=== PATIENT | female | born 1935 | race Caucasian/White ===

== ENCOUNTER → 2025-01-31 | Outpatient (REF) | payer SELFPAY ==
[2025-01-31 09:44] LABS: Hematocrit 36.8 % (37-47); Hemoglobin 12.3 g/dL (12.0-15.0); Mean Corp Hgb Conc 33.4 g/dL (32-36); Mean Corpuscular Volume 94.8 fL (81-99); Mean Platelet Vol. 10.6 fl (6.2-12.0); Platelet Count 170 K/mm3 (150-450); RBC Distribution Width CV 13.0 % (11.6-14.6); RBC Distribution Width SD 45.0 fl (35.1-43.9); Red Blood Count 3.88 M/mm3 (4.2-5.4); White Blood Count 3.4 K/mm3 (4.4-11.0)
[2025-01-31 10:18] LABS: AST(SGOT) 30 U/L (<=31); Alanine Aminotransfer ALT/SGPT 18 U/L (<=34); Albumin, Serum 4.1 g/dL (3.4-4.8); Alkaline Phosphatase 68 U/L (35-104); Anion Gap 11 (5-15); BUN 19 mg/dL (4-19); BUN/Creat Ratio 21.6 RATIO (10-20); Calcium,Total 9.1 mg/dL (7.6-11.0); Carbon Dioxide 22.5 mmol/L (21.0-32.0); Chloride 104 mmol/L (98-108); Globulin 1.9 g/dL (2.2-4.2); Glucose 120 mg/dL (70-99); Potassium 4.0 mmol/L (3.3-5.1)
== END ==
LOC: OLS.ACH2 05:00
PROVIDERS: Visit Provider Internal Medicine
DX: I10 Essential (primary) hypertension (principal)
CPT/HCPCS: 36415; 80053; 85027

== ENCOUNTER → 2025-04-25 05:00 | Outpatient (REF) | payer MEDICARE, SELFPAY ==
--- OUTSIDE RECORDS SUMMARY | 2025-04-25 04:32 | XMS RPT_ITS | CCD ---
Author Organization [facility] Care Team Providers Care Patient Assistant Name Role Phone Loki Ornelas Primary Care Provider [phone] Martín Urena DO F Primary Care Provider Kleber Demarco DO Unavailable Martín Urena DO F Primary Care Provider Kleber Demarco DO E Unavailable [phone] LOKI ORNELAS Primary Care Unavailable MANUEL BAKER, HARMAN Attending Unavailable MANUEL BAKER, HARMAN Attending Unavailable LOKI ORNELAS Primary Care Unavailable Martín Urena DO Primary Care Provider Kleber Demarco DO E Unavailable Loki Ornelas DO Primary Care Provider MARTÍN URENA Attending Unavailable CATHYA, MARTÍN Primary Care Unavailable CATHYA, MARTÍN Primary Care Unavailable KLEBER DEMARCO Attending Unavailable MARTÍN URENA Primary Care Unavailable MARTÍN URENA Attending Unavailable MARTÍN URENA Referring Unavailable SAADLLA, MARTÍN Primary Care Unavailable CATHYAMARTÍN Attending Unavailable CATHYA MARTÍN Primary Care Unavailable CATHYA, MARTÍN Primary Care Unavailable Latrell Raphael Attending Unavailable Medications Current Medications Medication Drug Class(es) Dates Sig (Normalized) Sig (Original) aspirin 81 mg delayed release oral tablet (20 sources) Platelet Aggregation Inhibitor, Nonsteroidal Anti-inflammatory Drug take 1 tablet by mouth once daily aspirin EC 81 MG EC tablet Take 81 mg by mouth daily. Active brimonidine tartrate 2 mg/ml / timolol 5 mg/ml ophthalmic solution (20 sources) alpha-Adrenergic Agonist, beta-Adrenergic Brielle Start: 04-23-2022 take 1 drop(s) into the eye(s) every twelve hours Combigan 0.2-0.5 % ophthalmic solution Administer 1 drop into the left eye in the morning and 1 drop in the evening. 04/23/2022 Active Start: 04-23-2022 Combigan 0.2-0 .5 % ophthalmic solution Start: 02-12-2019 COMBIGAN 0.2-0 .5 % ophthalmic solution dorzolamide 20 mg/ml / timolol 5 mg/ml ophthalmic solution (10 sources) Carbonic Anhydrase Inhibitor, beta-Adrenergic Brielle Start: 08-23-2024 dorzolamide-timolol (Cosopt) 2-0.5 % ophthalmic solution 08/23/2024 Active labetalol hydrochloride 100 mg oral tablet (20 sources) beta-Adrenergic Brielle Start: 02-07-2022 End: 12-16-2024 labetalol (Normodyne) 100 MG tablet TAKE 1 TABLET TWICE DAILY 180 tablet 3 12/16/2024 Active Start: 08-09-2021 take 1 tablet by darrel th twice daily labetalol (NORMODYNE) 100 MG tablet Take 1 tablet by mouth 2 times daily 60 tablet 3 08/09/2021 Active latanoprost 0.05 mg/ml ophthalmic solution (20 sources) Prostaglandin Analog Start: 05-07-2022 take 1 drop(s) into the eye(s) once daily latanoprost (Xalatan) 0.005 % ophthalmic solution Administer 1 drop into the left eye Nightly. 05/07/2022 Active Start: 05-07-2022 latanoprost (X alatan) 0.005 % ophthalmic solution Start: 01-04-2019 latanoprost (X ALATAN) 0.005 % ophthalmic solution latanoprostene bunod 0.24 mg/ml ophthalmic solution (20 sources) Latanoprostene B unod (Vyzulta) 0.024 % solution Administer 0.024 % into affected eye(s) 1 (one) time each day. Active losartan potassium 25 mg oral tablet (20 sources) Angiotensin 2 Receptor Brielle Start: 05-10-2024 End: 02-28-2025 losartan (Cozaar) 25 MG tablet Indications: Primary hypertension TAKE 1 TABLET TWICE DAILY (DOSE CHANGE) 180 tablet 1 02/28/2025 Active Start: 05-06-2024 losartan (Coza ar) 25 MG tablet Indications: Primary hypertension Change to one BID 180 tablet 1 05/06/2024 Active Start: 01-08-2024 End: 07-06-2024 take 1 tablet by mouth once daily in the evening losartan (Cozaar) 25 MG tablet Indications: Primary hypertension Take 1 tablet (25 mg) by mouth every evening. 90 tablet 1 01/08/2024 05/06/2024 Discontinued (Dose adjustment) Start: 12-08-2023 End: 07-06-2024 take 1 tablet by mouth once daily losartan (Cozaar) 50 MG tablet Indications: Primary hypertension Take 1 tablet (50 mg) by mouth daily. 90 tablet 1 01/08/2024 05/06/2024 Discontinued (Dose adjustment) melatonin 10 mg extended release oral tablet (20 sources) take 10 mg by mouth once daily MELATONIN PO Take 10 mg by mouth daily. Active MELATONIN PO Reese e by mouth. 0 Active Multiple Vitamin (Multi-Vitamin Daily) tablet (20 sources) take 1 tablet by darrel th once daily Multiple Vitamin (Multi-Vitamin Daily) tablet Take 1 tablet by mouth daily. Active take 1 tablet by mouth once jaquelin y Multiple Vitamin (Multi-Vitamin Daily) tablet Take 1 tablet by mouth daily. 0 Active Multiple Vitamin (MULTI-VITAMIN DAILY) TABS (3 sources) take 1 tablet by mouth once daily Multiple Vitamin (MULTI-VITAMIN DAILY) TABS Take 1 tablet by mouth daily 0 Active netarsudil 0.2 mg/ml ophthalmic solution (20 sources) Rho Kinase Inhibitor Start: 024 Rhopressa 0.02 % solution 09/12/2023 Active ofloxacin 3 mg/ml ophthalmic solution (1 source) Quinolone Antimicrobial Start: 022 ofloxacin (OCUFLOX) 0.3 % solution Instill 1 drop into right eye six times a day Start after surgery, bring unopened bottle with you to surgery. 0 08/06/2021 Active prednisoLONE acetate 10 mg/ml ophthalmic suspension (1 source) Corticosteroid Start: 022 prednisoLONE acetate (PRED FORTE) 1 % ophthalmic suspension Instill 1 drop into right eye six times a day Start after surgery, bring unopened bottle with you to surgery. 0 08/06/2021 Active Completed/Discontinued Medications Medication Drug Class(es) Dates Sig (Normalized) Sig (Original) acetaminophen 325 mg oral tablet (8 sources) Start: 11-21-2022 End: 11-21-2022 acetaminophen (Tylenol) tablet 650 mg Start: 11-13-2022 End: 11-13-2022 acetaminophen (Tylenol) tabl et 650 mg Start: 11-06-2022 End: 11-06-2022 acetaminophen (Tylenol) tabl et 650 mg Start: 08-15-2022 End: 08-15-2022 acetaminophen (Tylenol) tabl et 1,000 mg calcium chloride 0.0014 meq/ml / potassium chloride 0.004 meq/ml / sodium chloride 0.103 meq/ml / sodium lactate 0.028 meq/ml injectable solution (5 sources) Start: 08-15-2022 End: 08-15-2022 lactated ringers infusion 1 ml dexamethasone phosphate 4 mg/ml injection (1 source) Corticosteroid Start: 08-15-2022 End: 08-15-2022 dexAMETHasone (Decadron) injection dexmedetomidine 0.1 mg/ml injectable solution (1 source) Central alpha-2 Adrenergic Agonist Start: 08-15-2022 End: 08-15-2022 dexmedeTOMIDine (Precedex) concentrated solution 1 ml diphenhydrAMINE hydrochloride 50 mg/ml cartridge (2 sources) Histamine-1 Receptor Antagonist Start: 08-15-2022 End: 08-15-2022 diphenhydrAMINE (BENADryl) injection 12.5 mg diphenhydrAMINE (BENADryl) 25 mg, famotidine (Pepcid) 20 mg in sodium chloride 0.9 % 50 mL IVPB (6 sources) Start: 11-21-2022 End: 11-21-2022 diphenhydrAMINE (BENADryl) 25 mg, famotidine (Pepcid) 20 mg in sodium chloride 0.9 % 50 mL IVPB Start: 11-13-2022 End: 11-13-2022 diphenhydrAMINE (BENADryl) 2 5 mg, famotidine (Pepcid) 20 mg in sodium chloride 0.9 % 50 mL IVPB Start: 11-06-2022 End: 11-06-2022 diphenhydrAMINE (BENADryl) 2 5 mg, famotidine (Pepcid) 20 mg in sodium chloride 0.9 % 50 mL IVPB 10 ml esmolol hydrochloride 10 mg/ml injection (1 source) beta-Adrenergic Brielle Start: 08-15-2022 End: 08-15-2022 esmolol (Brevibloc) injection F18 FDG radio-isotope injection 12 millicurie (2 sources) Start: 01-02-2023 End: 01-02-2023 F18 FDG radio-isotope injection 12 millicurie 2 ml fentaNYL 0.05 mg/ml injection (4 sources) Opioid Agonist Start: 08-15-2022 End: 08-15-2022 fentaNYL (Sublimaze) injection 50 mcg Start: 08-15-2022 End: 08-15-2022 fentaNYL (Sublimaze) injecti on 25 mcg Iopamidol (1 source) Radiographic Contrast Agent Start: 03-12-2019 End: 03-12-2019 iopamidol (ISOVUE-370) 76 % injection 75 mL iopamidol (ISOVUE-370) 76 % injection 75 mL (1 source) Start: 11-14-2021 End: 11-14-2021 iopamidol (ISOVUE-370) 76 % injection 75 mL ketamine 10 mg/ml injectable solution (1 source) General Anesthetic Start: 08-15-2022 End: 08-15-2022 ketamine (Ketalar) injection labetalol (Normodyne,Trandate ) injection 5 mg (2 sources) Start: 08-15-2022 End: 08-15-2022 labetalol (Normodyne,Trandat e) injection 5 mg 10 ml lidocaine hydrochloride 20 mg/ml injection (1 source) Antiarrhythmic, Amide Local Anesthetic Start: 08-15-2022 End: 08-15-2022 lidocaine PF (Xylocaine) 2 % injection lisinopril 10 mg oral tablet (2 sources) Angiotensin Converting Enzyme Inhibitor Start: 11-26-2023 End: 05-24-2024 take 1 tablet by mouth once daily lisinopril 10 MG tablet Take 1 tablet (10 mg) by mouth daily. 30 tablet 2 11/26/2023 12/08/2023 Discontinued (Side effects) 1 ml LORazepam 2 mg/ml injection (2 sources) Benzodiazepine Start: 08-15-2022 End: 08-15-2022 LORazepam (Ativan) injection 0.5 mg ondansetron 8 mg oral tablet (8 sources) Serotonin-3 Receptor Antagonist Start: 10-22-2022 End: 11-06-2022 take 1 tablet by mouth every eight hours as needed for nausea ondansetron (Zofran) 8 MG tablet Indications: Follicular lymphoma, unspecified follicular lymphoma type, unspecified body region (HCC) Take 1 tablet (8 mg) by mouth every 8 hours as needed for nausea or vomiting for up to 15 days. 30 tablet 0 10/22/2022 11/06/2022 Start: 08-15-2022 End: 08-15-2022 ondansetron (Zofran) injecti on 4 mg Start: 08-15-2022 End: 08-15-2022 ondansetron (Zofran) injecti on oxyCODONE (2 sources) Opioid Agonist Start: 08-15-2022 End: 08-15-2022 oxyCODONE (Roxicodone) immediate release tablet 5 mg 1 ml phenylephrine hydrochloride 10 mg/ml injection (1 source) alpha-1 Adrenergic Agonist Start: 08-15-2022 End: 08-15-2022 phenylephrine (Paco-Synephrine) injection 50 ml propofol 10 mg/ml injection (1 source) General Anesthetic Start: 08-15-2022 End: 08-15-2022 propofol (Diprivan) 10 mg/mL infusion riTUXimab-pvvr (Ruxience) 600 mg in sodium chloride 0.9 % 500 mL chemo IVPB (6 sources) Start: 11-21-2022 End: 11-21-2022 riTUXimab-pvvr (Ruxience) 600 mg in sodium chloride 0.9 % 500 mL chemo IVPB Start: 11-13-2022 End: 11-13-2022 riTUXimab-pvvr (Ruxience) 60 0 mg in sodium chloride 0.9 % 500 mL chemo IVPB Start: 11-06-2022 End: 11-06-2022 riTUXimab-pvvr (Ruxience) 60 0 mg in sodium chloride 0.9 % 500 mL chemo IVPB 1000 ml sodium chloride 9 mg /ml injection (20 sources) Start: 11-21-2022 End: 11-21-2022 sodium chloride 0.9 % infusi on Start: 11-13-2022 End: 11-13-2022 sodium chloride 0.9 % infusi on Start: 11-06-2022 End: 11-06-2022 sodium chloride 0.9 % infusi on Start: 08-15-2022 End: 08-15-2022 sodium chloride 0.9% (NS) fl ush 10 mL Start: 08-15-2022 End: 08-15-2022 sodium chloride 0.9% (NS) fl ush 10 mL Start: 08-15-2022 End: 08-15-2022 sodium chloride 0.9 % bolus 500 mL Start: 08-15-2022 End: 08-15-2022 sodium chloride 0.9 % infusi on Start: 08-15-2022 End: 08-15-2022 sodium chloride 0.9% (NS) fl ush 10 mL Problems Active Problems Problem Classification Problem Date Documented Date Episodic/Chronic Essential hypertension (20 sources) Essential hypertension; Translations: [Essential (primary) hypertension] Onset: 10-03-2022 10-03-2022 Chronic Glaucoma (18 sources) Bilateral glaucoma; Translations: [Unspecified glaucoma] Onset: 03-24-2024 03-24-2024 Chronic Heart valve disorders (20 sources) Aortic valve stenosis; Translations: [Nonrheumatic aortic (valve) stenosis] Onset: 10-03-2022 10-03-2022 Chronic Lymphadenitis (2 sources) Chronic lymphadenitis; Translations: [Chronic lymphadenitis, except mesenteric] Chronic Non-Hodgkin`s lymphoma (20 sources) Follicular non-Hodgkin's lymphoma; Translations: [Follicular lymphoma, unspecified, lymph nodes of head, face, and neck] Onset: 10-03-2022 Chronic Other acquired deformities (1 source) Contracture of joint of left hand; Translations: [Contracture, left hand] 09-28-2024 Chronic Other acquired deformities (2 sources) Contracture, left hand; Translations: [Contracture, left hand] Onset: 09-28-2024 Chronic Other skin disorders (2 sources) Mass of neck; Translations: [Localized swelling, mass and lump, neck] Episodic Other skin disorders (1 source) Alopecia; Translations: [Nonscarring hair loss, unspecified] 09-24-2023 Episodic Prolapse of female genital organs (15 sources) Uterovaginal prolapse, unspecified; Translations: [Uterovaginal prolapse, unspecified] Onset: 05-12-2016 03-24-2024 Chronic Residual codes; unclassified (15 sources) Family history of cancer of colon; Translations: [Family history of malignant neoplasm of digestive organs] 03-24-2024 Episodic Spondylosis; intervertebral disc disorders; other back problems (20 sources) Disorder of lumbar disc; Translations: [Unspecified thoracic, thoracolumbar and lumbosacral intervertebral disc disorder] Onset: 03-24-2024 03-24-2024 Chronic Thyroid disorders (18 sources) Non-toxic uninodular goiter; Translations: [Nontoxic single thyroid nodule] Onset: 05-12-2016 Chronic Past or Other Problems Problem Classification Problem Date Documented Da te Episodic/Chronic Abdominal pain (1 source) Abdominal pain; Translations: [Abdominal pain, unspecified abdominal location] Episodic Conditions associated with dizziness or vertigo (3 sources) Lightheadedness; Translations: [Dizziness and giddiness] Episodic Diseases of mouth; excluding dental (1 source) Hypertrophy of parotid gland; Translations: [Hypertrophy of salivary gland] Episodic Heart valve disorders (3 sources) Heart murmur; Translations: [Cardiac murmur, unspecified] Episodic Other circulatory disease (1 source) Carotid bruit; Translations: [Bruit of right carotid artery] Episodic Other gastrointestinal disorders (1 source) Abdominal mass; Translations: [Abdominal mass, unspecified abdominal location] Episodic Other screening for suspected conditions (not mental disorders or infectious disease) (3 sources) Patient encounter status; Translations: [Encounter for screening for other suspected endocrine disorder] Onset: 09-28-2024 09-28-2024 Episodic Results Test Name Value Interpretation Reference Range Facility 36 02-28-2025 36 Recent Visits Date Type Provider Dept 09/28/24 Office Visit Martín Urena DO [facility] 03/24/24 Office Visit Martín Urena DO [facility] Showing recent visits within past 365 days and meeting all other requirements Future Appointments Date Type Provider Dept 03/31/25 Appointment Martín Urena DO [facility] Showing future appointments within next 90 days and meeting all other requirements Requested Prescriptions Pending Prescriptions Disp Refills losartan (Cozaar) 25 MG tablet [Pharmacy Med Name: LOSARTAN POTASSIUM 25 MG Oral Tablet] 180 tablet 3 Sig: TAKE 1 TABLET TWICE DAILY (DOSE CHANGE) Provider: Martín Urena DO Verified pharmacy: yes Verified day(s) supplied: yes Verified refill(s) needed (previous prescription showing no refills in chart): Yes Have you received any controlled medications from any other provider? N/A Overdue for visit: N/A If yes - patient scheduled? N/A Most recent labs completed in chart? N/A None Normal [facility] CBC-Complete Blood Cnt No Di ffon 01-31-2025 Erythrocyte distribution width (RBC) [Ratio] 13.0 % Normal 11.6-14.6 [facility] Comment on above: Order Comment: 52-1 Performed By: #### L 500.4050, L100.0500 #### [facility] [address] [place], [address] Hematocrit (Bld) [Volume fraction] 36.8 % Low 37-47 [facility] Comment on above: Order Comment: 52-1 Performed By: #### L 500.4050, L100.0500 #### [facility] [address] [place], [address] Hemoglobin (Bld) [Mass/Vol] 12.3 g/dL Normal 12.0-15.0 [facility] Comment on above: Order Comment: 52-1 Performed By: #### L 500.4050, L100.0500 #### [facility] [address] [place], [address] MCH (RBC) [Entitic mass] 31.7 pg Normal 27.0-32.0 [facility] Comment on above: Order Comment: 521-1 Performed By: #### L [id number], L100.0500 #### [facility] [address] [place], [address] MCHC (RBC) [Mass/Vol] 33.4 g/dL Normal 32-36 [facility] Comment on above: Order Comment: 521-1 Performed By: #### L 500.4050, L100.0500 #### [facility] [address] [place], [address] MCV (RBC) [Entitic vol] 94.8 fL Normal 81-99 [facility] Comment on above: Order Comment: 521-1 Performed By: #### L 500.4050, L100.0500 #### [facility] [address] [place], [address] Platelet mean volume (Bld) [Entitic vol] 10.6 fL Normal 6.2-12.0 [facility] Comment on above: Order Comment: 521-1 Performed By: #### L 500.4050, L100.0500 #### [facility] [address] [place], [address] Platelets (Bld) [#/Vol] 170 10*3/uL Normal 150-450 [facility] Comment on above: Order Comment: 521-1 Performed By: #### L 500.4050, L100.0500 #### [facility] [address] [place], [address] RBC (Bld) [#/Vol] 3.88 10*6/uL Low 4.2-5.4 [facility] Comment on above: Order Comment: 521-1 Performed By: #### L 500.4050, L100.0500 #### [facility] [address] [place], [address] RDW SD 45.0 fl High 35.1-43.9 [facility] Comment on above: Order Comment: 521-1 Performed By: #### L 500.4050, L100.0500 #### [facility] [address] [place], [address] WBC (Bld) [#/Vol] 3.4 10*3/uL Low 4.4-11.0 [facility] Comment on above: Order Comment: 521-1 Performed By: #### L 500.4050, L100.0500 #### [facility] [address] [place], [address] Comprehensive Metabolic Prof ilon 01-31-2025 Albumin [Mass/Vol] 4.1 g/dL Normal 3.4-4.8 [facility] Comment on above: Order Comment: 521-1 Performed By: #### L 500.4050, L100.0500 #### [facility] [address] [place], [address] Albumin/Globulin [Mass ratio] 2.2 {ratio} Normal 0.9-2.4 [facility] Comment on above: Order Comment: 521-1 Performed By: #### L 500.4050, L100.0500 #### [facility] [address] [place], [address] ALK PHOS 68 U/L Normal 35-104 [facility] Comment on above: Order Comment: 521-1 Performed By: #### L 500.4050, L100.0500 #### [facility] [address] [place], [address] ALT [Catalytic activity/Vol] 18 U/L Normal <=34 [facility] Comment on above: Order Comment: 521-1 Performed By: #### L 500.4050, L100.0500 #### [facility] [address] [place], [address] AST [Catalytic activity/Vol] 30 U/L Normal <=31 [facility] Comment on above: Order Comment: 521-1 Performed By: #### L 500.4050, L100.0500 #### [facility] [address] [place], [address] Bilirubin [Mass/Vol] 0.48 mg/dL Normal 0.00-1.30 [facility] Comment on above: Order Comment: 521-1 Performed By: #### L 500.4050, L100.0500 #### [facility] [address] [place], [address] BUN/CRE 21.6 RATIO High 10-20 [facility] Comment on above: Order Comment: 521-1 Performed By: #### L 500.4050, L100.0500 #### [facility] [address] [place], [address] Calcium [Mass/Vol] 9.1 mg/dL Normal 7.6-11.0 [facility] Comment on above: Order Comment: 521-1 Performed By: #### L 500.4050, L100.0500 #### [facility] [address] [place], [address] Chloride [Moles/Vol] 104 mmol/L Normal 98-108 [facility] Comment on above: Order Comment: 521-1 Performed By: #### L 500.4050, L100.0500 #### [facility] [address] [place], [address] CO2 [Moles/Vol] 22.5 mmol/L Normal 21.0-32.0 [facility] Comment on above: Order Comment: 521-1 Performed By: #### L 500.4050, L100.0500 #### [facility] [address] [place], [address] Creatinine [Mass/Vol] 0.90 mg/dL Normal 0.70-1.20 [facility] Comment on above: Order Comment: 521-1 Performed By: #### L 500.4050, L100.0500 #### [facility] [address] [place], [address] GAP 11 Normal 5-15 [facility] Comment on above: Order Comment: 521-1 Performed By: #### L 500.4050, L100.0500 #### [facility] [address] [place], [address] GFR/1.73 sq M.predicted among non-blacks MDRD (S/P/Bld) [Vol rate/Area] 61 mL/min/{1.73_m2} Normal >60 [facility] Comment on above: Order Comment: Result Comment: mL/m in/1.73m2 CKD-EPI Creatinine Equation (2020) Performed By: #### L 500.4050, L100.0500 #### [facility] [address] [place], [address] Globulin (S) [Mass/Vol] 1.9 g/dL Low 2.2-4.2 [facility] Comment on above: Order Comment: Performed By: #### L 500.4050, L100.0500 #### [facility] [address] [place], [address] Glucose [Mass/Vol] 120 mg/dL High 70-99 [facility] Comment on above: Order Comment: - Performed By: #### L 500.4050, L100.0500 #### [facility] [address] [place], [address] Potassium [Moles/Vol] 4.0 mmol/L Normal 3.3-5.1 [facility] Comment on above: Order Comment: - Performed By: #### L 500.4050, L100.0500 #### [facility] [address] [place], [address] Sodium [Moles/Vol] 137 mmol/L Normal 133-145 [facility] Comment on above: Order Comment: - Performed By: #### L 500.4050, L100.0500 #### [facility] [address] [place], [address] T PROT 6.0 g/dL Normal 5.9-8.4 [facility] Comment on above: Order Comment: 521-1 Performed By: #### L 500.4050, L100.0500 #### [facility] [address] [place], [place], [address] Urea nitrogen [Mass/Vol] 19 mg/dL Normal 4-19 [facility] Comment on above: Order Comment: 521-1 Performed By: #### L 500.4050, L100.0500 #### [facility] [address] [place], [place], [id number] 36on 01-24-2025 36 Your fax has been successfully sent to [facility] at [phone]. From: [facility] 01/24/2025 8:55:50 AM Origin Record Created by ESTELLE 01/24/2025 8:55:54 AM Conversion [[id number]] Type: application/postscript G3 to TIFF #1: Success [image/g3] (29ms) GhostScript TIFF #1: Success [image/tiff] (222ms) ([id number]:WORKSRV 2) 01/24/2025 8:56:03 AM Conversion Successfully created cover sheet. Type: application/vnd.openxm lformats-officedocumen t.wordprocessingml.doc ument G3 to TIFF #1: Success [image/g3] (10ms) GhostScript TIFF #1: Success [image/tiff] (80ms) Resubmitted: [application/postscrip t] Word Automation #1: Success [image/g3] (1752ms) ([id number]:WORKSRV 1) 01/24/2025 8:56:06 AM Transmission Record Sent to [phone] with remote ID [id number] Result: Success Page record: Elapsed time: 05:02 on channel 49 [facility] 36 refaxed [facility] 36 Name of caller: Elizabeth naranjo Contact phone number: [phone] Relationship to Patient: [facility] Provider: Romel Practice: Ro Chief Complaint/Reason for Call: Elizabethmarcella stated they did not receive the office notes. Please Advise. Best time of day caller can be reached: Any Patient advised that office/PCP has 24-48 business hours to return their call: Yes [facility] 36on 01-20-2025 36 Faxed H&P no DNR on file [facility] 36 Name of caller: Elizabeth naranjo Contact phone number: [phone] Relationship to Patient: [facility] Provider: Dr Urena Practice: [facility] Chief Complaint/Reason for Call: Pt is getting transferred to [facility] on Friday. They are asking for an H&P and any info on DNR to be faxed to them. F#[phone] Best time of day caller can be reached: AM Patient advised that office/PCP has 24-48 business hours to return their call: Yes [facility] 36on 12-29-2024 36 Spoke with pt, I let her know DR. Urena is out on medical leave at this time, she said they will go through the provider at the home/facility [facility] 36 Name of caller: Amanda Pappas Contact phone number: [phone] Relationship to Patient: patient Provider: Dr Urena Practice: [facility] Chief Complaint/Reason for Call: Patient stated that they are wanting to move to the [facility] by 02/09/2025, but they need to have a physical prior to moving there. Patient stated to please call back and let them know if they can get in to have this done. Please advise. Thank you. Best time of day caller can be reached: Any Patient advised that office/PCP has 24-48 business hours to return their call: No [facility] 36on 12-16-2024 36 Recent Visits Date Type Provider Dept 09/28/24 Office Visit Martín Urena, DO [facility] 03/24/24 Office Visit Martín Urena, DO [facility] 01/08/24 Office Visit Raymundo Manzano PA-C [facility] Showing recent visits within past 365 days and meeting all other requirements Future Appointments No visits were found meeting these conditions. Showing future appointments within next 90 days and meeting all other requirements Requested Prescriptions Pending Prescriptions Disp Refills labetalol (Normodyne) 100 MG tablet [Pharmacy Med Name: LABETALOL HYDROCHLORIDE 100 MG Oral Tablet] 180 tablet 3 Sig: TAKE 1 TABLET TWICE DAILY Provider: Martín Urena DO Verified pharmacy: yes Verified day(s) supplied: yes Verified refill(s) needed (previous prescription showing no refills in chart): Yes Have you received any controlled medications from any other provider? N/A Overdue for visit: No If yes - patient scheduled? Yes Most recent labs completed in chart? Yes Hypertension: Lab Results Component Value Date NA 139 11/21/2022 K 4.2 11/21/2022 EGFR 65 09/28/2024 BUN 21 09/28/2024 CREATININE 0.86 09/28/2024 [facility] 36on 10-11-2024 36 Message released to patient as written. Patient's further questions if applicable: Pt returned call from office. Read message as written. Pt expressed understanding and had no additional questions. Please advise Were all questions from office addressed or relayed to the patient from encounter: Yes [facility] Office Visiton 09-28-2024 Follow-up visit [id number] Shaina Pappas 1935 F Date Provider Department Center 09/28/2024 [id number] URENA [facility] Family History Adopted: Yes Problem Relation Age of Onset Pulmonary embolism Mother 30 Comments: DVT and PE No Known Problems Father Comments: unknown Colon cancer Sister Comments: age 70 No Known Problems Sister Comments: nonspecific causes No Known Problems Brother No Known Problems Brother No Known Problems Brother Comments: not close Family Status - Relation Status Age at Mother Father Sister Sister Brother Brother Brother Alive Level of Service:79049 CT OFFICE/OUTPATIENT ESTABLISHED MOD MDM 30 MIN Reason for Visit and Comments: Follow-up [659950] - Med Check Normal [facility] Progress Noteon 09-28-2024 Progress Note [facility] - [address] [facility] [address] Visit type: Established Patient Reason for Visit: Follow-up (Med Check ) Assessment / Plan: Ashley was seen today for follow-up. Diagnoses and all orders for this visit: Primary hypertension (Primary) Comments: stable, cont losartan and normodyne Orders: - CBC auto differential; Future - Comprehensive metabolic panel; Future - CBC auto differential - Comprehensive metabolic panel Follicular lymphoma, unspecified follicular lymphoma type, unspecified body region (HCC) Comments: Stable, follow-up yearly with oncology, check lab Lumbar disc disease Comments: New onset but resolved. Unsure of etiology. X-ray, observe OTC analgesics Orders: - XR lumbar spine 4-5 view; Future Thyroid disorder screening - TSH; Future - TSH Contracture of hand joint, left Comments: Mild, asymptomatic, callreferral if worsening Subjective: Patient ID: Ashley Pappas is a 89 y.o. female. HPI well-controlled hypertensive patient with history of follicular lymphoma of the posterior right side of her neck and salivary lesions has been feeling well on her meds. Blood pressure well at home. Does have a few questions she would like to ask. She has a painless change in the palm of her left hand and also had back pain on the right flank that lasted about a week a few weeks ago but was rather intense but resolved. Review of Systems no night sweats fevers or chills. No sense of adenopathy. No recent sore throat or cough. Denies chest pains dyspnea or palpitations or claudication. No abdominal pain. Eating and voiding well. No melena or blood. No constipation diarrhea. No dysuria. Right side her low back was painful for a week had resolved. No buttock or leg pain. No sciatica. No skin rash or shingles. Changes on the palmar right hand is painless. No trauma Allergies[1] Current Medications[2] Problem List[3] Social History Tobacco Use Smoking status: Never Smokeless tobacco: Never Substance Use Topics Alcohol use: No Surgical History[4] Family History[5] Objective: BP 124/68 Pulse 64 Temp 36.4 ?C (97.6 ?F) (Temporal) Ht 5' 3" (1.6 m) Wt 142 lb 12.8 oz (64.8 kg) SpO2 98% BMI 25.30 kg/m? Physical Exam The physical exam is generally normal. Patient appears well, alert and oriented x 3, pleasant, cooperative. Vitals are as noted. Neck supple, no abnormal adenopathy, thyroid lesions or masses.. No carotid bruits. Lungs are clear to auscultation. Heart is regular, with faint aortic stenotic murmur, but no gallops or ectopy. Abdomen is soft, non tender, without masses, hepatosplenomegaly, or bruits. Normal BS evident. Extremities are normal without edema. Mild painless contracture and tendon changes of the palmar left hand are evident. Full range of motion of fingers. Pulse color temperature normal/ No worrisome skin lesions. Screening neurological exam is normal without focal deficits. Fair range of motion of her spine. Pain was more on the right paraspinal muscle tissue. Nontender spinous processes. Negative straight leg raising bilaterally. Normal hip range of motion. Can walk on her heels and toes. No deficit in strength. Reflexes preserved [1] No Known Allergies [2] Current Outpatient Medications: aspirin EC 81 MG EC tablet, Take 81 mg by mouth daily., Disp: , Rfl: Combigan 0.2-0.5 % ophthalmic solution, Administer 1 drop into the left eye in the morning and 1 drop in the evening., Disp: , Rfl: dorzolamide-timolol (Cosopt) 2-0.5 % ophthalmic solution, , Disp: , Rfl: labetalol (Normodyne) 100 MG tablet, TAKE 1 TABLET TWICE DAILY, Disp: 180 tablet, Rfl: 1 latanoprost (Xalatan) 0.005 % ophthalmic solution, Administer 1 drop into the left eye Nightly., Disp: , Rfl: Latanoprostene Bunod (Vyzulta) 0.024 % solution, Administer 0.024 % into affected eye(s) 1 (one) time each day., Disp: , Rfl: losartan (Cozaar) 25 MG tablet, Change to one BID, Disp: 180 tablet, Rfl: 3 MELATONIN PO, Take 10 mg by mouth daily., Disp: , Rfl: Multiple Vitamin (Multi-Vitamin Daily) tablet, Take 1 tablet by mouth daily., Disp: , Rfl: Rhopressa 0.02 % solution, , Disp: , Rfl: [3] Patient Active Problem List Diagnosis Aortic valve stenosis Hypertension Follicular lymphoma (HCC) Family history of colon cancer Cystocele with uterine prolapse Glaucoma Lumbar disc disease Right thyroid nodule [4] Past Surgical History: Procedure Laterality Date ACHILLES TENDON SURGERY Left 1994 APPENDECTOMY 1982 BUNIONECTOMY Bilateral CARPAL TUNNEL RELEASE Bilateral 1994 decades ago CATARACT EXTRACTION Bilateral 2010 Dr. Smith trabelectmanuel also COLONOSCOPY 2011 HAND SURGERY Left 1994 metacarpal bone leak ? LUMBAR LAMINECTOMY 2003 [facility] [place] TOTAL KNEE ARTHROPLASTY Left 1994 UPPER GASTROINTESTINAL ENDOSCOPY [5] Family History Adopted: Yes Probl (more content not included)... [facility] 36 07-23-2024 36 Recent Visits Date Type Provider Dept 03/24/24 Office Visit Martín Urena DO [facility] 01/08/24 Office Visit Raymundo Manzano PA-C [facility] 12/08/23 Office Visit Raymundo Manzano PA-C [facility] 09/24/23 Office Visit Martín Urena DO [facility] Showing recent visits within past 365 days and meeting all other requirements Future Appointments Date Type Provider Dept 09/23/24 Appointment Martín Urena DO [facility] Showing future appointments within next 90 days and meeting all other requirements Requested Prescriptions Pending Prescriptions Disp Refills labetalol (Normodyne) 100 MG tablet [Pharmacy Med Name: Labetalol HCl Oral Tablet 100 MG] 180 tablet 1 Sig: TAKE 1 TABLET TWICE DAILY Provider: Martín Urena DO Verified pharmacy: yes Verified day(s) supplied: yes Verified refill(s) needed (previous prescription showing no refills in chart): Yes Have you received any controlled medications from any other provider? No Overdue for visit: No If yes - patient scheduled? Yes Most recent labs completed in chart? Yes Hypertension: Lab Results Component Value Date NA 139 11/21/2022 K 4.2 11/21/2022 EGFR 65 09/24/2023 BUN 19 09/24/2023 CREATININE 0.86 09/24/2023 [facility] Office Visiton 07-15-2024 Follow-up visit [id number] Shaina Pappas 1935 F Date Provider Department Center 07/15/2024 [id number] DEMARCO [facility] None Family History Adopted: Yes Problem Relation Age of Onset Pulmonary embolism Mother 30 Comments: DVT and PE No Known Problems Father Comments: unknown Colon cancer Sister Comments: age 70 No Known Problems Sister Comments: nonspecific causes No Known Problems Brother No Known Problems Brother No Known Problems Brother Comments: not close Family Status - Relation Status Age at Mother Father Sister Sister Brother Brother Brother Alive Level of Service:94806 CT OFFICE/OUTPATIENT ESTABLISHED LOW MDM 20 MIN Reason for Visit and Comments: Follow-up [609267] Normal [facility] Progress Noteon 07-15-2024 Progress Note Hematology/Oncology Office Visit Oncology History: 1) 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 Diagnosed via excisional right cervical lymph node biopsy on 08/15/22. - Patient presented with 2-3 years af an abnormal lymph node posterior right neck and enlargement of the right parotid gland. She denied any B symptoms. Excisional biopsy of a right posterior cervical lymph node on 08/15/22 confirmed follicular lymphoma low grade. - PET scan 10/11/22 showed bulky intensely FDG avid right parotid mass, with accumulation in the bilateral cervical chain, supraclavicular, axillary, and left internal mammary nodes, right temporal and left temporal occipital scalp, mild splenomegaly, and in the bones of the lower extremity. - systemic therapy with Rituxan weekly x 4 started 10/30/22. Cycle 4 11/21/22. - PET scan 01/02/23 showed no evidence of residual or recurrent FDG avid malignancy - observation recommended HPI: Ashley Pappas is a 88 y.o. female who comes in today for routine 6 month follow up. She has no new concerns today in regards to the lymphoma. She denies any new lymphadenopathy. She notes her eye sight has been poor and she is following with her field specialist regularly. She is accompanied by her daughter today. She denies any new cervical lymphadenopathy or fullness in the right parotid gland. No b symptoms. She denies any fevers, weight loss, change in appetite, night sweats. She continues to be very active and independent. Past Medical History: Diagnosis Date Aortic valve stenosis 10/03/2022 mod per ECHO 07/04, nml LVEF Cystocele with uterine prolapse [address]- removed 02/01 Family history of colon cancer Follicular lymphoma (HCC) 10/03/[address] Fu Hypertension 2020 Lumbar disc disease Right thyroid nodule 2017 Dr. Perry and FNA- no changes 2020 Past Surgical History: Procedure Laterality Date ACHILLES TENDON SURGERY Left 1994 APPENDECTOMY 1982 BUNIONECTOMY Bilateral CARPAL TUNNEL RELEASE Bilateral decades ago CATARACT EXTRACTION Bilateral 2010 Dr. Fu- trabelectomy also COLONOSCOPY 2011 HAND SURGERY Left metacarpal bone leak ? LUMBAR LAMINECTOMY [facility] TOTAL KNEE ARTHROPLASTY Left 1994 UPPER GASTROINTESTINAL ENDOSCOPY Patient Active Problem List Diagnosis Date Noted Family history of colon cancer Glaucoma Lumbar disc disease Aortic valve stenosis 10/03/2022 Hypertension 10/03/2022 Follicular lymphoma (HCC) 10/03/2022 Cystocele with uterine prolapse 2017 Right thyroid nodule 2017 Social History Tobacco Use Smoking status: Never Smokeless tobacco: Never Vaping Use Vaping status: Never Used Substance Use Topics Alcohol use: No Drug use: Never Family History Adopted: Yes Problem Relation Name Age of Onset Pulmonary embolism Mother 30 DVT and PE No Known Problems Father unknown Colon cancer Sister age 70 No Known Problems Sister nonspecific causes No Known Problems Brother No Known Problems Brother No Known Problems Brother not close No Known Allergies Current Outpatient Medications Medication Sig Dispense Refill aspirin EC 81 MG EC tablet Take 81 mg by mouth daily. Combigan 0.2-0.5 % ophthalmic solution Administer 1 drop into the left eye in the morning and 1 drop in the evening. labetalol (Normodyne) 100 MG tablet Take 1 tablet (100 mg) by mouth 2 times daily. 180 tablet 1 latanoprost (Xalatan) 0.005 % ophthalmic solution Administer 1 drop into the left eye Nightly. Latanoprostene Bunod (Vyzulta) 0.024 % solution Administer 0.024 % into affected eye(s) 1 (one) time each day. losartan (Cozaar) 25 MG tablet Change to one BID 180 tablet 3 MELATONIN PO Take 10 mg by mouth daily. Multiple Vitamin (Multi-Vitamin Daily) tablet Take 1 tablet by mouth daily. Rhopressa 0.02 % solution No current facility-administered medications for this visit. Review of Systems Constitutional: Negative for appetite change, chills, diaphoresis, fatigue, fever and unexpected weight change. HENT: Negative for dental problem, mouth sores, nosebleeds, sneezing, sore throat, tinnitus, trouble swallowing and voice change. Eyes: Negative for photophobia, pain and visual disturbance. Respiratory: Negative for cough, shortness of breath and wheezing. Cardiovascular: Negative for chest pain, palpitations and leg swelling. Gastrointestinal: Negative for abdominal distention, abdominal pain, blood in stool, constipation, diarrhea, nausea and vomiting. Endocrine: Negative for cold intolerance and heat intolerance. Genitourinary: Negative for difficulty urinating, frequency, hematuria and urgency. Musculoskeletal: Negative for arthralgias, back pain, gait problem and myalgias. Skin: Negative for pallor and rash. Allergic/Immunologic: Negative for immunocompromised state. Neurological: Negative for dizziness, syncope, weakness, light (more content not included)... [facility] Progress Noteon 05-06-2024 Progress Note Placed call to [facility] to discuss provider direction. Message left on voicemail to return call. A letter was mailed to last known address [facility] Progress Note Placed call to [facility] to discuss provider direction. Message left on voicemail to return call. A [employer] message was also sent [facility] Progress Note The patient, Ashley Pappas, identity was verified by name and . Supervising provider for clinic visit: Dr. Martín Urena No chief complaint on file. Reason for visit: Change in medication at last visit Ashley Pappas has validated current medications Patient states compliant with medications as written: Yes BP medication taken prior to this visit? Yes Are you having any symptoms? No Current Blood Pressure: 100/62 Current Heart Rate: 82 Did Blood Pressure need rechecked: no Second Blood Pressure Reading: Second Heart Rate: Assessment/Plan: There are no diagnoses linked to this encounter. normal Future Appointments Date Time Provider Department Center 07/15/2024 10:00 AM Kleber Demarco, DO [facility] None 09/16/2024 7:30 AM Martín Urena, DO [facility] 03/31/2025 8:00 AM Raymundo Manzano PA-C [facility] Cc'd provider blood pressure readings? Yes Normal [facility] Progress Note For her age this blo od pressure is too low. I recommend changing losartan to actually 25 mg twice a day. Recheck blood pressure with staff in about 6 weeks Normal [facility] 37on 03-24-2024 37 Personalized Preventative Plan for Ashley Pappas - 03/24/2024 Medicare offers a range of preventative health benefits. Some of the tests and screenings are paid in full while others may be subject to a deductible, co-insurance, and / or copay. Some of these benefits include a comprehensive review of your medical history including lifestyle, illnesses that may run in your family, and various assessments and screenings as appropriate. After reviewing your medical record and screening and assessments performed today, your provider may have ordered immunizations, labs, imaging, and / or referrals for you. A list of these orders (if applicable) as well as your Preventative Care list are included within your After Visit Summary for your review. Other Preventative Recommendations: A preventive eye exam by an bioinformatics support specialist is recommended every 1-2 years to screen for glaucoma, cataracts, macular degeneration, and other eye disorders. A preventive dental visit is recommended every 6 months. Try to get at least 150 minutes of exercise per week or 10,000 steps per day on a pedometer. You need 1200-1500mg of calcium and 9377-9400 international units of vitamin D per day. It is possible to meet your calcium requirement with diet alone, but a vitamin D supplement is usually necessary to meet this goal. When exposed to the sun, use a sunscreen that protects against both UVA and UVB radiation with an SPF of 30 or greater. Reapply every 2-3 hours or after sweating, drying off with a towel, or swimming. Always wear a seat belt when traveling in a car. Always wear a helmet when riding a bicycle or a motorcycle Normal [facility] Office Visiton 03-24-2024 Follow-up visit [id number] Shaina Pappas 1935 F Date Provider Department Center 03/24/2024 [id number] URENA [facility] Family History Adopted: Yes Problem Relation Age of Onset Pulmonary embolism Mother 30 Comments: DVT and PE No Known Problems Father Comments: unknown Colon cancer Sister Comments: age 70 No Known Problems Sister Comments: nonspecific causes No Known Problems Brother No Known Problems Brother No Known Problems Brother Comments: not close Family Status - Relation Status Age at Mother Father Sister Sister Brother Brother Brother Alive Level of Service:G0439 CT PPPS, SUBSEQ VISIT Reason for Visit and Comments: Medicare Annual Wellness Visit Subsequent [537] Normal [facility] Progress Noteon 03-24-2024 Progress Note [facility] - [address] [facility] [address] Dept: [phone] Dept Chief Complaint: Ashley Pappas is an 88 y.o. female here for an annual wellness visit. Assessment/Plan : Problem List Items Addressed This Visit Aortic valve stenosis Hypertension Follicular lymphoma (HCC) Glaucoma Other Visit Diagnoses Encounter for subsequent annual wellness visit (AWV) in Medicare patient - Primary I have reviewed and reconciled the medication list with the patient today. Current Outpatient Medications Medication Sig Dispense Refill aspirin EC 81 MG EC tablet Take 81 mg by mouth daily. Combigan 0.2-0.5 % ophthalmic solution Administer 1 drop into the left eye in the morning and 1 drop in the evening. labetalol (Normodyne) 100 MG tablet Take 1 tablet (100 mg) by mouth 2 times daily. 180 tablet 1 latanoprost (Xalatan) 0.005 % ophthalmic solution Administer 1 drop into the left eye Nightly. Latanoprostene Bunod (Vyzulta) 0.024 % solution Administer 0.024 % into affected eye(s) 1 (one) time each day. losartan (Cozaar) 25 MG tablet Take 1 tablet (25 mg) by mouth every evening. 90 tablet 1 losartan (Cozaar) 50 MG tablet Take 1 tablet (50 mg) by mouth daily. 90 tablet 1 MELATONIN PO Take 10 mg by mouth daily. Multiple Vitamin (Multi-Vitamin Daily) tablet Take 1 tablet by mouth daily. Rhopressa 0.02 % solution No current facility-administered medications for this visit. Also reviewed during this visit: Med Hx Surg Hx Fam Hx The following health maintenance schedule was reviewed with the patient and provided in printed form in the after visit summary: Health Maintenance Topic Date Due Lipid Panel Never done Bone Density Scan Never done DTaP/Tdap/Td Vaccines (1 - Tdap) Never done Zoster Vaccines (1 of 2) Never done Medicare Advantage Annual Wellness Visit 05/12/2023 Influenza Vaccine (1) 01/11/2024 COVID-19 Vaccine (2023- season) 2024 Depression Screening 03/23/2025 RSV Immunization for Adults Completed Pneumococcal Vaccine: 65+ Years Completed RSV Immunization under 20 Months Aged Out HIB Vaccines Aged Out Hepatitis B Vaccines Aged Out IPV Vaccines Aged Out Hepatitis A Vaccines Aged Out Meningococcal Vaccine Aged Out Rotavirus Vaccines Aged Out HPV Vaccines Aged Out List of current healthcare providers: Patient Care Team: Martín Urena DO as PCP - General (Family Medicine) Kleber Demarco DO as Consulting Physician (Hematology and Oncology) Orders Placed This Encounter Procedures Flu vaccine (FLUAD), trivalent, adjuvanted, preservative-free (ages 65+) Review of Systems overall patient feeling well. No change in family history. Recent oncology follow-up for lymphoma was unremarkable. Hypertension being well treated at home. Systolic readings acceptable. No recent earache sore throat or cough. No chest pain or palpitations. No heartburn or abdominal pain. Bowels are regular. No melena or blood. Having some issues with uterine and rectal prolapse but things are going pretty well since her pessary was removed last year. Of note glaucoma has caused significant visual impairment and not driving for quite a while no sadness or depression. No recent falls or injury Physical Exam very present alert and cooperative. No carotid masses or adenopathy. Normal eardrums and oropharynx. No change in faint carotid bruit. No change of thyroid lesion. Heart is regular with a grade 3/6 systolic ejection murmur at the right second intercostal space. No ectopy. Lungs are clear. Abdomen without pain hepatosplenomegaly masses or bruits. No ascites. Femoral pulses good. Extremities have no appreciable edema. Fair hip and knee range of motion. Objective : BP (!) 146/84 Pulse 68 Temp 36.7 ?C (98 ?F) (Temporal) Ht 5' 3" (1.6 m) Wt 141 lb (64 kg) SpO2 97% BMI 24.98 kg/m? No results found. Subjective : Health Risk Assessment: General: General In general, how would you say your health is?: (Patient-Rptd) (P) Good In the past 7 days, have you experienced any of the following: New or Increased Pain, New or Increased Fatigue, Loneliness, Social Isolation, Stress or Anger?: (Patient-Rptd) (P) No Do you get the social and emotional suppport you need?: (Patient-Rptd) (P) Yes Health Habits/Nutrition: Health Habits / Nutrition On average, how many days per week do you engage in moderate to strenous exercise (like a brisk walk)?: (Patient-Rptd) (P) 6 days On average, how man minutes do you engage in exercise at this level?: (Patient-Rptd) (P) 30 min Have you lost any weight without trying in the past 3 months? : (Patient-Rptd) (P) No Have you seen the dentist within the past year?: (Patient-Rptd) (P) Yes Hearing/ Vision: Hearing / Vision Do you or your family notice any trouble with your hearing that hasn't been manag (more content not included)... Normal [facility] Progress Noteon 03-08-2024 Progress Note Blood pressure stabl e, no med changes [facility] Progress Note The patient, Ashley Pappas, identity was verified by name and . Supervising provider for clinic visit: Raymundo Manzano PA-C Chief Complaint Patient presents with Blood Pressure Check Reason for visit: Change in medication at last visit Ashley Agarwalkathy has validated current medications Patient states compliant with medications as written: Yes BP medication taken prior to this visit? Yes Are you having any symptoms? No Current Blood Pressure: 153/68 Current Heart Rate: 63 Did Blood Pressure need rechecked: yes Second Blood Pressure Readin/73 Second Heart Rate: 65 Assessment/Plan: Ashley was seen today for blood pressure check. Diagnoses and all orders for this visit: Primary hypertension elevated Future Appointments Date Time Provider Department Center 03/24/2024 8:30 AM Martín Urena, DO [facility] 07/15/2024 10:00 AM Kleber Demarco DO [facility] ONC None Cc'd provider blood pressure readings? Yes Normal [facility] Progress Note Talked to patient an d relayed message and she verbalized understanding. Normal [facility] Physician Progress No lisa 01-21-2023 [facility] Physician Progress Note ASHLEY PAPPAS :1935 Registration Date:01/21/2023 Assessment/Plan This Visit Diagnosis 1. Pessary maintenance - Ring Z46.89 The pessary was removed. 2. Pelvic prolapse N81.9 Medication Reconciliation What How Much When Instructions Unchanged aspirin (Aspir-Low 81 mg oral delayed release tablet) 1 Tabs Oral DAILY Unchanged brimonidine-timolol ophthalmic (Combigan 0.2%-0.5% ophthalmic solution) Unchanged labetalol = Trandate, Normodyne (labetalol 100 mg oral tablet) 60 EA, TAKE 1 TABLET BY MOUTH TWICE DAILY morning and bedtime Unchanged latanoprost ophthalmic (latanoprost 0.005% ophthalmic solution) Unchanged melatonin (Melatonin 10 mg oral capsule) Oral AT BEDTIME Unchanged multivitamin 1 Tabs Oral DAILY Unchanged Non-Formulary Med (eye drops) Chief Complaint Here for pessary maintence - Hyst pts the next day after we say her in july, then she was Dx with Systemic lymphoma in August, she is in remission pt states her pessary is a lot lower than it usually is History of Present Illness 07/25/22. Just treated for lymphoma, doing well now. Feels like the pessary is falling out. She is using a number 4 pessary with support. We discussed leaving it out this time and seeing if she does okay without it. We also discussed trying a number 3 ring with support if she desires. Physical Exam Vitals & Measurements BP: 148/68 HT: 160 cm WT: 65.6 kg BMI: 25.63 Depression Screening Scores Initial Depression Screen Score: 0 (09/12/23 09:11:00) Fall Risk Assessment Is the patient ambulatory (mobile): Yes (01/21/23 09:11:00) Have you had a fall within the past: No (01/21/23 09:11:00) Have you had 2 or more falls in the past: No (01/21/23 09:11:00) The vital signs were reviewed and show a normal. General appearance: well developed and well nourished Lungs: Normal respiratory effort Extremities: no edema Psychiatric: Mood: normal WEB PAGE DEVELOPER: External genitalia: normal, no lesions Urethra: normal meatus Vagina: atrophic changes Cervix: no lesions, no cervical motion tenderness, normal appearance Uterus: normal mobility, non-tender, normal size, shape and consistency Adnexa: normal Cul de sac: normal Perineum: no hemorrhoids, masses or warts noted WEB PAGE DEVELOPER Additional Details-Patient Stated Menstrual History Menstrual StatusHysterectomy WEB PAGE DEVELOPER Screening Date of Last Pap SmearHyst Contraception Contraception MethodSterilization for contraception OB History History (4,0,0,4) # 1 Baby 1 Outcome Date: 1957 Outcome or Result: Vaginal Gest Age: Fullterm Outcome: Live Sex: Female # 2 Baby 1 Outcome Date: 1959 Outcome or Result: Vaginal Gest Age: Fullterm Outcome: Live Sex: Female # 3 Baby 1 Outcome Date: 1960 Outcome or Result: Vaginal Gest Age: Fullterm Outcome: Live Sex: Male # 4 Baby 1 Outcome Date: 1963 Outcome or Result: Vaginal Gest Age: Fullterm Outcome: Live Sex: Male Problem List/Past Medical History Ongoing BMI 24.0-24.9, adult Glaucoma unspecified - Unilateral HTN (hypertension) Lymphoma in remission Osteopenia Pelvic prolapse Pessary maintenance - Ring Thyroid nodule 2.2cm Historical Procedure/Surgical History No qualifying data available. Medications aspirin(Aspir-Low 81 mg oral delayed release tablet), 81 mg= 1 tabs, ORAL, DAILY brimonidine-timolol ophthalmic(Combigan 0.2%-0.5% ophthalmic solution) labetalol = Trandate, Normodyne(labetalol 100 mg oral tablet) latanoprost ophthalmic(latanoprost 0.005% ophthalmic solution) melatonin(Melatonin 10 mg oral capsule), ORAL, QHS multivitamin, 1 tabs, ORAL, DAILY Non-Formulary Med(eye drops) Allergies No Known Allergies Social History Alcohol - Denies Alcohol Use Sexual Other sexual concerns:PM Substance Abuse - Denies Substance Abuse Tobacco Use:Never (less than 100 in lifetime) Smokeless tobacco use:Never Family History Patient was adopted High blood pressure....: Mother. Stroke: Mother. Health Status Family Member(s) Normal [facility] Ambulatory Clinical Summaryo n 01-21-2023 Ambulatory Clinical Summary ASHLEY PAPPAS :1935 Registration Date:01/21/2023 Ambulatory Visit Instructions Your Diagnosis Pessary maintenance - Ring Pelvic prolapse Your Care Team Attending Physician - HARMAN JACKSON MD, FACOG Primary Care Physician - LOKI ORNELAS Procedures Performed trabeculectomy Rt eye (09/2021) dexa scan - osteopenia (2014) Last Pap - Normal (2005) Left Knee Replacement Cataract Surgery Laminectomy Discharge Vitals Blood Pressure 148/68 Height 62.99 in (160 cm) Weight 144.65 lb (65.6 kg) BMI 25.63 Systolic Blood Pressure: 148 mmHg High (01/21/23 09:11:00) Diastolic Blood Pressure: 68 mmHg (01/21/23 09:11:00) Mean Arterial Pressure: 95 mmHg (01/21/23 09:11:00) Height/Length Measured: 160 cm (01/21/23 09:11:00) Weight Measured: 65.6 kg (01/21/23 09:11:00) Body Mass Index Measured: 25.63 kg/m2 (01/21/23 09:11:00) Ht/Wt Measurement Refused by Patient?2: No (01/21/23 09:11:00) What to do next Scheduled Follow-Up Appointments No results Medications What How Much When Instructions Unchanged aspirin (Aspir-Low 81 mg oral delayed release tablet) 1 Tabs Oral DAILY Unchanged brimonidine-timolol ophthalmic (Combigan 0.2%-0.5% ophthalmic solution) Unchanged labetalol = Trandate, Normodyne (labetalol 100 mg oral tablet) 60 EA, TAKE 1 TABLET BY MOUTH TWICE DAILY morning and bedtime Unchanged latanoprost ophthalmic (latanoprost 0.005% ophthalmic solution) Unchanged melatonin (Melatonin 10 mg oral capsule) Oral AT BEDTIME Unchanged multivitamin 1 Tabs Oral DAILY Unchanged Non-Formulary Med (eye drops) Allergies No Known Allergies Problems Ongoing - Any problem that you are currently receiving treatment for. BMI 24.0-24.9, adult Glaucoma unspecified - Unilateral HTN (hypertension) Lymphoma in remission Osteopenia Pelvic prolapse Pessary maintenance - Ring Thyroid nodule 2.2cm Common Emergency Awareness Tips IS IT A STROKE? Act FAST and Check for these signs: FACE Does the face look uneven? ARM Does one arm drift down? SPEECH Does their speech sound strange? TIME Call at any sign of stroke Heart Attack Signs Chest discomfort: Most heart attacks involve discomfort in the center of the chest and lasts more than a few minutes, or goes away and comes back. It can feel like uncomfortable pressure, squeezing, fullness or pain. Discomfort in upper body: Symptoms can include pain or discomfort in one or both arms, back, neck, jaw or stomach. Shortness of breath: With or without discomfort. Other signs: Breaking out in a cold sweat, nausea, or lightheaded. Remember, MINUTES DO MATTER. If you experience any of these heart attack warning signs, call to get immediate medical attention! Normal [facility] Comprehensive Intake - Texto n 01-21-2023 Comprehensive Intake - Text Comprehensive Intake Entered On: 01/21/2023 9:20 EDT Performed On: 01/21/2023 9:11 EDT by Gaye Reyes Summary Chief Complaint : Here for pessary maintence - Hyst pts the next day after we say her in july, then she was Dx with Systemic lymphoma in August, she is in remission pt states her pessary is a lot lower than it usually is Menstrual Status : Hysterectomy Bladder Control Issues? : No Urine Leakage? : No Presence or absence of urinary incontinence assessed : Yes CPT-II Medication list doc'd in medical record : Yes Influenza immunization administered or previously received : No Pneumococcal vaccine administered or previously received : No Gaye Reyes 01/21/2023 9:11 EDT Measurements Ht/Wt Measurement Refused by Patient? : No Weight Measured : 65.6 kg(Converted to: 144 lb 10 oz, 144.623 lb) Height/Length Measured : 160 cm(Converted to: 5 ft 3 in, 62.99 in) Body Mass Index Measured : 25.63 kg/m2 Body Mass Index documented : Yes Gaye Reyes 01/21/2023 9:11 EDT Vitals Require BP : Yes Systolic Blood Pressure : 148 mmHg (HI) Diastolic Blood Pressure : 68 mmHg Mean Arterial Pressure : 95 mmHg Last Systolic BP : greater than or equal to 140 mmHg Last Diastolic BP : less than 80 mmHg Pain Present : No actual or suspected pain Pain : 0 Pain severity quantified : No pain present Gaye Reyes 01/21/2023 9:11 EDT Infection Screening - Ambulatory Exposure AND/OR close contact with a person under investigation or laboratory-confirmed COVID-19 individual within 14 days of symptom onset AND/OR any of the following: : No Do you live/work in a high risk situation (congregated living, hemodialysis, infusion clinic, fpc, assisted living, group home, homeless assisted, etc.)? : No Gaye Reyes 01/21/2023 9:11 EDT Depression Screening Is patient currently : None of the Below Feeling Down, Depressed, Hopeless : Not at all Little Interest - Pleasure in Activities : Not at all Initial Depression Screen Score : 0 Depression Screening Score 0 : No Gaye Reyes 01/21/2023 9:11 EDT Falls Risk Assessment Is the patient ambulatory (mobile) : Yes Have you had 2 or more falls in the past year : No Have you had a fall within the past year that has caused an injury : No Patient screen for fall risk : no falls in last year OR 1 fall with no injury in last year Gaye Reyes 01/21/2023 9:11 EDT Normal [facility] 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 - [employer]on 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 - Text 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 Entered On : 01/21/2023 9:20 EDT Performed On: 01/21/2023 9:20 EDT by Gaye Reyes WEB PAGE DEVELOPER Menstrual History Menstrual Status : Hysterectomy Gaye Reyes 01/21/2023 9:20 EDT WEB PAGE DEVELOPER Screenings Date of Last Pap Smear : Hyst Gaye Reyes - 01/21/2023 9:20 EDT Contraception Contraception Method : Sterilization for contraception Sterilization Type : Hysterectomy Gaye Reyes - 01/21/2023 9:20 EDT Normal [facility] CBC W Auto Differential pane l (Bld)Ordered By: Concha Sanabria on 11-21-2022 Basophils (Bld) [#/Vol] 0.0 10*3/uL 0.0 - 0.2 10*3/uL [facility] Basophils/100 WBC (Bld) 0.4 % 0.0 - 2.0 % [facility] Eosinophils (Bld) [#/Vol] 1.2 10*3/uL High 0.0 - 0.5 10*3/uL [facility] Eosinophils/100 WBC (Bld) 17.7 % High 1.0 - 6.0 % [facility] Erythrocyte distribution width (RBC) [Ratio] 13.5 % 11.5 - 14.5 % [facility] Hematocrit (Bld) [Volume fraction] 39.6 % 35.0 - 47.0 % [facility] Hemoglobin (Bld) [Mass/Vol] 13.9 g/dL 11.7 - 16.0 g/dL [facility] Immature granulocytes (Bld) [#/Vol] 0.0 10*3/uL NINF - 0.0 10*3/uL [facility] Immature granulocytes/100 WBC (Bld) 0.4 % High NINF - 0.0 % [facility] Interpretation and review of laboratory results Abnormal [facility] Lymphocytes (Bld) [#/Vol] 0.7 10*3/uL Low 1.0 - 4.3 10*3/uL [facility] Lymphocytes/100 WBC (Bld) 10.5 % Low 20.0 - 40.0 % [facility] MCH (RBC) [Entitic mass] 32.0 pg 26. 0 - 34.0 pg [facility] MCHC (RBC) [Mass/Vol] 35.1 % 32.0 - 36.0 % [facility] MCV (RBC) [Entitic vol] 91.0 fL 80.0 - 98.0 fL [facility] Monocytes (Bld) [#/Vol] 0.7 10*3/uL 0.0 - 0.8 10*3/uL [facility] Monocytes/100 WBC (Bld) 10.0 % 2.0 - 10.0 % [facility] Neutrophils (Bld) [#/Vol] 4.1 10*3/uL 1.8 - 7.0 10*3/uL [facility] Neutrophils/100 WBC (Bld) 61.0 % 40.0 - 80.0 % [facility] Platelet mean volume (Bld) [Entitic vol] 10.0 fL 7.4 - 12.4 fL [facility] Comment on above: MPV is a calculated measurement using platelet volume ratio Platelets (Bld) [#/Vol] 193 10*3/uL 140 - 440 10*3/uL [facility] RBC (Bld) [#/Vol] 4.35 10*6/uL 3.8 - 5.20 10*6/uL [facility] WBC (Bld) [#/Vol] 6.7 10*3/uL 3.6 - 10.7 10*3/uL [facility] Comprehensive metabolic 1998 panelon 11-21-2022 Albumin [Mass/Vol] 4.2 g/dL 3.5 - 5.0 g/dL [facility] ALP [Catalytic activity/Vol] 104 U/L 38 - 126 U/L [facility] ALT [Catalytic activity/Vol] 20 U/L 0 - 34 U/L [facility] Anion gap [Moles/Vol] 4 mmol/L 3 - 13 mmol/L [facility] AST [Catalytic activity/Vol] 39 U/L 15 - 46 U/L [facility] Bilirubin [Mass/Vol] 0.6 mg/dL 0.2 - 1 .3 mg/dL [facility] Calcium [Mass/Vol] 9.4 mg/dL 8.4 - 10. 4 mg/dL [facility] Chloride [Moles/Vol] 107 mmol/L 98 - 10 7 mmol/L [facility] CO2 [Moles/Vol] 28 mmol/L 22 - 30 mmol/L [facility] Creatinine [Mass/Vol] 0.71 mg/dL 0.52 - 1.04 mg/dL [facility] GFR/1.73 sq M.predicted MDRD (S/P/Bld) [Vol rate/Area] 82.4 mL/min/{1.73_m2} - PINF [facility] Comment on above: Calculation based on the Chronic Kidney Disease Epidemiology Collaboration (CKD-EPI) equation refit without adjustment for race Glucose [Mass/Vol] 91 mg/dL 70 - 100 mg/dL [facility] Interpretation and review of laboratory results Abnormal [facility] Potassium [Moles/Vol] 4.2 mmol/L 3.5 - 5.1 mmol/L [facility] Protein [Mass/Vol] 6.7 g/dL 6.3 - 8.2 g/dL [facility] Sodium [Moles/Vol] 139 mmol/L 135 - 145 mmol/L [facility] Urea nitrogen [Mass/Vol] 19 mg/dL High 7 - 17 mg/d L [facility] CBC W Auto Differential pane l (Bld)Ordered By: Concha Sanabria on 11-13-2022 Basophils (Bld) [#/Vol] 0.0 10*3/uL 0.0 - 0.2 10*3/uL [facility] Basophils/100 WBC (Bld) 0.6 % 0.0 - 2.0 % [facility] Eosinophils (Bld) [#/Vol] 1.0 10*3/uL High 0.0 - 0.5 10*3/uL [facility] Eosinophils/100 WBC (Bld) 15.0 % High 1.0 - 6.0 % [facility] Erythrocyte distribution width (RBC) [Ratio] 13.5 % 11.5 - 14.5 % [facility] Hematocrit (Bld) [Volume fraction] 41.8 % 35.0 - 47.0 % [facility] Hemoglobin (Bld) [Mass/Vol] 14.2 g/dL 11.7 - 16.0 g/dL [facility] Immature granulocytes (Bld) [#/Vol] 0.0 10*3/uL NINF - 0.0 10*3/uL [facility] Immature granulocytes/100 WBC (Bld) 0.1 % High NINF - 0.0 % [facility] Interpretation and review of laboratory results Abnormal [facility] Lymphocytes (Bld) [#/Vol] 0.6 10*3/uL Low 1.0 - 4.3 10*3/uL [facility] Lymphocytes/100 WBC (Bld) 8.5 % Low 20.0 - 40.0 % [facility] MCH (RBC) [Entitic mass] 31.5 pg 26. 0 - 34.0 pg [facility] MCHC (RBC) [Mass/Vol] 34.0 % 32.0 - 36.0 % [facility] MCV (RBC) [Entitic vol] 92.7 fL 80.0 - 98.0 fL [facility] Monocytes (Bld) [#/Vol] 0.5 10*3/uL 0.0 - 0.8 10*3/uL [facility] Monocytes/100 WBC (Bld) 7.6 % 2.0 - 10.0 % [facility] Neutrophils (Bld) [#/Vol] 4.7 10*3/uL 1.8 - 7.0 10*3/uL [facility] Neutrophils/100 WBC (Bld) 68.2 % 40.0 - 80.0 % [facility] Platelet mean volume (Bld) [Entitic vol] 9.7 fL 7.4 - 12.4 fL [facility] Comment on above: MPV is a calculated measurement using platelet volume ratio Platelets (Bld) [#/Vol] 221 10*3/uL 140 - 440 10*3/uL [facility] RBC (Bld) [#/Vol] 4.51 10*6/uL 3.8 - 5.20 10*6/uL [facility] WBC (Bld) [#/Vol] 6.9 10*3/uL 3.6 - 10.7 10*3/uL [facility] Comprehensive metabolic 1998 panelon 11-13-2022 Albumin [Mass/Vol] 4.2 g/dL 3.5 - 5.0 g/dL [facility] ALP [Catalytic activity/Vol] 105 U/L 38 - 126 U/L [facility] ALT [Catalytic activity/Vol] 17 U/L 0 - 34 U/L [facility] Anion gap [Moles/Vol] 4 mmol/L 3 - 13 mmol/L [facility] AST [Catalytic activity/Vol] 36 U/L 15 - 46 U/L [facility] Bilirubin [Mass/Vol] 0.5 mg/dL 0.2 - 1 .3 mg/dL [facility] Calcium [Mass/Vol] 9.3 mg/dL 8.4 - 10. 4 mg/dL [facility] Chloride [Moles/Vol] 107 mmol/L 98 - 10 7 mmol/L [facility] CO2 [Moles/Vol] 29 mmol/L 22 - 30 mmol/L [facility] Creatinine [Mass/Vol] 0.80 mg/dL 0.52 - 1.04 mg/dL [facility] GFR/1.73 sq M.predicted MDRD (S/P/Bld) [Vol rate/Area] 71.4 mL/min/{1.73_m2} - PINF [facility] Comment on above: Calculation based on the Chronic Kidney Disease Epidemiology Collaboration (CKD-EPI) equation refit without adjustment for race Glucose [Mass/Vol] 114 mg/dL High 70 - 100 mg/dL [facility] Interpretation and review of laboratory results Abnormal [facility] Potassium [Moles/Vol] 4.1 mmol/L 3.5 - 5.1 mmol/L [facility] Protein [Mass/Vol] 6.6 g/dL 6.3 - 8.2 g/dL [facility] Sodium [Moles/Vol] 140 mmol/L 135 - 145 mmol/L [facility] Urea nitrogen [Mass/Vol] 19 mg/dL High 7 - 17 mg/d L [facility] CBC W Auto Differential pane l (Bld)Ordered By: Concha Sanabria on 11-06-2022 Basophils (Bld) [#/Vol] 0.0 10*3/uL 0.0 - 0.2 10*3/uL [facility] Basophils/100 WBC (Bld) 0.5 % 0.0 - 2.0 % [facility] Eosinophils (Bld) [#/Vol] 0.7 10*3/uL High 0.0 - 0.5 10*3/uL [facility] Eosinophils/100 WBC (Bld) 12.5 % High 1.0 - 6.0 % [facility] Erythrocyte distribution width (RBC) [Ratio] 13.3 % 11.5 - 14.5 % [facility] Hematocrit (Bld) [Volume fraction] 39.3 % 35.0 - 47.0 % [facility] Hemoglobin (Bld) [Mass/Vol] 13.4 g/dL 11.7 - 16.0 g/dL [facility] Immature granulocytes (Bld) [#/Vol] 0.0 10*3/uL NINF - 0.0 10*3/uL [facility] Immature granulocytes/100 WBC (Bld) 0.3 % High [facility] - 0.[facility] % [facility] Interpretation and review of laboratory results Abnormal [facility] Lymphocytes (Bld) [#/Vol] 0.6 10*3/uL Low 1.0 - 4.3 10*3/uL [facility] Lymphocytes/100 WBC (Bld) 9.8 % Low 20.0 - 40.0 % [facility] MCH (RBC) [Entitic mass] 31.5 pg 26. 0 - 34.0 pg [facility] MCHC (RBC) [Mass/Vol] 34.1 % 32.0 - 36.0 % [facility] MCV (RBC) [Entitic vol] 92.5 fL 80.0 - 98.0 fL [facility] Monocytes (Bld) [#/Vol] 0.5 10*3/uL 0.0 - 0.8 10*3/uL [facility] Monocytes/100 WBC (Bld) 8.9 % 2.0 - 10.0 % [facility] Neutrophils (Bld) [#/Vol] 4.0 10*3/uL 1.8 - 7.0 10*3/uL [facility] Neutrophils/100 WBC (Bld) 68.0 % 40.0 - 80.0 % [facility] Platelet mean volume (Bld) [Entitic vol] 9.4 fL 7.4 - 12.4 fL [facility] Comment on above: MPV is a calculated measurement using platelet volume ratio Platelets (Bld) [#/Vol] 240 10*3/uL 140 - 440 10*3/uL [facility] RBC (Bld) [#/Vol] 4.25 10*6/uL 3.8 - 5.20 10*6/uL [facility] WBC (Bld) [#/Vol] 5.8 10*3/uL 3.6 - 10.7 10*3/uL [facility] Comprehensive metabolic 1998 panelon 11-06-2022 Albumin [Mass/Vol] 4.0 g/dL 3.5 - 5.0 g/dL [facility] ALP [Catalytic activity/Vol] 93 U/L 38 - 126 U/L [facility] ALT [Catalytic activity/Vol] 18 U/L 0 - 34 U/L [facility] Anion gap [Moles/Vol] 2 mmol/L Low 3 - 13 mmol/L [facility] AST [Catalytic activity/Vol] 36 U/L 15 - 46 U/L [facility] Bilirubin [Mass/Vol] 0.5 mg/dL 0.2 - 1 .3 mg/dL [facility] Calcium [Mass/Vol] 9.2 mg/dL 8.4 - 10. 4 mg/dL [facility] Chloride [Moles/Vol] 109 mmol/L High 98 - 10 7 mmol/L [facility] CO2 [Moles/Vol] 27 mmol/L 22 - 30 mmol/L [facility] Creatinine [Mass/Vol] 0.78 mg/dL 0.52 - 1.04 mg/dL [facility] GFR/1.73 sq M.predicted MDRD (S/P/Bld) [Vol rate/Area] 73.6 mL/min[facility]1.73_m2[facility] Comment on above: Calculation based on the Chronic Kidney Disease Epidemiology Collaboration (CKD-EPI) equation refit without adjustment for race Glucose [Mass/Vol] 122 mg/dL High 70 - 100 mg/dL [facility] Interpretation and review of laboratory results Abnormal [facility] Potassium [Moles/Vol] 4.0 mmol/L 3.5 - 5.1 mmol/L [facility] Protein [Mass/Vol] 6.5 g/dL 6.3 - 8.2 g/dL [facility] Sodium [Moles/Vol] 138 mmol/L 135 - 145 mmol/L [facility] Urea nitrogen [Mass/Vol] 18 mg/dL High 7 - 17 mg/d L [facility] Airwayon 08-15-2022 Anitha Boyle APRN - GRAIN CLEANER 08/15/2022 1:35 PM Airway Date/Time: 08/15/2022 1:05 PM Urgency: scheduled Airway not difficult General Information and Staff Patient location during procedure: Procedural Performed: GRAIN CLEANER Indications and Patient Condition Indications for airway management: anesthesia Sedation level: Asleep Preoxygenated: yes Patient position: sniffing Mask difficulty assessment: 1 - vent by mask Final Airway Details Final airway type: supraglottic airway Successful airway: Igel Size 3 Number of attempts at approach: 1 Number of other approaches attempted: 0 [facility] Amb Office-Progress Notes-Pr ovideron 07-24-2022 [facility] Office-Progress Notes-Provider Assessment/Plan This Visit Diagnosis Pelvic prolapse N81.9 The pessary was removed, washed and replaced. There was a small bleeding at the upper right part of the vaginal cuff Pessary maintenance - Ring Z46.89 Chief Complaint Here for Pessary maintence - PM doesnt stay up like it used to . History of Present Illness Ashley is a 86 year old here for a pessary check. The ring was removed, washed and replaced. She tolerated it well. Physical Exam Vitals & Measurements BP: 144/60 HT: 160 cm WT: 64.5 kg BMI: 25.2 Depression Screening Scores Initial Depression Screen Score: 0 (07/24/22 10:36:00) Fall Risk Assessment Is the patient ambulatory (mobile): Yes (07/24/22 10:36:00) Have you had a fall within the past: Yes (07/24/22 10:36:00) Have you had 2 or more falls in the past: No (07/24/22 10:36:00) WEB PAGE DEVELOPER: External genitalia: normal, no lesions Urethra: normal meatus Vagina: normal no lesions, no discharge, vault normal Cervix: no lesions, no cervical motion tenderness, normal appearance Uterus: normal mobility, non-tender, normal size, shape and consistency Adnexa: normal Cul de sac: normal WEB PAGE DEVELOPER Additional Details-Patient Stated Menstrual History Menstrual StatusHysterectomy WEB PAGE DEVELOPER Screening Date of Last Pap SmearHyst Contraception Contraception MethodSterilization for contraception OB History History (4,0,0,4) # 1 Baby 1 Outcome Date: 1957 Outcome or Result: Vaginal Gest Age: Fullterm Outcome: Live Sex: Female # 2 Baby 1 Outcome Date: 1959 Outcome or Result: Vaginal Gest Age: Fullterm Outcome: Live Sex: Female # 3 Baby 1 Outcome Date: 1960 Outcome or Result: Vaginal Gest Age: Fullterm Outcome: Live Sex: Male # 4 Baby 1 Outcome Date: 1963 Outcome or Result: Vaginal Gest Age: Fullterm Outcome: Live Sex: Male Problem List/Past Medical History Ongoing BMI 24.0-24.9, adult Glaucoma unspecified - Unilateral HTN (hypertension) Osteopenia Pelvic prolapse Pessary maintenance - Ring Thyroid nodule 2.2cm Historical Procedure/Surgical History trabeculectomy Rt eye (09/2021) dexa scan - osteopenia (2014) Last Pap - Normal (2005) Cataract Surgery Laminectomy Left Knee Replacement Medications Aspir-Low 81 mg oral delayed release tablet, 81 mg= 1 tabs, ORAL, DAILY Combigan 0.2%-0.5% ophthalmic solution eye drops labetalol 100 mg oral tablet latanoprost 0.005% ophthalmic solution Melatonin 10 mg oral capsule, ORAL, QHS multivitamin, 1 tabs, ORAL, DAILY Allergies No Known Allergies Social History Alcohol - Denies Alcohol Use Sexual Other sexual concerns: PM. Substance Abuse - Denies Substance Abuse Tobacco Never (less than 100 in lifetime) Tobacco Use:. Never Smokeless Tobacco Use:. Family History Patient was adopted High blood pressure....: Mother. Stroke: Mother. Normal [facility] Ambulatory Clinical Summaryo n 07-24-2022 Ambulatory Clinical Summary ASHLEY PAPPAS :1935 Visit Date:07/24/2022 Ambulatory Visit Instructions Your Diagnosis Pelvic prolapse Pessary maintenance - Ring Your Care Team Attending Physician - HARMAN JACKSON MD, FACOG Primary Care Physician - LOKI ORNELAS Procedures Performed trabeculectomy Rt eye (09/2021) dexa scan - osteopenia (2014) Last Pap - Normal (2005) Cataract Surgery Laminectomy Left Knee Replacement Discharge Vitals Blood Pressure 144/60 Height 160 cm Weight 64.5 kg BMI 25.2 Systolic Blood Pressure: 144 mmHg High (07/24/22 10:36:00) Diastolic Blood Pressure: 60 mmHg (07/24/22 10:36:00) Mean Arterial Pressure: 88 mmHg (07/24/22 10:36:00) Height/Length Measured: 160 cm (07/24/22 10:36:00) Weight Measured: 64.5 kg (07/24/22 10:36:00) Body Mass Index Measured: 25.2 kg/m2 (07/24/22 10:36:00) Ht/Wt Measurement Refused by Patient?2: No (07/24/22 10:36:00) What to do next Scheduled Follow-Up Appointments Appointment Type Reason for visit Day With Date Time Where [facility] Pessary PESSARY MAINTENANCE Friday Harman Jackson MD January 20, 2023 09:10 am EDT [facility] [address] [place] [id number] Medications What How Much When Instructions Unchanged aspirin (Aspir-Low 81 mg oral delayed release tablet) 1 Tabs Oral DAILY Unchanged brimonidine-timolol ophthalmic (Combigan 0.2%-0.5% ophthalmic solution) Unchanged labetalol = Trandate, Normodyne (labetalol 100 mg oral tablet) 60 EA, TAKE 1 TABLET BY MOUTH TWICE DAILY morning and bedtime Unchanged latanoprost ophthalmic (latanoprost 0.005% ophthalmic solution) Unchanged melatonin (Melatonin 10 mg oral capsule) Oral AT BEDTIME Unchanged multivitamin 1 Tabs Oral DAILY Unchanged Non-Formulary Med (eye drops) Allergies No Known Allergies Problems Ongoing - Any problem that you are currently receiving treatment for. BMI 24.0-24.9, adult Glaucoma unspecified - Unilateral HTN (hypertension) Osteopenia Pelvic prolapse Pessary maintenance - Ring Thyroid nodule 2.2cm Historical - Any problem that you are no longer receiving treatment for. Common Emergency Awareness Tips IS IT A STROKE? Act FAST and Check for these signs: FACE Does the face look uneven? ARM Does one arm drift down? SPEECH Does their speech sound strange? TIME Call at any sign of stroke Heart Attack Signs Chest discomfort: Most heart attacks involve discomfort in the center of the chest and lasts more than a few minutes, or goes away and comes back. It can feel like uncomfortable pressure, squeezing, fullness or pain. Discomfort in upper body: Symptoms can include pain or discomfort in one or both arms, back, neck, jaw or stomach. Shortness of breath: With or without discomfort. Other signs: Breaking out in a cold sweat, nausea, or lightheaded. Remember, MINUTES DO MATTER. If you experience any of these heart attack warning signs, call to get immediate medical attention! Normal [facility] Comprehensive Intake - Texto n 07-24-2022 Comprehensive Intake - Text Comprehensive Intake Entered On: 07/24/2022 10:40 EDT Performed On: 07/24/2022 10:36 EDT by Gaye Reyes Summary Chief Complaint : Here for Pessary maintence - PM doesnt stay up like it used to . Menstrual Status : Hysterectomy Bladder Control Issues? : No Urine Leakage? : No Presence or absence of urinary incontinence assessed : Yes CPT-II Medication list doc'd in medical record : Yes Influenza immunization administered or previously received : Yes Pneumococcal vaccine administered or previously received : Yes Gaye Reyes 07/24/2022 10:36 EDT Measurements Ht/Wt Measurement Refused by Patient? : No Weight Measured : 64.5 kg(Converted to: 142 lb 3 oz, 142.198 lb) Height/Length Measured : 160 cm(Converted to: 5 ft 3 in, 62.99 in) Body Mass Index Measured : 25.2 kg/m2 Body Mass Index documented : Yes Gaye Reyes 07/24/2022 10:36 EDT Vitals Require BP : Yes Systolic Blood Pressure : 144 mmHg (HI) Diastolic Blood Pressure : 60 mmHg Mean Arterial Pressure : 88 mmHg Last Systolic BP : greater than or equal to 140 mmHg Last Diastolic BP : less than 80 mmHg Pain Present : No actual or suspected pain Pain : 0 Pain severity quantified : No pain present Gaye Reyes 07/24/2022 10:36 EDT Infection Screening - Ambulatory Exposure AND/OR close contact with a person under investigation or laboratory-confirmed COVID-19 individual within 14 days of symptom onset AND/OR any of the following: : No Do you live/work in a high risk situation (congregated living, hemodialysis, infusion clinic, fpc, assisted living, group home, homeless assisted, etc.)? : No Gaye Reyes 07/24/2022 10:36 EDT Depression Screening Is patient currently : None of the Below Feeling Down, Depressed, Hopeless : Not at all Little Interest - Pleasure in Activities : Not at all Initial Depression Screen Score : 0 Depression Screening Score 0 : No Gaye Reyes 07/24/2022 10:36 EDT Falls Risk Assessment Is the patient ambulatory (mobile) : Yes Have you had 2 or more falls in the past year : No Have you had a fall within the past year that has caused an injury : Yes Patient screen for fall risk : no falls in last year OR 1 fall with no injury in last year Gaye Reyes 07/24/2022 10:36 EDT Normal [facility] 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 - [employer] 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 - Text 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 Entered On : 07/24/2022 10:40 EDT Performed On: 07/24/2022 10:40 EDT by Gaye Reyes WEB PAGE DEVELOPER Menstrual History Menstrual Status : Hysterectomy TatianaDwight spicera - 07/24/2022 10:40 EDT WEB PAGE DEVELOPER Screenings Date of Last Pap Smear : Hyst Gaye Reyes - 07/24/2022 10:40 EDT Contraception Contraception Method : Sterilization for contraception Sterilization Type : Hysterectomy Tatianadannielle Gaye - 07/24/2022 10:40 EDT Normal [facility] US Heart TransthoracicOrdere d By: Chirag Sanchez on 05-23-2022 Ao Root Index 1.99 cm/m2 [facility] Work Phone: [phone] Aortic Root 3.3 cm [facility] Work Phone: [phone] Ascending Aorta 3.4 cm [facility] Work Phone: [phone] Ascending Aorta Index 2.05 cm/m2 [facility] Work Phone: [phone] AV Area by Peak Velocity 1.1 cm2 [facility] Work Phone: [phone] AV Area by VTI 1.1 cm2 [facility] Work Phone: [phone] AV AT 100.86 ms [facility] Work Phone: [phone] AV Mean Gradient 14 mmHg [facility] Work Phone: [phone] AV Mean Velocity 1.8 m/s [facility] Work Phone: [phone] AV Peak Gradient 23 mmHg [facility] Work Phone: [phone] AV Peak Velocity 2.4 m/s [facility] Work Phone: [phone] AV Velocity Ratio 0.38 [facility] Work Phone: [phone] AV VTI 58.6 cm [facility] Work Phone: [phone] FIONA/BSA Peak Velocity 0.7 cm2/m2 [facility] Work Phone: [phone] FIONA/BSA VTI 0.7 cm2/m2 [facility] Work Phone: [phone] E/E' Lateral 7.56 [facility] Work Phone: E/E' Ratio (Averaged) 8.63 [facility] Work Phone: E/E' Septal 9.71 [facility] Work Phone: EF BP 80 % 55 - 100 % [facility] Work Phone: Est. RA Pressure 3 mmHg [facility] Work Phone: Fractional Shortening 2D 50 % 28 - 44 % [facility] Work Phone: [phone] Interpretation and review of laboratory results Abnormal [facility] Work Phone: IVSd 1.0 cm Abnormal 0.6 - 0.[address] [facility] Work Phone: LA Diameter 3.[address] [facility] Work Phone: [phone] LA Size Index 2.11 cm/m2 [facility] [employer] Work Phone: LA Volume 2C 50 mL 22 - [address] [facility] Work Phone: LA Volume 4C 67 mL Abnormal 22 - [address] [facility] Work Phone: [phone] LA Volume A/L 62 mL [facility] Work Phone: [phone] LA Volume BP 58 mL Abnormal 22 - [address] [facility] Work Phone: LA Volume Index 2C 30 mL/m2 16 - 34 mL/m2 [facility] Work Phone: [phone] LA Volume Index 4C 40 mL/m2 Abnormal 16 - 34 mL/m2 [facility] Work Phone: LA Volume Index A/L 37 mL/m2 16 - 34 mL/m2 [facility] Work Phone: [phone] LA Volume Index BP 35 ml/m2 Abnormal 16 - 34 ml/m2 [facility] Work Phone: LA/AO Root Ratio 1.06 [facility] Work Phone: LV E' Lateral Velocity 9 cm/s [facility] Work Phone: LV E' Septal Velocity 7 cm/s [facility] Work Phone: LV EDV A2C 64 mL [facility] Work Phone: [phone] LV EDV A4C 63 mL [facility] Work Phone: [phone] LV EDV BP 63 mL 56 - 104 mL [facility] Work Phone: [phone] LV EDV Index A2C 39 mL/m2 [facility] Work Phone: [phone] LV EDV Index A4C 38 mL/m2 [facility] Work Phone: [phone] LV EDV Index BP 38 mL/m2 [facility] Work Phone: [phone] LV Ejection Fraction A2C 82 % [facility] Work Phone: [phone] LV Ejection Fraction A4C 78 % [facility] Work Phone: [phone] LV ESV A2C 12 mL [facility] Work Phone: [phone] LV ESV A4C 14 mL [facility] Work Phone: [phone] LV ESV BP 13 mL Abnormal 19 - 49 mL [facility] Work Phone: [phone] LV ESV Index A2C 7 mL/m2 [facility] Work Phone: [phone] LV ESV Index A4C 8 mL/m2 [facility] Work Phone: [phone] LV ESV Index BP 8 mL/m2 [facility] Work Phone: [phone] LV Mass 2D 145.6 g 67 - 162 g [facility] Work Phone: LV Mass 2D Index 87.7 g/m2 43 - 95 g/m2 [facility] Work Phone: [phone] LV RWT Ratio 0.60 [facility] Work Phone: LVIDd 4.0 cm 3.9 - 5.3 cm [facility] Work Phone: LVIDd Index 2.41 cm/m2 [facility] Work Phone: LVIDs 2.0 cm [facility] Work Phone: LVIDs Index 1.20 cm/m2 [facility] Work Phone: LVOT Area 2.8 cm2 [facility] Work Phone: [phone] LVOT Cardiac Output 3.9 liter/minute [facility] Work Phone: [phone] LVOT Diameter 1.9 cm [facility] Work Phone: [phone] LVOT Mean Gradient 2 mmHg [facility] Work Phone: [phone] LVOT Peak Gradient 3 mmHg [facility] Work Phone: [phone] LVOT Peak Velocity 0.9 m/s [facility] Work Phone: [phone] LVOT Stroke Volume Index 36.4 mL/m2 [facility] Work Phone: [phone] LVOT SV 60.4 ml [facility] Work Phone: [phone] LVOT VTI 21.[address] [facility] Work Phone: [phone] LVOT:AV VTI Index 0.36 [facility] Work Phone: [phone] LVPWd 1.2 cm Abnormal 0.6 - 0.[address] [facility] Work Phone: [phone] MV A Velocity 0.76 m/s [facility] Work Phone: [phone] MV E Velocity 0.68 m/s [facility] Work Phone: [phone] MV E Wave Deceleration Time 199.[address] [facility] Work Phone: [phone] MV E/A 0.89 [facility] Work Phone: [phone] Pulmonary Artery EDP 5 mmHg [facility] Work Phone: [phone] RA Area 4C 22.9 mL [facility] Work Phone: [phone] RA Area 4C 22.4 mL [facility] Work Phone: [phone] RV Basal Dimension 3.6 cm [facility] Work Phone: [phone] RV Free Wall Peak S' 13 cm/s [facility] Work Phone: [phone] RV Mid Dimension 3.1 cm [facility] Work Phone: [phone] RVSP 35 mmHg [facility] Work Phone: [phone] TAPSE 2.2 cm 1.7 cm [facility] Work Phone: [phone] TR Max Velocity 2.85 m/s [facility] Work Phone: [phone] TR Peak Gradient 32 mmHg [facility] Work Phone: [phone] [facility] Work Phone: [phone] Heart Transthoracicon Left Ventricle: Left ventricle size is normal. Mildly increased wall thickness. Hyperdynamic left ventricular systolic function. EF by 2D Simpsons Biplane is 80%. Normal wall motion. Right Ventricle: Right ventricle is mildly dilated. Normal systolic function. Aortic Valve: Mild to moderate (1-2+) regurgitation. Moderate stenosis of the aortic valve. AV mean gradient is 14 mmHg. AV peak velocity is 2.4 m/s. LVOT:AV VTI Index is 0.36. AV area by continuity VTI is 1.1 cm2. Tricuspid Valve: Mild to moderate (1-2+) regurgitation. RVSP is 35 mmHg. Left Ventricle Left ventricle size is normal. Mildly increased wall thickness. Hyperdynamic left ventricular systolic function. EF by 2D Simpsons Biplane is 80%. Normal wall motion. Indeterminate diastolic function. Right Ventricle Right ventricle is mildly dilated. Normal systolic function. Left Atrium Left atrium is mildly dilated. Right Atrium Right atrium is mildly dilated. IVC/SVC IVC diameter is normal and decreases greater than 50% during inspiration; therefore the estimated right atrial pressure is normal (~3 mmHg). Mitral Valve Valve structure is normal. Trace regurgitation. No stenosis noted. Tricuspid Valve Valve structure is normal. Mild to moderate (1-2+) regurgitation. RVSP is 35 mmHg. Aortic Valve Not well visualized. Moderately thickened cusps. Moderately calcified cusps. Mild to moderate (1-2+) regurgitation. Moderate stenosis of the aortic valve. AV mean gradient is 14 mmHg. AV peak velocity is 2.4 m/s. LVOT:AV VTI Index is 0.36. AV area by continuity VTI is 1.1 cm2. Pulmonic Valve The pulmonic valve was not well visualized. Mild (1+) regurgitation. Ascending Aorta Normal sized sinuses of Valsalva and ascending aorta. Pericardium No pericardial effusion. Septum No interatrial shunt visualized on color Doppler. Study Details Image quality: adequate. Heart rate: 62 bpm. Blood pressure: 130/57 mmHg. The underlying ECG rhythm was sinus rhythm. No contrast was given. CV CPACS BUNon 11-14-2021 Urea nitrogen (BldV) [Mass/Vol] 19 mg/dL 9 - 20 mg/dL [facility] Soft Tissue Neck w/ Contr franco 11-14-2021 CT Soft Tissue Neck w/ Contrast Patient Name: ASHLEY PAPPAS Computed Tomography ACCESSION EXAM DATE/TIME PROCEDURE ORDERING PROVIDER [id number] 11/14/2021 10:[address] Soft Tissue Neck w/ ORLANDO, VICTORINA S Contrast CPT code 83606 Q9967 Reason For Exam (CT Soft Tissue Neck w/ Contrast) SAILOADENTITIS , CHRONIC PAROTID GLAND Report EXAMINATION: CT Soft Tissue Neck w/ Contrast CLINICAL HISTORY: SAILOADENTITIS , CHRONIC PAROTID GLAND COMPARISON: None TECHNIQUE: Thin axial images were obtained through the neck with intravenous contrast. 2D sagittal and coronal reconstructions were obtained from the axial data. Before infusion of intravenous contrast, radiology personnel investigated the possibility of an allergic history and of any history of reaction to iodinated contrast material. FINDINGS: Aerodigestive tract: Evaluation of the oral cavity and oropharynx is significantly limited by dental amalgam artifact. The nasal cavities, naso-oropharynx, laryngeal structures and imaged infraglottic trachea are within normal limits. Lymph nodes: The right jugular digastric lymph node is mildly enlarged measuring 1.5 cm in short axis and an adjacent mildly enlarged level 2 lymph node measuring 1.3 cm. Other prominent but technically nonenlarged right level 3 and 4 lymph nodes are also noted which are most likely reactive. There is no left cervical adenopathy. Major salivary glands: The right parotid gland is asymmetrically enlarged and increased in enhancement compared with the left. There is mild stranding in the adjacent subcutaneous fat. No intraparotid mass, adenopathy, calcification, or duct dilation is evident. There is also no evidence of parotid duct sialolithiasis or sialectasis. The left parotid gland and both submandibular glands appear normal. Thyroid gland: 2.3 cm right thyroid nodule which has been previously assessed by ultrasound and was previously biopsied. Carotid space: Calcified atherosclerotic plaque is present present in both internal carotid arteries and carotid bifurcations. The origin of the right ICA is mildly narrowed. The jugular veins are patent. Paranasal sinuses, middle ears, mastoids: Clear. Brain and orbits: Imaged portions within normal limits. Bones: Moderate to advanced multilevel cervical spondylosis is present with severe disc height loss and mild retrolisthesis at several levels resulting in Computed Tomography Report mild to moderate spinal canal stenosis most pronounced at C4-5. The C4-5 and C5-6 neural foramina are severely stenotic. Lungs: Imaged portions are clear. Other: A 1.5 x 0.7 cm right retroauricular soft tissue nodule is present in the subcutaneous tissues which is probably a reactive lymph node. IMPRESSION: Right parotiditis with asymmetric glandular enlargement, mild hyperenhancement, and mild reactive right cervical adenopathy. No parotid mass, sialectasis, or sialolithiasis. Moderate to advanced cervical spondylosis. Report Dictated on Final Dictating Physician: MD CERON THOMAS Signed Date and Time: 11/16/2021 7:53 am Signed by: MD CERON THOMAS Transcribed Date and Time: 11/16/2021 7:54 Normal [facility] Creatinineon 11-14-2021 Creatinine [Mass/Vol] 0.92 mg/dL Normal 0.52-1.25 [facility] Comment on above: Performed By: #### B UN3, CRTN3 #### [facility] [address] [place] [address] GFR/1.73 sq M.predicted among blacks MDRD (S/P/Bld) [Vol rate/Area] 65.2 mL/min/{1.73_m2} Normal >60 [facility] [place] [facility] Comment on above: Performed By: #### B UN3, CRTN3 #### [facility] [address] [place] [address] GFR/1.73 sq M.predicted among non-blacks MDRD (S/P/Bld) [Vol rate/Area] 56.3 mL/min/{1.73_m2} Abnormal >60 [facility] [place] [facility] Comment on above: Result Comment: KDIG O guidelines provide the following GFR categories: Stage GFR(ml/min/1.73 m2) Terms G1 >=90 Normal or high G2 60-89 Mildly decreased* G3a 45-59 Mildly to moderately decreased G3b 30-44 Moderately to severely decreased G4 15-29 Severely decreased G5 <15 Kidney failure *Relative to young adult level. In the absence of evidence of kidney damage, neither GFR category G1 nor G2 fulfill the criteria for CKD. The CKD-EPI equation is validated in individuals 18 years of age and older. Currently the best equation for estimating glomerular filtration rate (GFR) from serum creatinine in children is the Bedside Elise equation. It is less accurate in patients with extremes of muscle mass, restriction of dietary protein, ingestion of creatine, extra-renal metabolism of creatinine, or treatment with medications that affect renal tubular creatinine secretion. Performed By: #### B UN3, CRTN3 #### [facility] [address] [place] [id number] Creatinine [Mass/Vol] 0.92 mg/dL 0.52 - 1.25 mg/dL [facility] EGFR IF NonAfrican [facility] 56.3 mL/min Abnormal >60 [facility] Comment on above: KDIGO guidelines pro vide the following GFR categories: Stage GFR(ml/min/1.73 m2) Terms G1 >=90 Normal or high G2 60-89 Mildly decreased* G3a 45-59 Mildly to moderately decreased G3b 30-44 Moderately to severely decreased G4 15-29 Severely decreased G5 <15 Kidney failure *Relative to young adult level. In the absence of evidence of kidney damage, neither GFR category G1 nor G2 fulfill the criteria for CKD. The CKD-EPI equation is validated in individuals 18 years of age and older. Currently the best equation for estimating glomerular filtration rate (GFR) from serum creatinine in children is the Bedside Elise equation. It is less accurate in patients with extremes of muscle mass, restriction of dietary protein, ingestion of creatine, extra-renal metabolism of creatinine, or treatment with medications that affect renal tubular creatinine secretion. GFR/1.73 sq M.predicted among blacks MDRD (S/P/Bld) [Vol rate/Area] 65.2 mL/min/{1.73_m2} >60 [facility] Interpretation and review of laboratory results Abnormal [facility] No Panel Informationon 11-[address] [facility], [address] , [place], [place] [id number] [place] [address] LAB [facility] Urea Nitrogenon 11-14-2021 Urea nitrogen [Mass/Vol] 19 mg/dL Normal - [facility] Comment on above: Performed By: #### B UN3, CRTN3 #### [facility] [address] [place] [address] US Thyroid/Parathyroidon US Thyroid/Parathyroid Patient Name: ASHLEY SIN Ultrasound ACCESSION EXAM DATE/TIME PROCEDURE ORDERING PROVIDER [id number] 03/15/2021 10:29 EDT US Parathyroid DO ORNELAS PAUL E. CPT code 60059 Reason For Exam (US Parathyroid) , Report ULTRASOUND THYROID: CLINICAL INDICATION: Follow-up thyroid nodule TECHNIQUE: Ultrasonographic evaluation of the thyroid including color flow imaging COMPARISON: Thyroid ultrasound 01/28/2018 FINDINGS: RIGHT LOBE: Size: Enlarged. 1.8 x 1.4 x 5.5 cm (AP x transverse x sagittal) Nodules: Detailed below Nodule Location: Mid to lower lobe Size: 1.3 x 1.6 x 2.4 cm (AP, transverse, sagittal) Composition: Solid (+2) Echogenicity: Isoechoic (+1) Margins: Smooth (0) Calcifications: None (0) TI-RADS score*: 3 - mildly suspicious Change since last exam: Unchanged from prior exam 01/28/2018. LEFT LOBE: Size: Normal size. 1.1 x 1.4 x 4.0 cm (AP x transverse x sagittal) Nodules: None ISTHMUS: Normal measuring 0.3 cm per CERVICAL LYMPH NODES: None identified. IMPRESSION: Redemonstration of a 2.4 cm nodule in the right thyroid lobe (TI-RADS 3), unchanged compared to thyroid ultrasound 01/28/2018. No new or enlarging thyroid nodules visualized. Please correlate with laboratory values. Provided below is a sample of published guidelines for follow-up or further evaluation of identified nodules using TI-RADS score system to be utilized at the clinician's discretion. *TI-RADS (2017) Reference: Lauren Stevens. ACR Thyroid Imaging, Reporting and Data System (TI-RADS): White Paper of the ACR TI-RADS Committee. [employer]. August Ultrasound Report 2017 Thyroid nodule details (add points for total score): Composition(points): 1 - mixed cystic and solid 2 - solid Echogenicity: 1 - hyperechoic or isoechoic 2 - hypoechoic 3 - very hypoechoic Shape: 3 - taller than wide Margin: 2 - lobulated or irregular 3 - extrathyroidal extension Echogenic foci: 1 - macrocalcifications 2 - rim calcification 3 - microcalcifications Risk for malignancy: TI-RADS 1: 0 points - (benign) <2% risk TI-RADS 2: 2 points - (not suspicious) <5% TI-RADS 3: 3 points - (mildly suspicious) <5% FNA when >/= 2.5cm Follow when >1.5cm at 1, 3 and 5 years TI-RADS 4: 4-6 points - (moderately suspicious) 5-20% FNA when >/= 1.5cm Follow when >1.0cm at 1, 2, 3 and 5 years TI-RADS 5: 7+ points - (highly suspicious) >20% FNA when >/= 1.0cm Follow when >0.5cm every year for up to 5 years Please note: There are other existing guidelines to classify thyroid nodules to determine need for FNA; and this decision will be deferred to the ordering physician. Note: "There are existing guidelines to classify the thyroid nodule(s) and determine need for FNA and this decision will be deferred to the ordering clinician". Report Dictated on Final Dictating Physician: MD GERALD, THEODORE JIANG Signed Date and Time: 03/16/2021 9:12 am Signed by: MD GERALD, THEODORE JIANG Transcribed Date and Time: 03/16/2021 9:13 Normal [facility] Free T4on 01-17-2021 Free T4 [Mass/Vol] 1.56 ng/dL Normal 0.78-2.19 [facility] Comment on above: Performed By: #### F T4M, TSH5 #### [facility] [address] [place] [address] #### TT3O #### [facility] [address] [place] [address] T3, Totalon 01-17-2021 T3, Total 128 ng/dL Normal 97-169 [facility] Comment on above: Performed By: #### F T4M, TSH5 #### [facility] [address] [place] [address] #### TT3O #### [facility] [address] [place] [address] Thyroid Stim. Hormoneon 09-0 Thyroid Stim. Hormone 1.603 u[IU]/mL Normal 0.465-4.68 0 [facility] Comment on above: Performed By: #### F T4M, TSH5 #### [facility] [address] [place] [address] #### TT3O #### [facility] [address] [place] [address] CT Abdomen Pelvis W Contrast on 03-12-2019 Patient Name: ASHLEY BOWSER ---CT--- Exam Date/Time 03/12/2019 09:55:[address] Abdomen/Pelvis w/ IV Contrast (IV Onl Ordering Physician DO ORNELAS PAUL E. Accession Number [id number] CPT4 Codes 00575 (CT Abdomen/Pelvis w/ IV Contrast (IV Onl), Q9967 (CT ISOVUE 370MG/ML&[id number] L&1) Reason For Exam Abdominal mass, unspecified abdominal location [R19.00 (ICD-10-CM)]; Abdominal pain, unspecified abdominal location [R10.9 (ICD-10-CM)] Report HISTORY: Possible abdominal mass After oral and intravenous contrast serial sections are performed through the abdomen and pelvis and correlated with prior examination of 2014. FINDINGS: 1. Splenomegaly has appeared since last exam 4.5 years ago 2. Severe multilevel degenerative disc disease lumbar spine with scoliosis 3. Moderate generalized calcific atherosclerosis with normal heart size 4. Diverticulosis colon with moderate stool in the colon 5. Pessary is present, anomaly with mainly left-sided IVC (infrarenal) Report Dictated on Workstation: [id number] --- Final --- Dictating Physician: MD MERCEDES WILLIAM Signed Date and Time: 03/12/2019 10:53 am Signed by: MD MERCEDES WILLIAM Transcribed Date and Time: 03/12/2019 11:45 [place], [place] [facility] Incoming Radiology Results From [facility] - 03/12/2019 11:46 AM EDT Patient Name: ASHLEY PAPPAS ---CT--- Exam Date/Time 03/12/2019 09:55:[address] Abdomen/Pelvis w/ IV Contrast (IV Onl Ordering Physician DO ORNELAS PAUL E. Accession Number [id number] CPT4 Codes 96239 (CT Abdomen/Pelvis w/ IV Contrast (IV Onl), Q9967 (CT ISOVUE 370MG/ML&[id number] L&1) Reason For Exam Abdominal mass, unspecified abdominal location [R19.00 (ICD-10-CM)]; Abdominal pain, unspecified abdominal location [R10.9 (ICD-10-CM)] Report HISTORY: Possible abdominal mass After oral and intravenous contrast serial sections are performed through the abdomen and pelvis and correlated with prior examination of 2014. FINDINGS: 1. Splenomegaly has appeared since last exam 4.5 years ago 2. Severe multilevel degenerative disc disease lumbar spine with scoliosis 3. Moderate generalized calcific atherosclerosis with normal heart size 4. Diverticulosis colon with moderate stool in the colon 5. Pessary is present, anomaly with mainly left-sided IVC (infrarenal) Report Dictated on Workstation: [id number] --- Final --- Dictating Physician: MD MERCEDES WILLIAM Signed Date and Time: 03/12/2019 10:53 am Signed by: MD MERCEDES WILLIAM Transcribed Date and Time: 03/12/2019 11:45 [place], [place] VL DUP CAROTID BILATERALon 1 05-12-2018 Patient Name: ASHLEY BOWSER ---Ultrasound--- Exam Date/Time 03/12/2019 09:15:00 EDT Exam VL Carotid Duplex Ultrasound Complete Ordering Physician DO ORNELAS PAUL E. Accession Number [id number] CPT4 Codes 32489 () Reason For Exam . Report BILATERAL CAROTID ULTRASOUND: CLINICAL INDICATION: Bruit of right carotid artery. TECHNIQUE: Two-dimensional, Color-flow and spectral Doppler sonography of the extracranial arterial circulation was performed. COMPARISON: None. FINDINGS: RIGHT: Plaque: Moderate calcific atherosclerotic disease disease in the distal right common carotid artery CCA peak systolic: 46 cm/sec CCA end diastolic: 10 cm/sec ICA peak systolic: 83 cm/sec ICA end diastolic: 27 cm/sec ICA/CCA ratio: 1.8 Estimated ICA stenosis: less than 50% ECA systolic: 57 cm/sec Vertebral: Antegrade LEFT: Plaque: Minor non-calcified and calcified plaque CCA peak systolic: 64 cm/sec CCA end diastolic: 18 cm/sec ICA peak systolic: 94 cm/sec ICA end diastolic: 29 cm/sec ICA/CCA ratio: 1.5 Estimated ICA stenosis: less than 50% ECA systolic: 68 cm/sec Vertebral: Antegrade IMPRESSION: 1. Estimated less than 50 percent stenosis in the right and left internal carotid arteries. 2. There is occasional irregularity of the cardiac rhythm during spectral Doppler waveform evaluation that could be seen in the setting of paroxysmal atrial fibrillation Reference: Measurement of carotid stenosis is a ratio based on conventional angiographic data from the NASCET trials with the smallest caliber of the internal carotid as the numerator and normal post-stenotic internal carotid caliber as denominator. Stenosis based upon Society of Radiologists in Ultrasound consensus: <50%: ICA PS <125 cm/sec, ICA ED <40 cm/sec, ICA/CCA ratio <2.0 50-69%: ICA PS 125-230 cm/sec , ICA ED 40-100 cm/sec, ICA/CCA ratio 2-4 >70%: ICA PS >230 cm/sec, ICA ED >100 cm/sec, ICA/CCA ratio >4 Report Dictated on --- Final --- Dictating Physician: MD GRAVES GEORGE RICHARD Signed Date and Time: 03/12/2019 3:32 pm Signed by: MD GRAVES GEORGE RICHARD Transcribed Date and Time: 03/12/2019 3:33 [facility] [place], [place] [facility], [facility] Incoming Cardiology Results From [facility] - 03/12/2019 3:33 PM EDT Patient Name: ASHLEY PAPPAS ---Ultrasound--- Exam Date/Time 03/12/2019 09:15:00 EDT Exam VL Carotid Duplex Ultrasound Complete Ordering Physician DO ORNELAS PAUL E. Accession Number [id number] CPT4 Codes 36881 () Reason For Exam . Report BILATERAL CAROTID ULTRASOUND: CLINICAL INDICATION: Bruit of right carotid artery. TECHNIQUE: Two-dimensional, Color-flow and spectral Doppler sonography of the extracranial arterial circulation was performed. COMPARISON: None. FINDINGS: RIGHT: Plaque: Moderate calcific atherosclerotic disease disease in the distal right common carotid artery CCA peak systolic: 46 cm/sec CCA end diastolic: 10 cm/sec ICA peak systolic: 83 cm/sec ICA end diastolic: 27 cm/sec ICA/CCA ratio: 1.8 Estimated ICA stenosis: less than 50% ECA systolic: 57 cm/sec Vertebral: Antegrade LEFT: Plaque: Minor non-calcified and calcified plaque CCA peak systolic: 64 cm/sec CCA end diastolic: 18 cm/sec ICA peak systolic: 94 cm/sec ICA end diastolic: 29 cm/sec ICA/CCA ratio: 1.5 Estimated ICA stenosis: less than 50% ECA systolic: 68 cm/sec Vertebral: Antegrade IMPRESSION: 1. Estimated less than 50 percent stenosis in the right and left internal carotid arteries. 2. There is occasional irregularity of the cardiac rhythm during spectral Doppler waveform evaluation that could be seen in the setting of paroxysmal atrial fibrillation Reference: Measurement of carotid stenosis is a ratio based on conventional angiographic data from the NASCET trials with the smallest caliber of the internal carotid as the numerator and normal post-stenotic internal carotid caliber as denominator. Stenosis based upon Society of Radiologists in Ultrasound consensus: <50%: ICA PS <125 cm/sec, ICA ED <40 cm/sec, ICA/CCA ratio <2.0 50-69%: ICA PS 125-230 cm/sec , ICA ED 40-100 cm/sec, ICA/CCA ratio 2-4 >70%: ICA PS >230 cm/sec, ICA ED >100 cm/sec, ICA/CCA ratio >4 Report Dictated on --- Final --- Dictating Physician: MD GRAVES GEORGE RICHARD Signed Date and Time: 03/12/2019 3:32 pm Signed by: MD GRAVES GEORGE RICHARD Transcribed Date and Time: 03/12/2019 3:33 [place], [place] Vital Signs Date Time Vital Sign Value Performing Clinician Faci lity 09-28-2024 08:42-0400 Diastolic blood pressure 68 mm[Hg] Martín Urena DO Work Phone: [facility] 09-28-2024 08:42-0400 Heart rate 64 /min Martín Urena DO Work Phone: [facility] 09-28-2024 08:42-0400 Systolic blood pressure 124 mm[Hg] Martín Urena DO Work Phone: [facility] 09-28-2024 08:14-0400 Body height 160 cm Martín Urena DO Work Phone: [facility] 09-28-2024 08:14-0400 Body mass index (BMI) [Ratio] 25.3 kg/m2 Martín Urena DO Work Phone: [facility] 09-28-2024 08:14-0400 Body temperature 97.59 [degF] Martín Urena DO Work Phone: [facility] 09-28-2024 08:14-0400 Body weight 64.77 kg Martín Urena DO Work Phone: [facility] 09-28-2024 08:14-0400 SaO2% (BldA) [Mass fraction] 98 % Martín Urena DO Work Phone: [facility] 07-15-2024 10:02-0500 Body height 160 cm Kleber Demarco DO Work Phone: [facility] 07-15-2024 10:02-0500 Body mass index (BMI) [Ratio] 25.01 kg/m2 Kle[facility] Dav DO [facility] 07-15-2024 10:02-0500 Body temperature 97.81 [degF] Kleber Dav DO Work Phone: [facility] 07-15-2024 10:02-0500 Body weight 64.05 kg Kleber Dav DO Work Phone: [facility] 07-15-2024 10:02-0500 Diastolic blood pressure 58 mm[Hg] Kleber Demarco DO Work Phone: [facility] 07-15-2024 10:02-0500 Heart rate 73 /min Kleber Razael DO Work Phone: [facility] 07-15-2024 10:02-0500 SaO2% (BldA) [Mass fraction] 96 % Kleber Demarco DO Work Phone: [facility] 07-15-2024 10:02-0500 Systolic blood pressure 159 mm[Hg] Kleber Razael DO Work Phone: [facility] 03-24-2024 09:07-0500 Diastolic blood pressure 84 mm[Hg] Martín Urena DO Work Phone: [facility] 03-24-2024 09:07-0500 Heart rate 68 /min Martín Urena DO Work Phone: [facility] 03-24-2024 09:07-0500 Systolic blood pressure 146 mm[Hg] Martín Urena DO Work Phone: [facility] 03-24-2024 08:26-0500 Body height 160 cm Martín Urena DO Work Phone: [facility] 03-24-2024 08:26-0500 Body mass index (BMI) [Ratio] 24.98 kg/m2 Martín Urena DO Work Phone: [facility] 03-24-2024 08:26-0500 Body temperature 98.01 [degF] Martín Urena DO Work Phone: [facility] 03-24-2024 08:26-0500 Body weight 63.96 kg Martín Urena DO Work Phone: [facility] 03-24-2024 08:26-0500 SaO2% (BldA) [Mass fraction] 97 % Martín Urena DO Work Phone: [facility] 03-08-2024 09:51-0400 Diastolic blood pressure 73 mm[Hg] [facility] 03-08-2024 09:51-0400 Heart rate 65 /min [facility] 03-08-2024 09:51-0400 Systolic blood pressure 139 mm[Hg] [facility] 02-03-2024 08:29-0400 Diastolic blood pressure 62 mm[Hg] [facility] 02-03-2024 08:29-0400 Heart rate 75 /min [facility] 02-03-2024 08:29-0400 Systolic blood pressure 124 mm[Hg] [facility] 01-15-2024 09:33-0400 Body height 160 cm Kleber Dav DO Work Phone: [facility] 01-15-2024 09:33-0400 Body mass index (BMI) [Ratio] 24.92 kg/m2 Kleber Dav DO Work Phone: [facility] 01-15-2024 09:33-0400 Body temperature 99.19 [degF] Kleber Dav DO Work Phone: [facility] 01-15-2024 09:33-0400 Body weight 63.82 kg Kleber Dav DO Work Phone: [facility] 01-15-2024 09:33-0400 Diastolic blood pressure 68 mm[Hg] Kleber Dav DO Work Phone: [facility] 01-15-2024 09:33-0400 Heart rate 70 /min Kleber Dav DO Work Phone: [facility] 01-15-2024 09:33-0400 SaO2% (BldA) [Mass fraction] 96 % Kleber Dav DO Work Phone: [facility] 01-15-2024 09:33-0400 Systolic blood pressure 156 mm[Hg] Kleber Dav DO Work Phone: [facility] 01-08-2024 15:45-0400 Diastolic blood pressure 74 mm[Hg] Raymundo Manzano PA-C Work Phone: [facility] 01-08-2024 15:45-0400 Systolic blood pressure 138 mm[Hg] Raymundo Manzano PA-C Work Phone: [facility] 01-08-2024 15:15-0400 Body height 160 cm Raymundo Manzano PA-C Work Phone: [facility] 01-08-2024 15:15-0400 Body mass index (BMI) [Ratio] 24.91 kg/m2 Raymundo Manzano PA-C Work Phone: [facility] 01-08-2024 15:15-0400 Body temperature 97.81 [degF] Raymundo Manzano PA-C Work Phone: [facility] 01-08-2024 15:15-0400 Body weight 63.78 kg Raymundo Manzano PA-C Work Phone: [facility] 01-08-2024 15:15-0400 Heart rate 71 /min Raymundo Manzano PA-C Work Phone: [facility] 01-08-2024 15:15-0400 SaO2% (BldA) [Mass fraction] 96 % Raymundo Manzano PA-C Work Phone: [facility] 12-08-2023 14:52-0400 Diastolic blood pressure 72 mm[Hg] Raymundo Manzano PA-C Work Phone: [facility] 12-08-2023 14:52-0400 Systolic blood pressure 166 mm[Hg] Raymundo Manzano PA-C Work Phone: [facility] 12-08-2023 13:38-0400 Body height 160 cm Raymundo Manzano PA-C Work Phone: [facility] 12-08-2023 13:38-0400 Body mass index (BMI) [Ratio] 25.44 kg/m2 Raymundo Manzano PA-C Work Phone: [facility] 12-08-2023 13:38-0400 Body temperature 97.7 [degF] Raymundo Manzano PA-C Work Phone: [facility] 12-08-2023 13:38-0400 Body weight 65.14 kg Raymundo DAVIS-C Work Phone: [facility] 12-08-2023 13:38-0400 Heart rate 66 /min Raymundo DAVIS-C Work Phone: [facility] 12-08-2023 13:38-0400 SaO2% (BldA) [Mass fraction] 98 % Raymundo DAVIS-C Work Phone: [facility] 09-24-2023 08:58-0400 Diastolic blood pressure 72 mm[Hg] Martín Urena DO Work Phone: [facility] 09-24-2023 08:58-0400 Heart rate 68 /min Martín Urena DO Work Phone: [facility] 09-24-2023 08:58-0400 Systolic blood pressure 136 mm[Hg] Martín Urena DO Work Phone: [facility] 09-24-2023 08:25-0400 Body height 160 cm Martín Urena DO Work Phone: [facility] 09-24-2023 08:25-0400 Body mass index (BMI) [Ratio] 24.98 kg/m2 Martín Urena DO Work Phone: [facility] 09-24-2023 08:25-0400 Body temperature 97.11 [degF] Martín Urena DO Work Phone: [facility] 09-24-2023 08:25-0400 Body weight 63.96 kg Martín Urena DO Work Phone: [facility] 09-24-2023 08:25-0400 SaO2% (BldA) [Mass fraction] 97 % Martín Brittona DO Work Phone: [facility] 07-15-2023 09:15-0500 Body height 160 cm Kleber Dav DO Work Phone: [facility] 07-15-2023 09:15-0500 Body mass index (BMI) [Ratio] 25.12 kg/m2 Kleber Dav DO Work Phone: [facility] 07-15-2023 09:15-0500 Body temperature 98.71 [degF] Kleber Dav DO Work Phone: [facility] 07-15-2023 09:15-0500 Body weight 64.32 kg Kleber Dav DO Work Phone: [facility] 07-15-2023 09:15-0500 Diastolic blood pressure 68 mm[Hg] Kleber Dav DO Work Phone: [facility] 07-15-2023 09:15-0500 Heart rate 65 /min Kleber Dav DO Work Phone: [facility] 07-15-2023 09:15-0500 SaO2% (BldA) [Mass fraction] 96 % Kleber Dav DO Work Phone: [facility] 07-15-2023 09:15-0500 Systolic blood pressure 131 mm[Hg] Kleber Dav DO Work Phone: [facility] 04-15-2023 10:07-0500 Body height 160 cm Kleber Dav DO Work Phone: [facility] 04-15-2023 10:07-0500 Body mass index (BMI) [Ratio] 25.03 kg/m2 Kleber Dav DO Work Phone: [facility] 04-15-2023 10:07-0500 Body temperature 98.6 [degF] Kleber Dav DO Work Phone: [facility] 04-15-2023 10:07-0500 Body weight 64.09 kg Kleber Dav DO Work Phone: [facility] 04-15-2023 10:07-0500 Diastolic blood pressure 65 mm[Hg] Kleber Dav DO Work Phone: [facility] 04-15-2023 10:07-0500 Heart rate 63 /min Kleber Dav DO Work Phone: [facility] 04-15-2023 10:07-0500 SaO2% (BldA) [Mass fraction] 98 % Kleber Killianebel DO Work Phone: [facility] 04-15-2023 10:07-0500 Systolic blood pressure 149 mm[Hg] Kleber Killianebel DO Work Phone: [facility] 03-26-2023 09:13-0500 Diastolic blood pressure 76 mm[Hg] Martín Urena DO Work Phone: [facility] 03-26-2023 09:13-0500 Heart rate 60 /min Martín Urena DO Work Phone: [facility] 03-26-2023 09:13-0500 Systolic blood pressure 128 mm[Hg] Martín Urena DO Work Phone: [facility] 03-26-2023 08:21-0500 Body height 160 cm Martín Urena DO Work Phone: [facility] 03-26-2023 08:21-0500 Body mass index (BMI) [Ratio] 25.51 kg/m2 Martín Urena DO Work Phone: [facility] 03-26-2023 08:21-0500 Body temperature 97.2 [degF] Martín Urena DO Work Phone: [facility] 03-26-2023 08:21-0500 Body weight 65.32 kg Martín Urena DO Work Phone: [facility] 03-26-2023 08:21-0500 SaO2% (BldA) [Mass fraction] 99 % Martín Urena DO Work Phone: [facility] 01-07-2023 11:37-0400 Body height 160 cm Kleber Killianebel DO Work Phone: [facility] 01-07-2023 11:37-0400 Body mass index (BMI) [Ratio] 25.69 kg/m2 Kleber Dav DO Work Phone: [facility] 01-07-2023 11:37-0400 Body temperature 98.91 [degF] Kleber Dav DO Work Phone: [facility] 01-07-2023 11:37-0400 Body weight 65.77 kg Kleber Dav DO Work Phone: [facility] 01-07-2023 11:37-0400 Diastolic blood pressure 61 mm[Hg] Kleber Dav DO Work Phone: [facility] 01-07-2023 11:37-0400 Heart rate 67 /min Kleber Dav DO Work Phone: [facility] 01-07-2023 11:37-0400 SaO2% (BldA) [Mass fraction] 94 % Kleber Dav DO Work Phone: [facility] 01-07-2023 11:37-0400 Systolic blood pressure 138 mm[Hg] Kleber Dav DO Work Phone: [facility] 12-05-2022 08:42-0400 Body height 160 cm Kleber Dav DO Work Phone: [facility] 12-05-2022 08:42-0400 Body mass index (BMI) [Ratio] 25.42 kg/m2 Klebre Dav DO Work Phone: [facility] 12-05-2022 08:42-0400 Body temperature 98.91 [degF] Kleber Dav DO Work Phone: [facility] 12-05-2022 08:42-0400 Body weight 65.09 kg Kleber Dav DO Work Phone: [facility] 12-05-2022 08:42-0400 Diastolic blood pressure 62 mm[Hg] Kleber Dav DO Work Phone: [facility] 12-05-2022 08:42-0400 Heart rate 65 /min Kleber Dav DO Work Phone: [facility] 12-05-2022 08:42-0400 SaO2% (BldA) [Mass fraction] 97 % Kleber Killianebel DO Work Phone: [facility] 12-05-2022 08:42-0400 Systolic blood pressure 144 mm[Hg] Kleber Dav DO Work Phone: [facility] 11-21-2022 12:29-0400 Body temperature 98.49 [degF] Chair 4 [facility] 11-21-2022 12:29-0400 Diastolic blood pressure 63 mm[Hg] Chair 4 [facility] 11-21-2022 12:29-0400 Heart rate 68 /min Chair 4 [facility] 11-21-2022 12:29-0400 Systolic blood pressure 144 mm[Hg] Chair 4 [facility] 11-21-2022 08:09-0400 Body height 160 cm Kleber Killianebel DO Work Phone: [facility] 11-21-2022 08:09-0400 Body mass index (BMI) [Ratio] 25.44 kg/m2 Kleber Killianebel DO Work Phone: [facility] 11-21-2022 08:09-0400 Body temperature 98.71 [degF] Kleber Dav DO Work Phone: [facility] 11-21-2022 08:09-0400 Body weight 65.14 kg Kleber Killianebel DO Work Phone: [facility] 11-21-2022 08:09-0400 Diastolic blood pressure 63 mm[Hg] Kleber Dav DO Work Phone: [facility] 11-21-2022 08:09-0400 Heart rate 67 /min Kleber Dav DO Work Phone: [facility] 11-21-2022 08:09-0400 SaO2% (BldA) [Mass fraction] 96 % Kleber Dav DO Work Phone: [facility] 11-21-2022 08:09-0400 Systolic blood pressure 154 mm[Hg] Kleber Demarco DO Work Phone: [facility] 11-21-2022 08:02-0400 Body height 160 cm Chair 4 [facility] 11-21-2022 08:02-0400 Body mass index (BMI) [Ratio] 25.44 kg/m2 Chair 4 [facility] 11-21-2022 08:02-0400 Body weight 65.14 kg Chair 4 [facility] 11-21-2022 08:02-0400 Respiratory rate 14 /min Chair 4 [facility] 11-21-2022 08:02-0400 SaO2% (BldA) [Mass fraction] 96 % Chair 4 [facility] 11-13-2022 13:10-0400 Body temperature 98.91 [degF] Chair 3 [facility] 11-13-2022 13:10-0400 Diastolic blood pressure 70 mm[Hg] Chair 3 [facility] 11-13-2022 13:10-0400 Heart rate 70 /min Chair 3 [facility] 11-13-2022 13:10-0400 Respiratory rate 16 /min Chair 3 [facility] 11-13-2022 13:10-0400 Systolic blood pressure 145 mm[Hg] Chair 3 [facility] 11-13-2022 08:28-0400 Body height 160 cm Chair 3 [facility] 11-13-2022 08:28-0400 Body mass index (BMI) [Ratio] 25.23 kg/m2 Chair 3 [facility] 11-13-2022 08:28-0400 Body weight 64.59 kg Chair 3 [facility] 11-13-2022 08:28-0400 SaO2% (BldA) [Mass fraction] 97 % Chair 3 [facility] 11-06-2022 14:00-0400 Body temperature 98.91 [degF] Chair 4 [facility] 11-06-2022 14:00-0400 Diastolic blood pressure 60 mm[Hg] Chair 4 [facility] 11-06-2022 14:00-0400 Heart rate 68 /min Chair 4 [facility] 11-06-2022 14:00-0400 Respiratory rate 18 /min Chair 4 [facility] 11-06-2022 14:00-0400 Systolic blood pressure 145 mm[Hg] Chair 4 [facility] 11-06-2022 13:19-0400 SaO2% (BldA) [Mass fraction] 98 % Chair 4 [facility] 11-06-2022 08:02-0400 Body height 160 cm Kleber Dav DO Work Phone: [facility] 11-06-2022 08:02-0400 Body mass index (BMI) [Ratio] 25.08 kg/m2 Kleber Dav DO Work Phone: [facility] 11-06-2022 08:02-0400 Body temperature 98.8 [degF] Kleber Dav DO Work Phone: [facility] 11-06-2022 08:02-0400 Body weight 64.23 kg Kleber Dav DO Work Phone: [facility] 11-06-2022 08:02-0400 Diastolic blood pressure 58 mm[Hg] Kleber Dav DO Work Phone: [facility] 11-06-2022 08:02-0400 Heart rate 66 /min Kleber Dav DO Work Phone: [facility] 11-06-2022 08:02-0400 SaO2% (BldA) [Mass fraction] 97 % Kleber Dav DO Work Phone: [facility] 11-06-2022 08:02-0400 Systolic blood pressure 166 mm[Hg] Kleber Dav DO Work Phone: [facility] 11-06-2022 07:58-0400 Body mass index (BMI) [Ratio] 25.08 kg/m2 Chair 4 [facility] 11-06-2022 07:58-0400 Body weight 64.[address] [facility] 08-15-2022 15:00-0400 Body temperature 97.5 [degF] Victorina Perry [employer] Work Phone: [facility] 08-15-2022 15:00-0400 Diastolic blood pressure 66 mm[Hg] Victorina [facility] [employer] Work Phone: [facility] 08-15-2022 15:00-0400 Heart rate 66 /min Victorina De Guzmanigham [employer] Work Phone: [facility] 08-15-2022 15:00-0400 Respiratory rate 18 /min Victorina De Guzmanigham [employer] Work Phone: [facility] 08-15-2022 15:00-0400 Systolic blood pressure 156 mm[Hg] Victorina De Guzmanigham [employer] Work Phone: [facility] 08-15-2022 14:40-0400 SaO2% (BldA) [Mass fraction] 98 % Victorina De Gumzanigham [employer] Work Phone: [facility] 06-06-2022 13:20-0500 Diastolic blood pressure 60 mm[Hg] Loki Ornelas DO Work Phone: [facility] 06-06-2022 13:20-0500 Systolic blood pressure 140 mm[Hg] Loki Burgoso DO Work Phone: [facility] 06-06-2022 12:50-0500 Body height 160 cm Loki Burgoso DO Work Phone: [facility] 06-06-2022 12:50-0500 Body mass index (BMI) [Ratio] 24.98 kg/m2 Loki Burgoso DO Work Phone: [facility] 06-06-2022 12:50-0500 Body temperature 97.11 [degF] Loki Burgoso DO Work Phone: [facility] 06-06-2022 12:50-0500 Body weight 63.96 kg Loki Burgoso DO Work Phone: [facility] 06-06-2022 12:50-0500 Heart rate 83 /min Loki Burgoso DO Work Phone: [facility] 06-06-2022 12:50-0500 SaO2% (BldA) [Mass fraction] 95 % Loki Burgoso DO Work Phone: [employer] [facility] 05-23-2022 11:19-0500 Body height 160 cm Loki Ornelas DO Work Phone: [facility] 05-23-2022 11:19-0500 Body mass index (BMI) [Ratio] 24.8 kg/m2 Loki Ornelas DO Work Phone: [facility] 05-23-2022 11:190500 Body weight 63.5 kg Loki Ornelas DO Work Phone: [facility] Encounters Encounter Date Encounter Type Care Provider Facility Start: 02-27-2025 End: 02-28-2025 Refill Martín Urena DO Work Phone: [facility] [place] Comment on above: Primary hypertension Start: 01-31-2025 End: 01-31-2025 ambulatory Latrell GOMEZ Facility:[facility] Start: 01-20-2025 End: 01-20-2025 Telephone encounter Martín Urena DO Work Phone: [facility] [place] Comment on above: Other (Records neede d) Start: 12-16-2024 End: 12-16-2024 Refill Martín Urena Work Phone: [facility] [place] Start: 10-06-2024 End: 10-06-2024 Subsequent hospital visit by physician Martín Lauren Romel ROCK Work Phone: [facility] Radiology Comment on above: Lumbar disc disease Start: 10-06-2024 End: 10-06-2024 [facility] Start: 10-05-2024 End: 10-11-2024 Follow-up encounter Martín Nashpaulayvonne ROCK Work Phone: [facility] [place] Comment on above: CBC auto differentia l, Comprehensive metabolic panel, TSH, XR lumbar spine 4-5 view Start: 09-28-2024 End: 09-28-2024 Office outpatient visit 25 minutes Martín Lauren Nashpaulayvonne [facility] Comment on above: Primary hypertension (Primary Dx); Follicular lymphoma, unspecified follicular lymphoma type, unspecified body region (HCC); Lumbar disc disease; Thyroid disorder screening; Contracture of hand joint, left Start: 09-28-2024 End: 09-28-2024 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 Start: 03-24-2024 End: 03-24-2024 Patient encounter procedure Martín Urnea DO Work Phone: [facility] [place] Comment on above: Encounter for subseq uent annual wellness visit (AWV) in Medicare patient (Primary Dx); Glaucoma of both eyes, unspecified glaucoma type; Primary hypertension; Nonrheumatic aortic valve stenosis; Follicular lymphoma, unspecified follicular lymphoma type, unspecified body region (HCC); Routine general medical examination at health care facility Start: 03-24-2024 End: 03-24-2024 ambulatory [facility] Start: 03-24-2024 End: 03-24-2024 Encounter for general adult medical examination without abnormal findings [facility] Start: 03-08-2024 End: 03-08-2024 Clinical Support [facility] Schedule [facility] Comment on above: Primary hypertension Start: 03-01-2024 End: 03-01-2024 Refill Martín Aguilar Romel DO [facility] Start: 02-03-2024 End: 02-03-2024 Clinical Support [facility] Comment on above: Primary hypertension Start: 01-15-2024 End: 01-15-2024 Office outpatient visit 15 minutes Kleber E Dav DO Work Phone: [facility] Comment on above: Follicular lymphoma of lymph nodes of neck, unspecified follicular lymphoma type (HCC) (Primary Dx) Start: 01-08-2024 End: 01-08-2024 Office outpatient visit 25 minutes Raymundo Manzano PA-C Work Phone: [facility] Comment on above: Primary hypertension (Primary Dx) Start: 12-08-2023 End: 12-08-2023 Office outpatient visit 25 minutes Raymundo Manzano PA-C Work Phone: [facility] Comment on above: Primary hypertension (Primary Dx) Start: 11-26-2023 End: 11-26-2023 Orders Only Martín Aguilar Romel DO Work Phone: [facility] Medicine Start: 09-24-2023 End: 09-24-2023 Office outpatient visit 15 minutes Martín Urena DO Work Phone: [facility] Comment on above: Primary hypertension (Primary Dx); Follicular lymphoma, unspecified follicular lymphoma type, unspecified body region (HCC); Alopecia Start: 07-15-2023 End: 07-15-2023 Office outpatient visit 15 minutes Kleber E Dav DO Work Phone: [facility] Comment on above: 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 Start: 03-26-2023 End: 03-26-2023 Patient encounter procedure Martín Urena DO Work Phone: [facility] Comment on above: Encounter for subseq uent annual wellness visit (AWV) in Medicare patient (Primary Dx); Follicular lymphoma, unspecified follicular lymphoma type, unspecified body region (HCC); Primary hypertension; Aortic stenosis, mild; Routine general medical examination at [facility] Start: 01-21-2023 End: 01-22-2023 ambulatory HARMAN JACKSON MD [place] [place] Start: 01-07-2023 End: 01-07-2023 Office outpatient visit 25 minutes Kleber E Dav DO Work Phone: [facility] Comment on above: Follicular lymphoma of lymph nodes of neck, unspecified follicular lymphoma type (HCC) (Primary Dx) Start: 01-02-2023 End: 01-02-2023 Subsequent hospital visit by physician Kleber Dai Dav DO Work Phone: [facility] Comment on above: Follicular lymphoma, unspecified follicular lymphoma type, unspecified body region (HCC); Follicular lymphoma of lymph nodes of neck, unspecified grade (HCC) Start: 12-05-2022 End: 12-05-2022 Office outpatient visit 25 minutes Kleber E Dav DO Work Phone: [facility] Comment on above: Follicular lymphoma, unspecified follicular lymphoma type, unspecified body region (HCC) (Primary Dx); Follicular lymphoma of lymph nodes of neck, unspecified grade (HCC) Start: 11-21-2022 End: 11-21-2022 Office outpatient visit 25 minutes Kleber E Dav DO Work Phone: [facility] Comment on above: Follicular lymphoma, unspecified follicular lymphoma type, unspecified body region (HCC) (Primary Dx) Start: 11-21-2022 End: 11-21-2022 ambulatory Martín Urena DO Work Phone: [facility] Comment on above: Follicular lymphoma, unspecified follicular lymphoma type, unspecified body region (HCC) Start: 11-13-2022 End: 11-13-2022 ambulatory Martín Urena DO Work Phone: [facility] Comment on above: Follicular lymphoma, unspecified follicular lymphoma type, unspecified body region (HCC) Start: 11-06-2022 End: 11-06-2022 Office outpatient visit 25 minutes Kleber Demarco DO Work Phone: [facility] Comment on above: Follicular lymphoma of lymph nodes of neck, unspecified follicular lymphoma type (HCC) (Primary Dx) Start: 11-06-2022 End: 11-06-2022 ambulatory Martín Urena DO Work Phone: [facility] Comment on above: Follicular lymphoma, unspecified follicular lymphoma type, unspecified body region (HCC) Start: 11-05-2022 [facility] Start: 10-11-2022 End: 10-11-2022 Subsequent hospital visit by physician Kleber Demarco DO Work Phone: [facility] PET Comment on above: Follicular lymphoma of lymph nodes of neck, unspecified follicular lymphoma type (HCC) Start: 09-02-2022 Telephone encounter Darling Richards [facility] Start: 08-15-2022 End: 08-15-2022 Anesthesia consultation Tiago Perez MD Work Phone: [facility] MA[facility] OR Start: 08-15-2022 End: 08-15-2022 Subsequent hospital visit by physician Victorina Perry DO Work Phone: [facility] Comment on above: Neck mass; Chronic lymphadenitis, except mesenteric Start: 07-31-2022 Refill Loki jaramillo DO Work Phone: [facility] Start: 07-24-2022 End: 07-25-2022 ambulatory LOKI ORNELAS Facility:[facility] Start: 06-06-2022 End: 06-06-2022 Office outpatient visit 15 minutes Loki Ornelas DO Work Phone: [facility] Comment on above: Primary hypertension (Primary Dx); Aortic valve stenosis, etiology of cardiac valve disease unspecified; Lightheadedness; Thyroid nodule; Enlarged parotid gland Start: 06-03-2022 End: 06-03-2022 Subsequent hospital visit by physician Zoe Hayes NP Work Phone: [facility] Non-Invasive Cardiology Comment on above: Lightheadedness Start: 05-23-2022 End: 05-23-2022 Subsequent hospital visit by physician Loki Ornelas DO Work Phone: [facility] Non-Invasive Cardiology Comment on above: Heart murmur Start: 02-23-2022 Transcribe Orders Loki conrad DO Work Phone: [facility] Start: 02-20-2022 Transcribe Orders Loki conrad DO Work Phone: [facility] Comment on above: Cardiac murmur, unsp ecified (Primary Dx) Start: 11-14-2021 End: 11-14-2021 Subsequent hospital visit by physician Victorina Perry DO Work Phone: [facility] Start: 03-15-2021 End: 03-15-2021 Subsequent hospital visit by physician Loki Ornelas DO Work Phone: [facility] Comment on above: Nontoxic single thyr oid nodule; Thyroid nodule Start: 03-12-2019 End: 03-12-2019 Subsequent hospital visit by physician Loki Ornelas Work Phone: [facility] Comment on above: Bruit of right carot id artery; Abdominal mass, unspecified abdominal location; Abdominal pain, unspecified abdominal location Procedures Date Procedure Procedure Detail Performing Clinician Start: 09-27-2024 Adult depression scr eening assessment Martín Urena DO Work Phone: Start: 03-23-2024 Adult depression scr eening assessment Martín Urena DO Work Phone: Start: 07-12-2023 Adult depression scr eening assessment Kleber Killianebel DO Work Phone: Start: 04-14-2023 Adult depression scr eening assessment Darling Blackwood Start: 12-04-2022 Adult depression scr eening assessment Kleber Dav DO Work Phone: Start: 11-21-2022 Comprehensive metabo lic panel Kleber E Dav DO Work Phone: Start: 11-13-2022 Comprehensive metabo lic panel Kleber E Dav DO Work Phone: Start: 11-06-2022 Comprehensive metabo lic panel Kleber E Dav DO Work Phone: Start: 10-14-2022 Adult depression scr eening assessment Jevon Win [facility] ED Start: 08-15-2022 CT AN ELECTIVE SUPRA GLOTTIC AIRWAY Anitha Boyle APRN - GRAIN CLEANER Work Phone: Start: 05-23-2022 Echo tthrc r-t 2d w/wom-mode compl spec&colr d Loki Ornelas DO Work Phone: Start: 11-14-2021 [facility]inine [facility] Work Phone: Start: 03-12-2019 CT ABDOMEN PELVIS W CONTRAST Loki Ornelas Work Phone: Start: 03-12-2019 Duplex scan extracra nial art compl bi study Loki Ornelas Work Phone: Plan of Treatment Date Care Activity Detail Author Start: 09-27-2025 Depression Screening Depression Screening [facility] Start: 07-14-2025 End: 07-14-2025 Patient encounter procedure 07/14/2025 8:30 AM EST Office Visit [facility] [place] [address] [place] [phone] Kleber Demarco DO [address] [place] [address] [facility] [place] Start: 03-31-2025 End: 03-31-2025 Patient encounter procedure [facility] [place] Start: 03-23-2025 Depression Screening Depression Screening [facility] Start: 01-10-2025 COVID-19 Vaccine ( season) COVID-19 Vaccine () [facility] Start: 01-10-2025 Influenza vaccination Influenza Vaccine (#1) [facility] Start: 09-28-2024 End: 09-28-2025 CBC W Auto Differential panel - Blood CBC auto differential Lab Routine Primary hypertension Expected: 09/28/2024 (Approximate), Expires: 09/28/2025 [facility] Work Phone: Comment on above: Expected: 09/28/2024 (Approximate), Expi res: 09/28/2025 Start: 09-28-2024 End: 09-28-2025 Comprehensive metabolic 1998 panel - Serum or Plasma Comprehensive metabolic panel Lab Routine Primary hypertension Expected: 09/28/2024 (Approximate), Expires: 09/28/2025 [facility] Comment on above: Expected: 09/28/2024 (Approximate), Expi res: 09/28/2025 Start: 09-28-2024 End: 09-28-2025 Thyrotropin [Units/volume] in Serum or Plasma TSH Lab Routine Thyroid disorder screening Expected: 09/28/2024 (Approximate), Expires: 09/28/2025 [facility] Comment on above: Expected: 09/28/2024 (Approximate), Expi res: 09/28/2025 Start: 09-28-2024 End: 09-28-2025 XR Lumbar spine Views W flexion and W extension XR lumbar spine 4-5 view Imaging Routine Lumbar disc disease Expected: 09/28/2024, Expires: 09/28/2025 [facility] Comment on above: Expected: 09/28/2024, Expires: Start: 09-23-2024 End: 09-23-2024 Patient encounter procedure 09/23/2024 1:00 PM EDT Office Visit [facility] [address] [place] [address] Martín Urena DO [address] [place] [address] [facility] [place] Start: 09-16-2024 End: 09-16-2024 Patient encounter procedure 09/16/2024 7:30 AM EDT Office Visit [facility] [address] [place] [address] Martín Urena DO [address] [place] [address] [facility] Start: 07-15-2024 End: 07-15-2024 Patient encounter procedure [facility] Start: 07-11-2024 Depression Screening Depression Screening [facility] Start: 05-12-2024 Medicare Advantage Annual Wellness Visit Medicare Advantage Annual Wellness Visit [facility] Start: 05-06-2024 End: 05-06-2024 Clinical Support 05/06/2024 9:00 AM EST Clinical Support [facility] [address] [place] [address] [facility] Start: 04-25-2024 Medicare Advantage Annual Wellness Visit (AWV) Medicare Advantage Annual Wellness Visit (AWV) [facility] Start: 04-14-2024 Depression Screening Depression Screening [facility] Start: 03-24-2024 End: 03-24-2024 Patient encounter procedure [facility] Start: 03-08-2024 End: 03-08-2024 Clinical Support 03/08/2024 9:40 AM EDT Clinical Support [facility] [address] [place] [address] [facility] Start: 01-29-2024 End: 01-29-2024 Clinical Support 01/29/2024 10:00 AM EDT Clinical Support [facility] [address] [place] [address] [facility] Start: 01-15-2024 End: 01-15-2024 Patient encounter procedure [facility] Start: 01-11-2024 COVID-19 Vaccine () COVID-19 Vaccine () [facility] Start: 01-11-2024 COVID-19 Vaccine () COVID-19 Vaccine () [facility] Start: 01-11-2024 COVID-19 Vaccine () COVID-19 Vaccine () [facility] Start: 01-11-2024 Influenza vaccination Influenza Vaccine (#1) [facility] Start: 01-08-2024 End: 01-08-2024 Patient encounter procedure 01/08/2024 3:20 PM EDT Office Visit [facility] [address] [place] [address] Raymundo Manzano PA-C [address] [place] [address] [facility] Start: 12-08-2023 End: 12-08-2023 Patient encounter procedure 12/08/2023 1:40 PM EDT Office Visit [facility] [address] [place] [address] Raymundo Manzano PA-C [address] [place] [address] [place] [address] [facility] Start: 12-05-2023 Depression Screening Depression Screening [facility] Start: 10-15-2023 Depression Screening Depression Screening [facility] Start: 09-24-2023 End: 09-23-2024 CBC W Auto Differential panel - Blood CBC auto differential Lab Routine Primary hypertension Expected: 09/24/2023 (Approximate), Expires: 09/23/2024 [facility] Work Phone: Comment on above: Expected: 09/24/2023 (Approximate), Expi res: 09/23/2024 Start: 09-24-2023 End: 09-23-2024 Comprehensive metabolic 1998 panel - Serum or Plasma Comprehensive metabolic panel Lab Routine Primary hypertension Expected: 09/24/2023 (Approximate), Expires: 09/23/2024 [facility] Comment on above: Expected: 09/24/2023 (Approximate), Expi res: 09/23/2024 Start: 09-24-2023 End: 09-23-2024 Thyrotropin [Units/volume] in Serum or Plasma TSH Lab Routine Alopecia Expected: 09/24/2023 (Approximate), Expires: 09/23/2024 [facility] Comment on above: Expected: 09/24/2023 (Approximate), Expi res: 09/23/2024 Start: 09-24-2023 End: 09-23-2024 Thyroxine (T4) free [Mass/volume] in Serum or Plasma T4, free Lab Routine Alopecia Expected: 09/24/2023 (Approximate), Expires: 09/23/2024 [facility] Comment on above: Expected: 09/24/2023 (Approximate), Expi res: 09/23/2024 Start: 09-24-2023 End: 09-23-2024 Triiodothyronine (T3) Free [Mass/volume] in Serum or Plasma T3, free Lab Routine Alopecia Expected: 09/24/2023 (Approximate), Expires: 09/23/2024 [facility] Comment on above: Expected: 09/24/2023 (Approximate), Expi res: 09/23/2024 Start: 09-24-2023 End: 09-24-2023 Patient encounter procedure 09/24/2023 8:30 AM EDT Office Visit [facility] [address] [place] [address] Martín Urena, DO [address] [place] [address] [place] [address] [facility] Start: 07-15-2023 End: 07-15-2023 Patient encounter procedure 07/15/2023 9:15 AM EST Office Visit [facility] [address] [place] [phone] Kleber Demarco DO [address] [place], [place] [id number] [facility] Start: 05-12-2023 Medicare Advantage Annual Wellness Visit Medicare Advantage Annual Wellness Visit [facility] Start: 04-15-2023 End: 04-15-2023 Patient encounter procedure 04/15/2023 10:00 AM EST Office Visit [facility] [address] [place] [phone] Kleber Demarco DO [address] [place] [address] [facility] Start: 03-26-2023 End: 03-26-2023 Patient encounter procedure [facility] Start: 01-10-2023 COVID-19 Vaccine ( season) COVID-19 Vaccine ( season) [facility] Start: 01-10-2023 COVID-19 Vaccine ( season) COVID-19 Vaccine ( season) [facility] Start: 01-10-2023 Influenza vaccination Influenza Vaccine (#1) [facility] Start: 01-07-2023 End: 01-07-2023 Patient encounter procedure 01/07/2023 11:45 AM EDT Office Visit [facility] [address] [place] [phone] Kleber Demarco DO [address] [place], [place] [id number] [facility] Start: 01-02-2023 End: 01-02-2023 Patient encounter procedure 01/02/2023 10:00 AM EDT Appointment [facility] [address] [place] [phone] Kleber Demarco DO [address] [place] [address] [facility] Start: 12-30-2022 End: 12-06-2023 PET+CT Bone from skull base to mid-thigh W [id number] IV PET/CT skull base to mid thigh Imaging Routine Follicular lymphoma, unspecified follicular lymphoma type, unspecified body region (HCC) Follicular lymphoma of lymph nodes of neck, unspecified grade (HCC) Expected: 12/30/2022 (Approximate), Expires: 12/06/2023 [facility] Work Phone: Comment on above: Expected: 12/30/2022 (Approximate), Expi res: 12/06/2023 Start: 12-05-2022 End: 12-05-2022 Patient encounter procedure 12/05/2022 8:45 AM EDT Office Visit [facility] [address] [place] [phone] Kleber Demarco DO [address] [place] [address] [facility] Start: 11-21-2022 End: 11-21-2022 Patient encounter procedure 11/21/2022 9:30 AM EDT Office Visit [facility] [address] [place] [phone] Kleber Demarco DO [address] [place] [address] [facility] Start: 11-21-2022 End: 11-21-2022 ambulatory 11/21/2022 8:00 AM EDT Infusion [facility] [address] [place] [phone] Martín Urena, DO [address] [place] [address] [facility] Start: 11-13-2022 End: 11-13-2022 Patient encounter procedure 11/13/2022 10:00 AM EDT Office Visit [facility] [address] [place] [phone] Kleber Demarco DO [address] [place] [address] [facility] Start: 11-13-2022 End: 11-13-2022 ambulatory 11/13/2022 8:30 AM EDT Infusion [facility] [address] [place] [phone] Martín Urena, DO [address] [place] [address] [facility] Start: 11-06-2022 End: 11-06-2022 Patient encounter procedure 11/06/2022 9:15 AM EDT Office Visit [facility] [address] [place] [address] Kleber Demarco DO [address] [place] [address] [facility] Start: 11-06-2022 End: 11-06-2022 ambulatory 11/06/2022 8:00 AM EDT Infusion [facility] [address] [place] [phone] Martín Urena Lauren, DO [address] [place] [address] [facility] Start: 10-17-2022 End: 10-17-2022 Patient encounter procedure 10/17/2022 Office Visit Hematology and Oncology Kleber Demarco, DO [address] [place] [address] [facility] Start: 10-03-2022 End: 10-03-2022 Patient encounter procedure 10/03/2022 Office Visit Family Medicine Martín Urena DO [address] [facility] [place] [address] [facility] Start: 10-01-2022 End: 10-01-2022 Patient encounter procedure 10/01/2022 Office Visit Hematology and Oncology Kleber Demarco DO [address] [place] [address] [facility] Start: 08-15-2022 End: 08-15-2022 Admission to same day surgery center 08/15/2022 Surgery Procedural Victorina Perry, DO [address] [place] [address] right excisional biopsy of deep cervical lymph node [44583 (CPT )] [facility] MAIN OR Comment on above: right excisional biopsy of deep cervical lymph node [00835 (CPT )] Start: 08-15-2022 End: 08-15-2022 Bx/exc lymph node open deep cervical node [facility] Operating Room Start: 08-15-2022 Subsequent hospital visit by physician 08/15/2022 Hospital Encounter Procedural Victroina Perry, DO [address] [place] [address] [facility] MAIN OR Start: 08-08-2022 End: 08-08-2022 Admission to establishment 08/08/2022 Pre-Admission Testing Pre-Admission Testing Victroina Perry, DO [address] [place] [address] [facility] Pre-Admit Testing Start: 06-06-2022 End: 06-06-2022 Patient encounter procedure 06/06/2022 Office Visit Family Medicine Loki Ornelas DO [address] [place] [address] [facility] Start: 05-23-2022 End: 05-23-2022 Patient encounter procedure 05/23/2022 Appointment Cardiology Loki Ornelas DO [address] [place], [place] [id number] [facility] Non-Invasive Cardiology Start: 05-07-2022 COVID-19 Vaccine (4 - Booster for Pfizer series) COVID-19 Vaccine (4 - Booster for Pfizer series) [facility] Start: 02-23-2022 End: 02-24-2024 Pediatric echocardiogram (TTE) complete Pediatric echocardiogram (TTE) complete CV Echocardiography Routine Cardiac murmur, unspecified Expected: 02/23/2022 (Approximate), Expires: 02/24/2024 [facility] Work Phone: Comment on above: Expected: 02/23/2022 (Approximate), Expi res: 02/24/2024 Start: 01-25-2022 Depression Screen Depression Screen [facility] Start: 01-10-2022 Influenza vaccination Flu vaccine (#1) [facility] Start: 12-26-2021 Pneumococcal 65+ years Vaccine (1 - PCV) Pneumococcal 65+ years Vaccine (1 - PCV) [facility] Comment on above: Postponed from 07/31/2000 (Patient Refus ed) Start: 01-10-2021 COVID-19 Vaccine (3 - Pfizer booster) COVID-19 Vaccine (3 - Pfizer booster) [facility] Work Phone: Start: 07-31-2010 RSV Immunization aged 60 or older (1 - 1-dose 75+ series) RSV Immunization aged 60 or older (1 - 1-dose 75+ series) [facility] Start: 07-31-2010 RSV Immunization for Adults (1 - 1-dose 75+ series) RSV Immunization for Adults (1 - 1-dose 75+ series) [facility] Start: 07-31-2000 DEXA (modify frequency per FRAX score) DEXA (modify frequency per FRAX score) [place] Start: 07-31-2000 Pneumococcal 65+ years Vaccine (1 of 1 - PPSV23) Pneumococcal 65+ years Vaccine (1 of 1 - PPSV23) [place] Start: 07-31-2000 Pneumococcal Vaccine: 65+ Years (1 - PCV) Pneumococcal Vaccine: 65+ Years (1 - PCV) [facility] Start: 1995 RSV Immunization aged 60 or older (1 - 1-dose 60+ series) RSV Immunization aged 60 or older (1 - 1-dose 60+ series) [facility] Start: 07-31-1990 Screening for osteoporosis DEXA (modify frequency per FRAX score) [facility] Work Phone: Start: 07-31-1985 Shingles Vaccine (1 of 2) Shingles Vaccine (1 of 2) [facility] Start: 07-31-1985 Zoster Vaccines (1 of 2) Zoster Vaccines (1 of 2) [facility] Start: 07-31-1954 DTaP/Tdap/Td vaccine (1 - Tdap) DTaP/Tdap/Td vaccine (1 - Tdap) [facility] Start: 07-31-1954 DTaP/Tdap/Td Vaccines (1 - Tdap) DTaP/Tdap/Td Vaccines (1 - Tdap) [facility] Start: 07-31-1954 Zoster Vaccines (1 of 2) Zoster Vaccines (1 of 2) [facility] [place] Start: 1947 Depression Screening Depression Screening [facility] Start: 07-31-1941 Pneumococcal Vaccine: 65+ Years (1 - PCV) Pneumococcal Vaccine: 65+ Years (1 - PCV) [facility] Start: 07-31-1941 Pneumococcal Vaccine: 65+ Years (1 of 2 - PCV) Pneumococcal Vaccine: 65+ Years (1 of 2 - PCV) [facility] Start: 1935 Annual Wellness Visit (AWV) Annual Wellness Visit (AWV) [facility] Start: 1935 Hepatitis B Vaccines (1 of 3 - 3-dose series) Hepatitis B Vaccines (1 of 3 - 3-dose series) [facility] Start: 1935 Lipid panel Lipid Panel [facility] Start: 1935 Medicare Advantage Annual Wellness Visit (AWV) Medicare Advantage Annual Wellness Visit (AWV) [facility] Start: 1935 Screening for osteoporosis Bone Density Scan [facility] Start: 1935 Thyroid Nodule Ultrasound Thyroid Nodule Ultrasound [facility] End: 06-03-2022 Cardiac holter monitor (24 hours) [employer] Work Phone: Comment on above: Once for 1 Occurrences starting 06/03/19 until 06/03/2022 End: 03-12-2019 CT ABDOMEN PELVIS W IV CONTRAST Additional Contrast? Radiologist Recommendation CT ABDOMEN PELVIS W IV CONTRAST Additional Contrast? Radiologist Recommendation Imaging Routine Abdominal Mass, Unspecified Abdominal Location Abdominal pain, unspecified abdominal location 1 Occurrences starting 03/12/2019 until 03/12/2019 [facility], [place] Comment on above: 1 Occurrences starting 03/12/2019 until 03/12/2019 End: 11-14-2021 CT SOFT TISSUE NECK W CONTRAST [employer] Work Phone: Comment on above: Once for 1 Occurrences starting 11/15/19 until 11/14/2021 End: 01-02-2023 PET+CT Bone from skull base to mid-thigh W [id number] IV [employer] Work Phone: Comment on above: Once for 1 Occurrences starting 01/03/20 until 01/02/2023 End: 10-11-2022 PT Whole body PET/CT head to toe Imaging Routine Follicular lymphoma of lymph nodes of neck, unspecified follicular lymphoma type (HCC) Once for 1 Occurrences starting 10/11/2022 until 10/11/2022 [employer] Work Phone: Comment on above: Once for 1 Occurrences starting 10/12/19 until 10/11/2022 Tissue exam [employer] Work Phone: Comment on above: Release Upon Ordering for 1 Occurrences starting 08/15/2022 End: 03-15-2021 US THYROID US THYROID Imaging Routine Thyroid nodule 1 Occurrences starting 03/15/2021 until 03/15/2021 [employer] Work Phone: Comment on above: 1 Occurrences starting 03/15/2021 until 03/15/2021 US THYROID US THYROID Imagi ng Routine Thyroid nodule 03/15/2021 9:55 AM EDT [employer] Work Phone: End: 10-06-2024 XR Lumbar spine Views W flexion and [facility] Work Phone: Comment on above: Once for 1 Occurrences starting 10/07/19 until 10/06/2024 Immunizations Immunization Date Immunization Notes Care Provider Ana M gerardo 03-24-2024 Seasonal trivalent influenza vaccine, adjuvanted, preservative free Martín rUena DO Work Phone: [facility] 03-24-2024 influenza virus vaccine, unspecified formulation Martín Urena DO Work Phone: [facility] 09-24-2023 Pneumococcal Conjuga te PCV20, Pf (Prevnar 20) Martín CallidusCloudE Ink DO Work Phone: [facility] 03-31-2023 RSV, recombinant, protein subunit RSVpreF, adjuvant reconstituted, 0.5 mL, PF 911 View Work Phone: [facility] 03-26-2023 Influenza, Seasonal, Quadrivalent, Adjuvanted Martín Urena DO Work Phone: [facility] 03-26-2023 influenza virus vaccine, unspecified formulation Martín Urena DO Work Phone: [facility] 03-12-2022 Covid-19, Pfizer Bivalent Booster, (Age 12y+), Im, 30 Mcg/0e Kleber Dav DO Work Phone: [facility] 02-07-2022 Influenza, Seasonal, Quadrivalent, Adjuvanted Susana Draper PA Work Phone: [facility] Work Phone: 02-07-2022 unknown vaccine or immune globulin Kleber Dav DO Work Phone: [facility] 02-07-2022 influenza virus vaccine, unspecified formulation Chair 3 [facility] 06-19-2021 Covid-19, Pfizer Gra y Top, Do Not Dilute, (Age 12 Y+), Im, L Susana Draper PA Work Phone: [facility] 03-14-2021 Influenza, High-dose , Quadv, 65 yrs +, IM (Fluzone) Loki Burgoso DO Work Phone: [facility] 07-10-2020 COVID-19, Pfizer, PF , 30mcg/0.3mL Loki Burgoso DO Work Phone: [facility] Work Phone: 06-19-2020 COVID-19, Pfizer, PF , 30mcg/0.3mL Loki Burgoso DO Work Phone: [facility] 02-24-2019 influenza, high dose seasonal, preservative-free Loki Ornelas [facility] 03-04-2012 Influenza Vaccine, unspecified formulation Loki Mackcasso DO Work Phone: [facility] Work Phone: 03-04-2012 influenza virus vaccine, unspecified formulation Kleber Dav DO Work Phone: [facility] 03-04-2012 influenza, seasonal, injectable, preservative free Kleber Dav DO Work Phone: [facility] 02-19-2011 Influenza Vaccine, unspecified formulation Loki Mackcasso DO Work Phone: [facility] Work Phone: 02-19-2011 influenza virus vaccine, unspecified formulation Kleber Dav DO Work Phone: [facility] 02-19-2011 influenza, seasonal, injectable, preservative free Kleber Dav DO Work Phone: [facility] Payers Date Payer Category Payer Self-pay 2019 Private Health Insurance HUMANA HUMANA (PPO) xxxxxxxxx 2019-Present [address] [place] [phone] xxxxxxxxx [id number] 2017 Medicare HUMANA MEDICARE ADVANTAGE HUMANA MEDICARE [id number] 2017-Present [address] [place] [id number] Medicare HMO [id number] 2017 Medicare HMO HUMANA MEDICARE [id number] 2017 Private Health Insurance [id number] 2008 Private Health Insurance 1935 Unknown [id number] 1935 Unknown [id number] Unknown [id number] Social History Date Type Detail Facility Start: 03-03-2016 End: 02-24-2019 Tobacco smoking status [facility] Never smoker [place], [place] Start: 02-24-2019 End: 03-23-2024 [facility] Start: 02-24-2019 End: 08-09-2021 History SDOH Alcohol Frequency 1 [place] Start: 02-24-2019 History SDOH Social Connections Phone 4 [place] Start: 02-24-2019 End: 08-08-2022 History SDOH Social Connections Get Together 2 [place] Start: 02-24-2019 History SDOH Social Connections [employer] [address] [place] Start: 02-24-2019 History SDOH Social Connections Living 3 [place] Start: 02-24-2019 End: 08-09-2021 History SDOH Financial 5 [place] Start: 1935 Sex Assigned At Not on file M [place] Start: 03-03-2016 End: 04-28-2019 Tobacco use and exposure Never used [employer] Work Phone: Start: 04-28-2019 End: 09-28-2024 Alcohol intake Current non-drinker of alcohol (finding) [employer] Work Phone: Start: 05-10-2022 End: 01-07-2023 Exposure to SARS-CoV-2 (event) Not sure [facility] Start: 10-17-2022 End: 03-23-2024 History of Social function [facility] In the past 12 month s, has lack of transportation kept you from medical appointments or from getting medications? No [facility] In the past 12 month s, was there a time when you were not able to pay the mortgage or rent on time? No [facility] Start: 12-10-2021 Sex Female (finding) [facility] Are you now , , , , never or living with a partner? [facility] How often to you hav e a drink containing alcohol? Never [facility] Do you feel stress - tense, restless, nervous, or anxious, or unable to sleep at night because your mind is troubled all the time - these days [OSQ] Not at all [facility] (I/We) worried wheth er (my/our) food would run out before (I/we) got money to buy more. Never true [facility] How often do you nee d to have someone help you when you read instructions, pamphlets, or other written material from your doctor or pharmacy [SILS] Sometimes [facility] Clinical Notes 06-06-2022 to 02-28-2025 Telephone Encounter - Kassandra Alvarez MA - 02/28/2025 4:10 PM EDTTelephone Encounter - Kassandra Alvarez MA - 02/28/2025 4:10 PM EDTTelephone Encounter - Susana Hahn MA - 01/24/2025 9:08 AM EDT Note Date & Type Note Facility 02-28-2025 Telephone encount er Note Recent Visits Date Type Provider Dept 09/28/24 Office Visit Martín Urena DO [facility] 03/24/24 Office Visit Martín Urena DO [facility] Showing recent visits within past 365 days and meeting all other requirements Future Appointments Date Type Provider Dept 03/31/25 Appointment Martín Urena DO [facility] Showing future appointments within next 90 days and meeting all other requirements Requested Prescriptions Pending Prescriptions Disp Refills losartan (Cozaar) 25 MG tablet [Pharmacy Med Name: LOSARTAN POTASSIUM 25 MG Oral Tablet] 180 tablet 3 Sig: TAKE 1 TABLET TWICE DAILY (DOSE CHANGE) Provider: Martín Urena DO Verified pharmacy: yes Verified day(s) supplied: yes Verified refill(s) needed (previous prescription showing no refills in chart): Yes Have you received any controlled medications from any other provider? N/A Overdue for visit: N/A If yes - patient scheduled? N/A Most recent labs completed in chart? N/A None [facility] 02-28-2025 Miscellaneous Notes Formattin g of this note is different from the original. Recent Visits Date Type Provider Dept 09/28/24 Office Visit Martín Urena DO [facility] 03/24/24 Office Visit Martín Urena DO [facility] Showing recent visits within past 365 days and meeting all other requirements Future Appointments Date Type Provider Dept 03/31/25 Appointment Martín Urena DO [facility] Showing future appointments within next 90 days and meeting all other requirements Requested Prescriptions Pending Prescriptions Disp Refills losartan (Cozaar) 25 MG tablet [Pharmacy Med Name: LOSARTAN POTASSIUM 25 MG Oral Tablet] 180 tablet 3 Sig: TAKE 1 TABLET TWICE DAILY (DOSE CHANGE) Provider: Martín Urena DO Verified pharmacy: yes Verified day(s) supplied: yes Verified refill(s) needed (previous prescription showing no refills in chart): Yes Have you received any controlled medications from any other provider? N/A Overdue for visit: N/A If yes - patient scheduled? N/A Most recent labs completed in chart? N/A None documented in this encounter [facility] 01-24-2025 Telephone encount er Note Your fax has been successfully sent to [facility] at [phone]. From: [facility] 01/24/2025 8:55:50 AM Origin Record Created by ESTELLE 01/24/2025 8:55:54 AM Conversion [[id number].PRT] Type: application/postscript G3 to TIFF #1: Success [image/g3] (29ms) GhostScript TIFF #1: Success [image/tiff] (222ms) ([id number]) 01/24/2025 8:56:03 AM Conversion Successfully created cover sheet. Type: application/vnd.openxmlformats-officed ocument.wordprocessingml.document G3 to TIFF #1: Success [image/g3] (10ms) [employer] TIFF #1: Success [image/tiff] (80ms) Resubmitted: [application/postscript] Word Automation #1: Success [image/g3] (1752ms) ([id number]) 01/24/2025 8:56:06 AM Transmission Record Sent to [phone] with remote ID [phone] Result: Success Page record: 1 7 Elapsed time: 05:02 on channel 49 [facility] 01-24-2025 Miscellaneous Notes Formattin g of this note might be different from the original. Your fax has been successfully sent to [facility] at [phone]. From: [facility] 01/24/2025 8:55:50 AM Origin Record Created by ESTELLE 01/24/2025 8:55:54 AM Conversion [[id number].PRT] Type: application/postscript G3 to TIFF #1: Success [image/g3] (29ms) GhostScript TIFF #1: Success [image/tiff] (222ms) ([id number]) 01/24/2025 8:56:03 AM Conversion Successfully created cover sheet. Type: application/vnd.openxmlformats-officed ocument.wordprocessingml.document G3 to TIFF #1: Success [image/g3] (10ms) [employer] TIFF #1: Success [image/tiff] (80ms) Resubmitted: [application/postscript] Word Automation #1: Success [image/g3] (1752ms) ([id number]) 01/24/2025 8:56:06 AM Transmission Record Sent to [phone] with remote ID [id number] Result: Success Page record: 1 - 7 Elapsed time: 05:02 on channel 49 refaxed Name of caller: Jennifer Contact phone number: [phone] Relationship to Patient: [facility] Provider: Romel Practice: Ro Chief Complaint/Reason for Call: Jennifer stated they did not receive the office notes. Please Advise. Best time of day caller can be reached: Any Patient advised that office/PCP has 24-48 business hours to return their call: Yes Faxed H&P no DNR on file Name of caller: Jennifer Contact phone number: [phone] Relationship to Patient: [facility] Provider: Dr Urena Practice: [facility] Chief Complaint/Reason for Call: Pt is getting transferred to [facility] on Friday. They are asking for an H&P and any info on DNR to be faxed to them. F#[phone] Best time of day caller can be reached: AM Patient advised that office/PCP has 24-48 business hours to return their call: Yes documented in this encounter [facility] 01-24-2025 Telephone encount er Note refaxed [facility] 01-24-2025 Telephone encount er Note Name of caller: Jennifer Contact phone number: [phone] Relationship to Patient: [facility] Provider: Romel Practice: Ro Chief Complaint/Reason for Call: Jennifer stated they did not receive the office notes. Please Advise. Best time of day caller can be reached: Any Patient advised that office/PCP has 24-48 business hours to return their call: Yes [facility] 01-20-2025 Telephone encount er Note Faxed H&P no DNR on file [facility] 01-20-2025 Telephone encount er Note Name of caller: Jennifer Contact phone number: [phone] Relationship to Patient: [facility] Provider: Dr Urena Practice: [facility] Chief Complaint/Reason for Call: Pt is getting transferred to [facility] on Friday. They are asking for an H&P and any info on DNR to be faxed to them. F#[phone] Best time of day caller can be reached: AM Patient advised that office/PCP has 24-48 business hours to return their call: Yes [facility] 12-16-2024 Telephone encount er Note Recent Visits Date Type Provider Dept 09/28/24 Office Visit Martín Urena, DO [facility] 03/24/24 Office Visit Martín Urena, DO [facility] 01/08/24 Office Visit Raymundo Manzano PA-C [facility] Showing recent visits within past 365 days and meeting all other requirements Future Appointments No visits were found meeting these conditions. Showing future appointments within next 90 days and meeting all other requirements Requested Prescriptions Pending Prescriptions Disp Refills labetalol (Normodyne) 100 MG tablet [Pharmacy Med Name: LABETALOL HYDROCHLORIDE 100 MG Oral Tablet] 180 tablet 3 Sig: TAKE 1 TABLET TWICE DAILY Provider: Martín Urena DO Verified pharmacy: yes Verified day(s) supplied: yes Verified refill(s) needed (previous prescription showing no refills in chart): Yes Have you received any controlled medications from any other provider? N/A Overdue for visit: No If yes - patient scheduled? Yes Most recent labs completed in chart? Yes Hypertension: Lab Results Component Value Date NA 139 11/21/2022 K 4.2 11/21/2022 EGFR 65 09/28/2024 BUN 21 09/28/2024 CREATININE 0.86 09/28/2024 [facility] 12-16-2024 Miscellaneous Notes Formattin g of this note is different from the original. Recent Visits Date Type Provider Dept 09/28/24 Office Visit Martín Urena, DO [facility] 03/24/24 Office Visit Martín [facility]rena DO [facility] 01/08/24 Office Visit Raymundo Manzano PA-C [facility] Showing recent visits within past 365 days and meeting all other requirements Future Appointments No visits were found meeting these conditions. Showing future appointments within next 90 days and meeting all other requirements Requested Prescriptions Pending Prescriptions Disp Refills labetalol (Normodyne) 100 MG tablet [Pharmacy Med Name: LABETALOL HYDROCHLORIDE 100 MG Oral Tablet] 180 tablet 3 Sig: TAKE 1 TABLET TWICE DAILY Provider: Martín Urena DO Verified pharmacy: yes Verified day(s) supplied: yes Verified refill(s) needed (previous prescription showing no refills in chart): Yes Have you received any controlled medications from any other provider? N/A Overdue for visit: No If yes - patient scheduled? Yes Most recent labs completed in chart? Yes Hypertension: Lab Results Component Value Date NA 139 11/21/2022 K 4.2 11/21/2022 EGFR 65 09/28/2024 BUN 21 09/28/2024 CREATININE 0.86 09/28/2024 documented in this encounter [facility] 10-11-2024 Telephone encount er Note Message released to patient as written. Patient's further questions if applicable: Pt returned call from office. Read message as written. Pt expressed understanding and had no additional questions. Please advise Were all questions from office addressed or relayed to the patient from encounter: Yes [facility] 10-11-2024 Miscellaneous Notes Formattin g of this note might be different from the original. Message released to patient as written. Patient's further questions if applicable: Pt returned call from office. Read message as written. Pt expressed understanding and had no additional questions. Please advise Were all questions from office addressed or relayed to the patient from encounter: Yes documented in this encounter [facility] 09-28-2024 History of Presen t illness Narrative Images from the original note were not included. [facility] - [address] [facility] [id number] Visit type: Established Patient Reason for Visit: Follow-up (Med Check ) Assessment / Plan: Ashley was seen today for follow-up. Diagnoses and all orders for this visit: Primary hypertension (Primary) Comments: stable, cont losartan and normodyne Orders: - CBC auto differential; Future - Comprehensive metabolic panel; Future - CBC auto differential - Comprehensive metabolic panel Follicular lymphoma, unspecified follicular lymphoma type, unspecified body region (HCC) Comments: Stable, follow-up yearly with oncology, check lab Lumbar disc disease Comments: New onset but resolved. Unsure of etiology. X-ray, observe OTC analgesics Orders: - XR lumbar spine 4-5 view; Future Thyroid disorder screening - TSH; Future - TSH Contracture of hand joint, left Comments: Mild, asymptomatic, callreferral if worsening Subjective: Patient ID: Ashley Pappas is a 89 y.o. female. HPI well-controlled hypertensive patient with history of follicular lymphoma of the posterior right side of her neck and salivary lesions has been feeling well on her meds. Blood pressure well at home. Does have a few questions she would like to ask. She has a painless change in the palm of her left hand and also had back pain on the right flank that lasted about a week a few weeks ago but was rather intense but resolved. Review of Systems no night sweats fevers or chills. No sense of adenopathy. No recent sore throat or cough. Denies chest pains dyspnea or palpitations or claudication. No abdominal pain. Eating and voiding well. No melena or blood. No constipation diarrhea. No dysuria. Right side her low back was painful for a week had resolved. No buttock or leg pain. No sciatica. No skin rash or shingles. Changes on the palmar right hand is painless. No trauma Allergies[1] Current Medications[2] Problem List[3] Social History Tobacco Use Smoking status: Never Smokeless tobacco: Never Substance Use Topics Alcohol use: No Surgical History[4] Family History[5] Objective: BP 124/68 Pulse 64 Temp 36.4 C (97.6 F) (Temporal) Ht 5' 3" (1.6 m) Wt 142 lb 12.8 oz (64.8 kg) SpO2 98% BMI 25.30 kg/m Physical Exam The physical exam is generally normal. Patient appears well, alert and oriented x 3, pleasant, cooperative. Vitals are as noted. Neck supple, no abnormal adenopathy, thyroid lesions or masses.. No carotid bruits. Lungs are clear to auscultation. Heart is regular, with faint aortic stenotic murmur, but no gallops or ectopy. Abdomen is soft, non tender, without masses, hepatosplenomegaly, or bruits. Normal BS evident. Extremities are normal without edema. Mild painless contracture and tendon changes of the palmar left hand are evident. Full range of motion of fingers. Pulse color temperature normal/ No worrisome skin lesions. Screening neurological exam is normal without focal deficits. Fair range of motion of her spine. Pain was more on the right paraspinal muscle tissue. Nontender spinous processes. Negative straight leg raising bilaterally. Normal hip range of motion. Can walk on her heels and toes. No deficit in strength. Reflexes preserved [1] No Known Allergies [2] Current Outpatient Medications: aspirin EC 81 MG EC tablet, Take 81 mg by mouth daily., Disp: , Rfl: Combigan 0.2-0.5 % ophthalmic solution, Administer 1 drop into the left eye in the morning and 1 drop in the evening., Disp: , Rfl: dorzolamide-timolol (Cosopt) 2-0.5 % ophthalmic solution, , Disp: , Rfl: labetalol (Normodyne) 100 MG tablet, TAKE 1 TABLET TWICE DAILY, Disp: 180 tablet, Rfl: 1 latanoprost (Xalatan) 0.005 % ophthalmic solution, Administer 1 drop into the left eye Nightly., Disp: , Rfl: Latanoprostene Bunod (Vyzulta) 0.024 % solution, Administer 0.024 % into affected eye(s) 1 (one) time each day., Disp: , Rfl: losartan (Cozaar) 25 MG tablet, Change to one BID, Disp: 180 tablet, Rfl: 3 MELATONIN PO, Take 10 mg by mouth daily., Disp: , Rfl: Multiple Vitamin (Multi-Vitamin Daily) tablet, Take 1 tablet by mouth daily., Disp: , Rfl: Rhopressa 0.02 % solution, , Disp: , Rfl: [3] Patient Active Problem List Diagnosis Aortic valve stenosis Hypertension Follicular lymphoma (HCC) Family history of colon cancer Cystocele with uterine prolapse Glaucoma Lumbar disc disease Right thyroid nodule [4] Past Surgical History: Procedure Laterality Date ACHILLES TENDON SURGERY Left 1994 APPENDECTOMY 1982 BUNIONECTOMY Bilateral CARPAL TUNNEL RELEASE Bilateral 1994 decades ago CATARACT EXTRACTION Bilateral 2010 Dr. Luis han also COLONOSCOPY 2011 HAND SURGERY Left 1994 metacarpal bone leak ? LUMBAR LAMINECTOMY 2003 [facility] TOTAL KNEE ARTHROPLASTY Left 1994 UPPER GASTROINTESTINAL ENDOSCOPY [5] Family History Adopted: Yes Problem Relation Name Age of Onset Pulmonary embolism Mother 30 DVT and PE No Known Problems Father unknown Colon cancer Sister age 70 No Known Problems Sister nonspecific causes No Known Problems Brother No Known Problems Brother No Known Problems Brother not close documented in this encounter [facility] 07-23-2024 Telephone encount er Note Recent Visits Date Type Provider Dept 03/24/24 Office Visit Martín Urena DO [facility] 01/08/24 Office Visit Raymundo Manzano PA-C [facility] 12/08/23 Office Visit Raymundo Manzano PA-C [facility] 09/24/23 Office Visit Martín Urena DO [facility] Showing recent visits within past 365 days and meeting all other requirements Future Appointments Date Type Provider Dept 09/23/24 Appointment Martín Urena DO [facility] Showing future appointments within next 90 days and meeting all other requirements Requested Prescriptions Pending Prescriptions Disp Refills labetalol (Normodyne) 100 MG tablet [Pharmacy Med Name: Labetalol HCl Oral Tablet 100 MG] 180 tablet 1 Sig: TAKE 1 TABLET TWICE DAILY Provider: Martín Urena DO Verified pharmacy: yes Verified day(s) supplied: yes Verified refill(s) needed (previous prescription showing no refills in chart): Yes Have you received any controlled medications from any other provider? No Overdue for visit: No If yes - patient scheduled? Yes Most recent labs completed in chart? Yes Hypertension: Lab Results Component Value Date NA 139 11/21/2022 K 4.2 11/21/2022 EGFR 65 09/24/2023 BUN 19 09/24/2023 CREATININE 0.86 09/24/2023 [facility] 07-23-2024 Miscellaneous Notes Formattin g of this note is different from the original. Recent Visits Date Type Provider Dept 03/24/24 Office Visit Martín Urena DO [facility] 01/08/24 Office Visit Raymundo Manzano PA-C [facility] 12/08/23 Office Visit Raymundo Manzano PA-C [facility] 05/15/24 Office Visit Martín Urena DO [facility] Showing recent visits within past 365 days and meeting all other requirements Future Appointments Date Type Provider Dept 09/23/24 Appointment Martín Lauren DO [facility] Showing future appointments within next 90 days and meeting all other requirements Requested Prescriptions Pending Prescriptions Disp Refills labetalol (Normodyne) 100 MG tablet [Pharmacy Med Name: Labetalol HCl Oral Tablet 100 MG] 180 tablet 1 Sig: TAKE 1 TABLET TWICE DAILY Provider: Martín Urena DO Verified pharmacy: yes Verified day(s) supplied: yes Verified refill(s) needed (previous prescription showing no refills in chart): Yes Have you received any controlled medications from any other provider? No Overdue for visit: No If yes - patient scheduled? Yes Most recent labs completed in chart? 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 Diagnosed via excisional right cervical lymph node biopsy on 08/15/22. - Patient presented with 2-3 years af an abnormal lymph node posterior right neck and enlargement of the right parotid gland. She denied any B symptoms. Excisional biopsy of a right posterior cervical lymph node on 08/15/22 confirmed follicular lymphoma low grade. - PET scan 10/11/22 showed bulky intensely FDG avid right parotid mass, with accumulation in the bilateral cervical chain, supraclavicular, axillary, and left internal mammary nodes, right temporal and left temporal occipital scalp, mild splenomegaly, and in the bones of the lower extremity. - systemic therapy with Rituxan weekly x 4 started 10/30/22. Cycle 4 11/21/22. - PET scan 01/02/23 showed no evidence of residual or recurrent FDG avid malignancy - observation recommended HPI: Ashley Pappas is a 88 y.o. female who comes in today for routine 6 month follow up. She has no new concerns today in regards to the lymphoma. She denies any new lymphadenopathy. She notes her eye sight has been poor and she is following with her field specialist regularly. She is accompanied by her daughter today. She denies any new cervical lymphadenopathy or fullness in the right parotid gland. No b symptoms. She denies any fevers, weight loss, change in appetite, night sweats. She continues to be very active and independent. Past Medical History: Diagnosis Date Aortic valve stenosis 10/03/2022 mod per ECHO 07/04, nml LVEF Cystocele with uterine prolapse [address]- removed 02/01 Family history of colon cancer Follicular lymphoma (HCC) 10/03/[address] Fu Hypertension 2020 Lumbar disc disease Right thyroid nodule 2016 Dr. Perry and FNA- no changes 2020 Past Surgical History: Procedure Laterality Date ACHILLES TENDON SURGERY Left 1994 APPENDECTOMY 1982 BUNIONECTOMY Bilateral CARPAL TUNNEL RELEASE Bilateral decades ago CATARACT EXTRACTION Bilateral 2010 Dr. Fu- trabelectomy also COLONOSCOPY 2010 HAND SURGERY Left metacarpal bone leak ? LUMBAR LAMINECTOMY 2003 [facility] TOTAL KNEE ARTHROPLASTY Left 1994 UPPER GASTROINTESTINAL ENDOSCOPY Patient Active Problem List Diagnosis Date Noted Family history of colon cancer Glaucoma Lumbar disc disease Aortic valve stenosis 10/03/2022 Hypertension 10/03/2022 Follicular lymphoma (HCC) 10/03/2022 Cystocele with uterine prolapse 2017 Right thyroid nodule 2017 Social History Tobacco Use Smoking status: Never Smokeless tobacco: Never Vaping Use Vaping status: Never Used Substance Use Topics Alcohol use: No Drug use: Never Family History Adopted: Yes Problem Relation Name Age of Onset Pulmonary embolism Mother 30 DVT and PE No Known Problems Father unknown Colon cancer Sister age 70 No Known Problems Sister nonspecific causes No Known Problems Brother No Known Problems Brother No Known Problems Brother not close No Known Allergies Current Outpatient Medications Medication Sig Dispense Refill aspirin EC 81 MG EC tablet Take 81 mg by mouth daily. Combigan 0.2-0.5 % ophthalmic solution Administer 1 drop into the left eye in the morning and 1 drop in the evening. labetalol (Normodyne) 100 MG tablet Take 1 tablet (100 mg) by mouth 2 times daily. 180 tablet 1 latanoprost (Xalatan) 0.005 % ophthalmic solution Administer 1 drop into the left eye Nightly. Latanoprostene Bunod (Vyzulta) 0.024 % solution Administer 0.024 % into affected eye(s) 1 (one) time each day. losartan (Cozaar) 25 MG tablet Change to one BID 180 tablet 3 MELATONIN PO Take 10 mg by mouth daily. Multiple Vitamin (Multi-Vitamin Daily) tablet Take 1 tablet by mouth daily. Rhopressa 0.02 % solution No current facility-administered medications for this visit. Review of Systems Constitutional: Negative for appetite change, chills, diaphoresis, fatigue, fever and unexpected weight change. HENT: Negative for dental problem, mouth sores, nosebleeds, sneezing, sore throat, tinnitus, trouble swallowing and voice change. Eyes: Negative for photophobia, pain and visual disturbance. Respiratory: Negative for cough, shortness of breath and wheezing. Cardiovascular: Negative for chest pain, palpitations and leg swelling. Gastrointestinal: Negative for abdominal distention, abdominal pain, blood in stool, constipation, diarrhea, nausea and vomiting. Endocrine: Negative for cold intolerance and heat intolerance. Genitourinary: Negative for difficulty urinating, frequency, hematuria and urgency. Musculoskeletal: Negative for arthralgias, back pain, gait problem and myalgias. Skin: Negative for pallor and rash. Allergic/Immunologic: Negative for immunocompromised state. Neurological: Negative for dizziness, syncope, weakness, light-headedness, numbness and headaches. Hematological: Negative for adenopathy. Does not bruise/bleed easily. Psychiatric/Behavioral: Negative for confusion and sleep disturbance. The patient is not nervous/anxious. All other systems reviewed and are negative. Vitals: 07/15/24 1002 BP: (!) 159/58 BP Location: Right arm Patient Position: Sitting Pulse: 73 Temp: 36.6 C (97.8 F) TempSrc: Temporal SpO2: 96% Weight: 64 kg (141 lb 3.2 oz) Height: 1.6 m (5' 3") ECOG PS = 1-2 Physical Exam Vitals and nursing note reviewed. Constitutional: General: She is not in acute distress. Appearance: Normal appearance. She is not ill-appearing. HENT: Head: Normocephalic and atraumatic. Salivary Glands: Right salivary gland is not diffusely enlarged. Left salivary gland is not diffusely enlarged. Nose: Nose normal. Mouth/Throat: Pharynx: Oropharynx is clear. No oropharyngeal exudate or posterior oropharyngeal erythema. Eyes: General: No scleral icterus. Extraocular Movements: Extraocular movements intact. Conjunctiva/sclera: Conjunctivae normal. Pupils: Pupils are equal, round, and reactive to light. Cardiovascular: Rate and Rhythm: Normal rate and regular rhythm. Heart sounds: Normal heart sounds. No murmur heard. Pulmonary: Effort: Pulmonary effort is normal. No respiratory distress. Breath sounds: Normal breath sounds. No wheezing. Abdominal: General: Abdomen is flat. Bowel sounds are normal. There is no distension. Palpations: Abdomen is soft. There is no mass. Tenderness: There is no abdominal tenderness. There is no guarding. Musculoskeletal: General: No swelling or tenderness. Normal range of motion. Cervical back: Normal range of motion and neck supple. Right lower leg: No edema. Left lower leg: No edema. Lymphadenopathy: Cervical: No cervical adenopathy. Right cervical: No superficial or deep cervical adenopathy. Left cervical: No superficial, deep or posterior cervical adenopathy. Upper Body: Right upper body: No supraclavicular, axillary or pectoral adenopathy. Left upper body: No supraclavicular, axillary or pectoral adenopathy. Lower Body: No right inguinal adenopathy. No left inguinal adenopathy. Skin: General: Skin is warm and dry. Findings: No bruising or rash. Neurological: General: No focal deficit present. Mental Status: She is alert and oriented to person, place, and time. Mental status is at baseline. Psychiatric: Mood and Affect: Mood normal. Thought Content: Thought content normal. Imaging/Labs: No visits with results within 1 Month(s) from this visit. Latest known visit with results is: Office Visit on 09/24/2023 Component Date Value Ref Range Status White Blood Cell Count 09/24/2023 5.7 3.8 - 10.8 Thousand/uL Final RBC 09/24/2023 4.45 3.80 - 5.10 Million/uL Final HEMOGLOBIN 09/24/2023 14.5 11.7 - 15.5 g/dL Final HEMATOCRIT 09/24/2023 43.7 35.0 - 45.0 % Final MCV 09/24/2023 98.2 80.0 - 100.0 fL Final MCH 09/24/2023 32.6 27.0 - 33.0 pg Final MCHC 09/24/2023 33.2 32.0 - 36.0 g/dL Final RDW 09/24/2023 13.0 11.0 - 15.0 % Final Platelet Count 09/24/2023 226 140 - 400 Thousand/uL Final Mean Platelet Volume (MPV) 09/24/2023 10.5 7.5 - 12.5 fL Final Absolute Neutrophils 09/24/2023 4,013 1,500 - 7,800 cells/uL Final ABSOLUTE LYMPHOCYTES - [facility] 09/24/2023 844 (L) 850 - 3,900 cells/uL Final Monocytes Absolute 09/24/2023 519 200 - 950 cells/uL Final ABSOLUTE EOSINOPHILS - [facility] 09/24/2023 268 15 - 500 cells/uL Final ABSOLUTE BASOPHILS - [facility] 09/24/2023 57 0 - 200 cells/uL Final Neutrophils Relative 09/24/2023 70.4 % Final Lymphocytes Absolute 09/24/2023 14.8 % Final MONOCYTES - [facility] 09/24/2023 9.1 % Final EOSINOPHILS - [facility] 09/24/2023 4.7 % Final BASOPHILS - [facility] 09/24/2023 1.0 % Final GLUCOSE 09/24/2023 102 65 - 139 mg/dL Final Comment: Non-fasting reference interval For someone without known diabetes, a glucose value between 100 and 125 mg/dL is consistent with prediabetes and should be confirmed with a follow-up test. Urea Nitrogen (BUN) 09/24/2023 19 7 - 25 mg/dL Final Creatinine 09/24/2023 0.86 0.60 - 0.95 mg/dL Final EGFR 09/24/2023 65 > OR = 60 mL/min/1.73m2 Final BUN/CREATININE RATIO 09/24/2023 SEE NOTE: 6 - 22 (calc) Final Comment: Not Reported: BUN and Creatinine are within reference range. SODIUM 09/24/2023 139 135 - 146 mmol/L Final POTASSIUM 09/24/2023 4.3 3.5 - 5.3 mmol/L Final CHLORIDE 09/24/2023 104 98 - 110 mmol/L Final Carbon Dioxide (CO2) 09/24/2023 27 20 - 32 mmol/L Final CALCIUM 09/24/2023 10.5 (H) 8.6 - 10.4 mg/dL Final PROTEIN, TOTAL - [facility] 09/24/2023 6.5 6.1 - 8.1 g/dL Final ALBUMIN - [facility] 09/24/2023 4.6 3.6 - 5.1 g/dL Final GLOBULIN - [facility] 09/24/2023 1.9 1.9 - 3.7 g/dL (calc) Final ALBUMIN/GLOBULIN RATIO - [facility] 09/24/2023 2.4 1.0 - 2.5 (calc) Final BILIRUBIN, TOTAL - [facility] 09/24/2023 0.7 0.2 - 1.2 mg/dL Final ALKALINE PHOSPHATASE 09/24/2023 78 37 - 153 U/L Final AST - [facility] 09/24/2023 26 10 - 35 U/L Final ALT - [facility] 09/24/2023 15 6 - 29 U/L Final TSH 09/24/2023 1.88 0.40 - 4.50 mIU/L Final T3, FREE 09/24/2023 3.1 2.3 - 4.2 pg/mL Final T4, FREE 09/24/2023 1.3 0.8 - 1.8 ng/dL Final Tissue exam: [id number] Order: [id number] Collected 08/15/2022 13:32 Status: Edited Result - FINAL Visible to patient: Yes (not seen) Dx: Neck mass; Chronic lymphadenitis, exc... 0 Result Notes Component Addendum Please see [employer] Accession/Case No: [id number] for Low Grade/Small B Cell Lymphoma FISH results ordered by Dr. Wagner Perry. The results have been scanned. Addendum electronically signed by Jessica Marshall MD on 09/10/2022 at [id number] Final Diagnosis A. LYMPH NODE, RIGHT CERVICAL, BIOPSY: - LOW GRADE B-CELL LYMPHOMA (CD5-, CD 10-) INVOLVING SKIN AND SOFT TISSUE. B. LYMPH NODE, RIGHT CERVICAL, RPMI SPECIMEN: - LOW GRADE B-CELL LYMPHOMA (CD5-, CD 10-) WITH KAPPA LIGHT CHAIN RESTRICTION. at 0985 Comment Low grade B-cell lymphoma FISH studies are pending for further evaluation of the lymphoid population.Systemic work-up is also recommended for further evaluation to determine if the process is localized or demonstrates involvement by lymph nodes or bone marrow in other locations. If a localized process, differential diagnostic considerations include primary follicular center cell lymphoma of the skin and primary cutaneous marginal zone lymphoma. 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 Please correlate with the pending FISH testing and additional clinical work-up. Microscopic Description Microscopic sections demonstrate a diffuse, expanded population of lymphocytes involving skin and soft tissue in a dense, nodular pattern. Definitive lymph node architecture is not histologically identifiable. Special Stains Immunohistochemical staining was performed with adequate controls in order to further evaluate the lymphoid population. The stains demonstrate a B-cell predominant population which expresses CD20, CD79a, partial Bcl-2, weak BCL6 in proliferation centers. Ki-67 is variable areas of high proliferation (50-80%) and proliferation centers and lower proliferation in other areas. CD3 and CD5 demonstrate rare interstitial T cells. Cyclin D1, CD34, ALK1, CD30, and EBV ZEE are negative. CD138 and mum 1 do not demonstrate a significant plasma cell population. [place] and lambda ZEE demonstrate a kappa predominant staining in a blush like pattern. Imaging Reviewed: PET/CT skull base to mid thigh Narrative: Patient Name: ASHLEY PAPPAS : 1935 Exam Date/Time: 01/02/2023 11:35 Procedure: PET/CT SKULL BASE TO MID THIGH Ordering Provider: DEMARCO TERESA Reason For Exam: Hematologic malignancy, assess treatment response PET/CT CLINICAL INDICATION: Follicular lymphoma restaging. Following the intravenous administration of 14.4 mCi of fluorine-18 fluorodeoxyglucose (FDG) a PET scan of the torso was acquired after an approximately one hour delay. Blood glucose level at the time of injection was 100 mg/dl. Contemporaneously, noncontrast axial CT images were obtained using low dose technique. The images were reconstructed in three orthogonal planes and digitally coregistered. The CT data was used for attenuation correction as well. Dose reduction was employed with automated exposure control. COMPARISON: PET/CT dated 10/11/2022 NECK AND CHEST: The previously noted bulky mass centered within the right parotid gland on the study from 10/11/2022 has essentially resolved. No FDG avid lymphadenopathy is identified within the neck or chest. No FDG avid pulmonary nodules are identified. ABDOMEN AND PELVIS: No abnormal FDG accumulation is seen within the abdomen or pelvis. Previously noted mild splenomegaly and moderate diffuse FDG accumulation within the spleen on the study from 10/11/2022 has resolved. MUSCULOSKELETAL: No evidence of osseous metastatic disease is identified. Please note that the lower extremities from the distal thigh through the feet are not included in the [id number] on the current examination (10/11/2022 examination was performed as a whole-body PET/CT, the current examination was ordered as skull base to mid thigh). Impression: No evidence of residual or recurrent FDG avid malignancy is identified. Previously noted multifocal areas of intense FDG accumulation on the study from 10/11/2022 have essentially resolved, with the caveat that the entirety of the lower extremities are not included in the [id number] on the current examination. There are no new areas of abnormal tracer uptake to suggest progression of disease. Deauville score N/A. Report Dictated on Electronically Signed By: Tonio Lopes MD Electronically Signed Date/Time: 01/03/2023 12:49 PM EDT - I have reviewed all available pertinent laboratory, imaging and pathology results with the patient and/or family members today. Assessment/Plan: Diagnosis Plan 1. 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 NCCN guidelines were reviewed. See details of presentation as outlined above. - There is no evidence of recurrence on exam today. - continued observation recommended. - signs and symptoms of disease recurrence were reviewed with the patient and she was instructed to call with any concerns All questions were answered to the satisfaction of the patient and/or family. Return to office in 12 months or sooner if worrisome signs/symptoms arise. Kleber Demarco DO Hematology/Medical Oncology documented in this encounter [facility] 03-24-2024 History of Presen t illness Narrative Images from the original note were not included. [facility] [address] [facility] [address] Dept: [phone] Dept Chief Complaint: Ashley Pappas is an 88 y.o. female here for an annual wellness visit. Assessment/Plan : Problem List Items Addressed This Visit Aortic valve stenosis Hypertension Follicular lymphoma (HCC) Glaucoma Other Visit Diagnoses Encounter for subsequent annual wellness visit (AWV) in Medicare patient - Primary I have reviewed and reconciled the medication list with the patient today. Current Outpatient Medications Medication Sig Dispense Refill aspirin EC 81 MG EC tablet Take 81 mg by mouth daily. Combigan 0.2-0.5 % ophthalmic solution Administer 1 drop into the left eye in the morning and 1 drop in the evening. labetalol (Normodyne) 100 MG tablet Take 1 tablet (100 mg) by mouth 2 times daily. 180 tablet 1 latanoprost (Xalatan) 0.005 % ophthalmic solution Administer 1 drop into the left eye Nightly. Latanoprostene Bunod (Vyzulta) 0.024 % solution Administer 0.024 % into affected eye(s) 1 (one) time each day. losartan (Cozaar) 25 MG tablet Take 1 tablet (25 mg) by mouth every evening. 90 tablet 1 losartan (Cozaar) 50 MG tablet Take 1 tablet (50 mg) by mouth daily. 90 tablet 1 MELATONIN PO Take 10 mg by mouth daily. Multiple Vitamin (Multi-Vitamin Daily) tablet Take 1 tablet by mouth daily. Rhopressa 0.02 % solution No current facility-administered medications for this visit. Also reviewed during this visit: Med Hx Surg Hx Fam Hx The following health maintenance schedule was reviewed with the patient and provided in printed form in the after visit summary: Health Maintenance Topic Date Due Lipid Panel Never done Bone Density Scan Never done DTaP/Tdap/Td Vaccines (1 - Tdap) Never done Zoster Vaccines (1 of 2) Never done Medicare Advantage Annual Wellness Visit 05/12/2023 Influenza Vaccine (1) 01/11/2024 COVID-19 Vaccine ( season) 2024 Depression Screening 03/23/2025 RSV Immunization for Adults Completed Pneumococcal Vaccine: 65+ Years Completed RSV Immunization under 20 Months Aged Out HIB Vaccines Aged Out Hepatitis B Vaccines Aged Out IPV Vaccines Aged Out Hepatitis A Vaccines Aged Out Meningococcal Vaccine Aged Out Rotavirus Vaccines Aged Out HPV Vaccines Aged Out List of current healthcare providers: Patient Care Team: Martín Urena DO as PCP - General (Family Medicine) Kleber Demarco DO as Consulting Physician (Hematology and Oncology) Orders Placed This Encounter Procedures Flu vaccine (FLUAD), trivalent, adjuvanted, preservative-free (ages 65+) Review of Systems overall patient feeling well. No change in family history. Recent oncology follow-up for lymphoma was unremarkable. Hypertension being well treated at home. Systolic readings acceptable. No recent earache sore throat or cough. No chest pain or palpitations. No heartburn or abdominal pain. Bowels are regular. No melena or blood. Having some issues with uterine and rectal prolapse but things are going pretty well since her pessary was removed last year. Of note glaucoma has caused significant visual impairment and not driving for quite a while no sadness or depression. No recent falls or injury Physical Exam very present alert and cooperative. No carotid masses or adenopathy. Normal eardrums and oropharynx. No change in faint carotid bruit. No change of thyroid lesion. Heart is regular with a grade 3/6 systolic ejection murmur at the right second intercostal space. No ectopy. Lungs are clear. Abdomen without pain hepatosplenomegaly masses or bruits. No ascites. Femoral pulses good. Extremities have no appreciable edema. Fair hip and knee range of motion. Objective : BP (!) 146/84 Pulse 68 Temp 36.7 C (98 F) (Temporal) Ht 5' 3" (1.6 m) Wt 141 lb (64 kg) SpO2 97% BMI 24.98 kg/m No results found. Subjective : Health Risk Assessment: General: General In general, how would you say your health is?: (Patient-Rptd) (P) Good In the past 7 days, have you experienced any of the following: New or Increased Pain, New or Increased Fatigue, Loneliness, Social Isolation, Stress or Anger?: (Patient-Rptd) (P) No Do you get the social and emotional suppport you need?: (Patient-Rptd) (P) Yes Health Habits/Nutrition: Health Habits / Nutrition On average, how many days per week do you engage in moderate to strenous exercise (like a brisk walk)?: (Patient-Rptd) (P) 6 days On average, how man minutes do you engage in exercise at this level?: (Patient-Rptd) (P) 30 min Have you lost any weight without trying in the past 3 months? : (Patient-Rptd) (P) No Have you seen the dentist within the past year?: (Patient-Rptd) (P) Yes Hearing/ Vision: Hearing / Vision Do you or your family notice any trouble with your hearing that hasn't been managed with hearing aids?: (Patient-Rptd) (P) No Do you have difficulty driving, watching TV, or doing any of your daily activities because of your eyesight?: (!) (Patient-Rptd) (P) Yes Have you had an eye exam within the past year?: (Patient-Rptd) (P) Yes No results found. Interventions: Vision concerns: Patient declines any further evaluation / treatment for this issue Safety: Safety Do you have a working smoke detector?: (Patient-Rptd) (P) Yes Do you have any tripping hazards - loose or unsecured carpets or rugs?: (Patient-Rptd) (P) No Do you have any tripping hazards - clutter in doorways, halls, or stairs?: (Patient-Rptd) (P) No Do you have either shower bars, grab bars, non-slip mats or non-slip surfaces in your shower or bathtub? : (Patient-Rptd) (P) Yes Do all your stairways have a railing or banister? : (Patient-Rptd) (P) Yes Do you fasten your seatbelt when you are in a car?: (Patient-Rptd) (P) Yes ADL: ADL In the past 7 days, did you need help from others to perform any of the following everyday activities: Eating, dressing, grooming,bathing, toileting, or walking / balance? : (Patient-Rptd) (P) No In the past 7 days, did you need help from others to take care of any of the following: laundry, housekeeping, banking / finances,shopping, telephone use, food preparation, transportation, or taking medications? : (Patient-Rptd) (P) No Living Will: Living Will Do you have a living will?: (Patient-Rptd) (P) Yes Cognitive: Cognitive Screening: Mini-Cog Clock Drawing Test (CDT): 2 Words Recalled: 2 Total Score: 4 Total Score Interpretation: Normal Mini-Cog Fall Risk: Fall Risk One or more falls in the last year:: (Patient-Rptd) (P) No Advised to use a cane or walker to get around safely:: (Patient-Rptd) (P) No Feels unsteady when walking:: (Patient-Rptd) (P) No Steadies self on furniture while walking at home:: (Patient-Rptd) (P) No Worried about falling:: (Patient-Rptd) (P) No Depression Screening: Over the past 2 weeks, how often have you been bothered by any of the following problems? Little interest or pleasure in doing things: (Patient-Rptd) Not at all Feeling down, depressed, or hopeless: (Patient-Rptd) Not at all Patient Health Questionnaire-2 Score: (Patient-Rptd) 0 Interventions: Patient declines any further evaluation / treatment for this issue Tobacco Use: Social History Tobacco Use Smoking Status Never Smokeless Tobacco Never Alcohol Use: Audit Alcohol Screening Q1: How often do you have a drink containing alcohol?: (Patient-Rptd) (P) Never Q2: How many drinks containing alcohol do you have on a typical day when you are drinking?: (Patient-Rptd) (P) Patient does not drink Q3: How often do you have six or more drinks on one occasion?: (Patient-Rptd) (P) Never Audit-C Score: (Patient-Rptd) (P) 0 Skip to questions 9-10?: (Patient-Rptd) (P) 1 Social Drivers of Health: SDOH risk assessment performed and documented today by members of the health care team. A total time of 0-5 minutes was spent obtaining information from the patient and discussing options to address the patient's social risk factors and unmet needs. Social Drivers of Health with Concerns Concerns Present Social Connections: Moderately Isolated (03/23/2024) Health Literacy: Inadequate Health Literacy (03/23/2024) Unknown Concern Housing Stability: Unknown (03/23/2024) 1. Encounter for subsequent annual wellness visit (AWV) in Medicare patient (Primary) Stable, continue walking healthy low-fat meals 2. Glaucoma of both eyes, unspecified glaucoma type Stable on drops follow-up with ophthalmology 3. Primary hypertension Stable, continue losartan and labetalol 4. Nonrheumatic aortic valve stenosis Stable, observe 5. Follicular lymphoma, unspecified follicular lymphoma type, unspecified body region (HCC) Stable follow-up with oncology documented in this encounter [facility] 03-24-2024 Instructions Martín Urena DO - 03/24/2024 8:30 AM EST Personalized Preventative Plan for Ashley Pappas - 03/24/2024 Medicare offers a range of preventative health benefits. Some of the tests and screenings are paid in full while others may be subject to a deductible, co-insurance, and / or copay. Some of these benefits include a comprehensive review of your medical history including lifestyle, illnesses that may run in your family, and various assessments and screenings as appropriate. After reviewing your medical record and screening and assessments performed today, your provider may have ordered immunizations, labs, imaging, and / or referrals for you. A list of these orders (if applicable) as well as your Preventative Care list are included within your After Visit Summary for your review. Other Preventative Recommendations: A preventive eye exam by an bioinformatics support specialist is recommended every 1-2 years to screen for glaucoma, cataracts, macular degeneration, and other eye disorders. A preventive dental visit is recommended every 6 months. Try to get at least 150 minutes of exercise per week or 10,000 steps per day on a pedometer. You need 1200-1500mg of calcium and [id number] international units of vitamin D per day. It is possible to meet your calcium requirement with diet alone, but a vitamin D supplement is usually necessary to meet this goal. When exposed to the sun, use a sunscreen that protects against both UVA and UVB radiation with an SPF of 30 or greater. Reapply every 2-3 hours or after sweating, drying off with a towel, or swimming. Always wear a seat belt when traveling in a car. Always wear a helmet when riding a bicycle or a motorcycle documented in this encounter [facility] 03-08-2024 History of Presen t illness Narrative The patient, Ashley Pappas, identity was verified by name and . Supervising provider for clinic visit: Raymundo Manzano PA-C Chief Complaint Patient presents with Blood Pressure Check Reason for visit: Change in medication at last visit Ashley Coradojose de jesuskathy has validated current medications Patient states compliant with medications as written: Yes BP medication taken prior to this visit? Yes Are you having any symptoms? No Current Blood Pressure: 153/68 Current Heart Rate: 63 Did Blood Pressure need rechecked: yes Second Blood Pressure Readin/73 Second Heart Rate: 65 Assessment/Plan: Ashley was seen today for blood pressure check. Diagnoses and all orders for this visit: Primary hypertension elevated Future Appointments Date Time Provider Department Center 03/24/2024 8:30 AM Martín Urena DO [facility] 07/15/2024 10:00 AM Kleber Demarco DO [facility] None Cc'd provider blood pressure readings? Yes Blood pressure stable, no med changes documented in this encounter [facility] 03-08-2024 History of Presen t illness Narrative The patient, Ashley Pappas, identity was verified by name and . Supervising provider for clinic visit: Raymundo Manzano PA-C Chief Complaint Patient presents with Blood Pressure Check Reason for visit: Change in medication at last visit Ashley Dai Anykathy has validated current medications Patient states compliant with medications as written: Yes BP medication taken prior to this visit? Yes Are you having any symptoms? No Current Blood Pressure: 153/68 Current Heart Rate: 63 Did Blood Pressure need rechecked: yes Second Blood Pressure Readin/73 Second Heart Rate: 65 Assessment/Plan: Ashley was seen today for blood pressure check. Diagnoses and all orders for this visit: Primary hypertension elevated Future Appointments Date Time Provider Department Center 03/24/2024 8:30 AM [facility] 10:00 AM Kleber Demarco DO [facility] None Cc'd provider blood pressure readings? Yes Blood pressure stable, no med changes Talked to patient and relayed message and she verbalized understanding. documented in this encounter [facility] 03-01-2024 Telephone encount er Note Recent Visits Date Type Provider Dept 01/08/24 Office Visit Raymundo Manzano PA-C [facility] 12/08/23 Office Visit Raymundo Manzano PA-C [facility] 09/24/23 Office Visit Martín Urena DO [facility] 03/26/23 Office Visit Martín Urena DO [facility] Showing recent visits within past 365 days and meeting all other requirements Future Appointments Date Type Provider Dept 03/24/24 Appointment Martín Urena DO [facility] Showing future appointments within next 90 days and meeting all other requirements Requested Prescriptions Pending Prescriptions Disp Refills labetalol (Normodyne) 100 MG tablet [Pharmacy Med Name: Labetalol HCl Oral Tablet 100 MG] 180 tablet 1 Sig: Take 1 tablet (100 mg) by mouth 2 times daily. Provider: Martín Urena DO Verified pharmacy: yes Verified day(s) supplied: yes Verified refill(s) needed (previous prescription showing no refills in chart): Yes Have you received any controlled medications from any other provider? N/A Overdue for visit: No If yes - patient scheduled? Yes Most recent labs completed in chart? Yes None [facility] 10-21-2024 Miscellaneous Notes Formattin g of this note is different from the original. Recent Visits Date Type Provider Dept 01/08/24 Office Visit KALLIE Segura [facility] 12/08/23 Office Visit KALLIE Segura 09/24/23 Office Visit DO Yuli Dyer [facility] 03/[facility] Showing recent visits within past 365 days and meeting all other requirements Future Appointments Date Type Provider Dept 03/24/24 Appointment DO Yuli Dyer [facility] Showing future appointments within next 90 days and meeting all other requirements Requested Prescriptions Pending Prescriptions Disp Refills labetalol (Normodyne) 100 MG tablet [Pharmacy Med Name: Labetalol HCl Oral Tablet 100 MG] 180 tablet 1 Sig: Take 1 tablet (100 mg) by mouth 2 times daily. Provider: Martín Urnea DO Verified pharmacy: yes Verified day(s) supplied: yes Verified refill(s) needed (previous prescription showing no refills in chart): Yes Have you received any controlled medications from any other provider? N/A Overdue for visit: No If yes - patient scheduled? Yes Most recent labs completed in chart? Yes None documented in this encounter [facility] 02-03-2024 History of Presen t illness Narrative The patient, Ashley Pappas, identity was verified by name and . Supervising provider for clinic visit: Dr. Shah Chief Complaint Patient presents with Blood Pressure Check Reason for visit: Elevated Blood pressure reading at last visit Ashley Pappas is taking medications reviewed with patient for HTN Patient states compliant with medications as written: Yes BP medication taken prior to this visit? Yes - takes medication 8 am and 8 pm Are you having any symptoms? No Current Blood Pressure: 124/62 Current Heart Rate:75 Did Blood Pressure need rechecked: no Second Blood Pressure Reading: Second Heart Rate: Assessment/Plan: There are no diagnoses linked to this encounter. normal Future Appointments Date Time Provider Department Center 03/24/2024 8:30 AM Martín Urena DO [facility] 07/15/2024 10:00 AM Kleber Demarco, DO [facility] None Cc'd provider blood pressure readings? Yes Blood pressure stable, but observe for hypotensive symptoms of lightheadedness and dizziness.. Should recheck blood pressure and pulse in another 3 to 4 weeks documented in this encounter [facility] 02-03-2024 History of Presen t illness Narrative The patient, Ashley Pappas, identity was verified by name and . Supervising provider for clinic visit: Dr. Shah Chief Complaint Patient presents with Blood Pressure Check Reason for visit: Elevated Blood pressure reading at last visit Ashley Pappas is taking medications reviewed with patient for HTN Patient states compliant with medications as written: Yes BP medication taken prior to this visit? Yes - takes medication 8 am and 8 pm Are you having any symptoms? No Current Blood Pressure: 124/62 Current Heart Rate:75 Did Blood Pressure need rechecked: no Second Blood Pressure Reading: Second Heart Rate: Assessment/Plan: There are no diagnoses linked to this encounter. normal Future Appointments Date Time Provider Department Center 03/24/2024 8:30 AM Martín Urena DO [facility] 07/15/2024 10:00 AM Kleber Demarco, DO [facility] None Cc'd provider blood pressure readings? Yes Blood pressure stable, but observe for hypotensive symptoms of lightheadedness and dizziness.. Should recheck blood pressure and pulse in another 3 to 4 weeks Placed call to patient. Unable to reach them by phone to discuss lab results. Left detailed message to return call to discuss results. [facility] History of Presen t illness Narrative The patient, Ashley Pappas, identity was verified by name and . Supervising provider for clinic visit: Dr. Shah Chief Complaint Patient presents with Blood Pressure Check Reason for visit: Elevated Blood pressure reading at last visit Ashley Pappas is taking medications reviewed with patient for HTN Patient states compliant with medications as written: Yes BP medication taken prior to this visit? Yes - takes medication 8 am and 8 pm Are you having any symptoms? No Current Blood Pressure: 124/62 Current Heart Rate:75 Did Blood Pressure need rechecked: no Second Blood Pressure Reading: Second Heart Rate: Assessment/Plan: There are no diagnoses linked to this encounter. normal Future Appointments Date Time Provider Department Center 03/24/2024 8:30 AM Martín Urena DO [facility] 07/15/2024 10:00 AM Kleber Demarco DO [facility] None Cc'd provider blood pressure readings? Yes Blood pressure stable, but observe for hypotensive symptoms of lightheadedness and dizziness.. Should recheck blood pressure and pulse in another 3 to 4 weeks Placed call to patient. Unable to reach them by phone to discuss lab results. Left detailed message to return call to discuss results. Placed call to patient. Two patient identifers confirmed. Was able to speak to patient. All concerns in message have been addressed. Patient is scheduled for BP recheck on 03/01/24 [facility] History of Presen t illness Narrative Hematology/Oncology Office Visit Oncology History: 1) 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 Diagnosed via excisional right cervical lymph node biopsy on 08/15/22. - Patient presented with 2-3 years af an abnormal lymph node posterior right neck and enlargement of the right parotid gland. She denied any B symptoms. Excisional biopsy of a right posterior cervical lymph node on 08/15/22 confirmed follicular lymphoma low grade. - PET scan 10/11/22 showed bulky intensely FDG avid right parotid mass, with accumulation in the bilateral cervical chain, supraclavicular, axillary, and left internal mammary nodes, right temporal and left temporal occipital scalp, mild splenomegaly, and in the bones of the lower extremity. - systemic therapy with Rituxan weekly x 4 started 10/30/22. Cycle 4 11/21/22. - PET scan 01/02/23 showed no evidence of residual or recurrent FDG avid malignancy - observation recommended HPI: Ashley Pappas is a 88 y.o. female who comes in today for routine 6 month follow up. Since her last visit with me in July, she denies any new lymphadenopathy. She was evaluated in the ER in November for hypertension, BP was over 200. Her medications have been adjusted and her BP is under better control, but she continues to follow closely with her PCP. She is accompanied by her daughter today. She denies any new cervical lymphadenopathy or fullness in the right parotid gland. No b symptoms. She denies any fevers, weight loss, change in appetite, night sweats. She continues to be very active and independent. Past Medical History: Diagnosis Date Aortic valve stenosis 10/03/2022 mod per ECHO 07/04, nml LVEF Cystocele with uterine prolapse [address] Family history of colon cancer Follicular lymphoma (HCC) 10/03/[address] Dr[address] Dem[address] Fu Hypertension 2020 Lumbar disc disease Right thyroid nodule 2017 Dr. Perry and FNA- no changes 2020 Past Surgical History: Procedure Laterality Date ACHILLES TENDON SURGERY Left APPENDECTOMY BUNIONECTOMY CARPAL TUNNEL RELEASE Bilateral CATARACT EXTRACTION Bilateral 2010 Dr. Fu- trabelectomy also COLONOSCOPY COLONOSCOPY 2010 LUMBAR LAMINECTOMY 2001 TOTAL KNEE ARTHROPLASTY Left 1994 UPPER GASTROINTESTINAL ENDOSCOPY Patient Active Problem List Diagnosis Date Noted Aortic valve stenosis 10/03/2022 Primary hypertension 10/03/2022 Follicular lymphoma (HCC) 10/03/2022 Social History Tobacco Use Smoking status: Never Smokeless tobacco: Never Vaping Use Vaping status: Never Used Substance Use Topics Alcohol use: No Drug use: Never Family History Problem Relation Name Age of Onset Other ([address]) Mother 30 DVT and PE No Known Problems Father unknown Colon cancer Sister age 70 No Known Problems Sister nonspecific causes No Known Problems Brother No Known Problems Brother No Known Problems Brother not close No Known Allergies Current Outpatient Medications Medication Sig Dispense Refill aspirin EC 81 MG EC tablet Take 81 mg by mouth daily. Combigan 0.2-0.5 % ophthalmic solution Administer 1 drop into the left eye in the morning and 1 drop in the evening. labetalol (Normodyne) 100 MG tablet Take 1 tablet (100 mg) by mouth 2 times daily. 180 tablet 1 latanoprost (Xalatan) 0.005 % ophthalmic solution Administer 1 drop into the left eye Nightly. Latanoprostene Bunod (Vyzulta) 0.024 % solution Administer 0.024 % into affected eye(s) 1 (one) time each day. losartan (Cozaar) 25 MG tablet Take 1 tablet (25 mg) by mouth every evening. 90 tablet 1 losartan (Cozaar) 25 MG tablet Take 1 tablet (25 mg) by mouth daily for 14 days. 14 tablet 0 losartan (Cozaar) 50 MG tablet Take 1 tablet (50 mg) by mouth daily. 90 tablet 1 MELATONIN PO Take 10 mg by mouth daily. Multiple Vitamin (Multi-Vitamin Daily) tablet Take 1 tablet by mouth daily. Rhopressa 0.02 % solution No current facility-administered medications for this visit. Review of Systems Constitutional: Negative for appetite change, chills, diaphoresis, fatigue, fever and unexpected weight change. HENT: Negative for dental problem, mouth sores, nosebleeds, sneezing, sore throat, tinnitus, trouble swallowing and voice change. Eyes: Negative for photophobia, pain and visual disturbance. Respiratory: Negative for cough, shortness of breath and wheezing. Cardiovascular: Negative for chest pain, palpitations and leg swelling. Gastrointestinal: Negative for abdominal distention, abdominal pain, blood in stool, constipation, diarrhea, nausea and vomiting. Endocrine: Negative for cold intolerance and heat intolerance. Genitourinary: Negative for difficulty urinating, frequency, hematuria and urgency. Musculoskeletal: Negative for arthralgias, back pain, gait problem and myalgias. Skin: Negative for pallor and rash. Allergic/Immunologic: Negative for immunocompromised state. Neurological: Negative for dizziness, syncope, weakness, light-headedness, numbness and headaches. Hematological: Negative for adenopathy. Does not bruise/bleed easily. Psychiatric/Behavioral: Negative for confusion and sleep disturbance. The patient is not nervous/anxious. All other systems reviewed and are negative. Vitals: 01/15/24 0933 BP: (!) 156/68 BP Location: Right arm Patient Position: Sitting Pulse: 70 Temp: 37.3 C (99.2 F) TempSrc: Temporal SpO2: 96% Weight: 63.8 kg (140 lb 11.2 oz) Height: 1.6 m (5' 3") ECOG PS = 1-2 Physical Exam Vitals and nursing note reviewed. Constitutional: General: She is not in acute distress. Appearance: Normal appearance. She is not ill-appearing. HENT: Head: Normocephalic and atraumatic. Salivary Glands: Right salivary gland is not diffusely enlarged. Left salivary gland is not diffusely enlarged. Nose: Nose normal. Mouth/Throat: Pharynx: Oropharynx is clear. No oropharyngeal exudate or posterior oropharyngeal erythema. Eyes: General: No scleral icterus. Extraocular Movements: Extraocular movements intact. Conjunctiva/sclera: Conjunctivae normal. Pupils: Pupils are equal, round, and reactive to light. Cardiovascular: Rate and Rhythm: Normal rate and regular rhythm. Heart sounds: Normal heart sounds. No murmur heard. Pulmonary: Effort: Pulmonary effort is normal. No respiratory distress. Breath sounds: Normal breath sounds. No wheezing. Abdominal: General: Abdomen is flat. Bowel sounds are normal. There is no distension. Palpations: Abdomen is soft. There is no mass. Tenderness: There is no abdominal tenderness. There is no guarding. Musculoskeletal: General: No swelling or tenderness. Normal range of motion. Cervical back: Normal range of motion and neck supple. Right lower leg: No edema. Left lower leg: No edema. Lymphadenopathy: Cervical: No cervical adenopathy. Right cervical: No superficial or deep cervical adenopathy. Left cervical: No superficial, deep or posterior cervical adenopathy. Upper Body: Right upper body: No supraclavicular, axillary or pectoral adenopathy. Left upper body: No supraclavicular, axillary or pectoral adenopathy. Lower Body: No right inguinal adenopathy. No left inguinal adenopathy. Skin: General: Skin is warm and dry. Findings: No bruising or rash. Neurological: General: No focal deficit present. Mental Status: She is alert and oriented to person, place, and time. Mental status is at baseline. Psychiatric: Mood and Affect: Mood normal. Thought Content: Thought content normal. Imaging/Labs: No visits with results within 1 Month(s) from this visit. Latest known visit with results is: Office Visit on 09/24/2023 Component Date Value Ref Range Status White Blood Cell Count 09/24/2023 5.7 3.8 - 10.8 Thousand/uL Final RBC 09/24/2023 4.45 3.80 - 5.10 Million/uL Final HEMOGLOBIN 09/24/2023 14.5 11.7 - 15.5 g/dL Final HEMATOCRIT 09/24/2023 43.7 35.0 - 45.0 % Final MCV 09/24/2023 98.2 80.0 - 100.0 fL Final MCH 09/24/2023 32.6 27.0 - 33.0 pg Final MCHC 09/24/2023 33.2 32.0 - 36.0 g/dL Final RDW 09/24/2023 13.0 11.0 - 15.0 % Final Platelet Count 09/24/2023 226 140 - 400 Thousand/uL Final Mean Platelet Volume (MPV) 09/24/2023 10.5 7.5 - 12.5 fL Final Absolute Neutrophils 09/24/2023 4,013 1,500 - 7,800 cells/uL Final ABSOLUTE LYMPHOCYTES - [facility] 09/24/2023 844 (L) 850 - 3,900 cells/uL Final Monocytes Absolute 09/24/2023 519 200 - 950 cells/uL Final ABSOLUTE EOSINOPHILS - [facility] 09/24/2023 268 15 - 500 cells/uL Final ABSOLUTE BASOPHILS - [facility] 09/24/2023 57 0 - 200 cells/uL Final Neutrophils Relative 09/24/2023 70.4 % Final Lymphocytes Absolute 09/24/2023 14.8 % Final MONOCYTES - [facility] 09/24/2023 9.1 % Final EOSINOPHILS - [facility] 09/24/2023 4.7 % Final BASOPHILS - [facility] 09/24/2023 1.0 % Final GLUCOSE 09/24/2023 102 65 - 139 mg/dL Final Comment: Non-fasting reference interval For someone without known diabetes, a glucose value between 100 and 125 mg/dL is consistent with prediabetes and should be confirmed with a follow-up test. Urea Nitrogen (BUN) 09/24/2023 19 7 - 25 mg/dL Final Creatinine 09/24/2023 0.86 0.60 - 0.95 mg/dL Final EGFR 09/24/2023 65 > OR = 60 mL/min/1.73m2 Final BUN/CREATININE RATIO 09/24/2023 SEE NOTE: 6 - (calc) Final Comment: Not Reported: BUN and Creatinine are within reference range. SODIUM 09/24/2023 139 135 - 146 mmol/L Final POTASSIUM 09/24/2023 4.3 3.5 - 5.3 mmol/L Final CHLORIDE 09/24/2023 104 98 - 110 mmol/L Final Carbon Dioxide (CO2) 09/24/2023 27 20 - 32 mmol/L Final CALCIUM 09/24/2023 10.5 (H) 8.6 - 10.4 mg/dL Final PROTEIN, TOTAL - [facility] 09/24/2023 6.5 6.1 - 8.1 g/dL Final ALBUMIN - [facility] 09/24/2023 4.6 3.6 - 5.1 g/dL Final GLOBULIN - [facility] 09/24/2023 1.9 1.9 - 3.7 g/dL (calc) Final ALBUMIN/GLOBULIN RATIO - [facility] 09/24/2023 2.4 1.0 - 2.5 (calc) Final BILIRUBIN, TOTAL - [facility] 09/24/2023 0.7 0.2 - 1.2 mg/dL Final ALKALINE PHOSPHATASE 09/24/2023 78 37 - 153 U/L Final AST - [facility] 09/24/2023 26 10 - 35 U/L Final ALT - [facility] 09/24/2023 15 6 - 29 U/L Final TSH 09/24/2023 1.88 0.40 - 4.50 mIU/L Final T3, FREE 09/24/2023 3.1 2.3 - 4.2 pg/mL Final T4, FREE 09/24/2023 1.3 0.8 - 1.8 ng/dL Final Tissue exam: [id number] Order: [id number] Collected 08/15/2022 13:32 Status: Edited Result - FINAL Visible to patient: Yes (not seen) Dx: Neck mass; Chronic lymphadenitis, exc... 0 Result Notes Component Addendum Please see [employer] Accession/Case No: [id number] for Low Grade/Small B Cell Lymphoma FISH results ordered by Dr. Wagner Perry. The results have been scanned. Addendum electronically signed by Jessica Marshall MD on 09/10/2022 at 2311 Final Diagnosis A. LYMPH NODE, RIGHT CERVICAL, BIOPSY: - LOW GRADE B-CELL LYMPHOMA (CD5-, CD 10-) INVOLVING SKIN AND SOFT TISSUE. B. LYMPH NODE, RIGHT CERVICAL, RPMI SPECIMEN: - LOW GRADE B-CELL LYMPHOMA (CD5-, CD 10-) WITH KAPPA LIGHT CHAIN RESTRICTION. at 0939 Comment Low grade B-cell lymphoma FISH studies are pending for further evaluation of the lymphoid population.Systemic work-up is also recommended for further evaluation to determine if the process is localized or demonstrates involvement by lymph nodes or bone marrow in other locations. If a localized process, differential diagnostic considerations include primary follicular center cell lymphoma of the skin and primary cutaneous marginal zone lymphoma. 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 Please correlate with the pending FISH testing and additional clinical work-up. Microscopic Description Microscopic sections demonstrate a diffuse, expanded population of lymphocytes involving skin and soft tissue in a dense, nodular pattern. Definitive lymph node architecture is not histologically identifiable. Special Stains Immunohistochemical staining was performed with adequate controls in order to further evaluate the lymphoid population. The stains demonstrate a B-cell predominant population which expresses CD20, CD79a, partial Bcl-2, weak BCL6 in proliferation centers. Ki-67 is variable areas of high proliferation (50-80%) and proliferation centers and lower proliferation in other areas. CD3 and CD5 demonstrate rare interstitial T cells. Cyclin D1, CD34, ALK1, CD30, and EBV ZEE are negative. CD138 and mum 1 do not demonstrate a significant plasma cell population. [place] and lambda ZEE demonstrate a kappa predominant staining in a blush like pattern. Imaging Reviewed: PET/CT skull base to mid thigh Narrative: [facility] 1935 [id number] Exam Date/Time: 01/02/2023 11:35 Procedure: PET/CT SKULL BASE TO MID THIGH Ordering Provider: DEMARCO TERESA Reason For Exam: Hematologic malignancy, assess treatment response PET/CT CLINICAL INDICATION: Follicular lymphoma restaging. Following the intravenous administration of 14.4 mCi of fluorine-18 fluorodeoxyglucose (FDG) a PET scan of the torso was acquired after an approximately one hour delay. Blood glucose level at the time of injection was 100 mg/dl. Contemporaneously, noncontrast axial CT images were obtained using low dose technique. The images were reconstructed in three orthogonal planes and digitally coregistered. The CT data was used for attenuation correction as well. Dose reduction was employed with automated exposure control. COMPARISON: PET/CT dated 10/11/2022 NECK AND CHEST: The previously noted bulky mass centered within the right parotid gland on the study from 10/11/2022 has essentially resolved. No FDG avid lymphadenopathy is identified within the neck or chest. No FDG avid pulmonary nodules are identified. ABDOMEN AND PELVIS: No abnormal FDG accumulation is seen within the abdomen or pelvis. Previously noted mild splenomegaly and moderate diffuse FDG accumulation within the spleen on the study from 10/11/2022 has resolved. MUSCULOSKELETAL: No evidence of osseous metastatic disease is identified. Please note that the lower extremities from the distal thigh through the feet are not included in the [id number] on the current examination (10/11/2022 examination was performed as a whole-body PET/CT, the current examination was ordered as skull base to mid thigh). Impression: No evidence of residual or recurrent FDG avid malignancy is identified. Previously noted multifocal areas of intense FDG accumulation on the study from 10/11/2022 have essentially resolved, with the caveat that the entirety of the lower extremities are not included in the [id number] on the current examination. There are no new areas of abnormal tracer uptake to suggest progression of disease. Shoshana score N/A. Report Dictated on Electronically Signed By: Tonio Lopes MD Electronically Signed Date/Time: 01/03/2023 12:49 PM EDT - I have reviewed all available pertinent laboratory, imaging and pathology results with the patient and/or family members today. Assessment/Plan: Diagnosis Plan 1. 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 NCCN guidelines were reviewed. See details of presentation as outlined above. - There is no evidence of recurrence on exam today. - observation recommended. - signs and symptoms of disease recurrence were reviewed with the patient and she was instructed to call with any concerns All questions were answered to the satisfaction of the patient and/or family. Return to office in 6 months or sooner if worrisome signs/symptoms arise. Kleber Demarco DO Hematology/Medical Oncology documented in this encounter [facility] 01-08-2024 Evaluation + Plan note Associ ated Problem(s): Primary hypertension - Chronic and unstable, patient brought in recordings of her blood pressure over the last several weeks consistently her systolic blood pressure staying around mid 140s to 150s. -Blood work was reviewed chemistry panel has been normal her electrolytes are normal. Due to the persistent elevation of her blood pressure in the morning we will be adding a low-dose of losartan 25 mg in the evening and continue to closely monitor. - Patient was encouraged should she start developing any unusual symptoms lightheaded dizziness weakness or any other concerns contact the office immediately and discontinue the additional dose of losartan. Will need to consider possibly decreasing the dose of labetalol and increasing the dose of losartan to equal manage to adequately control her blood pressure. [facility] 01-08-2024 Miscellaneous Notes Associate d Problem(s): Primary hypertension - Chronic and unstable, patient brought in recordings of her blood pressure over the last several weeks consistently her systolic blood pressure staying around mid 140s to 150s. -Blood work was reviewed chemistry panel has been normal her electrolytes are normal. Due to the persistent elevation of her blood pressure in the morning we will be adding a low-dose of losartan 25 mg in the evening and continue to closely monitor. - Patient was encouraged should she start developing any unusual symptoms lightheaded dizziness weakness or any other concerns contact the office immediately and discontinue the additional dose of losartan. Will need to consider possibly decreasing the dose of labetalol and increasing the dose of losartan to equal manage to adequately control her blood pressure. documented in this encounter [facility] 01-08-2024 History of Presen t illness Narrative Images from the original note were not included. [facility] [address] [place] [address] [address] [facility] [address] Dept: [phone] Dept Loc: [phone] Visit type: Established Patient Reason for Visit: Follow-up (4 week follow up on BP) Assessment and Plan 1. Primary hypertension Assessment & Plan: - Chronic and unstable, patient brought in recordings of her blood pressure over the last several weeks consistently her systolic blood pressure staying around mid 140s to 150s. -Blood work was reviewed chemistry panel has been normal her electrolytes are normal. Due to the persistent elevation of her blood pressure in the morning we will be adding a low-dose of losartan 25 mg in the evening and continue to closely monitor. - Patient was encouraged should she start developing any unusual symptoms lightheaded dizziness weakness or any other concerns contact the office immediately and discontinue the additional dose of losartan. Will need to consider possibly decreasing the dose of labetalol and increasing the dose of losartan to equal manage to adequately control her blood pressure. Orders: - losartan (Cozaar) 25 MG tablet; Take 1 tablet (25 mg) by mouth every evening., Starting Fri01/08/2024, Until Fri07/06/2024, Normal - losartan (Cozaar) 50 MG tablet; Take 1 tablet (50 mg) by mouth daily., Starting Fri01/08/2024, Until Fri07/06/2024, Normal - losartan (Cozaar) 25 MG tablet; Take 1 tablet (25 mg) by mouth daily for 14 days., Starting Ramila 01/08/2024, Until Ramila 01/22/2024, Normal And the bridge of medication was sent to the patient's local pharmacy for 2 weeks to give her coverage until her medication from mail pharmacy to be delivered. Follow up in about 3 weeks (around 01/29/2024), or for blood pressure recheck with nurse visit.. Subjective HPI this a very pleasant 88-year-old female underlying history of follicular lymphoma aortic valve stenosis and hypertension. Had been on lisinopril for blood pressure which was really not controlling it well and she reported a cough associated with it so approximate 4 weeks ago she was switched over to 50 mg of losartan. She returns back to the office today to discuss response to the medication. Patient had a recent CMP obtained on 11/24 with levels completely normal. Cough has gone away with the changing of the medication changes. Patient reports that she is doing well. She does states she has some nocturia she states this cannot unusual for her until recently she is on any diuretics. She be encouraged to cut off her fluids by 8:00 tonight. She did state there were few episodes where she got up in melanite and felt lightheaded but otherwise has been doing well. She has chronic vision changes due to glaucoma and she uses eyedrops but she states otherwise she has been feeling pretty good she denies any current shortness of breath chest pain palpitations fever chills rigors or any other concerns. Review of Systems Constitutional: Negative for chills and fever. HENT: Negative for congestion and sore throat. Eyes: Positive for visual disturbance (Chronic changes of glaucoma). Respiratory: Negative for cough and shortness of breath. Cardiovascular: Negative for chest pain. Gastrointestinal: Negative for abdominal pain, diarrhea, nausea and vomiting. Genitourinary: Positive for frequency (Primarily at night). Negative for difficulty urinating, dysuria and urgency. Musculoskeletal: Negative for back pain. Neurological: Negative for dizziness and light-headedness. All other systems reviewed and are negative. No Known Allergies Outpatient Medications Prior to Visit Medication Sig Dispense Refill aspirin EC 81 MG EC tablet Take 81 mg by mouth daily. Combigan 0.2-0.5 % ophthalmic solution Administer 1 drop into the left eye in the morning and 1 drop in the evening. labetalol (Normodyne) 100 MG tablet Take 1 tablet (100 mg) by mouth 2 times daily. 180 tablet 1 latanoprost (Xalatan) 0.005 % ophthalmic solution Administer 1 drop into the left eye Nightly. Latanoprostene Bunod (Vyzulta) 0.024 % solution Administer 0.024 % into affected eye(s) 1 (one) time each day. MELATONIN PO Take 10 mg by mouth daily. Multiple Vitamin (Multi-Vitamin Daily) tablet Take 1 tablet by mouth daily. Rhopressa 0.02 % solution losartan (Cozaar) 50 MG tablet Take 1 tablet (50 mg) by mouth daily. 30 tablet 1 No facility-administered medications prior to visit. Past Medical History: Diagnosis Date Aortic valve stenosis 10/03/2022 mod per ECHO 07/04, nml LVEF Cystocele with uterine prolapse [address] Family history of colon cancer Follicular lymphoma (HCC) 10/03/[address] Fu Hypertension 2020 Lumbar disc disease Right thyroid nodule 2016 Dr. Perry and FNA- no changes 2020 Social History Tobacco Use Smoking status: Never Smokeless tobacco: Never Substance Use Topics Alcohol use: No Past Surgical History: Procedure Laterality Date ACHILLES TENDON SURGERY Left APPENDECTOMY BUNIONECTOMY CARPAL TUNNEL RELEASE Bilateral CATARACT EXTRACTION Bilateral 2010 Dr. Fu- trabelectomy also COLONOSCOPY COLONOSCOPY 2011 LUMBAR LAMINECTOMY 2002 TOTAL KNEE ARTHROPLASTY Left 1995 UPPER GASTROINTESTINAL ENDOSCOPY Family History Problem Relation Name Age of Onset Other (10817) Mother 30 DVT and PE No Known Problems Father unknown Colon cancer Sister age 70 No Known Problems Sister nonspecific causes No Known Problems Brother No Known Problems Brother No Known Problems Brother not close Objective BP 138/74 (BP Location: Left arm, Patient Position: Sitting, BP Cuff Size: Adult) Pulse 71 Temp 36.6 C (97.8 F) (Temporal) Ht 5' 3" (1.6 m) Wt 140 lb 9.6 oz (63.8 kg) SpO2 96% BMI 24.91 kg/m Physical Exam Vitals reviewed. Constitutional: General: She is not in acute distress. Appearance: Normal appearance. She is not ill-appearing or toxic-appearing. Eyes: General: No scleral icterus. Conjunctiva/sclera: Conjunctivae normal. Pupils: Pupils are equal, round, and reactive to light. Cardiovascular: Rate and Rhythm: Normal rate and regular rhythm. Heart sounds: Normal heart sounds. Pulmonary: Effort: Pulmonary effort is normal. No respiratory distress. Breath sounds: Normal breath sounds. Musculoskeletal: Cervical back: Normal range of motion and neck supple. Skin: General: Skin is warm and dry. Neurological: Mental Status: She is alert. Psychiatric: Mood and Affect: Mood normal. Data Reviewed and Summarized Labs: Imaging/Testing: Raymundo Manzano PA-C 01/08/2024 Please note that portions of this note may have been completed with voice recognition software. Documentation reviewed prior to signing but minor errors in yeast maker may have occurred. documented in this encounter [facility] 12-08-2023 Evaluation + Plan note Associ ated Problem(s): Primary hypertension - Chronic and unstable slightly elevated here I repeated blood pressure check and it was still elevated patient does have a significant oscillatory gap which I think is what is confusing her automatic machine at home. - Patient does not like being on lisinopril she states is causing her to have a cough she is reluctant to continue this so we did switch her off the lisinopril to losartan 50 mg daily [facility] 12-08-2023 Miscellaneous Notes Associate d Problem(s): Primary hypertension - Chronic and unstable slightly elevated here I repeated blood pressure check and it was still elevated patient does have a significant oscillatory gap which I think is what is confusing her automatic machine at home. - Patient does not like being on lisinopril she states is causing her to have a cough she is reluctant to continue this so we did switch her off the lisinopril to losartan 50 mg daily documented in this encounter [facility] 12-08-2023 History of Presen t illness Narrative Images from the original note were not included. [facility] [address] [address] [facility] [address] Dept: [phone] Dept Loc: [phone] Visit type: Established Patient Reason for Visit: ER Follow-up (Hypertension ) Assessment and Plan 1. Primary hypertension Assessment & Plan: - Chronic and unstable slightly elevated here I repeated blood pressure check and it was still elevated patient does have a significant oscillatory gap which I think is what is confusing her automatic machine at home. - Patient does not like being on lisinopril she states is causing her to have a cough she is reluctant to continue this so we did switch her off the lisinopril to losartan 50 mg daily Patient is concerned that she is having blood pressure drop when she exercises she does have a rather significant aortic stenosis on auscultation. My fear is that too much exercise could be hastening and worsening her blood pressures because of aortic stenosis we talked about referral to cardiology entertain this idea in the near future as needed. Encouraged plenty rest fluids take it easy we might even change the beta-brielle around and increase the ARB as needed with blood pressure control. Follow up in about 4 weeks (around 01/05/2024) for HTN f/u. Subjective HPI this is a 88-year-old relatively healthy elderly female with underlying history of hypertension, follicular lymphoma and aortic valve stenosis who presents to the office today for an ER follow-up with concerns with blood pressure issues. Blood work in the ER was largely unremarkable. She did have elevated troponin however was repeated 3 different times as she was closely monitored in the ER and it was continually the same at 17. Patient did have a CT of the brain that showed no acute findings. She reports having an off day and had some dizziness and went to the ER Called the office and had no openings so lisinopril was called in but has developed a cough and does not wish to be on the medication Per ER note dated 11/24, "Patient presents with: Hypertension: Pt reports elevated BP and feeling lightheaded. Pt states that BP was 200s/70s. No headache or weakness reported in triage. 88-year-old female presents to the ED today with daughter for elevated blood pressure, patient was at home today when she did not feel right and decided to check her blood pressure, her blood pressure was in 160 systolic, about an hour after she checked again and her blood pressure was in the 180s systolic. She had her daughter, and they checked it again and her blood pressure was 200 systolic over 70 diastolic. Patient denies any headaches or confusion blurry vision, denies any chest pain back pain abdominal pain, denies any other concerns. She does take blood pressure medication twice a day." Review of Systems Constitutional: Negative for chills and fever. Respiratory: Negative for cough and shortness of breath. Cardiovascular: Negative for chest pain. Gastrointestinal: Negative for abdominal pain, diarrhea, nausea and vomiting. Genitourinary: Negative for difficulty urinating, dysuria, frequency and urgency. Musculoskeletal: Negative for back pain. Neurological: Negative for dizziness and light-headedness. All other systems reviewed and are negative. No Known Allergies Outpatient Medications Prior to Visit Medication Sig Dispense Refill aspirin EC 81 MG EC tablet Take 81 mg by mouth daily. Combigan 0.2-0.5 % ophthalmic solution Administer 1 drop into the left eye in the morning and 1 drop in the evening. labetalol (Normodyne) 100 MG tablet Take 1 tablet (100 mg) by mouth 2 times daily. 180 tablet 1 latanoprost (Xalatan) 0.005 % ophthalmic solution Administer 1 drop into the left eye Nightly. Latanoprostene Bunod (Vyzulta) 0.024 % solution Administer 0.024 % into affected eye(s) 1 (one) time each day. MELATONIN PO Take 10 mg by mouth daily. Multiple Vitamin (Multi-Vitamin Daily) tablet Take 1 tablet by mouth daily. Rhopressa 0.02 % solution lisinopril 10 MG tablet Take 1 tablet (10 mg) by mouth daily. 30 tablet 2 No facility-administered medications prior to visit. Past Medical History: Diagnosis Date Aortic valve stenosis 10/03/2022 mod per ECHO 07/04, nml LVEF Cystocele with uterine prolapse [address] Family history of colon cancer Follicular lymphoma (HCC) 10/03/[address] Fu Hypertension 2020 Lumbar disc disease Right thyroid nodule 2016 Dr. Perry and LILIANA- no changes 2020 Social History Tobacco Use Smoking status: Never Smokeless tobacco: Never Substance Use Topics Alcohol use: No Past Surgical History: Procedure Laterality Date ACHILLES TENDON SURGERY Left APPENDECTOMY BUNIONECTOMY CARPAL TUNNEL RELEASE Bilateral CATARACT EXTRACTION Bilateral 2010 Dr. Chi- trabelectomy also COLONOSCOPY COLONOSCOPY 2011 LUMBAR LAMINECTOMY 2002 TOTAL KNEE ARTHROPLASTY Left 1995 UPPER GASTROINTESTINAL ENDOSCOPY Family History Problem Relation Name Age of Onset Other ([address]13) Mother 30 DVT and PE No Known Problems Father unknown Colon cancer Sister age 70 No Known Problems Sister nonspecific causes No Known Problems Brother No Known Problems Brother No Known Problems Brother not close Objective BP (!) 166/72 (BP Location: Left arm, Patient Position: Sitting, BP Cuff Size: Adult) Pulse 66 Temp 36.5 C (97.7 F) (Temporal) Ht 5' 3" (1.6 m) Wt 143 lb 9.6 oz (65.1 kg) SpO2 98% BMI 25.44 kg/m Physical Exam Vitals reviewed. Constitutional: General: She is not in acute distress. Appearance: Normal appearance. She is not ill-appearing or toxic-appearing. Eyes: General: No scleral icterus. Conjunctiva/sclera: Conjunctivae normal. Pupils: Pupils are equal, round, and reactive to light. Cardiovascular: Rate and Rhythm: Normal rate and regular rhythm. Heart sounds: Murmur (sig aortic stenosis) heard. Pulmonary: Effort: Pulmonary effort is normal. No respiratory distress. Breath sounds: Normal breath sounds. Musculoskeletal: Cervical back: Normal range of motion and neck supple. Skin: General: Skin is warm and dry. Neurological: Mental Status: She is alert. Psychiatric: Mood and Affect: Mood normal. Data Reviewed and Summarized Labs: Imaging/Testing: Raymundo Manzano PA-C 12/08/2023 Please note that portions of this note may have been completed with voice recognition software. Documentation reviewed prior to signing but minor errors in yeast maker may have occurred. documented in this encounter [facility] 09-24-2023 History of Presen t illness Narrative Images from the original note were not included. [facility] [address] [place] [address] [address] [facility] [address] Visit type: Established Patient Reason for Visit: Follow-up (Med check) Assessment / Plan: Ashley was seen today for follow-up. Diagnoses and all orders for this visit: Primary hypertension (Primary) Comments: Stable, continue labetalol Orders: - CBC auto differential; Future - Comprehensive metabolic panel; Future - CBC auto differential - Comprehensive metabolic panel Follicular lymphoma, unspecified follicular lymphoma type, unspecified body region (HCC) Comments: In remission. Follow-up with oncology Alopecia - TSH; Future - T3, free; Future - T4, free; Future - TSH - T3, free - T4, free Other orders - labetalol (Normodyne) 100 MG tablet; Take 1 tablet (100 mg) by mouth 2 times daily. - Pneumococcal conjugate vaccine 20-valent IM (PREVNAR 20) Subjective: Patient ID: Ashley Pappas is a 88 y.o. female. HPI hypertensive patient with history of follicular lymphoma of the right side of the neck presents for overall checkup. Of note she needs a letter sent to her assisted living facility at [place] [address] in [place] that she is competent to self administer her meds. Review of Systems no night sweats fevers or chills. Good appetite. Hard time losing weight. Concerned about some hair thinning. No chest pain or exertional dyspnea. No palpitations PND orthopnea claudication or edema. No heartburn or abdominal pain. Bowels are regular. No melena or blood. No dysuria. Rare arthralgia No Known Allergies Current Outpatient Medications on File Prior to Visit Medication Sig Dispense Refill aspirin EC 81 MG EC tablet Take 81 mg by mouth daily. Combigan 0.2-0.5 % ophthalmic solution Administer 1 drop into the left eye in the morning and 1 drop in the evening. latanoprost (Xalatan) 0.005 % ophthalmic solution Administer 1 drop into the left eye Nightly. Latanoprostene Bunod (Vyzulta) 0.024 % solution Administer 0.024 % into affected eye(s) 1 (one) time each day. MELATONIN PO Take 10 mg by mouth daily. Multiple Vitamin (Multi-Vitamin Daily) tablet Take 1 tablet by mouth daily. Rhopressa 0.02 % solution [DISCONTINUED] labetalol (Normodyne) 100 MG tablet Take 1 tablet (100 mg) by mouth 2 times daily. 180 tablet 1 No current facility-administered medications on file prior to visit. Patient Active Problem List Diagnosis Aortic valve stenosis Primary hypertension Follicular lymphoma (HCC) Social History Tobacco Use Smoking status: Never Smokeless tobacco: Never Substance Use Topics Alcohol use: No Past Surgical History: Procedure Laterality Date ACHILLES TENDON SURGERY Left APPENDECTOMY BUNIONECTOMY CARPAL TUNNEL RELEASE Bilateral CATARACT EXTRACTION Bilateral 2011 Dr. Luis han also COLONOSCOPY COLONOSCOPY 2011 LUMBAR LAMINECTOMY 2002 TOTAL KNEE ARTHROPLASTY Left 1995 UPPER GASTROINTESTINAL ENDOSCOPY Family History Problem Relation Name Age of Onset Other ([address]76) Mother 30 DVT and PE No Known Problems Father unknown Colon cancer Sister age 70 No Known Problems Sister nonspecific causes No Known Problems Brother No Known Problems Brother No Known Problems Brother not close Okay I will look into that my physician [id number] So before you make an appointment I will pick her brain Getting that MRI up-to-date patient regarding take care Objective: BP 136/72 Pulse 68 Temp 36.2 C (97.1 F) (Temporal) Ht 5' 3" (1.6 m) Wt 141 lb (64 kg) SpO2 97% BMI 24.98 kg/m Physical Exam very pleasant alert and engaging. Blood pressure recheck stable. Normal oropharynx. No neck masses adenopathy carotid bruits or thyroid lesions. Heart is regular with same aortic stenotic murmur. No ectopy or gallops. Lungs are clear. Abdomen without pain hepatosplenomegaly masses bruits or ascites. No adenopathy. 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 Diagnosed via excisional right cervical lymph node biopsy on 08/15/22. - Patient presented with 2-3 years af an abnormal lymph node posterior right neck and enlargement of the right parotid gland. She denied any B symptoms. Excisional biopsy of a right posterior cervical lymph node on 08/15/22 confirmed follicular lymphoma low grade. - PET scan 10/11/22 showed bulky intensely FDG avid right parotid mass, with accumulation in the bilateral cervical chain, supraclavicular, axillary, and left internal mammary nodes, right temporal and left temporal occipital scalp, mild splenomegaly, and in the bones of the lower extremity. - systemic therapy with Rituxan weekly x 4 started 10/30/22. Cycle 4 11/21/22. - PET scan 01/02/23 showed no evidence of residual or recurrent FDG avid malignancy - observation recommended HPI: Ashley Pappas is a 87 y.o. female who comes in today for routine 3 month follow up. Since her last visit with me, she padilla no new concerns today and feels at her baseline. She temporarily has to move out of her long-term for a few weeks for maintenance, so she is anxious about this. She is accompanied by her daughter today. She denies any new cervical lymphadenopathy or fullness in the right parotid gland. The "lumps" on her scalp that she mentioned last visit are stable and are all <1cm in size. She feels well overall. No b symptoms. She denies any fevers, weight loss, change in appetite, night sweats. She continues to be very active and independent. Past Medical History: Diagnosis Date Aortic valve stenosis 10/03/2022 mod per ECHO 07/04, nml LVEF Cystocele with uterine prolapse [address] Family history of colon cancer Follicular lymphoma (HCC) 10/03/[address] Fu Hypertension 2020 Lumbar disc disease Right thyroid nodule 2016 Dr. Perry and FNA- no changes 2020 Past Surgical History: Procedure Laterality Date ACHILLES TENDON SURGERY Left APPENDECTOMY BUNIONECTOMY CARPAL TUNNEL RELEASE Bilateral CATARACT EXTRACTION Bilateral 2010 Dr. Fu- trabelectomy also COLONOSCOPY COLONOSCOPY 2010 LUMBAR LAMINECTOMY 2001 TOTAL KNEE ARTHROPLASTY Left 1995 UPPER GASTROINTESTINAL ENDOSCOPY Patient Active Problem List Diagnosis Date Noted Aortic valve stenosis 10/03/2022 Primary hypertension 10/03/2022 Follicular lymphoma (HCC) 10/03/2022 Social History Tobacco Use Smoking status: Never Smokeless tobacco: Never Vaping Use Vaping Use: Never used Substance Use Topics Alcohol use: No Drug use: Never Family History Problem Relation Name Age of Onset Other (26130) Mother 30 DVT and PE No Known Problems Father unknown Colon cancer Sister age 70 No Known Problems Sister nonspecific causes No Known Problems Brother No Known Problems Brother No Known Problems Brother No Known Allergies Current Outpatient Medications Medication Sig Dispense Refill aspirin EC 81 MG EC tablet Take 81 mg by mouth daily. Combigan 0.2-0.5 % ophthalmic solution Administer 1 drop into the left eye in the morning and 1 drop in the evening. labetalol (Normodyne) 100 MG tablet Take 1 tablet (100 mg) by mouth 2 times daily. 180 tablet 1 latanoprost (Xalatan) 0.005 % ophthalmic solution Administer 1 drop into the left eye Nightly. Latanoprostene Bunod (Vyzulta) 0.024 % solution Administer 0.024 % into affected eye(s) 1 (one) time each day. MELATONIN PO Take by mouth. Multiple Vitamin (Multi-Vitamin Daily) tablet Take 1 tablet by mouth daily. No current facility-administered medications for this visit. Review of Systems Constitutional: Negative for appetite change, chills, diaphoresis, fatigue, fever and unexpected weight change. HENT: Negative for dental problem, mouth sores, nosebleeds, sneezing, sore throat, tinnitus, trouble swallowing and voice change. Eyes: Negative for photophobia, pain and visual disturbance. Respiratory: Negative for cough, shortness of breath and wheezing. Cardiovascular: Negative for chest pain, palpitations and leg swelling. Gastrointestinal: Negative for abdominal distention, abdominal pain, blood in stool, constipation, diarrhea, nausea and vomiting. Endocrine: Negative for cold intolerance and heat intolerance. Genitourinary: Negative for difficulty urinating, frequency, hematuria and urgency. Musculoskeletal: Negative for arthralgias, back pain, gait problem and myalgias. Skin: Negative for pallor and rash. Allergic/Immunologic: Negative for immunocompromised state. Neurological: Negative for dizziness, syncope, weakness, light-headedness, numbness and headaches. Hematological: Negative for adenopathy. Does not bruise/bleed easily. Psychiatric/Behavioral: Negative for confusion and sleep disturbance. The patient is not nervous/anxious. All other systems reviewed and are negative. Vitals: 07/15/23 0915 BP: 131/68 BP Location: Right arm Patient Position: Sitting Pulse: 65 Temp: 37.1 C (98.7 F) TempSrc: Temporal SpO2: 96% Weight: 64.3 kg (141 lb 12.8 oz) Height: 1.6 m (5' 3") ECOG PS = 1-2 Physical Exam Vitals and nursing note reviewed. Constitutional: General: She is not in acute distress. Appearance: Normal appearance. She is not ill-appearing. HENT: Head: Normocephalic and atraumatic. Salivary Glands: Right salivary gland is not diffusely enlarged. Left salivary gland is not diffusely enlarged. Nose: Nose normal. Mouth/Throat: Pharynx: Oropharynx is clear. No oropharyngeal exudate or posterior oropharyngeal erythema. Eyes: General: No scleral icterus. Extraocular Movements: Extraocular movements intact. Conjunctiva/sclera: Conjunctivae normal. Pupils: Pupils are equal, round, and reactive to light. Cardiovascular: Rate and Rhythm: Normal rate and regular rhythm. Heart sounds: Normal heart sounds. No murmur heard. Pulmonary: Effort: Pulmonary effort is normal. No respiratory distress. Breath sounds: Normal breath sounds. No wheezing. Abdominal: General: Abdomen is flat. Bowel sounds are normal. There is no distension. Palpations: Abdomen is soft. There is no mass. Tenderness: There is no abdominal tenderness. There is no guarding. Musculoskeletal: General: No swelling or tenderness. Normal range of motion. Cervical back: Normal range of motion and neck supple. Right lower leg: No edema. Left lower leg: No edema. Lymphadenopathy: Cervical: No cervical adenopathy. Right cervical: No superficial or deep cervical adenopathy. Left cervical: No superficial, deep or posterior cervical adenopathy. Upper Body: Right upper body: No supraclavicular, axillary or pectoral adenopathy. Left upper body: No supraclavicular, axillary or pectoral adenopathy. Lower Body: No right inguinal adenopathy. No left inguinal adenopathy. Skin: General: Skin is warm and dry. Findings: No bruising or rash. Neurological: General: No focal deficit present. Mental Status: She is alert and oriented to person, place, and time. Mental status is at baseline. Psychiatric: Mood and Affect: Mood normal. Thought Content: Thought content normal. Imaging/Labs: No visits with results within 1 Month(s) from this visit. Latest known visit with results is: Infusion on 11/21/2022 Component Date Value Ref Range Status SODIUM 11/21/2022 139 135 - 145 mmol/L Final POTASSIUM 11/21/2022 4.2 3.5 - 5.1 mmol/L Final CHLORIDE 11/21/2022 107 98 - 107 mmol/L Final CARBON DIOXIDE 11/21/2022 28 22 - 30 mmol/L Final ANION GAP 11/21/2022 4 3 - 13 mmol/L Final UREA NITROGEN 11/21/2022 19 (H) 7 - 17 mg/dL Final CREATININE 11/21/2022 0.71 0.52 - 1.04 mg/dL Final GLUCOSE 11/21/2022 91 70 - 100 mg/dL Final CALCIUM 11/21/2022 9.4 8.4 - 10.4 mg/dL Final AST (SGOT) 11/21/2022 39 15 - 46 U/L Final ALT 11/21/2022 20 0 - 34 U/L Final ALKALINE PHOSPHATASE 11/21/2022 104 38 - 126 U/L Final ALBUMIN 11/21/2022 4.2 3.5 - 5.0 g/dL Final BILIRUBIN, TOTAL 11/21/2022 0.6 0.2 - 1.3 mg/dL Final TOTAL PROTEIN 11/21/2022 6.7 6.3 - 8.2 g/dL Final eGFR 11/21/2022 82.4 >60.0 mL/min/1.73m*2 Final Calculation based on the Chronic Kidney Disease Epidemiology Collaboration (CKD-EPI) equation refit without adjustment for race Auto WBC 11/21/2022 6.7 3.6 - 10.7 10*3/uL Final RBC 11/21/2022 4.35 3.8 - 5.20 10*6/uL Final Hemoglobin 11/21/2022 13.9 11.7 - 16.0 g/dL Final Hematocrit 11/21/2022 39.6 35.0 - 47.0 % Final MCV 11/21/2022 91.0 80.0 - 98.0 fL Final MCH 11/21/2022 32.0 26.0 - 34.0 pg Final MCHC 11/21/2022 35.1 32.0 - 36.0 % Final RDW 11/21/2022 13.5 11.5 - 14.5 % Final Platelets 11/21/2022 193 140 - 440 10*3/uL Final MPV 11/21/2022 10.0 7.4 - 12.4 fL Final MPV is a calculated measurement using platelet volume ratio Neutrophils Relative 11/21/2022 61.0 40.0 - 80.0 % Final Lymphocytes Relative 11/21/2022 10.5 (L) 20.0 - 40.0 % Final Monocytes Relative 11/21/2022 10.0 2.0 - 10.0 % Final Eosinophils Relative 11/21/2022 17.7 (H) 1.0 - 6.0 % Final Basophils Relative 11/21/2022 0.4 0.0 - 2.0 % Final Immature Grans % 11/21/2022 0.4 (H) <=0.0 % Final Neutrophils Absolute 11/21/2022 4.1 1.8 - 7.0 10*3/uL Final Lymphocytes Absolute 11/21/2022 0.7 (L) 1.0 - 4.3 10*3/uL Final Monocytes Absolute 11/21/2022 0.7 0.0 - 0.8 10*3/uL Final Eosinophils Absolute 11/21/2022 1.2 (H) 0.0 - 0.5 10*3/uL Final Basophils Absolute 11/21/2022 0.0 0.0 - 0.2 10*3/uL Final Immature Grans Absolute 11/21/2022 0.0 <=0.0 10*3/uL Final Tissue exam: [id number] Order: [id number] Collected 08/15/2022 13:32 Status: Edited Result - FINAL Visible to patient: Yes (not seen) Dx: Neck mass; Chronic lymphadenitis, exc... 0 Result Notes Component Addendum Please see [employer] Accession/Case No: [id number] for Low Grade/Small B Cell Lymphoma FISH results ordered by Dr. Wagner Perry. The results have been scanned. Addendum electronically signed by Jessica Marshall MD on 09/10/2022 at 5620 Final Diagnosis A. LYMPH NODE, RIGHT CERVICAL, BIOPSY: - LOW GRADE B-CELL LYMPHOMA (CD5-, CD 10-) INVOLVING SKIN AND SOFT TISSUE. B. LYMPH NODE, RIGHT CERVICAL, [facility] SPECIMEN: - LOW GRADE B-CELL LYMPHOMA (CD5-, CD 10-) WITH KAPPA LIGHT CHAIN RESTRICTION. at 0936 Comment Low grade B-cell lymphoma FISH studies are pending for further evaluation of the lymphoid population.Systemic work-up is also recommended for further evaluation to determine if the process is localized or demonstrates involvement by lymph nodes or bone marrow in other locations. If a localized process, differential diagnostic considerations include primary follicular center cell lymphoma of the skin and primary cutaneous marginal zone lymphoma. 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 Please correlate with the pending FISH testing and additional clinical work-up. Microscopic Description Microscopic sections demonstrate a diffuse, expanded population of lymphocytes involving skin and soft tissue in a dense, nodular pattern. Definitive lymph node architecture is not histologically identifiable. Special Stains Immunohistochemical staining was performed with adequate controls in order to further evaluate the lymphoid population. The stains demonstrate a B-cell predominant population which expresses CD20, CD79a, partial Bcl-2, weak BCL6 in proliferation centers. Ki-67 is variable areas of high proliferation (50-80%) and proliferation centers and lower proliferation in other areas. CD3 and CD5 demonstrate rare interstitial T cells. Cyclin D1, CD34, ALK1, CD30, and EBV ZEE are negative. CD138 and mum 1 do not demonstrate a significant plasma cell population. [place] and lambda ZEE demonstrate a kappa predominant staining in a blush like pattern. Imaging Reviewed: PET/CT skull base to mid thigh Narrative: Patient Name: ASHLEY PAPPAS : 1935 Exam Date/Time: 01/02/2023 11:35 Procedure: PET/CT SKULL BASE TO MID THIGH Ordering Provider: DEMARCO TERESA Reason For Exam: Hematologic malignancy, assess treatment response PET/CT CLINICAL INDICATION: Follicular lymphoma restaging. Following the intravenous administration of 14.4 mCi of fluorine-18 fluorodeoxyglucose (FDG) a PET scan of the torso was acquired after an approximately one hour delay. Blood glucose level at the time of injection was 100 mg/dl. Contemporaneously, noncontrast axial CT images were obtained using low dose technique. The images were reconstructed in three orthogonal planes and digitally coregistered. The CT data was used for attenuation correction as well. Dose reduction was employed with automated exposure control. COMPARISON: PET/CT dated 10/11/2022 NECK AND CHEST: The previously noted bulky mass centered within the right parotid gland on the study from 10/11/2022 has essentially resolved. No FDG avid lymphadenopathy is identified within the neck or chest. No FDG avid pulmonary nodules are identified. ABDOMEN AND PELVIS: No abnormal FDG accumulation is seen within the abdomen or pelvis. Previously noted mild splenomegaly and moderate diffuse FDG accumulation within the spleen on the study from 10/11/2022 has resolved. MUSCULOSKELETAL: No evidence of osseous metastatic disease is identified. Please note that the lower extremities from the distal thigh through the feet are not included in the [id number] on the current examination (10/11/2022 examination was performed as a whole-body PET/CT, the current examination was ordered as skull base to mid thigh). Impression: No evidence of residual or recurrent FDG avid malignancy is identified. Previously noted multifocal areas of intense FDG accumulation on the study from 10/11/2022 have essentially resolved, with the caveat that the entirety of the lower extremities are not included in the [id number] on the current examination. There are no new areas of abnormal tracer uptake to suggest progression of disease. Deaserjio score N/A. Report Dictated on Electronically Signed By: Tonio Lopes MD Electronically Signed Date/Time: 01/03/2023 12:49 PM EDT - I have reviewed all available pertinent laboratory, imaging and pathology results with the patient and/or family members today. Assessment/Plan: Diagnosis Plan 1. 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 NCCN guidelines were reviewed. - she completed 4 doses of Rituxan and PET scan 01/02/23 showed a CR - no obvious evidence of recurrence on exam today and she continues to be asymptomatic. - observation recommended. - signs and symptoms of disease recurrence were reviewed with the patient and she was instructed to call with any concerns All questions were answered to the satisfaction of the patient and/or family. Return to office in 6 months or sooner if worrisome signs/symptoms arise. Kleber Demarco DO Hematology/Medical Oncology documented in this encounter [facility] 04-15-2023 History of Presen t illness Narrative Hematology/Oncology Office Visit Oncology History: 1) 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 Diagnosed via excisional right cervical lymph node biopsy on 08/15/22. - Patient presented with 2-3 years af an abnormal lymph node posterior right neck and enlargement of the right parotid gland. She denied any B symptoms. Excisional biopsy of a right posterior cervical lymph node on 08/15/22 confirmed follicular lymphoma low grade. - PET scan 10/11/22 showed bulky intensely FDG avid right parotid mass, with accumulation in the bilateral cervical chain, supraclavicular, axillary, and left internal mammary nodes, right temporal and left temporal occipital scalp, mild splenomegaly, and in the bones of the lower extremity. - systemic therapy with Rituxan weekly x 4 started 10/30/22. Cycle 4 11/21/22. - PET scan 01/02/23 showed no evidence of residual or recurrent FDG avid malignancy - observation recommended HPI: Ashley Pappas is a 87 y.o. female who comes in today for routine 3 month follow up. She is accompanied by her daughter today. She denies any new cervical lymphadenopathy or fullness in the right parotid gland, but has noticed a few new "lumps" on her scalp. These are <1cm in size. She feels well overall. No b symptoms. She denies any fevers, weight loss, change in appetite, night sweats. She continues to be very active and independent. Past Medical History: Diagnosis Date Aortic valve stenosis 10/03/2022 mod per ECHO 07/04, nml LVEF Cystocele with uterine prolapse [address] Family history of colon cancer Follicular lymphoma (HCC) 10/03/[address] Fu Hypertension 2020 Lumbar disc disease Right thyroid nodule 2016 Dr. Perry and FNA- no changes 2020 Past Surgical History: Procedure Laterality Date ACHILLES TENDON SURGERY Left APPENDECTOMY BUNIONECTOMY CARPAL TUNNEL RELEASE Bilateral CATARACT EXTRACTION Bilateral 2010 Dr. Fu- trabelectomy also COLONOSCOPY COLONOSCOPY 2011 LUMBAR LAMINECTOMY 2001 TOTAL KNEE ARTHROPLASTY Left 1994 UPPER GASTROINTESTINAL ENDOSCOPY Patient Active Problem List Diagnosis Date Noted Aortic valve stenosis 10/03/2022 Primary hypertension 10/03/2022 Follicular lymphoma (HCC) 10/03/2022 Social History Tobacco Use Smoking status: Never Smokeless tobacco: Never Vaping Use Vaping Use: Never used Substance Use Topics Alcohol use: No Drug use: Never Family History Problem Relation Name Age of Onset Other (33163) Mother 30 DVT and PE No Known Problems Father unknown Colon cancer Sister age 70 No Known Problems Sister nonspecific causes No Known Problems Brother No Known Problems Brother No Known Problems Brother No Known Allergies Current Outpatient Medications Medication Sig Dispense Refill aspirin EC 81 MG EC tablet Take 81 mg by mouth daily. Combigan 0.2-0.5 % ophthalmic solution Administer 1 drop into the left eye in the morning and 1 drop in the evening. labetalol (Normodyne) 100 MG tablet Take 1 tablet (100 mg) by mouth 2 times daily. 180 tablet 1 latanoprost (Xalatan) 0.005 % ophthalmic solution Administer 1 drop into the left eye Nightly. Latanoprostene Bunod (Vyzulta) 0.024 % solution Administer 0.024 % into affected eye(s) 1 (one) time each day. MELATONIN PO Take by mouth. Multiple Vitamin (Multi-Vitamin Daily) tablet Take 1 tablet by mouth daily. No current facility-administered medications for this visit. Review of Systems Constitutional: Negative for appetite change, chills, diaphoresis, fatigue, fever and unexpected weight change. HENT: Negative for dental problem, mouth sores, nosebleeds, sneezing, sore throat, tinnitus, trouble swallowing and voice change. Eyes: Negative for photophobia, pain and visual disturbance. Respiratory: Negative for cough, shortness of breath and wheezing. Cardiovascular: Negative for chest pain, palpitations and leg swelling. Gastrointestinal: Negative for abdominal distention, abdominal pain, blood in stool, constipation, diarrhea, nausea and vomiting. Endocrine: Negative for cold intolerance and heat intolerance. Genitourinary: Negative for difficulty urinating, frequency, hematuria and urgency. Musculoskeletal: Negative for arthralgias, back pain, gait problem and myalgias. Skin: Negative for pallor and rash. Allergic/Immunologic: Negative for immunocompromised state. Neurological: Negative for dizziness, syncope, weakness, light-headedness, numbness and headaches. Hematological: Negative for adenopathy. Does not bruise/bleed easily. Psychiatric/Behavioral: Negative for confusion and sleep disturbance. The patient is not nervous/anxious. All other systems reviewed and are negative. Vitals: 04/15/23 1007 BP: (!) 149/65 BP Location: Right arm Patient Position: Sitting Pulse: 63 Temp: 37 C (98.6 F) TempSrc: Temporal SpO2: 98% Weight: 64.1 kg (141 lb 4.8 oz) Height: 1.6 m (5' 3") ECOG PS = 1-2 Physical Exam Vitals and nursing note reviewed. Constitutional: General: She is not in acute distress. Appearance: Normal appearance. She is not ill-appearing. HENT: Head: Normocephalic and atraumatic. Salivary Glands: Right salivary gland is not diffusely enlarged. Left salivary gland is not diffusely enlarged. Nose: Nose normal. Mouth/Throat: Pharynx: Oropharynx is clear. No oropharyngeal exudate or posterior oropharyngeal erythema. Eyes: General: No scleral icterus. Extraocular Movements: Extraocular movements intact. Conjunctiva/sclera: Conjunctivae normal. Pupils: Pupils are equal, round, and reactive to light. Cardiovascular: Rate and Rhythm: Normal rate and regular rhythm. Heart sounds: Normal heart sounds. No murmur heard. Pulmonary: Effort: Pulmonary effort is normal. No respiratory distress. Breath sounds: Normal breath sounds. No wheezing. Abdominal: General: Abdomen is flat. Bowel sounds are normal. There is no distension. Palpations: Abdomen is soft. There is no mass. Tenderness: There is no abdominal tenderness. There is no guarding. Musculoskeletal: General: No swelling or tenderness. Normal range of motion. Cervical back: Normal range of motion and neck supple. Right lower leg: No edema. Left lower leg: No edema. Lymphadenopathy: Cervical: No cervical adenopathy. Right cervical: No superficial or deep cervical adenopathy. Left cervical: No superficial, deep or posterior cervical adenopathy. Upper Body: Right upper body: No supraclavicular, axillary or pectoral adenopathy. Left upper body: No supraclavicular, axillary or pectoral adenopathy. Lower Body: No right inguinal adenopathy. No left inguinal adenopathy. Skin: General: Skin is warm and dry. Findings: No bruising or rash. Neurological: General: No focal deficit present. Mental Status: She is alert and oriented to person, place, and time. Mental status is at baseline. Psychiatric: Mood and Affect: Mood normal. Thought Content: Thought content normal. Imaging/Labs: No visits with results within 1 Month(s) from this visit. Latest known visit with results is: Infusion on 11/21/2022 Component Date Value Ref Range Status SODIUM 11/21/2022 139 135 - 145 mmol/L Final POTASSIUM 11/21/2022 4.2 3.5 - 5.1 mmol/L Final CHLORIDE 11/21/2022 107 98 - 107 mmol/L Final CARBON DIOXIDE 11/21/2022 28 22 - 30 mmol/L Final ANION GAP 11/21/2022 4 3 - 13 mmol/L Final UREA NITROGEN 11/21/2022 19 (H) 7 - 17 mg/dL Final CREATININE 11/21/2022 0.71 0.52 - 1.04 mg/dL Final GLUCOSE 11/21/2022 91 70 - 100 mg/dL Final CALCIUM 11/21/2022 9.4 8.4 - 10.4 mg/dL Final AST (SGOT) 11/21/2022 39 15 - 46 U/L Final ALT 11/21/2022 20 0 - 34 U/L Final ALKALINE PHOSPHATASE 11/21/2022 104 38 - 126 U/L Final ALBUMIN 11/21/2022 4.2 3.5 - 5.0 g/dL Final BILIRUBIN, TOTAL 11/21/2022 0.6 0.2 - 1.3 mg/dL Final TOTAL PROTEIN 11/21/2022 6.7 6.3 - 8.2 g/dL Final eGFR 11/21/2022 82.4 >60.0 mL/min/1.73m*2 Final Calculation based on the Chronic Kidney Disease Epidemiology Collaboration (CKD-EPI) equation refit without adjustment for race Auto WBC 11/21/2022 6.7 3.6 - 10.7 10*3/uL Final RBC 11/21/2022 4.35 3.8 - 5.20 10*6/uL Final Hemoglobin 11/21/2022 13.9 11.7 - 16.0 g/dL Final Hematocrit 11/21/2022 39.6 35.0 - 47.0 % Final MCV 11/21/2022 91.0 80.0 - 98.0 fL Final MCH 11/21/2022 32.0 26.0 - 34.0 pg Final MCHC 11/21/2022 35.1 32.0 - 36.0 % Final RDW 11/21/2022 13.5 11.5 - 14.5 % Final Platelets 11/21/2022 193 140 - 440 10*3/uL Final MPV 11/21/2022 10.0 7.4 - 12.4 fL Final MPV is a calculated measurement using platelet volume ratio Neutrophils Relative 11/21/2022 61.0 40.0 - 80.0 % Final Lymphocytes Relative 11/21/2022 10.5 (L) 20.0 - 40.0 % Final Monocytes Relative 11/21/2022 10.0 2.0 - 10.0 % Final Eosinophils Relative 11/21/2022 17.7 (H) 1.0 - 6.0 % Final Basophils Relative 11/21/2022 0.4 0.0 - 2.0 % Final Immature Grans % 11/21/2022 0.4 (H) <=0.0 % Final Neutrophils Absolute 11/21/2022 4.1 1.8 - 7.0 10*3/uL Final Lymphocytes Absolute 11/21/2022 0.7 (L) 1.0 - 4.3 10*3/uL Final Monocytes Absolute 11/21/2022 0.7 0.0 - 0.8 10*3/uL Final Eosinophils Absolute 11/21/2022 1.2 (H) 0.0 - 0.5 10*3/uL Final Basophils Absolute 11/21/2022 0.0 0.0 - 0.2 10*3/uL Final Immature Grans Absolute 11/21/2022 0.0 <=0.0 10*3/uL Final Tissue exam: [id number] Order: [id number] Collected 08/15/2022 13:32 Status: Edited Result - FINAL Visible to patient: Yes (not seen) Dx: Neck mass; Chronic lymphadenitis, exc... 0 Result Notes Component Addendum Please see [employer] Accession/Case No: [id number] for Low Grade/Small B Cell Lymphoma FISH results ordered by Dr. Wagner Perry. The results have been scanned. Addendum electronically signed by Jessica Marshall MD on 09/10/2022 at 2311 Final Diagnosis A. LYMPH NODE, RIGHT CERVICAL, BIOPSY: - LOW GRADE B-CELL LYMPHOMA (CD5-, CD 10-) INVOLVING SKIN AND SOFT TISSUE. B. LYMPH NODE, RIGHT CERVICAL, RPMI SPECIMEN: - LOW GRADE B-CELL LYMPHOMA (CD5-, CD 10-) WITH KAPPA LIGHT CHAIN RESTRICTION. at 0939 Comment Low grade B-cell lymphoma FISH studies are pending for further evaluation of the lymphoid population.Systemic work-up is also recommended for further evaluation to determine if the process is localized or demonstrates involvement by lymph nodes or bone marrow in other locations. If a localized process, differential diagnostic considerations include primary follicular center cell lymphoma of the skin and primary cutaneous marginal zone lymphoma. 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 Please correlate with the pending FISH testing and additional clinical work-up. Microscopic Description Microscopic sections demonstrate a diffuse, expanded population of lymphocytes involving skin and soft tissue in a dense, nodular pattern. Definitive lymph node architecture is not histologically identifiable. Special Stains Immunohistochemical staining was performed with adequate controls in order to further evaluate the lymphoid population. The stains demonstrate a B-cell predominant population which expresses CD20, CD79a, partial Bcl-2, weak BCL6 in proliferation centers. Ki-67 is variable areas of high proliferation (50-80%) and proliferation centers and lower proliferation in other areas. CD3 and CD5 demonstrate rare interstitial T cells. Cyclin D1, CD34, ALK1, CD30, and EBV ZEE are negative. CD138 and mum 1 do not demonstrate a significant plasma cell population. [place] and lambda ZEE demonstrate a kappa predominant staining in a blush like pattern. Imaging Reviewed: PET/CT skull base to mid thigh Narrative: [facility] 1935 [id number] Exam Date/Time: 01/02/2023 11:35 Procedure: PET/CT SKULL BASE TO MID THIGH Ordering Provider: DEMARCO TERESA Reason For Exam: Hematologic malignancy, assess treatment response PET/CT CLINICAL INDICATION: Follicular lymphoma restaging. Following the intravenous administration of 14.4 mCi of fluorine-18 fluorodeoxyglucose (FDG) a PET scan of the torso was acquired after an approximately one hour delay. Blood glucose level at the time of injection was 100 mg/dl. Contemporaneously, noncontrast axial CT images were obtained using low dose technique. The images were reconstructed in three orthogonal planes and digitally coregistered. The CT data was used for attenuation correction as well. Dose reduction was employed with automated exposure control. COMPARISON: PET/CT dated 10/11/2022 NECK AND CHEST: The previously noted bulky mass centered within the right parotid gland on the study from 10/11/2022 has essentially resolved. No FDG avid lymphadenopathy is identified within the neck or chest. No FDG avid pulmonary nodules are identified. ABDOMEN AND PELVIS: No abnormal FDG accumulation is seen within the abdomen or pelvis. Previously noted mild splenomegaly and moderate diffuse FDG accumulation within the spleen on the study from 10/11/2022 has resolved. MUSCULOSKELETAL: No evidence of osseous metastatic disease is identified. Please note that the lower extremities from the distal thigh through the feet are not included in the [id number] on the current examination (10/11/2022 examination was performed as a whole-body PET/CT, the current examination was ordered as skull base to mid thigh). Impression: No evidence of residual or recurrent FDG avid malignancy is identified. Previously noted multifocal areas of intense FDG accumulation on the study from 10/11/2022 have essentially resolved, with the caveat that the entirety of the lower extremities are not included in the [id number] on the current examination. There are no new areas of abnormal tracer uptake to suggest progression of disease. Deauville score N/A. Report Dictated on Electronically Signed By: Tonio Lopes MD Electronically Signed Date/Time: 01/03/2023 12:49 PM EDT - I have reviewed all available pertinent laboratory, imaging and pathology results with the patient and/or family members today. Assessment/Plan: Diagnosis Plan 1. 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 NCCN guidelines were reviewed. - she completed 4 doses of Rituxan and PET scan 01/02/23 showed a CR - no obvious evidence of recurrence on exam today and she is asymptomatic. observation recommended. - signs and symptoms of disease recurrence were reviewed with the patient and she was instructed to call with any concerns All questions were answered to the satisfaction of the patient and/or family. Return to office in 3 months or sooner if worrisome signs/symptoms arise. Kleber Demarco DO Hematology/Medical Oncology documented in this encounter [facility] 04-15-2023 Telephone encount er Note At check-in patient states that insurance will remain the same for the upcoming year. 04.15.23 [facility] 04-15-2023 Miscellaneous Notes Formattin g of this note might be different from the original. At check-in patient states that insurance will remain the same for the upcoming year. Sarah. 04.15.23 documented in this encounter [facility] 03-26-2023 History of Presen t illness Narrative Images from the original note were not included. [facility] [address] [facility] [address] Dept: [phone] Dept Chief Complaint: Ashley Pappas is an 87 y.o. female here for an annual wellness visit. Assessment/Plan : Problem List Items Addressed This Visit Circulatory Aortic valve stenosis Relevant Medications labetalol (Normodyne) 100 MG tablet Primary hypertension Other Follicular lymphoma (HCC) Other Visit Diagnoses Encounter for subsequent annual wellness visit (AWV) in Medicare patient - Primary I have reviewed and reconciled the medication list with the patient today. Current Outpatient Medications Medication Sig Dispense Refill aspirin EC 81 MG EC tablet Take 81 mg by mouth daily. Combigan 0.2-0.5 % ophthalmic solution Administer 1 drop into the left eye in the morning and 1 drop in the evening. latanoprost (Xalatan) 0.005 % ophthalmic solution Administer 1 drop into the left eye Nightly. Latanoprostene Bunod (Vyzulta) 0.024 % solution Administer 0.024 % into affected eye(s) 1 (one) time each day. MELATONIN PO Take by mouth. Multiple Vitamin (Multi-Vitamin Daily) tablet Take 1 tablet by mouth daily. labetalol (Normodyne) 100 MG tablet Take 1 tablet (100 mg) by mouth 2 times daily. 180 tablet 1 No current facility-administered medications for this visit. Also reviewed during this visit: Allergies Meds Problems Med Hx Surg Hx Fam Hx The following health maintenance schedule was reviewed with the patient and provided in printed form in the after visit summary: Health Maintenance Topic Date Due Lipid Panel Never done Medicare Advantage Annual Wellness Visit (AWV) Never done Thyroid Nodule Ultrasound Never done Bone Density Scan Never done Pneumococcal Vaccine: 65+ Years (1 - PCV) Never done DTaP/Tdap/Td Vaccines (1 - Tdap) Never done Zoster Vaccines (1 of 2) Never done RSV Immunization aged 60 or older (1 - 1-dose 60+ series) Never done COVID-19 Vaccine ( - 2022- season) 2023 Depression Screening 12/05/2023 Influenza Vaccine Completed RSV Immunization under 20 Months Aged Out HIB Vaccines Aged Out Hepatitis B Vaccines Aged Out IPV Vaccines Aged Out Hepatitis A Vaccines Aged Out Meningococcal Vaccine Aged Out Rotavirus Vaccines Aged Out HPV Vaccines Aged Out List of current healthcare providers: Patient Care Team: Martín Urena DO as PCP - General (Family Medicine) Kleber Demarco DO as Consulting Physician (Hematology and Oncology) Orders Placed This Encounter Procedures Flu vaccine quadrivalent, for patients ages 65+, (Fluad) preservative free Subjective : Annual wellness visit for patient with hypertension and status post follicular lymphoma treatment. She responded very well to her chemotherapy. Recent oncology notes reviewed. No new concerns overall. Review of Systems denies recent earache sore throat or cough. No night sweats fevers or chills. Weight and appetite are stable. No hoarseness or painful swallowing. No dysphagia. Denies exertional chest pain dyspnea palpitations PND orthopnea or edema. No change in bowels. No black or blue stools. No dysuria. Rare arthralgia. She is immensely looking to the holiday weeks with her extended family. Physical Exam pleasant cooperative. No palpable adenopathy. Normal oropharynx without mass lesions. No carotid bruits thyroid lesions. No change in reflex. Heart is rate without gallops and faint aortic stenotic murmur unchanged. Lungs are clear. Abdomen soft without pain hepatosplenomegaly masses or adenopathy. No bruits. Femoral pedal pulses well. No appreciable leg edema. No obvious deficits in strength of her hips or knees. Health Risk Assessment: General: General In general, how would you say your health is?: (P) Good In the past 7 days, have you experienced any of the following: New or Increased Pain, New or Increased Fatigue, Loneliness, Social Isolation, Stress or Anger?: (P) No Do you get the social and emotional suppport you need?: (P) Yes Health Habits/Nutrition: Health Habits / Nutrition On average, how many days per week do you engage in moderate to strenous exercise (like a brisk walk)?: (P) 5 days On average, how man minutes do you engage in exercise at this level?: (P) 90 min Have you lost any weight without trying in the past 3 months? : (P) No Have you seen the dentist within the past year?: (P) Yes Hearing/ Vision: Hearing / Vision Do you or your family notice any trouble with your hearing that hasn't been managed with hearing aids?: (P) No Do you have difficulty driving, watching TV, or doing any of your daily activities because of your eyesight?: (P) No Have you had an eye exam within the past year?: (P) Yes No results found. Safety: Safety Do you have a working smoke detector?: (P) Yes Do you have any tripping hazards - loose or unsecured carpets or rugs?: (P) No Do you have any tripping hazards - clutter in doorways, halls, or stairs?: (P) No Do you have either shower bars, grab bars, non-slip mats or non-slip surfaces in your shower or bathtub? : (P) Yes Do all your stairways have a railing or banister? : (P) Yes Do you fasten your seatbelt when you are in a car?: (P) Yes ADL: ADL In the past 7 days, did you need help from others to perform any of the following everyday activities: Eating, dressing, grooming,bathing, toileting, or walking / balance? : (P) No In the past 7 days, did you need help from others to take care of any of the following: laundry, housekeeping, banking / finances,shopping, telephone use, food preparation, transportation, or taking medications? : (P) No Living Will: Living Will Do you have a living will?: (P) Yes Cognitive: Cognitive Screening: Mini-Cog Clock Drawing Test (CDT): 2 Words Recalled: 3 (used words apple table king) Total Score: 5 Total Score Interpretation: Normal Mini-Cog Fall Risk: Fall Risk One or more falls in the last year:: (P) Yes Advised to use a cane or walker to get around safely:: (P) Yes Feels unsteady when walking:: (P) No Steadies self on furniture while walking at home:: (P) No Worried about falling:: (P) No Interventions: Patient declines any further evaluation / treatment for this issue Depression Screening: Interventions: Patient declines any further evaluation / treatment for this issue Tobacco Use: Social History Tobacco Use Smoking Status Never Smokeless Tobacco Never Alcohol Use: Audit Alcohol Screening Q1: How often do you have a drink containing alcohol?: (P) Never Q2: How many drinks containing alcohol do you have on a typical day when you are drinking?: (P) Patient does not drink Q3: How often do you have six or more drinks on one occasion?: (P) Never Audit-C Score: (P) 0 Skip to questions 9-10?: (P) 1 Objective : BP 128/76 Pulse 60 Temp 36.2 C (97.2 F) (Temporal) Ht 5' 3" (1.6 m) Wt 144 lb (65.3 kg) SpO2 99% BMI 25.51 kg/m No results found. 1. Follicular lymphoma, unspecified follicular lymphoma type, unspecified body region (HCC) Stable and improved, follow-up with oncology 2. Primary hypertension Stable, continue labetalol 3. Aortic stenosis, mild Mild, no treatment 4. Encounter for subsequent annual wellness visit (AWV) in Medicare patient Stable continue women's multivitamin, vitamin D 1000 units with calcium 800 milligrams daily. Exercise 150 minutes/week documented in this encounter [facility] 03-26-2023 Instructions Martín Urena DO - 03/26/2023 8:30 AM EST Personalized Preventative Plan for Ashley Pappas - 03/26/2023 Medicare offers a range of preventative health benefits. Some of the tests and screenings are paid in full while others may be subject to a deductible, co-insurance, and / or copay. Some of these benefits include a comprehensive review of your medical history including lifestyle, illnesses that may run in your family, and various assessments and screenings as appropriate. After reviewing your medical record and screening and assessments performed today, your provider may have ordered immunizations, labs, imaging, and / or referrals for you. A list of these orders (if applicable) as well as your Preventative Care list are included within your After Visit Summary for your review. Other Preventative Recommendations: A preventive eye exam by an bioinformatics support specialist is recommended every 1-2 years to screen for glaucoma, cataracts, macular degeneration, and other eye disorders. A preventive dental visit is recommended every 6 months. Try to get at least 150 minutes of exercise per week or 10,000 steps per day on a pedometer. You need 1200-1500mg of calcium and 7921-4860 international units of vitamin D per day. It is possible to meet your calcium requirement with diet alone, but a vitamin D supplement is usually necessary to meet this goal. When exposed to the sun, use a sunscreen that protects against both UVA and UVB radiation with an SPF of 30 or greater. Reapply every 2-3 hours or after sweating, drying off with a towel, or swimming. Always wear a seat belt when traveling in a car. 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 Diagnosed via excisional right cervical lymph node biopsy on 08/15/22. - Patient presented with 2-3 years af an abnormal lymph node posterior right neck and enlargement of the right parotid gland. She denied any B symptoms. Excisional biopsy of a right posterior cervical lymph node on 08/15/22 confirmed follicular lymphoma low grade. - PET scan 10/11/22 showed bulky intensely FDG avid right parotid mass, with accumulation in the bilateral cervical chain, supraclavicular, axillary, and left internal mammary nodes, right temporal and left temporal occipital scalp, mild splenomegaly, and in the bones of the lower extremity. - systemic therapy with Rituxan weekly x 4 started 10/30/22. Cycle 4 11/21/22. - PET scan 01/02/23 showed no evidence of residual or recurrent FDG avid malignancy - observation recommended HPI: Ashley Pappas is a 87 y.o. female who comes in today to review the PET Scan results from last week. She feels well. She has no concerns today. The right parotid mass and fullness have resolved. She denies any fevers, weight loss, change in appetite, night sweats. She continues to be very active and independent. She is accompanied by her daughter today. Past Medical History: Diagnosis Date Aortic valve stenosis 10/03/2022 Cystocele with uterine prolapse [address] Family history of colon cancer Follicular lymphoma (HCC) 10/03/[address] Fu Hypertension Lumbar disc disease Primary hypertension 10/03/20[address] Right thyroid nodule [address]. Perry and FNA- no changes 2020 Past Surgical History: Procedure Laterality Date ACHILLES TENDON SURGERY APPENDECTOMY BUNIONECTOMY CARPAL TUNNEL RELEASE CATARACT EXTRACTION Bilateral 2010 Dr. Fu- trabelectomy also COLONOSCOPY COLONOSCOPY 2011 LUMBAR LAMINECTOMY 2001 STRESS TEST, LEXISCAN (HISTORICAL) TOTAL KNEE ARTHROPLASTY Left 1994 UPPER GASTROINTESTINAL ENDOSCOPY Patient Active Problem List Diagnosis Date Noted Aortic valve stenosis 10/03/2022 Primary hypertension 10/03/2022 Follicular lymphoma (HCC) 10/03/2022 Social History Tobacco Use Smoking status: Never Smokeless tobacco: Never Vaping Use Vaping Use: Never used Substance Use Topics Alcohol use: No Drug use: Never Family History Problem Relation Name Age of Onset No Known Problems Brother Other ([id number]) Mother 30.00 DVT and PE Colon cancer Sister 70 No Known Problems Sister nonspecific causes No Known Problems Brother No Known Problems Father unknown No Known Problems Brother No Known Allergies Current Outpatient Medications Medication Sig Dispense Refill aspirin EC 81 MG EC tablet Take 81 mg by mouth daily. Combigan 0.2-0.5 % ophthalmic solution Administer 1 drop into the left eye in the morning and 1 drop in the evening. labetalol (Normodyne) 100 MG tablet Take 1 tablet (100 mg) by mouth 2 times daily. 180 tablet 1 latanoprost (Xalatan) 0.005 % ophthalmic solution Administer 1 drop into the left eye Nightly. Latanoprostene Bunod (Vyzulta) 0.024 % solution Administer 0.024 % into affected eye(s) 1 (one) time each day. MELATONIN PO Take by mouth. Multiple Vitamin (Multi-Vitamin Daily) tablet Take 1 tablet by mouth daily. No current facility-administered medications for this visit. Review of Systems Constitutional: Negative for appetite change, chills, diaphoresis, fatigue, fever and unexpected weight change. HENT: Negative for dental problem, mouth sores, nosebleeds, sneezing, sore throat, tinnitus, trouble swallowing and voice change. Eyes: Negative for photophobia, pain and visual disturbance. Respiratory: Negative for cough, shortness of breath and wheezing. Cardiovascular: Negative for chest pain, palpitations and leg swelling. Gastrointestinal: Negative for abdominal distention, abdominal pain, blood in stool, constipation, diarrhea, nausea and vomiting. Endocrine: Negative for cold intolerance and heat intolerance. Genitourinary: Negative for difficulty urinating, frequency, hematuria and urgency. Musculoskeletal: Negative for arthralgias, back pain, gait problem and myalgias. Skin: Negative for pallor and rash. Allergic/Immunologic: Negative for immunocompromised state. Neurological: Negative for dizziness, syncope, weakness, light-headedness, numbness and headaches. Hematological: Negative for adenopathy. Does not bruise/bleed easily. Psychiatric/Behavioral: Negative for confusion and sleep disturbance. The patient is not nervous/anxious. All other systems reviewed and are negative. Vitals: 01/07/23 1137 BP: 138/61 BP Location: Right arm Patient Position: Sitting Pulse: 67 Temp: 98.9 F (37.2 C) TempSrc: Temporal SpO2: 94% Weight: 145 lb (65.8 kg) Height: 5' 3" (1.6 m) ECOG PS = 1-2 Physical Exam Vitals and nursing note reviewed. Constitutional: General: She is not in acute distress. Appearance: Normal appearance. She is not ill-appearing. HENT: Head: Normocephalic and atraumatic. Salivary Glands: Right salivary gland is not diffusely enlarged. Left salivary gland is not diffusely enlarged. Nose: Nose normal. Mouth/Throat: Pharynx: Oropharynx is clear. No oropharyngeal exudate or posterior oropharyngeal erythema. Eyes: General: No scleral icterus. Extraocular Movements: Extraocular movements intact. Conjunctiva/sclera: Conjunctivae normal. Pupils: Pupils are equal, round, and reactive to light. Cardiovascular: Rate and Rhythm: Normal rate and regular rhythm. Heart sounds: Normal heart sounds. No murmur heard. Pulmonary: Effort: Pulmonary effort is normal. No respiratory distress. Breath sounds: Normal breath sounds. No wheezing. Abdominal: General: Abdomen is flat. Bowel sounds are normal. There is no distension. Palpations: Abdomen is soft. There is no mass. Tenderness: There is no abdominal tenderness. There is no guarding. Musculoskeletal: General: No swelling or tenderness. Normal range of motion. Cervical back: Normal range of motion and neck supple. Right lower leg: No edema. Left lower leg: No edema. Lymphadenopathy: Cervical: No cervical adenopathy. Right cervical: No superficial or deep cervical adenopathy. Left cervical: No superficial, deep or posterior cervical adenopathy. Upper Body: Right upper body: No supraclavicular, axillary or pectoral adenopathy. Left upper body: No supraclavicular, axillary or pectoral adenopathy. Lower Body: No right inguinal adenopathy. No left inguinal adenopathy. Skin: General: Skin is warm and dry. Findings: No bruising or rash. Neurological: General: No focal deficit present. Mental Status: She is alert and oriented to person, place, and time. Mental status is at baseline. Psychiatric: Mood and Affect: Mood normal. Thought Content: Thought content normal. Imaging/Labs: No visits with results within 1 Month(s) from this visit. Latest known visit with results is: Infusion on 11/21/2022 Component Date Value Ref Range Status SODIUM 11/21/2022 139 135 - 145 mmol/L Final POTASSIUM 11/21/2022 4.2 3.5 - 5.1 mmol/L Final CHLORIDE 11/21/2022 107 98 - 107 mmol/L Final CARBON DIOXIDE 11/21/2022 28 22 - 30 mmol/L Final ANION GAP 11/21/2022 4 3 - 13 mmol/L Final UREA NITROGEN 11/21/2022 19 (H) 7 - 17 mg/dL Final CREATININE 11/21/2022 0.71 0.52 - 1.04 mg/dL Final GLUCOSE 11/21/2022 91 70 - 100 mg/dL Final CALCIUM 11/21/2022 9.4 8.4 - 10.4 mg/dL Final AST (SGOT) 11/21/2022 39 15 - 46 U/L Final ALT 11/21/2022 20 0 - 34 U/L Final ALKALINE PHOSPHATASE 11/21/2022 104 38 - 126 U/L Final ALBUMIN 11/21/2022 4.2 3.5 - 5.0 g/dL Final BILIRUBIN, TOTAL 11/21/2022 0.6 0.2 - 1.3 mg/dL Final TOTAL PROTEIN 11/21/2022 6.7 6.3 - 8.2 g/dL Final eGFR 11/21/2022 82.4 >60.0 mL/min/1.73m*2 Final Calculation based on the Chronic Kidney Disease Epidemiology Collaboration (CKD-EPI) equation refit without adjustment for race Auto WBC 11/21/2022 6.7 3.6 - 10.7 10*3/uL Final RBC 11/21/2022 4.35 3.8 - 5.20 10*6/uL Final Hemoglobin 11/21/2022 13.9 11.7 - 16.0 g/dL Final Hematocrit 11/21/2022 39.6 35.0 - 47.0 % Final MCV 11/21/2022 91.0 80.0 - 98.0 fL Final MCH 11/21/2022 32.0 26.0 - 34.0 pg Final MCHC 11/21/2022 35.1 32.0 - 36.0 % Final RDW 11/21/2022 13.5 11.5 - 14.5 % Final Platelets 11/21/2022 193 140 - 440 10*3/uL Final MPV 11/21/2022 10.0 7.4 - 12.4 fL Final MPV is a calculated measurement using platelet volume ratio Neutrophils Relative 11/21/2022 61.0 40.0 - 80.0 % Final Lymphocytes Relative 11/21/2022 10.5 (L) 20.0 - 40.0 % Final Monocytes Relative 11/21/2022 10.0 2.0 - 10.0 % Final Eosinophils Relative 11/21/2022 17.7 (H) 1.0 - 6.0 % Final Basophils Relative 11/21/2022 0.4 0.0 - 2.0 % Final Immature Grans % 11/21/2022 0.4 (H) <=0.0 % Final Neutrophils Absolute 11/21/2022 4.1 1.8 - 7.0 10*3/uL Final Lymphocytes Absolute 11/21/2022 0.7 (L) 1.0 - 4.3 10*3/uL Final Monocytes Absolute 11/21/2022 0.7 0.0 - 0.8 10*3/uL Final Eosinophils Absolute 11/21/2022 1.2 (H) 0.0 - 0.5 10*3/uL Final Basophils Absolute 11/21/2022 0.0 0.0 - 0.2 10*3/uL Final Immature Grans Absolute 11/21/2022 0.0 <=0.0 10*3/uL Final Tissue exam: [id number] Order: [id number] Collected 08/15/2022 13:32 Status: Edited Result - FINAL Visible to patient: Yes (not seen) Dx: Neck mass; Chronic lymphadenitis, exc... 0 Result Notes Component Addendum Please see [employer] Accession/Case No: [id number] for Low Grade/Small B Cell Lymphoma FISH results ordered by Dr. Wagner Perry. The results have been scanned. Addendum electronically signed by Jessica Marshall MD on 09/10/2022 at [id number] Final Diagnosis A. LYMPH NODE, RIGHT CERVICAL, BIOPSY: - LOW GRADE B-CELL LYMPHOMA (CD5-, CD 10-) INVOLVING SKIN AND SOFT TISSUE. B. LYMPH NODE, RIGHT CERVICAL, RPMI SPECIMEN: - LOW GRADE B-CELL LYMPHOMA (CD5-, CD 10-) WITH KAPPA LIGHT CHAIN RESTRICTION. at 0927 Comment Low grade B-cell lymphoma FISH studies are pending for further evaluation of the lymphoid population.Systemic work-up is also recommended for further evaluation to determine if the process is localized or demonstrates involvement by lymph nodes or bone marrow in other locations. If a localized process, differential diagnostic considerations include primary follicular center cell lymphoma of the skin and primary cutaneous marginal zone lymphoma. 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 Please correlate with the pending FISH testing and additional clinical work-up. Microscopic Description Microscopic sections demonstrate a diffuse, expanded population of lymphocytes involving skin and soft tissue in a dense, nodular pattern. Definitive lymph node architecture is not histologically identifiable. Special Stains Immunohistochemical staining was performed with adequate controls in order to further evaluate the lymphoid population. The stains demonstrate a B-cell predominant population which expresses CD20, CD79a, partial Bcl-2, weak BCL6 in proliferation centers. Ki-67 is variable areas of high proliferation (50-80%) and proliferation centers and lower proliferation in other areas. CD3 and CD5 demonstrate rare interstitial T cells. Cyclin D1, CD34, ALK1, CD30, and EBV ZEE are negative. CD138 and mum 1 do not demonstrate a significant plasma cell population. [place] and lambda ZEE demonstrate a kappa predominant staining in a blush like pattern. Imaging Reviewed: PET/CT skull base to mid thigh Narrative: [facility] 1935 [id number] Exam Date/Time: 01/02/2023 11:35 Procedure: PET/CT SKULL BASE TO MID THIGH Ordering Provider: DEMARCO TERESA Reason For Exam: Hematologic malignancy, assess treatment response PET/CT CLINICAL INDICATION: Follicular lymphoma restaging. Following the intravenous administration of 14.4 mCi of fluorine-18 fluorodeoxyglucose (FDG) a PET scan of the torso was acquired after an approximately one hour delay. Blood glucose level at the time of injection was 100 mg/dl. Contemporaneously, noncontrast axial CT images were obtained using low dose technique. The images were reconstructed in three orthogonal planes and digitally coregistered. The CT data was used for attenuation correction as well. Dose reduction was employed with automated exposure control. COMPARISON: PET/CT dated 10/11/2022 NECK AND CHEST: The previously noted bulky mass centered within the right parotid gland on the study from 10/11/2022 has essentially resolved. No FDG avid lymphadenopathy is identified within the neck or chest. No FDG avid pulmonary nodules are identified. ABDOMEN AND PELVIS: No abnormal FDG accumulation is seen within the abdomen or pelvis. Previously noted mild splenomegaly and moderate diffuse FDG accumulation within the spleen on the study from 10/11/2022 has resolved. MUSCULOSKELETAL: No evidence of osseous metastatic disease is identified. Please note that the lower extremities from the distal thigh through the feet are not included in the nlics-fj-[id number] on the current examination (10/11/2022 examination was performed as a whole-body PET/CT, the current examination was ordered as skull base to mid thigh). Impression: No evidence of residual or recurrent FDG avid malignancy is identified. Previously noted multifocal areas of intense FDG accumulation on the study from 10/11/2022 have essentially resolved, with the caveat that the entirety of the lower extremities are not included in the hnsyc-[id number] on the current examination. There are no new areas of abnormal tracer uptake to suggest progression of disease. Deauville score N/A. Report Dictated on Electronically Signed By: Tonio Lopes MD Electronically Signed Date/Time: 01/03/2023 12:49 PM EDT - I have reviewed all available pertinent laboratory, imaging and pathology results with the patient and/or family members today. Assessment/Plan: Diagnosis Plan 1. 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 NCCN guidelines were reviewed. - she completed 4 doses of Rituxan and PET scan 01/02/23 showed a CR - observation recommended. - signs and symptoms of disease recurrence were reviewed with the patient and she was instructed to call with any concerns All questions were answered to the satisfaction of the patient and/or family. Return to office in 3 months or sooner if worrisome signs/symptoms arise. 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 Diagnosed via excisional right cervical lymph node biopsy on 08/15/22. - Patient presented with 2-3 years af an abnormal lymph node posterior right neck and enlargement of the right parotid gland. She denies any B symptoms. Excisional biopsy of a right posterior cervical lymph node on 08/15/22 confirmed follicular lymphoma low grade. - PET scan 10/11/22 showed bulky intensely FDG avid right parotid mass, with accumulation in the bilateral cervical chain, supraclavicular, axillary, and left internal mammary nodes, right temporal and left temporal occipital scalp, mild splenomegaly, and in the bones of the lower extremity. - systemic therapy with Rituxan weekly x 4 started 10/30/22. Cycle 4 11/21/22. HPI: Ashley Pappas is a 87 y.o. female who comes in today for routine follow up after cycle 4 of rituxan on 11/21/22. She tolerated treatment well. The right parotid mass and fullness have resolved. She has some slightly itching, but no rash. She denies any fevers, weight loss, change in appetite, night sweats. She continues to be very active and independent. She is accompanied by her daughter today. Past Medical History: Diagnosis Date Aortic valve stenosis 10/03/2022 Cystocele with uterine prolapse [address] Family history of colon cancer Follicular lymphoma (HCC) 10/03/[address] Fu Hypertension Lumbar disc disease Primary hypertension 10/03/2022 Right thyroid nodule [address]. Perry and FNA- no changes 2020 Past Surgical History: Procedure Laterality Date ACHILLES TENDON SURGERY APPENDECTOMY BUNIONECTOMY CARPAL TUNNEL RELEASE CATARACT EXTRACTION Bilateral 2010 Dr. Fu- trabelectomy also COLONOSCOPY COLONOSCOPY 2011 LUMBAR LAMINECTOMY 2001 STRESS TEST, LEXISCAN (HISTORICAL) TOTAL KNEE ARTHROPLASTY Left 1994 UPPER GASTROINTESTINAL ENDOSCOPY Patient Active Problem List Diagnosis Date Noted Aortic valve stenosis 10/03/2022 Primary hypertension 10/03/2022 Follicular lymphoma (HCC) 10/03/2022 Social History Tobacco Use Smoking status: Never Smokeless tobacco: Never Vaping Use Vaping Use: Never used Substance Use Topics Alcohol use: No Drug use: Never Family History Problem Relation Name Age of Onset No Known Problems Brother Other ([id number]) Mother 30.00 DVT and PE Colon cancer Sister 70 No Known Problems Sister nonspecific causes No Known Problems Brother No Known Problems Father unknown No Known Problems Brother No Known Allergies Current Outpatient Medications Medication Sig Dispense Refill aspirin EC 81 MG EC tablet Take 81 mg by mouth daily. Combigan 0.2-0.5 % ophthalmic solution Administer 1 drop into the left eye in the morning and 1 drop in the evening. labetalol (Normodyne) 100 MG tablet Take 1 tablet (100 mg) by mouth 2 times daily. 180 tablet 1 latanoprost (Xalatan) 0.005 % ophthalmic solution Administer 1 drop into the left eye Nightly. Latanoprostene Bunod (Vyzulta) 0.024 % solution Administer 0.024 % into affected eye(s) 1 (one) time each day. MELATONIN PO Take by mouth. Multiple Vitamin (Multi-Vitamin Daily) tablet Take 1 tablet by mouth daily. No current facility-administered medications for this visit. Review of Systems Constitutional: Negative for appetite change, chills, diaphoresis, fatigue, fever and unexpected weight change. HENT: Negative for dental problem, mouth sores, nosebleeds, sneezing, sore throat, tinnitus, trouble swallowing and voice change. Eyes: Negative for photophobia, pain and visual disturbance. Respiratory: Negative for cough, shortness of breath and wheezing. Cardiovascular: Negative for chest pain, palpitations and leg swelling. Gastrointestinal: Negative for abdominal distention, abdominal pain, blood in stool, constipation, diarrhea, nausea and vomiting. Endocrine: Negative for cold intolerance and heat intolerance. Genitourinary: Negative for difficulty urinating, frequency, hematuria and urgency. Musculoskeletal: Negative for arthralgias, back pain, gait problem and myalgias. Skin: Negative for pallor and rash. Allergic/Immunologic: Negative for immunocompromised state. Neurological: Negative for dizziness, syncope, weakness, light-headedness, numbness and headaches. Hematological: Negative for adenopathy. Does not bruise/bleed easily. Psychiatric/Behavioral: Negative for confusion and sleep disturbance. The patient is not nervous/anxious. All other systems reviewed and are negative. Vitals: 12/05/22 0842 BP: (!) 144/62 BP Location: Right arm Patient Position: Sitting Pulse: 65 Temp: 98.9 F (37.2 C) TempSrc: Temporal SpO2: 97% Weight: 143 lb 8 oz (65.1 kg) Height: 5' 3" (1.6 m) ECOG PS = 1-2 Physical Exam Vitals and nursing note reviewed. Constitutional: General: She is not in acute distress. Appearance: Normal appearance. She is not ill-appearing. HENT: Head: Normocephalic and atraumatic. Salivary Glands: Right salivary gland is not diffusely enlarged. Left salivary gland is not diffusely enlarged. Nose: Nose normal. Mouth/Throat: Pharynx: Oropharynx is clear. No oropharyngeal exudate or posterior oropharyngeal erythema. Eyes: General: No scleral icterus. Extraocular Movements: Extraocular movements intact. Conjunctiva/sclera: Conjunctivae normal. Pupils: Pupils are equal, round, and reactive to light. Cardiovascular: Rate and Rhythm: Normal rate and regular rhythm. Heart sounds: Normal heart sounds. No murmur heard. Pulmonary: Effort: Pulmonary effort is normal. No respiratory distress. Breath sounds: Normal breath sounds. No wheezing. Abdominal: General: Abdomen is flat. Bowel sounds are normal. There is no distension. Palpations: Abdomen is soft. There is no mass. Tenderness: There is no abdominal tenderness. There is no guarding. Musculoskeletal: General: No swelling or tenderness. Normal range of motion. Cervical back: Normal range of motion and neck supple. Right lower leg: No edema. Left lower leg: No edema. Lymphadenopathy: Cervical: No cervical adenopathy. Right cervical: No superficial or deep cervical adenopathy. Left cervical: No superficial, deep or posterior cervical adenopathy. Upper Body: Right upper body: No supraclavicular, axillary or pectoral adenopathy. Left upper body: No supraclavicular, axillary or pectoral adenopathy. Lower Body: No right inguinal adenopathy. No left inguinal adenopathy. Skin: General: Skin is warm and dry. Findings: No bruising or rash. Neurological: General: No focal deficit present. Mental Status: She is alert and oriented to person, place, and time. Mental status is at baseline. Psychiatric: Mood and Affect: Mood normal. Thought Content: Thought content normal. Imaging/Labs: Infusion on 11/21/2022 Component Date Value Ref Range Status SODIUM 11/21/2022 139 135 - 145 mmol/L Final POTASSIUM 11/21/2022 4.2 3.5 - 5.1 mmol/L Final CHLORIDE 11/21/2022 107 98 - 107 mmol/L Final CARBON DIOXIDE 11/21/2022 28 22 - 30 mmol/L Final ANION GAP 11/21/2022 4 3 - 13 mmol/L Final UREA NITROGEN 11/21/2022 19 (H) 7 - 17 mg/dL Final CREATININE 11/21/2022 0.71 0.52 - 1.04 mg/dL Final GLUCOSE 11/21/2022 91 70 - 100 mg/dL Final CALCIUM 11/21/2022 9.4 8.4 - 10.4 mg/dL Final AST (SGOT) 11/21/2022 39 15 - 46 U/L Final ALT 11/21/2022 20 0 - 34 U/L Final ALKALINE PHOSPHATASE 11/21/2022 104 38 - 126 U/L Final ALBUMIN 11/21/2022 4.2 3.5 - 5.0 g/dL Final BILIRUBIN, TOTAL 11/21/2022 0.6 0.2 - 1.3 mg/dL Final TOTAL PROTEIN 11/21/2022 6.7 6.3 - 8.2 g/dL Final eGFR 11/21/2022 82.4 >60.0 mL/min/1.73m*2 Final Calculation based on the Chronic Kidney Disease Epidemiology Collaboration (CKD-EPI) equation refit without adjustment for race Auto WBC 11/21/2022 6.7 3.6 - 10.7 10*3/uL Final RBC 11/21/2022 4.35 3.8 - 5.20 10*6/uL Final Hemoglobin 11/21/2022 13.9 11.7 - 16.0 g/dL Final Hematocrit 11/21/2022 39.6 35.0 - 47.0 % Final MCV 11/21/2022 91.0 80.0 - 98.0 fL Final MCH 11/21/2022 32.0 26.0 - 34.0 pg Final MCHC 11/21/2022 35.1 32.0 - 36.0 % Final RDW 11/21/2022 13.5 11.5 - 14.5 % Final Platelets 11/21/2022 193 140 - 440 10*3/uL Final MPV 11/21/2022 10.0 7.4 - 12.4 fL Final MPV is a calculated measurement using platelet volume ratio Neutrophils Relative 11/21/2022 61.0 40.0 - 80.0 % Final Lymphocytes Relative 11/21/2022 10.5 (L) 20.0 - 40.0 % Final Monocytes Relative 11/21/2022 10.0 2.0 - 10.0 % Final Eosinophils Relative 11/21/2022 17.7 (H) 1.0 - 6.0 % Final Basophils Relative 11/21/2022 0.4 0.0 - 2.0 % Final Immature Grans % 11/21/2022 0.4 (H) <=0.0 % Final Neutrophils Absolute 11/21/2022 4.1 1.8 - 7.0 10*3/uL Final Lymphocytes Absolute 11/21/2022 0.7 (L) 1.0 - 4.3 10*3/uL Final Monocytes Absolute 11/21/2022 0.7 0.0 - 0.8 10*3/uL Final Eosinophils Absolute 11/21/2022 1.2 (H) 0.0 - 0.5 10*3/uL Final Basophils Absolute 11/21/2022 0.0 0.0 - 0.2 10*3/uL Final Immature Grans Absolute 11/21/2022 0.0 <=0.0 10*3/uL Final Infusion on 11/13/2022 Component Date Value Ref Range Status Auto WBC 11/13/2022 6.9 3.6 - 10.7 10*3/uL Final RBC 11/13/2022 4.51 3.8 - 5.20 10*6/uL Final Hemoglobin 11/13/2022 14.2 11.7 - 16.0 g/dL Final Hematocrit 11/13/2022 41.8 35.0 - 47.0 % Final MCV 11/13/2022 92.7 80.0 - 98.0 fL Final MCH 11/13/2022 31.5 26.0 - 34.0 pg Final MCHC 11/13/2022 34.0 32.0 - 36.0 % Final RDW 11/13/2022 13.5 11.5 - 14.5 % Final Platelets 11/13/2022 221 140 - 440 10*3/uL Final MPV 11/13/2022 9.7 7.4 - 12.4 fL Final MPV is a calculated measurement using platelet volume ratio Neutrophils Relative 11/13/2022 68.2 40.0 - 80.0 % Final Lymphocytes Relative 11/13/2022 8.5 (L) 20.0 - 40.0 % Final Monocytes Relative 11/13/2022 7.6 2.0 - 10.0 % Final Eosinophils Relative 11/13/2022 15.0 (H) 1.0 - 6.0 % Final Basophils Relative 11/13/2022 0.6 0.0 - 2.0 % Final Immature Grans % 11/13/2022 0.1 (H) <=0.0 % Final Neutrophils Absolute 11/13/2022 4.7 1.8 - 7.0 10*3/uL Final Lymphocytes Absolute 11/13/2022 0.6 (L) 1.0 - 4.3 10*3/uL Final Monocytes Absolute 11/13/2022 0.5 0.0 - 0.8 10*3/uL Final Eosinophils Absolute 11/13/2022 1.0 (H) 0.0 - 0.5 10*3/uL Final Basophils Absolute 11/13/2022 0.0 0.0 - 0.2 10*3/uL Final Immature Grans Absolute 11/13/2022 0.0 <=0.0 10*3/uL Final SODIUM 11/13/2022 140 135 - 145 mmol/L Final POTASSIUM 11/13/2022 4.1 3.5 - 5.1 mmol/L Final CHLORIDE 11/13/2022 107 98 - 107 mmol/L Final CARBON DIOXIDE 11/13/2022 29 22 - 30 mmol/L Final ANION GAP 11/13/2022 4 3 - 13 mmol/L Final UREA NITROGEN 11/13/2022 19 (H) 7 - 17 mg/dL Final CREATININE 11/13/2022 0.80 0.52 - 1.04 mg/dL Final GLUCOSE 11/13/2022 114 (H) 70 - 100 mg/dL Final CALCIUM 11/13/2022 9.3 8.4 - 10.4 mg/dL Final AST (SGOT) 11/13/2022 36 15 - 46 U/L Final ALT 11/13/2022 17 0 - 34 U/L Final ALKALINE PHOSPHATASE 11/13/2022 105 38 - 126 U/L Final ALBUMIN 11/13/2022 4.2 3.5 - 5.0 g/dL Final BILIRUBIN, TOTAL 11/13/2022 0.5 0.2 - 1.3 mg/dL Final TOTAL PROTEIN 11/13/2022 6.6 6.3 - 8.2 g/dL Final eGFR 11/13/2022 71.4 >60.0 mL/min/1.73m*2 Final Calculation based on the Chronic Kidney Disease Epidemiology Collaboration (CKD-EPI) equation refit without adjustment for race Infusion on 11/06/2022 Component Date Value Ref Range Status Auto WBC 11/06/2022 5.8 3.6 - 10.7 10*3/uL Final RBC 11/06/2022 4.25 3.8 - 5.20 10*6/uL Final Hemoglobin 11/06/2022 13.4 11.7 - 16.0 g/dL Final Hematocrit 11/06/2022 39.3 35.0 - 47.0 % Final MCV 11/06/2022 92.5 80.0 - 98.0 fL Final MCH 11/06/2022 31.5 26.0 - 34.0 pg Final MCHC 11/06/2022 34.1 32.0 - 36.0 % Final RDW 11/06/2022 13.3 11.5 - 14.5 % Final Platelets 11/06/2022 240 140 - 440 10*3/uL Final MPV 11/06/2022 9.4 7.4 - 12.4 fL Final MPV is a calculated measurement using platelet volume ratio Neutrophils Relative 11/06/2022 68.0 40.0 - 80.0 % Final Lymphocytes Relative 11/06/2022 9.8 (L) 20.0 - 40.0 % Final Monocytes Relative 11/06/2022 8.9 2.0 - 10.0 % Final Eosinophils Relative 11/06/2022 12.5 (H) 1.0 - 6.0 % Final Basophils Relative 11/06/2022 0.5 0.0 - 2.0 % Final Immature Grans % 11/06/2022 0.3 (H) <=0.0 % Final Neutrophils Absolute 11/06/2022 4.0 1.8 - 7.0 10*3/uL Final Lymphocytes Absolute 11/06/2022 0.6 (L) 1.0 - 4.3 10*3/uL Final Monocytes Absolute 11/06/2022 0.5 0.0 - 0.8 10*3/uL Final Eosinophils Absolute 11/06/2022 0.7 (H) 0.0 - 0.5 10*3/uL Final Basophils Absolute 11/06/2022 0.0 0.0 - 0.2 10*3/uL Final Immature Grans Absolute 11/06/2022 0.0 <=0.0 10*3/uL Final SODIUM 11/06/2022 138 135 - 145 mmol/L Final POTASSIUM 11/06/2022 4.0 3.5 - 5.1 mmol/L Final CHLORIDE 11/06/2022 109 (H) 98 - 107 mmol/L Final CARBON DIOXIDE 11/06/2022 27 22 - 30 mmol/L Final ANION GAP 11/06/2022 2 (L) 3 - 13 mmol/L Final UREA NITROGEN 11/06/2022 18 (H) 7 - 17 mg/dL Final CREATININE 11/06/2022 0.78 0.52 - 1.04 mg/dL Final GLUCOSE 11/06/2022 122 (H) 70 - 100 mg/dL Final CALCIUM 11/06/2022 9.2 8.4 - 10.4 mg/dL Final AST (SGOT) 11/06/2022 36 15 - 46 U/L Final ALT 11/06/2022 18 0 - 34 U/L Final ALKALINE PHOSPHATASE 11/06/2022 93 38 - 126 U/L Final ALBUMIN 11/06/2022 4.0 3.5 - 5.0 g/dL Final BILIRUBIN, TOTAL 11/06/2022 0.5 0.2 - 1.3 mg/dL Final TOTAL PROTEIN 11/06/2022 6.5 6.3 - 8.2 g/dL Final eGFR 11/06/2022 73.6 >60.0 mL/min/1.73m*2 Final Calculation based on the Chronic Kidney Disease Epidemiology Collaboration (CKD-EPI) equation refit without adjustment for race Tissue exam: [id number] Order: [id number] Collected 08/15/2022 13:32 Status: Edited Result - FINAL Visible to patient: Yes (not seen) Dx: Neck mass; Chronic lymphadenitis, exc... 0 Result Notes Component Addendum Please see [employer] Accession/Case No: [id number] for Low Grade/Small B Cell Lymphoma FISH results ordered by Dr. Wagner Perry. The results have been scanned. Addendum electronically signed by Jessica Marshall MD on 09/10/2022 at 2311 Final Diagnosis A. LYMPH NODE, RIGHT CERVICAL, BIOPSY: - LOW GRADE B-CELL LYMPHOMA (CD5-, CD 10-) INVOLVING SKIN AND SOFT TISSUE. B. LYMPH NODE, RIGHT CERVICAL, RPMI SPECIMEN: - LOW GRADE B-CELL LYMPHOMA (CD5-, CD 10-) WITH KAPPA LIGHT CHAIN RESTRICTION. at 0939 Comment Low grade B-cell lymphoma FISH studies are pending for further evaluation of the lymphoid population.Systemic work-up is also recommended for further evaluation to determine if the process is localized or demonstrates involvement by lymph nodes or bone marrow in other locations. If a localized process, differential diagnostic considerations include primary follicular center cell lymphoma of the skin and primary cutaneous marginal zone lymphoma. 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 Please correlate with the pending FISH testing and additional clinical work-up. Microscopic Description Microscopic sections demonstrate a diffuse, expanded population of lymphocytes involving skin and soft tissue in a dense, nodular pattern. Definitive lymph node architecture is not histologically identifiable. Special Stains Immunohistochemical staining was performed with adequate controls in order to further evaluate the lymphoid population. The stains demonstrate a B-cell predominant population which expresses CD20, CD79a, partial Bcl-2, weak BCL6 in proliferation centers. Ki-67 is variable areas of high proliferation (50-80%) and proliferation centers and lower proliferation in other areas. CD3 and CD5 demonstrate rare interstitial T cells. Cyclin D1, CD34, ALK1, CD30, and EBV ZEE are negative. CD138 and mum 1 do not demonstrate a significant plasma cell population. [place] and lambda ZEE demonstrate a kappa predominant staining in a blush like pattern. Imaging Reviewed: PET/CT head to toe Narrative: Patient Name: ASHLEY PAPPAS : 1935 Exam Date/Time: 10/14/2022 08:50 Procedure: PET/CT HEAD TO TOE Ordering Provider: DEMARCO TERESA Reason For Exam: Hematologic malignancy, staging PET/CT CLINICAL INDICATION: Follicular lymphoma, initial staging Following the intravenous administration of 11.8 mCi of fluorine-18 fluorodeoxyglucose (FDG) a PET scan of the whole body was acquired after an approximately one hour delay. Blood glucose level at the time of injection was 100 mg/dl. Contemporaneously, noncontrast axial CT images were obtained using low dose technique. The images were reconstructed in three orthogonal planes and digitally coregistered. The CT data was used for attenuation correction as well. Dose reduction was employed with automated exposure control. COMPARISON: CT neck dated 11/14/2021 HEAD, NECK AND CHEST: There is a bulky right parotid mass which demonstrates intense FDG uptake (maximal SUV 13), consistent with the patient's known malignancy (Deauville score 5/5). Multifocal areas of intense FDG accumulation are also noted within numerous bilateral cervical chain lymph nodes extending into the left and right supraclavicular fossa, consistent with malignancy. Diffuse intense FDG uptake (maximal SUV 8) is noted within the right temporal and left parieto-occipital scalp, corresponding to skin thickening on the low-dose CT images, consistent with malignancy. FDG PET images of the brain are grossly unremarkable. Within the chest, there is abnormal FDG accumulation (maximal SUV 6) within borderline enlarged left and right axillary chain lymph nodes, consistent with malignancy. There is also abnormal FDG accumulation within a borderline enlarged left internal mammary chain lymph node. No FDG avid pulmonary nodules are identified. ABDOMEN AND PELVIS: The spleen is mildly enlarged on the low-dose CT images and demonstrates moderate, diffuse FDG uptake (maximal SUV 4). No focal intensely FDG avid splenic lesions are seen. No FDG avid lymphadenopathy is seen within the abdomen or pelvis. MUSCULOSKELETAL: There are several foci of moderately intense FDG accumulation within the bony structures of the lower extremities, largest of which is located within the right mid tibial diaphysis (maximal to be 8.9). Additional smaller areas of more moderate uptake are noted within the left and right femurs, inferior aspect of the left tibia, and superior margin of the right talus. Impression: Bulky, intensely FDG avid right parotid mass, consistent with the patient's known malignancy (Deauville score 5/5). There is also abnormal FDG accumulation within bilateral cervical chain, supraclavicular, axillary, and left internal mammary lymph nodes consistent with lymphoma. Intense FDG accumulation within the right temporal and left temporal occipital scalp is consistent with malignancy. Mild splenomegaly is noted on the low-dose CT images. There is moderate, diffuse increased FDG accumulation within the spleen (Deauville score 4/5). The intensity of uptake is suspicious for lymphomatous involvement. Moderately intense FDG accumulation within the bones of the lower extremities as described above. Largest area of abnormal FDG accumulation is noted within the right tibial diaphysis. The intensity of uptake is suspicious for osseous metastatic disease. Contrast-enhanced MRI may be helpful for confirmation. Report Dictated on Electronically Signed By: Tonio Lopes Electronically Signed Date/Time: 10/15/2022 9:35 AM EDT - I have reviewed all available pertinent laboratory, imaging and pathology results with the patient and/or family members today. Assessment/Plan: Diagnosis Plan 1. 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 NCCN guidelines were reviewed. - she completed 4 doses of Rituxan - check PET to assess treatment response - consolidative radiation can also be considered All questions were answered to the satisfaction of the patient and/or family. Return to office in 4-6 weeks to review PET, or sooner if worrisome signs/symptoms arise. Kleber Demarco DO Hematology/Medical Oncology documented in this encounter [facility] 11-21-2022 History of Presen t illness Narrative Hematology/Oncology Office Visit Oncology History: 1) 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 Diagnosed via excisional right cervical lymph node biopsy on 08/15/22. - Patient presented with 2-3 years af an abnormal lymph node posterior right neck and enlargement of the right parotid gland. She denies any B symptoms. Excisional biopsy of a right posterior cervical lymph node on 08/15/22 confirmed follicular lymphoma low grade. - PET scan 10/11/22 showed bulky intensely FDG avid right parotid mass, with accumulation in the bilateral cervical chain, supraclavicular, axillary, and left internal mammary nodes, right temporal and left temporal occipital scalp, mild splenomegaly, and in the bones of the lower extremity. - systemic therapy with Rituxan weekly x 4 started 10/30/22. Cycle 4 11/21/22. HPI: Ashley Pappas is a 87 y.o. female who comes in today for cycle 4 of 4 of weekly Rituxan. She is tolerating rituxan as expected and has noticed that the right parotid mass has resolved. She still feels some fullness in the right ear, but it has much improved. She denies any fevers, weight loss, change in appetite, night sweats. She continues to be very active and independent. She is accompanied by her daughter today. Past Medical History: Diagnosis Date Aortic valve stenosis 10/03/2022 Cystocele with uterine prolapse [address] Family history of colon cancer Follicular lymphoma (HCC) 10/03/[address] Fu Hypertension Lumbar disc disease Primary hypertension 10/03/2022 Right thyroid nodule [address] Dr. Perry and FNA- no changes 2020 Past Surgical History: Procedure Laterality Date ACHILLES TENDON SURGERY APPENDECTOMY BUNIONECTOMY CARPAL TUNNEL RELEASE CATARACT EXTRACTION Bilateral 2010 Dr. Fu- trabelectomy also COLONOSCOPY COLONOSCOPY 2010 LUMBAR LAMINECTOMY 2001 STRESS TEST, LEXISCAN (HISTORICAL) TOTAL KNEE ARTHROPLASTY Left 1994 UPPER GASTROINTESTINAL ENDOSCOPY Patient Active Problem List Diagnosis Date Noted Aortic valve stenosis 10/03/2022 Primary hypertension 10/03/2022 Follicular lymphoma (HCC) 10/03/2022 Social History Tobacco Use Smoking status: Never Smokeless tobacco: Never Vaping Use Vaping Use: Never used Substance Use Topics Alcohol use: No Drug use: Never Family History Problem Relation Name Age of Onset No Known Problems Brother Other ([id number]) Mother 30.00 DVT and PE Colon cancer Sister 70 No Known Problems Sister nonspecific causes No Known Problems Brother No Known Problems Father unknown No Known Problems Brother No Known Allergies Current Outpatient Medications Medication Sig Dispense Refill aspirin EC 81 MG EC tablet Take 81 mg by mouth daily. Combigan 0.2-0.5 % ophthalmic solution Administer 1 drop into the left eye in the morning and 1 drop in the evening. labetalol (Normodyne) 100 MG tablet Take 1 tablet (100 mg) by mouth 2 times daily. 180 tablet 1 latanoprost (Xalatan) 0.005 % ophthalmic solution Administer 1 drop into the left eye Nightly. MELATONIN PO Take by mouth. Multiple Vitamin (Multi-Vitamin Daily) tablet Take 1 tablet by mouth daily. No current facility-administered medications for this visit. Facility-Administered Medications Ordered in Other Visits Medication Dose Route Frequency Provider Last Rate Last Admin diphenhydrAMINE (BENADryl) 25 mg, famotidine (Pepcid) 20 mg in sodium chloride 0.9 % 50 mL IVPB IntraVENous Once Kleber E Dav, DO 150 mL/hr at 11/21/22 0915 New Bag at 11/21/22914 [id number] (Ruxience) 600 mg in sodium chloride 0.9 % 500 mL chemo IVPB 600 mg IntraVENous Once Kleber E Dav, DO sodium chloride 0.9 % infusion 5-250 mL/hr IntraVENous Once PRN Kleber E Dav, DO 20 mL/hr at 11/21/22 09 20 mL/hr at 11/21/22912 Review of Systems Constitutional: Negative for appetite change, chills, diaphoresis, fatigue, fever and unexpected weight change. HENT: Negative for dental problem, mouth sores, nosebleeds, sneezing, sore throat, tinnitus, trouble swallowing and voice change. Eyes: Negative for photophobia, pain and visual disturbance. Respiratory: Negative for cough, shortness of breath and wheezing. Cardiovascular: Negative for chest pain, palpitations and leg swelling. Gastrointestinal: Negative for abdominal distention, abdominal pain, blood in stool, constipation, diarrhea, nausea and vomiting. Endocrine: Negative for cold intolerance and heat intolerance. Genitourinary: Negative for difficulty urinating, frequency, hematuria and urgency. Musculoskeletal: Negative for arthralgias, back pain, gait problem and myalgias. Skin: Negative for pallor and rash. Allergic/Immunologic: Negative for immunocompromised state. Neurological: Negative for dizziness, syncope, weakness, light-headedness, numbness and headaches. Hematological: Negative for adenopathy. Does not bruise/bleed easily. Psychiatric/Behavioral: Negative for confusion and sleep disturbance. The patient is not nervous/anxious. All other systems reviewed and are negative. Vitals: 11/21/22 0809 BP: (!) 154/63 BP Location: Right arm Patient Position: Sitting Pulse: 67 Temp: 98.7 F (37.1 C) TempSrc: Temporal SpO2: 96% Weight: 143 lb 9.6 oz (65.1 kg) Height: 5' 3" (1.6 m) ECOG PS = 1-2 Physical Exam Vitals and nursing note reviewed. Constitutional: General: She is not in acute distress. Appearance: Normal appearance. She is not ill-appearing. HENT: Head: Normocephalic and atraumatic. Salivary Glands: Right salivary gland is diffusely enlarged. Left salivary gland is not diffusely enlarged. Nose: Nose normal. Mouth/Throat: Pharynx: Oropharynx is clear. No oropharyngeal exudate or posterior oropharyngeal erythema. Eyes: General: No scleral icterus. Extraocular Movements: Extraocular movements intact. Conjunctiva/sclera: Conjunctivae normal. Pupils: Pupils are equal, round, and reactive to light. Cardiovascular: Rate and Rhythm: Normal rate and regular rhythm. Heart sounds: Normal heart sounds. No murmur heard. Pulmonary: Effort: Pulmonary effort is normal. No respiratory distress. Breath sounds: Normal breath sounds. No wheezing. Abdominal: General: Abdomen is flat. Bowel sounds are normal. There is no distension. Palpations: Abdomen is soft. There is no mass. Tenderness: There is no abdominal tenderness. There is no guarding. Musculoskeletal: General: No swelling or tenderness. Normal range of motion. Cervical back: Normal range of motion and neck supple. Right lower leg: No edema. Left lower leg: No edema. Lymphadenopathy: Cervical: Cervical adenopathy present. Right cervical: Posterior cervical adenopathy present. No superficial or deep cervical adenopathy. Left cervical: No superficial, deep or posterior cervical adenopathy. Upper Body: Right upper body: No supraclavicular, axillary or pectoral adenopathy. Left upper body: No supraclavicular, axillary or pectoral adenopathy. Lower Body: No right inguinal adenopathy. No left inguinal adenopathy. Skin: General: Skin is warm and dry. Findings: No bruising or rash. Neurological: General: No focal deficit present. Mental Status: She is alert and oriented to person, place, and time. Mental status is at baseline. Psychiatric: Mood and Affect: Mood normal. Thought Content: Thought content normal. Imaging/Labs: Infusion on 11/21/2022 Component Date Value Ref Range Status SODIUM 11/21/2022 139 135 - 145 mmol/L Final POTASSIUM 11/21/2022 4.2 3.5 - 5.1 mmol/L Final CHLORIDE 11/21/2022 107 98 - 107 mmol/L Final CARBON DIOXIDE 11/21/2022 28 22 - 30 mmol/L Final ANION GAP 11/21/2022 4 3 - 13 mmol/L Final UREA NITROGEN 11/21/2022 19 (H) 7 - 17 mg/dL Final CREATININE 11/21/2022 0.71 0.52 - 1.04 mg/dL Final GLUCOSE 11/21/2022 91 70 - 100 mg/dL Final CALCIUM 11/21/2022 9.4 8.4 - 10.4 mg/dL Final AST (SGOT) 11/21/2022 39 15 - 46 U/L Final ALT 11/21/2022 20 0 - 34 U/L Final ALKALINE PHOSPHATASE 11/21/2022 104 38 - 126 U/L Final ALBUMIN 11/21/2022 4.2 3.5 - 5.0 g/dL Final BILIRUBIN, TOTAL 11/21/2022 0.6 0.2 - 1.3 mg/dL Final TOTAL PROTEIN 11/21/2022 6.7 6.3 - 8.2 g/dL Final eGFR 11/21/2022 82.4 >60.0 mL/min/1.73m*2 Final Calculation based on the Chronic Kidney Disease Epidemiology Collaboration (CKD-EPI) equation refit without adjustment for race Auto WBC 11/21/2022 6.7 3.6 - 10.7 10*3/uL Final RBC 11/21/2022 4.35 3.8 - 5.20 10*6/uL Final Hemoglobin 11/21/2022 13.9 11.7 - 16.0 g/dL Final Hematocrit 11/21/2022 39.6 35.0 - 47.0 % Final MCV 11/21/2022 91.0 80.0 - 98.0 fL Final MCH 11/21/2022 32.0 26.0 - 34.0 pg Final MCHC 11/21/2022 35.1 32.0 - 36.0 % Final RDW 11/21/2022 13.5 11.5 - 14.5 % Final Platelets 11/21/2022 193 140 - 440 10*3/uL Final MPV 11/21/2022 10.0 7.4 - 12.4 fL Final MPV is a calculated measurement using platelet volume ratio Neutrophils Relative 11/21/2022 61.0 40.0 - 80.0 % Final Lymphocytes Relative 11/21/2022 10.5 (L) 20.0 - 40.0 % Final Monocytes Relative 11/21/2022 10.0 2.0 - 10.0 % Final Eosinophils Relative 11/21/2022 17.7 (H) 1.0 - 6.0 % Final Basophils Relative 11/21/2022 0.4 0.0 - 2.0 % Final Immature Grans % 11/21/2022 0.4 (H) <=0.0 % Final Neutrophils Absolute 11/21/2022 4.1 1.8 - 7.0 10*3/uL Final Lymphocytes Absolute 11/21/2022 0.7 (L) 1.0 - 4.3 10*3/uL Final Monocytes Absolute 11/21/2022 0.7 0.0 - 0.8 10*3/uL Final Eosinophils Absolute 11/21/2022 1.2 (H) 0.0 - 0.5 10*3/uL Final Basophils Absolute 11/21/2022 0.0 0.0 - 0.2 10*3/uL Final Immature Grans Absolute 11/21/2022 0.0 <=0.0 10*3/uL Final Infusion on 11/13/2022 Component Date Value Ref Range Status Auto WBC 11/13/2022 6.9 3.6 - 10.7 10*3/uL Final RBC 11/13/2022 4.51 3.8 - 5.20 10*6/uL Final Hemoglobin 11/13/2022 14.2 11.7 - 16.0 g/dL Final Hematocrit 11/13/2022 41.8 35.0 - 47.0 % Final MCV 11/13/2022 92.7 80.0 - 98.0 fL Final MCH 11/13/2022 31.5 26.0 - 34.0 pg Final MCHC 11/13/2022 34.0 32.0 - 36.0 % Final RDW 11/13/2022 13.5 11.5 - 14.5 % Final Platelets 11/13/2022 221 140 - 440 10*3/uL Final MPV 11/13/2022 9.7 7.4 - 12.4 fL Final MPV is a calculated measurement using platelet volume ratio Neutrophils Relative 11/13/2022 68.2 40.0 - 80.0 % Final Lymphocytes Relative 11/13/2022 8.5 (L) 20.0 - 40.0 % Final Monocytes Relative 11/13/2022 7.6 2.0 - 10.0 % Final Eosinophils Relative 11/13/2022 15.0 (H) 1.0 - 6.0 % Final Basophils Relative 11/13/2022 0.6 0.0 - 2.0 % Final Immature Grans % 11/13/2022 0.1 (H) <=0.0 % Final Neutrophils Absolute 11/13/2022 4.7 1.8 - 7.0 10*3/uL Final Lymphocytes Absolute 11/13/2022 0.6 (L) 1.0 - 4.3 10*3/uL Final Monocytes Absolute 11/13/2022 0.5 0.0 - 0.8 10*3/uL Final Eosinophils Absolute 11/13/2022 1.0 (H) 0.0 - 0.5 10*3/uL Final Basophils Absolute 11/13/2022 0.0 0.0 - 0.2 10*3/uL Final Immature Grans Absolute 11/13/2022 0.0 <=0.0 10*3/uL Final SODIUM 11/13/2022 140 135 - 145 mmol/L Final POTASSIUM 11/13/2022 4.1 3.5 - 5.1 mmol/L Final CHLORIDE 11/13/2022 107 98 - 107 mmol/L Final CARBON DIOXIDE 11/13/2022 29 22 - 30 mmol/L Final ANION GAP 11/13/2022 4 3 - 13 mmol/L Final UREA NITROGEN 11/13/2022 19 (H) 7 - 17 mg/dL Final CREATININE 11/13/2022 0.80 0.52 - 1.04 mg/dL Final GLUCOSE 11/13/2022 114 (H) 70 - 100 mg/dL Final CALCIUM 11/13/2022 9.3 8.4 - 10.4 mg/dL Final AST (SGOT) 11/13/2022 36 15 - 46 U/L Final ALT 11/13/2022 17 0 - 34 U/L Final ALKALINE PHOSPHATASE 11/13/2022 105 38 - 126 U/L Final ALBUMIN 11/13/2022 4.2 3.5 - 5.0 g/dL Final BILIRUBIN, TOTAL 11/13/2022 0.5 0.2 - 1.3 mg/dL Final TOTAL PROTEIN 11/13/2022 6.6 6.3 - 8.2 g/dL Final eGFR 11/13/2022 71.4 >60.0 mL/min/1.73m*2 Final Calculation based on the Chronic Kidney Disease Epidemiology Collaboration (CKD-EPI) equation refit without adjustment for race Infusion on 11/06/2022 Component Date Value Ref Range Status Auto WBC 11/06/2022 5.8 3.6 - 10.7 10*3/uL Final RBC 11/06/2022 4.25 3.8 - 5.20 10*6/uL Final Hemoglobin 11/06/2022 13.4 11.7 - 16.0 g/dL Final Hematocrit 11/06/2022 39.3 35.0 - 47.0 % Final MCV 11/06/2022 92.5 80.0 - 98.0 fL Final MCH 11/06/2022 31.5 26.0 - 34.0 pg Final MCHC 11/06/2022 34.1 32.0 - 36.0 % Final RDW 11/06/2022 13.3 11.5 - 14.5 % Final Platelets 11/06/2022 240 140 - 440 10*3/uL Final MPV 11/06/2022 9.4 7.4 - 12.4 fL Final MPV is a calculated measurement using platelet volume ratio Neutrophils Relative 11/06/2022 68.0 40.0 - 80.0 % Final Lymphocytes Relative 11/06/2022 9.8 (L) 20.0 - 40.0 % Final Monocytes Relative 11/06/2022 8.9 2.0 - 10.0 % Final Eosinophils Relative 11/06/2022 12.5 (H) 1.0 - 6.0 % Final Basophils Relative 11/06/2022 0.5 0.0 - 2.0 % Final Immature Grans % 11/06/2022 0.3 (H) <=0.0 % Final Neutrophils Absolute 11/06/2022 4.0 1.8 - 7.0 10*3/uL Final Lymphocytes Absolute 11/06/2022 0.6 (L) 1.0 - 4.3 10*3/uL Final Monocytes Absolute 11/06/2022 0.5 0.0 - 0.8 10*3/uL Final Eosinophils Absolute 11/06/2022 0.7 (H) 0.0 - 0.5 10*3/uL Final Basophils Absolute 11/06/2022 0.0 0.0 - 0.2 10*3/uL Final Immature Grans Absolute 11/06/2022 0.0 <=0.0 10*3/uL Final SODIUM 11/06/2022 138 135 - 145 mmol/L Final POTASSIUM 11/06/2022 4.0 3.5 - 5.1 mmol/L Final CHLORIDE 11/06/2022 109 (H) 98 - 107 mmol/L Final CARBON DIOXIDE 11/06/2022 27 22 - 30 mmol/L Final ANION GAP 11/06/2022 2 (L) 3 - 13 mmol/L Final UREA NITROGEN 11/06/2022 18 (H) 7 - 17 mg/dL Final CREATININE 11/06/2022 0.78 0.52 - 1.04 mg/dL Final GLUCOSE 11/06/2022 122 (H) 70 - 100 mg/dL Final CALCIUM 11/06/2022 9.2 8.4 - 10.4 mg/dL Final AST (SGOT) 11/06/2022 36 15 - 46 U/L Final ALT 11/06/2022 18 0 - 34 U/L Final ALKALINE PHOSPHATASE 11/06/2022 93 38 - 126 U/L Final ALBUMIN 11/06/2022 4.0 3.5 - 5.0 g/dL Final BILIRUBIN, TOTAL 11/06/2022 0.5 0.2 - 1.3 mg/dL Final TOTAL PROTEIN 11/06/2022 6.5 6.3 - 8.2 g/dL Final eGFR 11/06/2022 73.6 >60.0 mL/min/1.73m*2 Final Calculation based on the Chronic Kidney Disease Epidemiology Collaboration (CKD-EPI) equation refit without adjustment for race Infusion on 10/29/2022 Component Date Value Ref Range Status Auto WBC 10/29/2022 5.8 3.6 - 10.7 10*3/uL Final RBC 10/29/2022 4.23 3.8 - 5.20 10*6/uL Final Hemoglobin 10/29/2022 13.3 11.7 - 16.0 g/dL Final Hematocrit 10/29/2022 39.0 35.0 - 47.0 % Final MCV 10/29/2022 92.2 80.0 - 98.0 fL Final MCH 10/29/2022 31.4 26.0 - 34.0 pg Final MCHC 10/29/2022 34.1 32.0 - 36.0 % Final RDW 10/29/2022 13.5 11.5 - 14.5 % Final Platelets 10/29/2022 174 140 - 440 10*3/uL Final MPV 10/29/2022 9.5 7.4 - 12.4 fL Final MPV is a calculated measurement using platelet volume ratio Neutrophils Relative 10/29/2022 75.4 40.0 - 80.0 % Final Lymphocytes Relative 10/29/2022 8.6 (L) 20.0 - 40.0 % Final Monocytes Relative 10/29/2022 8.1 2.0 - 10.0 % Final Eosinophils Relative 10/29/2022 7.0 (H) 1.0 - 6.0 % Final Basophils Relative 10/29/2022 0.7 0.0 - 2.0 % Final Immature Grans % 10/29/2022 0.2 (H) <=0.0 % Final Neutrophils Absolute 10/29/2022 4.4 1.8 - 7.0 10*3/uL Final Lymphocytes Absolute 10/29/2022 0.5 (L) 1.0 - 4.3 10*3/uL Final Monocytes Absolute 10/29/2022 0.5 0.0 - 0.8 10*3/uL Final Eosinophils Absolute 10/29/2022 0.4 0.0 - 0.5 10*3/uL Final Basophils Absolute 10/29/2022 0.0 0.0 - 0.2 10*3/uL Final Immature Grans Absolute 10/29/2022 0.0 <=0.0 10*3/uL Final SODIUM 10/29/2022 138 135 - 145 mmol/L Final POTASSIUM 10/29/2022 4.1 3.5 - 5.1 mmol/L Final CHLORIDE 10/29/2022 109 (H) 98 - 107 mmol/L Final CARBON DIOXIDE 10/29/2022 27 22 - 30 mmol/L Final ANION GAP 10/29/2022 3 3 - 13 mmol/L Final UREA NITROGEN 10/29/2022 15 7 - 17 mg/dL Final CREATININE 10/29/2022 0.73 0.52 - 1.04 mg/dL Final GLUCOSE 10/29/2022 133 (H) 70 - 100 mg/dL Final CALCIUM 10/29/2022 9.0 8.4 - 10.4 mg/dL Final AST (SGOT) 10/29/2022 32 15 - 46 U/L Final ALT 10/29/2022 16 0 - 34 U/L Final ALKALINE PHOSPHATASE 10/29/2022 94 38 - 126 U/L Final ALBUMIN 10/29/2022 3.9 3.5 - 5.0 g/dL Final BILIRUBIN, TOTAL 10/29/2022 0.7 0.2 - 1.3 mg/dL Final TOTAL PROTEIN 10/29/2022 6.2 (L) 6.3 - 8.2 g/dL Final eGFR 10/29/2022 79.7 >60.0 mL/min/1.73m*2 Final Calculation based on the Chronic Kidney Disease Epidemiology Collaboration (CKD-EPI) equation refit without adjustment for race Tissue exam: [id number] Order: [id number] Collected 08/15/2022 13:32 Status: Edited Result - FINAL Visible to patient: Yes (not seen) Dx: Neck mass; Chronic lymphadenitis, exc... 0 Result Notes Component Addendum Please see [employer] Accession/Case No: [id number] for Low Grade/Small B Cell Lymphoma FISH results ordered by Dr. Wagner Perry. The results have been scanned. Addendum electronically signed by Jessica Marshall MD on 09/10/2022 at 2311 Final Diagnosis A. LYMPH NODE, RIGHT CERVICAL, BIOPSY: - LOW GRADE B-CELL LYMPHOMA (CD5-, CD 10-) INVOLVING SKIN AND SOFT TISSUE. B. LYMPH NODE, RIGHT CERVICAL, RPMI SPECIMEN: - LOW GRADE B-CELL LYMPHOMA (CD5-, CD 10-) WITH KAPPA LIGHT CHAIN RESTRICTION. at 0939 Comment Low grade B-cell lymphoma FISH studies are pending for further evaluation of the lymphoid population.Systemic work-up is also recommended for further evaluation to determine if the process is localized or demonstrates involvement by lymph nodes or bone marrow in other locations. If a localized process, differential diagnostic considerations include primary follicular center cell lymphoma of the skin and primary cutaneous marginal zone lymphoma. 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 Please correlate with the pending FISH testing and additional clinical work-up. Microscopic Description Microscopic sections demonstrate a diffuse, expanded population of lymphocytes involving skin and soft tissue in a dense, nodular pattern. Definitive lymph node architecture is not histologically identifiable. Special Stains Immunohistochemical staining was performed with adequate controls in order to further evaluate the lymphoid population. The stains demonstrate a B-cell predominant population which expresses CD20, CD79a, partial Bcl-2, weak BCL6 in proliferation centers. Ki-67 is variable areas of high proliferation (50-80%) and proliferation centers and lower proliferation in other areas. CD3 and CD5 demonstrate rare interstitial T cells. Cyclin D1, CD34, ALK1, CD30, and EBV ZEE are negative. CD138 and mum 1 do not demonstrate a significant plasma cell population. [place] and lambda ZEE demonstrate a kappa predominant staining in a blush like pattern. Imaging Reviewed: PET/CT head to toe Narrative: Patient Name: ASHLEY PAPPAS : 1935 [facility]#: [id number] Exam Date/Time: 10/14/2022 08:50 Procedure: PET/CT HEAD TO TOE Ordering Provider: DEMARCO TERESA Reason For Exam: Hematologic malignancy, staging PET/CT CLINICAL INDICATION: Follicular lymphoma, initial staging Following the intravenous administration of 11.8 mCi of fluorine-18 fluorodeoxyglucose (FDG) a PET scan of the whole body was acquired after an approximately one hour delay. Blood glucose level at the time of injection was 100 mg/dl. Contemporaneously, noncontrast axial CT images were obtained using low dose technique. The images were reconstructed in three orthogonal planes and digitally coregistered. The CT data was used for attenuation correction as well. Dose reduction was employed with automated exposure control. COMPARISON: CT neck dated 11/14/2021 HEAD, NECK AND CHEST: There is a bulky right parotid mass which demonstrates intense FDG uptake (maximal SUV 13), consistent with the patient's known malignancy (Deauville score 5/5). Multifocal areas of intense FDG accumulation are also noted within numerous bilateral cervical chain lymph nodes extending into the left and right supraclavicular fossa, consistent with malignancy. Diffuse intense FDG uptake (maximal SUV 8) is noted within the right temporal and left parieto-occipital scalp, corresponding to skin thickening on the low-dose CT images, consistent with malignancy. FDG PET images of the brain are grossly unremarkable. Within the chest, there is abnormal FDG accumulation (maximal SUV 6) within borderline enlarged left and right axillary chain lymph nodes, consistent with malignancy. There is also abnormal FDG accumulation within a borderline enlarged left internal mammary chain lymph node. No FDG avid pulmonary nodules are identified. ABDOMEN AND PELVIS: The spleen is mildly enlarged on the low-dose CT images and demonstrates moderate, diffuse FDG uptake (maximal SUV 4). No focal intensely FDG avid splenic lesions are seen. No FDG avid lymphadenopathy is seen within the abdomen or pelvis. MUSCULOSKELETAL: There are several foci of moderately intense FDG accumulation within the bony structures of the lower extremities, largest of which is located within the right mid tibial diaphysis (maximal to be 8.9). Additional smaller areas of more moderate uptake are noted within the left and right femurs, inferior aspect of the left tibia, and superior margin of the right talus. Impression: Bulky, intensely FDG avid right parotid mass, consistent with the patient's known malignancy (Deauville score 5/5). There is also abnormal FDG accumulation within bilateral cervical chain, supraclavicular, axillary, and left internal mammary lymph nodes consistent with lymphoma. Intense FDG accumulation within the right temporal and left temporal occipital scalp is consistent with malignancy. Mild splenomegaly is noted on the low-dose CT images. There is moderate, diffuse increased FDG accumulation within the spleen (Deauville score 4/5). The intensity of uptake is suspicious for lymphomatous involvement. Moderately intense FDG accumulation within the bones of the lower extremities as described above. Largest area of abnormal FDG accumulation is noted within the right tibial diaphysis. The intensity of uptake is suspicious for osseous metastatic disease. Contrast-enhanced MRI may be helpful for confirmation. Report Dictated on Electronically Signed By: Tonio Lopes Electronically Signed Date/Time: 10/15/2022 9:35 AM EDT - I have reviewed all available pertinent laboratory, imaging and pathology results with the patient and/or family members today. Assessment/Plan: Diagnosis Plan 1. 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 NCCN guidelines were reviewed. - systemic therapy with rituxan weekly x 4 cycles is recommended. Today is cycle 4 of 4. Potential side effects and anticipated benefits of Rituxan were reviewed with the patient and they agreed to proceed with treatment. See chemo orders for dosing. She is having an excellent response to treatment thus far. Continue to monitor. Supportive care. - consolidative radiation can also be considered - consider CT scan to assess response to treatment All questions were answered to the satisfaction of the patient and/or family. Return to office in 2 weeks, or sooner if worrisome signs/symptoms arise. Kleber Demarco DO Hematology/Medical Oncology documented in this encounter [facility] 11-21-2022 History of Presen t illness Narrative ARRIVAL NOTE INFUSION Patient is here for chemotherapy and lab draw Labs were drawn via peripheral IV 1235 Patient tolerated Rituximab infusion well. No IV related complications. Reviewed home going instructions. Patient understands s/sx adverse reaction or complication to report to MD office. Patient denies questions or concerns. She has a follow up appt with Dr. Demarco in 2 weeks. documented in this encounter [facility] 11-13-2022 History of Presen t illness Narrative Arrival Note Infusion Patient is here for chemotherapy and lab draw Labs were drawn via peripheral IV. CBC and CMP drawn off of right forearm PIV. 1315 Ordered treatment completed. Patient discharged without any issues. Patient has a copy of next infusion appointment and verbalizes understanding. All questions answered. documented in this encounter [facility] 11-06-2022 History of Presen t illness Narrative Hematology/Oncology Office Visit Oncology History: 1) 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 Diagnosed via excisional right cervical lymph node biopsy on 08/15/22. - Patient presented with 2-3 years af an abnormal lymph node posterior right neck and enlargement of the right parotid gland. She denies any B symptoms. Excisional biopsy of a right posterior cervical lymph node on 08/15/22 confirmed follicular lymphoma low grade. - PET scan 10/11/22 showed bulky intensely FDG avid right parotid mass, with accumulation in the bilateral cervical chain, supraclavicular, axillary, and left internal mammary nodes, right temporal and left temporal occipital scalp, mild splenomegaly, and in the bones of the lower extremity. - systemic therapy with Rituxan weekly x 4 started 10/30/22 HPI: Ashley Pappas is a 87 y.o. female who comes in today for cycle 2 of 4 of weekly Rituxan. She tolerated the first cycle as expected. The right parotid mass feels about the same, but she has noticed that her right ear feels 'less full' and she feels her sinuses have opened up. There is less ear pain as well. She denies any fevers, weight loss, change in appetite, night sweats. She continues to be very active and independent. She is accompanied by her daughter today. Past Medical History: Diagnosis Date Aortic valve stenosis 10/03/2022 Cystocele with uterine prolapse [address] Family history of colon cancer Follicular lymphoma (HCC) 10/03/[address] Fu Hypertension Lumbar disc disease Primary hypertension 10/03/2022 Right thyroid nodule [address] Dr. Perry and FNA- no changes 2020 Past Surgical History: Procedure Laterality Date ACHILLES TENDON SURGERY APPENDECTOMY BUNIONECTOMY CARPAL TUNNEL RELEASE CATARACT EXTRACTION Bilateral 2010 Dr. Fu- trabelectomy also COLONOSCOPY COLONOSCOPY 2010 LUMBAR LAMINECTOMY 2002 STRESS TEST, LEXISCAN (HISTORICAL) TOTAL KNEE ARTHROPLASTY Left 1994 UPPER GASTROINTESTINAL ENDOSCOPY Patient Active Problem List Diagnosis Date Noted Aortic valve stenosis 10/03/2022 Primary hypertension 10/03/2022 Follicular lymphoma (HCC) 10/03/2022 Social History Tobacco Use Smoking status: Never Smokeless tobacco: Never Vaping Use Vaping Use: Never used Substance Use Topics Alcohol use: No Drug use: Never Family History Problem Relation Name Age of Onset No Known Problems Brother Other ([id number]) Mother 30.00 DVT and PE Colon cancer Sister 70 No Known Problems Sister nonspecific causes No Known Problems Brother No Known Problems Father unknown No Known Problems Brother No Known Allergies Current Outpatient Medications Medication Sig Dispense Refill aspirin EC 81 MG EC tablet Take 81 mg by mouth daily. Combigan 0.2-0.5 % ophthalmic solution Administer 1 drop into the left eye in the morning and 1 drop in the evening. labetalol (Normodyne) 100 MG tablet Take 1 tablet (100 mg) by mouth 2 times daily. 180 tablet 1 latanoprost (Xalatan) 0.005 % ophthalmic solution Administer 1 drop into the left eye Nightly. MELATONIN PO Take by mouth. Multiple Vitamin (Multi-Vitamin Daily) tablet Take 1 tablet by mouth daily. ondansetron (Zofran) 8 MG tablet Take 1 tablet (8 mg) by mouth every 8 hours as needed for nausea or vomiting for up to 15 days. 30 tablet 0 No current facility-administered medications for this visit. Facility-Administered Medications Ordered in Other Visits Medication Dose Route Frequency Provider Last Rate Last Admin acetaminophen (Tylenol) tablet 650 mg 650 mg Oral Once Kleber E Dav, DO diphenhydrAMINE (BENADryl) 25 mg, famotidine (Pepcid) 20 mg in sodium chloride 0.9 % 50 mL IVPB IntraVENous Once Kleber E Dav, DO riTUXimab-pvvr (Ruxience) 600 mg in sodium chloride 0.9 % 500 mL chemo IVPB 600 mg IntraVENous Once Kleber E Dav, DO sodium chloride 0.9 % infusion 5-250 mL/hr IntraVENous Once PRN Kleber E Dav, DO Review of Systems Constitutional: Negative for appetite change, chills, diaphoresis, fatigue, fever and unexpected weight change. HENT: Negative for dental problem, mouth sores, nosebleeds, sneezing, sore throat, tinnitus, trouble swallowing and voice change. Eyes: Negative for photophobia, pain and visual disturbance. Respiratory: Negative for cough, shortness of breath and wheezing. Cardiovascular: Negative for chest pain, palpitations and leg swelling. Gastrointestinal: Negative for abdominal distention, abdominal pain, blood in stool, constipation, diarrhea, nausea and vomiting. Endocrine: Negative for cold intolerance and heat intolerance. Genitourinary: Negative for difficulty urinating, frequency, hematuria and urgency. Musculoskeletal: Negative for arthralgias, back pain, gait problem and myalgias. Skin: Negative for pallor and rash. Allergic/Immunologic: Negative for immunocompromised state. Neurological: Negative for dizziness, syncope, weakness, light-headedness, numbness and headaches. Hematological: Negative for adenopathy. Does not bruise/bleed easily. Psychiatric/Behavioral: Negative for confusion and sleep disturbance. The patient is not nervous/anxious. All other systems reviewed and are negative. Vitals: 11/06/22 0802 BP: (!) 166/58 BP Location: Right arm Patient Position: Sitting Pulse: 66 Temp: 98.8 F (37.1 C) TempSrc: Temporal SpO2: 97% Weight: 141 lb 9.6 oz (64.2 kg) Height: 5' 3" (1.6 m) ECOG PS = 1-2 Physical Exam Vitals and nursing note reviewed. Constitutional: General: She is not in acute distress. Appearance: Normal appearance. She is not ill-appearing. HENT: Head: Normocephalic and atraumatic. Salivary Glands: Right salivary gland is diffusely enlarged. Left salivary gland is not diffusely enlarged. Nose: Nose normal. Mouth/Throat: Pharynx: Oropharynx is clear. No oropharyngeal exudate or posterior oropharyngeal erythema. Eyes: General: No scleral icterus. Extraocular Movements: Extraocular movements intact. Conjunctiva/sclera: Conjunctivae normal. Pupils: Pupils are equal, round, and reactive to light. Cardiovascular: Rate and Rhythm: Normal rate and regular rhythm. Heart sounds: Normal heart sounds. No murmur heard. Pulmonary: Effort: Pulmonary effort is normal. No respiratory distress. Breath sounds: Normal breath sounds. No wheezing. Abdominal: General: Abdomen is flat. Bowel sounds are normal. There is no distension. Palpations: Abdomen is soft. There is no mass. Tenderness: There is no abdominal tenderness. There is no guarding. Musculoskeletal: General: No swelling or tenderness. Normal range of motion. Cervical back: Normal range of motion and neck supple. Right lower leg: No edema. Left lower leg: No edema. Lymphadenopathy: Cervical: Cervical adenopathy present. Right cervical: Posterior cervical adenopathy present. No superficial or deep cervical adenopathy. Left cervical: No superficial, deep or posterior cervical adenopathy. Upper Body: Right upper body: No supraclavicular, axillary or pectoral adenopathy. Left upper body: No supraclavicular, axillary or pectoral adenopathy. Lower Body: No right inguinal adenopathy. No left inguinal adenopathy. Skin: General: Skin is warm and dry. Findings: No bruising or rash. Neurological: General: No focal deficit present. Mental Status: She is alert and oriented to person, place, and time. Mental status is at baseline. Psychiatric: Mood and Affect: Mood normal. Thought Content: Thought content normal. Imaging/Labs: Infusion on 11/06/2022 Component Date Value Ref Range Status Auto WBC 11/06/2022 5.8 3.6 - 10.7 10*3/uL Final RBC 11/06/2022 4.25 3.8 - 5.20 10*6/uL Final Hemoglobin 11/06/2022 13.4 11.7 - 16.0 g/dL Final Hematocrit 11/06/2022 39.3 35.0 - 47.0 % Final MCV 11/06/2022 92.5 80.0 - 98.0 fL Final MCH 11/06/2022 31.5 26.0 - 34.0 pg Final MCHC 11/06/2022 34.1 32.0 - 36.0 % Final RDW 11/06/2022 13.3 11.5 - 14.5 % Final Platelets 11/06/2022 240 140 - 440 10*3/uL Final MPV 11/06/2022 9.4 7.4 - 12.4 fL Final MPV is a calculated measurement using platelet volume ratio Neutrophils Relative 11/06/2022 68.0 40.0 - 80.0 % Final Lymphocytes Relative 11/06/2022 9.8 (L) 20.0 - 40.0 % Final Monocytes Relative 11/06/2022 8.9 2.0 - 10.0 % Final Eosinophils Relative 11/06/2022 12.5 (H) 1.0 - 6.0 % Final Basophils Relative 11/06/2022 0.5 0.0 - 2.0 % Final Immature Grans % 11/06/2022 0.3 (H) <=0.0 % Final Neutrophils Absolute 11/06/2022 4.0 1.8 - 7.0 10*3/uL Final Lymphocytes Absolute 11/06/2022 0.6 (L) 1.0 - 4.3 10*3/uL Final Monocytes Absolute 11/06/2022 0.5 0.0 - 0.8 10*3/uL Final Eosinophils Absolute 11/06/2022 0.7 (H) 0.0 - 0.5 10*3/uL Final Basophils Absolute 11/06/2022 0.0 0.0 - 0.2 10*3/uL Final Immature Grans Absolute 11/06/2022 0.0 <=0.0 10*3/uL Final SODIUM 11/06/2022 138 135 - 145 mmol/L Final POTASSIUM 11/06/2022 4.0 3.5 - 5.1 mmol/L Final CHLORIDE 11/06/2022 109 (H) 98 - 107 mmol/L Final CARBON DIOXIDE 11/06/2022 27 22 - 30 mmol/L Final ANION GAP 11/06/2022 2 (L) 3 - 13 mmol/L Final UREA NITROGEN 11/06/2022 18 (H) 7 - 17 mg/dL Final CREATININE 11/06/2022 0.78 0.52 - 1.04 mg/dL Final GLUCOSE 11/06/2022 122 (H) 70 - 100 mg/dL Final CALCIUM 11/06/2022 9.2 8.4 - 10.4 mg/dL Final AST (SGOT) 11/06/2022 36 15 - 46 U/L Final ALT 11/06/2022 18 0 - 34 U/L Final ALKALINE PHOSPHATASE 11/06/2022 93 38 - 126 U/L Final ALBUMIN 11/06/2022 4.0 3.5 - 5.0 g/dL Final BILIRUBIN, TOTAL 11/06/2022 0.5 0.2 - 1.3 mg/dL Final TOTAL PROTEIN 11/06/2022 6.5 6.3 - 8.2 g/dL Final eGFR 11/06/2022 73.6 >60.0 mL/min/1.73m*2 Final Calculation based on the Chronic Kidney Disease Epidemiology Collaboration (CKD-EPI) equation refit without adjustment for race Infusion on 10/29/2022 Component Date Value Ref Range Status Auto WBC 10/29/2022 5.8 3.6 - 10.7 10*3/uL Final RBC 10/29/2022 4.23 3.8 - 5.20 10*6/uL Final Hemoglobin 10/29/2022 13.3 11.7 - 16.0 g/dL Final Hematocrit 10/29/2022 39.0 35.0 - 47.0 % Final MCV 10/29/2022 92.2 80.0 - 98.0 fL Final MCH 10/29/2022 31.4 26.0 - 34.0 pg Final MCHC 10/29/2022 34.1 32.0 - 36.0 % Final RDW 10/29/2022 13.5 11.5 - 14.5 % Final Platelets 10/29/2022 174 140 - 440 10*3/uL Final MPV 10/29/2022 9.5 7.4 - 12.4 fL Final MPV is a calculated measurement using platelet volume ratio Neutrophils Relative 10/29/2022 75.4 40.0 - 80.0 % Final Lymphocytes Relative 10/29/2022 8.6 (L) 20.0 - 40.0 % Final Monocytes Relative 10/29/2022 8.1 2.0 - 10.0 % Final Eosinophils Relative 10/29/2022 7.0 (H) 1.0 - 6.0 % Final Basophils Relative 10/29/2022 0.7 0.0 - 2.0 % Final Immature Grans % 10/29/2022 0.2 (H) <=0.0 % Final Neutrophils Absolute 10/29/2022 4.4 1.8 - 7.0 10*3/uL Final Lymphocytes Absolute 10/29/2022 0.5 (L) 1.0 - 4.3 10*3/uL Final Monocytes Absolute 10/29/2022 0.5 0.0 - 0.8 10*3/uL Final Eosinophils Absolute 10/29/2022 0.4 0.0 - 0.5 10*3/uL Final Basophils Absolute 10/29/2022 0.0 0.0 - 0.2 10*3/uL Final Immature Grans Absolute 10/29/2022 0.0 <=0.0 10*3/uL Final SODIUM 10/29/2022 138 135 - 145 mmol/L Final POTASSIUM 10/29/2022 4.1 3.5 - 5.1 mmol/L Final CHLORIDE 10/29/2022 109 (H) 98 - 107 mmol/L Final CARBON DIOXIDE 10/29/2022 27 22 - 30 mmol/L Final ANION GAP 10/29/2022 3 3 - 13 mmol/L Final UREA NITROGEN 10/29/2022 15 7 - 17 mg/dL Final CREATININE 10/29/2022 0.73 0.52 - 1.04 mg/dL Final GLUCOSE 10/29/2022 133 (H) 70 - 100 mg/dL Final CALCIUM 10/29/2022 9.0 8.4 - 10.4 mg/dL Final AST (SGOT) 10/29/2022 32 15 - 46 U/L Final ALT 10/29/2022 16 0 - 34 U/L Final ALKALINE PHOSPHATASE 10/29/2022 94 38 - 126 U/L Final ALBUMIN 10/29/2022 3.9 3.5 - 5.0 g/dL Final BILIRUBIN, TOTAL 10/29/2022 0.7 0.2 - 1.3 mg/dL Final TOTAL PROTEIN 10/29/2022 6.2 (L) 6.3 - 8.2 g/dL Final eGFR 10/29/2022 79.7 >60.0 mL/min/1.73m*2 Final Calculation based on the Chronic Kidney Disease Epidemiology Collaboration (CKD-EPI) equation refit without adjustment for race Tissue exam: [id number] Order: [id number] Collected 08/15/2022 13:32 Status: Edited Result - FINAL Visible to patient: Yes (not seen) Dx: Neck mass; Chronic lymphadenitis, exc... 0 Result Notes Component Addendum Please see [employer] Accession/Case No: [id number] for Low Grade/Small B Cell Lymphoma FISH results ordered by Dr. Wagner Perry. The results have been scanned. Addendum electronically signed by Jessica Marshall MD on 09/10/2022 at 2311 Final Diagnosis A. LYMPH NODE, RIGHT CERVICAL, BIOPSY: - LOW GRADE B-CELL LYMPHOMA (CD5-, CD 10-) INVOLVING SKIN AND SOFT TISSUE. B. LYMPH NODE, RIGHT CERVICAL, RPMI SPECIMEN: - LOW GRADE B-CELL LYMPHOMA (CD5-, CD 10-) WITH KAPPA LIGHT CHAIN RESTRICTION. at 0939 Comment Low grade B-cell lymphoma FISH studies are pending for further evaluation of the lymphoid population.Systemic work-up is also recommended for further evaluation to determine if the process is localized or demonstrates involvement by lymph nodes or bone marrow in other locations. If a localized process, differential diagnostic considerations include primary follicular center cell lymphoma of the skin and primary cutaneous marginal zone lymphoma. 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 Please correlate with the pending FISH testing and additional clinical work-up. Microscopic Description Microscopic sections demonstrate a diffuse, expanded population of lymphocytes involving skin and soft tissue in a dense, nodular pattern. Definitive lymph node architecture is not histologically identifiable. Special Stains Immunohistochemical staining was performed with adequate controls in order to further evaluate the lymphoid population. The stains demonstrate a B-cell predominant population which expresses CD20, CD79a, partial Bcl-2, weak BCL6 in proliferation centers. Ki-67 is variable areas of high proliferation (50-80%) and proliferation centers and lower proliferation in other areas. CD3 and CD5 demonstrate rare interstitial T cells. Cyclin D1, CD34, ALK1, CD30, and EBV ZEE are negative. CD138 and mum 1 do not demonstrate a significant plasma cell population. [place] and lambda ZEE demonstrate a kappa predominant staining in a blush like pattern. Imaging Reviewed: PET/CT head to toe Narrative: Patient Name: ASHLEY PAPPAS : 1935 Exam Date/Time: 10/14/2022 08:50 Procedure: PET/CT HEAD TO TOE Ordering Provider: DEMARCO TERESA Reason For Exam: Hematologic malignancy, staging PET/CT CLINICAL INDICATION: Follicular lymphoma, initial staging Following the intravenous administration of 11.8 mCi of fluorine-18 fluorodeoxyglucose (FDG) a PET scan of the whole body was acquired after an approximately one hour delay. Blood glucose level at the time of injection was 100 mg/dl. Contemporaneously, noncontrast axial CT images were obtained using low dose technique. The images were reconstructed in three orthogonal planes and digitally coregistered. The CT data was used for attenuation correction as well. Dose reduction was employed with automated exposure control. COMPARISON: CT neck dated 11/14/2021 HEAD, NECK AND CHEST: There is a bulky right parotid mass which demonstrates intense FDG uptake (maximal SUV 13), consistent with the patient's known malignancy (Deauville score 5/5). Multifocal areas of intense FDG accumulation are also noted within numerous bilateral cervical chain lymph nodes extending into the left and right supraclavicular fossa, consistent with malignancy. Diffuse intense FDG uptake (maximal SUV 8) is noted within the right temporal and left parieto-occipital scalp, corresponding to skin thickening on the low-dose CT images, consistent with malignancy. FDG PET images of the brain are grossly unremarkable. Within the chest, there is abnormal FDG accumulation (maximal SUV 6) within borderline enlarged left and right axillary chain lymph nodes, consistent with malignancy. There is also abnormal FDG accumulation within a borderline enlarged left internal mammary chain lymph node. No FDG avid pulmonary nodules are identified. ABDOMEN AND PELVIS: The spleen is mildly enlarged on the low-dose CT images and demonstrates moderate, diffuse FDG uptake (maximal SUV 4). No focal intensely FDG avid splenic lesions are seen. No FDG avid lymphadenopathy is seen within the abdomen or pelvis. MUSCULOSKELETAL: There are several foci of moderately intense FDG accumulation within the bony structures of the lower extremities, largest of which is located within the right mid tibial diaphysis (maximal to be 8.9). Additional smaller areas of more moderate uptake are noted within the left and right femurs, inferior aspect of the left tibia, and superior margin of the right talus. Impression: Bulky, intensely FDG avid right parotid mass, consistent with the patient's known malignancy (Deauville score 5/5). There is also abnormal FDG accumulation within bilateral cervical chain, supraclavicular, axillary, and left internal mammary lymph nodes consistent with lymphoma. Intense FDG accumulation within the right temporal and left temporal occipital scalp is consistent with malignancy. Mild splenomegaly is noted on the low-dose CT images. There is moderate, diffuse increased FDG accumulation within the spleen (Deauville score 4/5). The intensity of uptake is suspicious for lymphomatous involvement. Moderately intense FDG accumulation within the bones of the lower extremities as described above. Largest area of abnormal FDG accumulation is noted within the right tibial diaphysis. The intensity of uptake is suspicious for osseous metastatic disease. Contrast-enhanced MRI may be helpful for confirmation. Report Dictated on Electronically Signed By: Tonio Lopes Electronically Signed Date/Time: 10/15/2022 9:35 AM EDT - I have reviewed all available pertinent laboratory, imaging and pathology results with the patient and/or family members today. Assessment/Plan: Diagnosis Plan 1. 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 NCCN guidelines were reviewed. - systemic therapy with rituxan weekly x 4 cycles is recommended. Today is cycle 2 of 4. Potential side effects and anticipated benefits of Rituxan were reviewed with the patient and they agreed to proceed with treatment. See chemo orders for dosing. She is having a partial response to treatment thus far. Continue to monitor. Supportive care. - consolidative radiation can also be considered All questions were answered to the satisfaction of the patient and/or family. Return to office for cycle 4, or sooner if worrisome signs/symptoms arise. Kleber Demarco DO Hematology/Medical Oncology documented in this encounter [facility] 11-06-2022 History of Presen t illness Narrative Arrival Note Infusion Patient is here for chemotherapy and lab draw Labs were drawn via peripheral IV. CBC and CMP drawn off of right forearm PIV 1400 Ordered treatment completed. Patient discharged without any issues. Patient has a copy of next infusion appointment and verbalizes understanding. All questions answered. documented in this encounter [facility] 09-02-2022 Telephone encount er Note no answer and no mailbox set up; tried calling daughter (Christopher) but no answer as well [facility] 09-02-2022 Miscellaneous Notes Formattin g of this note might be different from the original. no answer and no mailbox set up; tried calling daughter (Christopher) but no answer as well documented in this encounter [facility] 08-15-2022 Procedure anesthe thomas Narrative Procedure Name Responsible Anesthesiologist Anesthesia Start Time Anesthesia Stop Time right excisional biopsy of deep cervical lymph node (Right: Neck) Tiago Perez MD 08/15/22 1258 08/15/22 1404 Events Date Time Event Comment 08/15/2022 0915 AN Preop Started 1200 1258 An Start 1258 An Start Data 1258 In Room 1302 An Induction The patient was reevaluated immediately before moderate or deep sedation use and before anesthesia induction. 1304 An Intubation 1306 Anesthesia Ready 1320 Proc Start 1352 Proc Fin 1356 An Extubation - Spontaneous ventilation - Patient suctioned - Airway removed without difficulty - Spontaneous ventilation maintained 1357 an stop data 1358 Out of Room 1404 An Stop Meds Name Total lidocaine 20 mg/mL 40 mg propofol 10 mg/mL 100 mg ondansetron 2 mg/mL 4 mg phenylephrine 10 mg/mL 100 mcg dexmedetomidine 100 mcg/mL 4 mcg dexAMETHasone (Decadron) injection 4 mg/ mL 5 mg esmolol (Brevibloc) injection 20 mg ketamine 10 mg/mL 5 mg lactated Ringer's infusion 500 mL * Agents Name O2 Sevoflurane * Blood No blood administrations on file. Lines, Drains, and Airways Type Details Placement Removal Wound/Incision Incision; Neck; Anterior, Right 08/15/22 1331 by Peripheral IV Placement Date: 08/15/22; Placement Time: 104; Catheter Size: 20 G; Orientation: Distal, Posterior, Right; Location: Forearm; Site Prep: Alcohol; Local Anesth: None; Technique: Anatomical landmarks; Inserted by: DEMARCUS SOLITARIO; Insertion Attempts: 2; Patient Tolerance: Tolerated well; Removal Date: 08/15/22; Removal Time: 17508/15/22 1042 by Carolina Falcon MA 08/15/22 1751 by Automatic Discharge Provider Supraglottic Airway Placement Date: 08/15/22; Placement Time: 1305 (created via procedure documentation); Mask Ventilation: 1; Size: 3; Insertion Attempts: 1; Removal Date: 08/15/22; Removal Time: 1356 08/15/22 1305 by NELIDA Jarquin CRNA 08/15/22 1356 by NELIDA Jarquin CRNA [id number]* Addendum Note - NELIDA Jarquin CRNA - 08/15/2022 2:44 PM EDT Addendum created 08/15/22 1444 by NELIDA Jarquin CRNA Intraprocedure Meds edited, Orders acknowledged in Narrator [id number] Miscellaneous Notes* Addendum Note - NELIDA Jarquin CRNA - 08/15/2022 2:44 PM EDT Addendum created 08/15/22 1444 by NELIDA Jarquin CRNA Intraprocedure Meds edited, Orders acknowledged in Narrator * Anesthesia Discharge Note - NELIDA Jarquin CRNA - 08/15/2022 2:08 PM EDT Patient: Ashley Pappas Procedure Summary Date: 08/15/22 Room / Location: [address] Operating Room Anesthesia Start: 1258 Anesthesia Stop: 1404 Procedure: right excisional biopsy of deep cervical lymph node (Right: Neck) Diagnosis: Neck mass Chronic lymphadenitis, except mesenteric (Neck mass [R22.1]) (Chronic lymphadenitis, except mesenteric [I88.1]) Surgeons: Victorina Perry DO Responsible Provider: Tiago Perez MD Anesthesia Type: general ASA Status: 2 Anesthesia Type: general Vitals Value Taken Time BP 156/72 08/15/22 1359 Temp 36.3 C (97.3 F) 08/15/22 1359 Pulse 60 08/15/22 1359 Resp 15 08/15/22 1359 SpO2 100 % 08/15/22 1359 Anesthesia Post Evaluation Patient location during evaluation: PACU Patient participation: complete - patient participated Level of consciousness: awake and alert Pain management: satisfactory to patient Airway patency: patent Dental Injury: no Cardiovascular status: acceptable, blood pressure returned to baseline and hemodynamically stable Respiratory status: acceptable and spontaneous ventilation Hydration status: euvolemic Nausea/Vomiting: controlled No notable events documented. Patient can be discharged once all PACU criteria has been met. documented in this [facility]04-06-2023 Note* Anesthesia Discharge Note - NELIDA Jarquin CRNA - 08/15/2022 2:08 PM EDT Patient: Ashley Pappas Procedure Summary Date: 08/15/22 Room / Location: [address] Operating Room Anesthesia Start: 1258 Anesthesia Stop: 1404 Procedure: right excisional biopsy of deep cervical lymph node (Right: Neck) Diagnosis: Neck mass Chronic lymphadenitis, except mesenteric (Neck mass [R22.1]) (Chronic lymphadenitis, except mesenteric [I88.1]) Surgeons: Victorina Perry DO Responsible Provider: Tiago Perez MD Anesthesia Type: general ASA Status: 2 Anesthesia Type: general Vitals Value Taken Time BP 156/72 08/15/22 1359 Temp 36.3 C (97.3 F) 08/15/22 1359 Pulse 60 08/15/22 1359 Resp 15 08/15/22 1359 SpO2 100 % 08/15/22 1359 Anesthesia Post Evaluation Patient location during evaluation: PACU Patient participation: complete - patient participated Level of consciousness: awake and alert Pain management: satisfactory to patient Airway patency: patent Dental Injury: no Cardiovascular status: acceptable, blood pressure returned to baseline and hemodynamically stable Respiratory status: acceptable and spontaneous ventilation Hydration status: euvolemic Nausea/Vomiting: controlled No notable events documented. Patient can be discharged once all PACU criteria has been met. [id number] Anesthesiology Postoperative evaluation and management note* Anesthesia Postprocedure Evaluation - NELIDA Jarquin CRNA - 08/15/2022 2:07 PM EDT Patient: Ashley Pappas Procedure Summary Date: 08/15/22 Room / Location: [address] Operating Room Anesthesia Start: 1258 Anesthesia Stop: 1404 Procedure: right excisional biopsy of deep cervical lymph node (Right: Neck) Diagnosis: Neck mass Chronic lymphadenitis, except mesenteric (Neck mass [R22.1]) (Chronic lymphadenitis, except mesenteric [I88.1]) Surgeons: Victorina Perry DO Responsible Provider: Tiago Perez MD Anesthesia Type: general ASA Status: 2 Anesthesia Type: general Vitals Value Taken Time BP 156/72 08/15/22 1359 Temp 36.4 C (97.6 F) 08/15/22 1359 Pulse 69 08/15/22 1359 Resp 16 08/15/22 1359 SpO2 99 % 08/15/22 1359 Anesthesia Post Evaluation Patient location during evaluation: PACU Patient participation: complete - patient participated Level of consciousness: awake and alert Pain score: 0 Pain management: satisfactory to patient Multimodal analgesia pain management approach Airway patency: patent Two or more strategies used to mitigate risk of obstructive sleep apnea Cardiovascular status: acceptable and hemodynamically stable Respiratory status: acceptable Hydration status: acceptable No notable events documented. MIPS #430 PONV Patient received an inhalational anesthetic (4554F) Patient exhibits three or more risk factors for PONV (4556F) Patient received at leaset 2 prophylactic Rx PONV anti-emtic agents of different classes preop and/or intraop (G9775) MIPS # 424 Perioperative Temperature Management Anesthesia time was 60 minutes or longer (4255F) Anesthesai administered was General (inhalational or TIVA) or Neuraxial block (X0424) At least one body temperature greater than 95.8F/35.5C achieved within the 30 mins immediately prior to or the 15 minutes immediately following anesthesia end time (G9771) MIPS #477 Multimodal Pain Management Not emergent case Patient was administered multimodal pain management (two or more drugs and/or interventions excluding systemic opioids) in the periopeartive period occurring at some time between 6 hours prior to anesthesia start time until discharged from PACU (G2149) MIPS #404 Anesthesiology Smoking Abstinence The patient is not a current smoker (e.g. cigarette, cigar, pipe, e- cigarette/vaping/marijuana) If no stop here (XX404) I completed my handoff to the receiving clinician during which we: 1. Identified the patient 2. Identified the responsible provider 3. Reviewed the pertinent medical history 4. Discussed the surgical course 5. Reviewed intra-op anesthesia management and issues during anesthesia 6. Set expectations for post-procedure period 7. Allowed opportunity for questions and acknowledgement of understanding. [employer] Phone: 1(120) 446-645204-06-2023 Surgical operation note* Anesthesia Postprocedure Evaluation - NELIDA Jarquin CRNA - 08/15/2022 2:07 PM EDT Patient: Ashley Pappas Procedure Summary Date: 08/15/22 Room / Location: [address] Operating Room Anesthesia Start: 1258 Anesthesia Stop: 1404 Procedure: right excisional biopsy of deep cervical lymph node (Right: Neck) Diagnosis: Neck mass Chronic lymphadenitis, except mesenteric (Neck mass [R22.1]) (Chronic lymphadenitis, except mesenteric [I88.1]) Surgeons: Victorina Perry DO Responsible Provider: Tiago Perez MD Anesthesia Type: general ASA Status: 2 Anesthesia Type: general Vitals Value Taken Time BP 156/72 08/15/22 1359 Temp 36.4 C (97.6 F) 08/15/22 1359 Pulse 69 08/15/22 1359 Resp 16 08/15/22 1359 SpO2 99 % 08/15/22 1359 Anesthesia Post Evaluation Patient location during evaluation: PACU Patient participation: complete - patient participated Level of consciousness: awake and alert Pain score: 0 Pain management: satisfactory to patient Multimodal analgesia pain management approach Airway patency: patent Two or more strategies used to mitigate risk of obstructive sleep apnea Cardiovascular status: acceptable and hemodynamically stable Respiratory status: acceptable Hydration status: acceptable No notable events documented. MIPS #430 PONV Patient received an inhalational anesthetic (4554F) Patient exhibits three or more risk factors for PONV (4556F) Patient received at leaset 2 prophylactic Rx PONV anti-emtic agents of different classes preop and/or intraop (G9775) MIPS # 424 Perioperative Temperature Management Anesthesia time was 60 minutes or longer (4255F) Anesthesai administered was General (inhalational or TIVA) or Neuraxial block (X0424) At least one body temperature greater than 95.8F/35.5C achieved within the 30 mins immediately prior to or the 15 minutes immediately following anesthesia end time (G9771) MIPS #477 Multimodal Pain Management Not emergent case Patient was administered multimodal pain management (two or more drugs and/or interventions excluding systemic opioids) in the periopeartive period occurring at some time between 6 hours prior to anesthesia start time until discharged from PACU (G2149) MIPS #404 Anesthesiology Smoking Abstinence The patient is not a current smoker (e.g. cigarette, cigar, pipe, e- cigarette/vaping/marijuana) If no stop here (XX404) I completed my handoff to the receiving clinician during which we: 1. Identified the patient 2. Identified the responsible provider 3. Reviewed the pertinent medical history 4. Discussed the surgical course 5. Reviewed intra-op anesthesia management and issues during anesthesia 6. Set expectations for post-procedure period 7. Allowed opportunity for questions and acknowledgement of understanding. * Anesthesia Procedure Notes - NELIDA Jarquin CRNA - 08/15/2022 1:35 PM EDTAssociated Order(s): Airway Airway Date/Time: 08/15/2022 1:05 PM Urgency: scheduled Airway not difficult General Information and Staff Patient location during procedure: Procedural Performed: GRAIN CLEANER Indications and Patient Condition Indications for airway management: anesthesia Sedation level: Asleep Preoxygenated: yes Patient position: sniffing Mask difficulty assessment: 1 - vent by mask Final Airway Details Final airway type: supraglottic airway Successful airway: Igel Size 3 Number of attempts at approach: 1 Number of other approaches attempted: 0 * Anesthesia Preprocedure Evaluation - Raymundo Berumen MD - 08/08/2022 2:33 PM EDT Patient: Ashley Pappas Procedure Information Date/Time: 08/15/22 1200 Procedure: right excisional biopsy of deep cervical lymph node (Right: Neck) - total time is 60 minutes Location: [address] Operating Room Surgeons: Victorina Perry, DO Relevant Problems Anesthesia (-) Delayed emergence from anesthesia (-) Difficult intravenous access (-) Difficult intubation (-) Family history of malignant hyperthermia (-) Motion sickness (-) DENA (obstructive sleep apnea) (-) PONV (postoperative nausea and vomiting) Pulmonary (-) DENA (obstructive sleep apnea) Past Medical History: Past Medical History: 2017: Cystocele with uterine prolapse Comment: Peseri in place No date: Family history of colon cancer No date: Glaucoma Comment: Dr. Fu No date: Hypertension No date: Lumbar disc disease 2017: Right thyroid nodule Comment: Dr. Perry and [facility]- no changes 2020 Past Surgical History: Past Surgical History: No date: ACHILLES TENDON SURGERY No date: APPENDECTOMY No date: BUNIONECTOMY No date: CARPAL TUNNEL RELEASE 2011: CATARACT EXTRACTION; Bilateral Comment: Dr. Fu- trabelectomy also No date: COLONOSCOPY 2010: COLONOSCOPY 2001: LUMBAR LAMINECTOMY No date: STRESS TEST, ABIOLA (HISTORICAL) 1994: TOTAL KNEE ARTHROPLASTY; Left No date: UPPER GASTROINTESTINAL ENDOSCOPY Social History: TOBACCO: reports that she has never smoked. She has never used smokeless tobacco. ETOH: reports no history of alcohol use. Social History Substance and Sexual Activity Drug Use Never Family History: Family History Problem Relation Name Age of Onset No Known Problems Brother Other ([address]86) Mother 30.00 DVT and PE Colon cancer Sister 70 No Known Problems Sister nonspecific causes No Known Problems Brother No Known Problems Father unknown No Known Problems Brother Screening: Postmenopausal Clinical information reviewed: Tobacco Allergies Meds Med Hx Surg Hx OB Status Fam Hx Soc Hx Physical Exam Airway Mallampati: III TM distance: >3 FB Neck ROM: full Mouth Open: normal Cardiovascular Dental (+) Missing Comments: missing teeth - top and bottom nothing loose or broken no partials or dentures + crowns Pulmonary Abdominal Anesthesia Plan ASA 2 general The patient is not a current smoker. Anesthetic plan and risks discussed with patient and legal guardian. patient is NPO DENA Screening STOP-Bang Total Score: 2 Labs: Lab Results Component Value Date WBC 5.3 08/08/2022 HGB 12.7 08/08/2022 HCT 38.0 08/08/2022 MCV 92.9 08/08/2022 PLT 199 08/08/2022 Lab Results Component Value Date NA 137 08/08/2022 K 4.7 08/08/2022 CL 106 08/08/2022 CO2 27 08/08/2022 BUN 17 08/08/2022 CREATININE 0.84 08/08/2022 GLUCOSE 98 08/08/2022 CALCIUM 9.6 08/08/2022 PROT 6.5 05/06/2022 ALKPHOS 95 05/06/2022 AST 44 05/06/2022 ALT 25 05/06/2022 EGFR 67.4 08/08/2022 No echocardiogram results found for the past 14 days 05/06/22 ECG 12-LEAD 05/06/2022 1:49 PM (Final) Impression SINUS RHYTHM ABNRM R PROG, CONSIDER ASMI OR LEAD PLACEMENT Similar to prior ECG from 04/28/2019. Electronically Signed On 05-06-2022 13:49:31 EST by Kenan Aguilar Signed by: Kenan Aguilar MD on 05/06/2022 1:49 PM documented in this [facility]04-06-2023 Miscellaneous Notes* Perioperative Nursing Note - Ingrid Whitehead RN - 08/15/2022 2:05 PM EDT Follows commands and lifts head. Oral airway removed. Denies pain, refuse po intake at this time * Perioperative Nursing Note - Ingrid Whitehead RN - 08/15/2022 1:59 PM EDT Received pt from OR to pacu phase sedated with oral airway. Belongings with pt. * Op Note - Victorina Perry DO - 08/15/2022 12:58 PM EDT OPERATIVE NOTE Patient Name: Ashley Pappas DATE OF PROCEDURE: 08/15/2022 SURGEON: Victorina Perry DO PREOPERATIVE DIAGNOSES: Pre-op Diagnosis * Neck mass [R22.1] * Chronic lymphadenitis, except mesenteric [I88.1] POSTOPERATIVE DIAGNOSES: same PROCEDURE: Procedure(s): right excisional biopsy of deep cervical lymph node ANESTHESIA: General COMPLICATIONS: NONE ESTIMATED BLOOD LOSS: 5 mL GROSS FINDINGS: Firm nodular mass effect right postauricular area measuring 2 cm. Patient also has firm mass effectinvolving right parotid gland diffusely. DESCRIPTION OF PROCEDURE: A support was placed beneath her shoulders for extension of the cervical region. The head was rotated to the side for exposure of the lateral neck region. The neck was carefully palpated. A planned incision line was demarcated over the skin surface using a marker. The longaxis of the planned incision ran within a relaxed skin tension line and directly over the center ofthe neoplasm. This area was locally infiltrated using 1% lidocaine with 1: 100,000 epinephrine. Several moments were allowed for vasoconstriction. During this time the neck was prepped with a Betadine solution and the patient draped in usual sterile fashion. A #15 scalpel blade was taken. A linear i ncision was made through the skin and into the subcutaneous tissues. The incision was then carried through the platysma muscle using electrocautery as of the deep cervical fascial planes were entered. At this point dissection was performed using both sharp and blunt dissection as well as electrocautery dissection. Dissection was carried through the deep cervical fascia until the neoplasm was encountered. Dissection was carried around the perimeter of the neoplasm. The neoplasm was completely circumscribed as it was elevated, undermined, and excised. The neoplasm was then submitted for pathology. Hemostasis was assured using bipolar cautery. The wound was thoroughly irrigated using normal saline irrigation. Final reinspection confirmed hemostasis. A topical hemostatic agent was applied within the wound. The wound was then closed in a layered fashion. The platysma muscle was reapproximated with inverted mattress sutures of 4-0 chromic as well as the subcutaneous layer. The skin edges were reapproximated with a running subcuticular suture of 5-0 Monocryl. The skin was cleansed and dried followed by application of an adhesive and Steri-Strips. The patient tolerated the excisional biopsy neoplasm well without incident. documented in this [place] [id number] Note* Perioperative Nursing Note - Ingrid Whitehead RN - 08/15/2022 2:05 PM EDT Follows commands and lifts head. Oral airway removed. Denies pain, refuse po intake at this time [place] [id number] Note* Perioperative Nursing Note - Ingrid Whitehead RN - 08/15/2022 2:05 PM EDT Follows commands and lifts head. Oral airway removed. Denies pain, refuse po intake at this time [place] [id number] Note* Perioperative Nursing Note - Ingrid Whitehead RN - 08/15/2022 1:59 PM EDT Received pt from OR to pacu phase sedated with oral airway. Belongings with pt. [place] [id number] Note* Perioperative Nursing Note - Ingrid Whitehead RN - 08/15/2022 1:59 PM EDT Received pt from OR to pacu phase sedated with oral airway. Belongings [address]. 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 Victorina Perry 1. Keep the area clean and dry. 2. Avoid any heavy lifting, straining, or exertion. This will prevent bleeding. 3. A cold compress may be applied to the area to minimize swelling and bruising. 4. Maintain the steri-strip dressing. 5. If the steri-strips fall off prematurely, then you should begin routine wound care until your first follow-up appointment: A. Clean the area twice daily using warm soap water and then gently pat dry. Do not use peroxide for cleaning. B. Liberally apply Bacitracin Ointment directly to the area to protect it from drying and crusting. C. You do not need to keep a dressing or bandage over the area unless there is potential for dirt or debris contacting it. D. You may shower or bathe directly over the area. 6. Resume all routine home medications unless instructed otherwise. If you have any further questions or concerns regarding comfort or care, please contact our office at any time. 1. If the surgical area develops any pain, redness, bleeding, or drainage 2. If you have any problems, questions, or concerns. OFFICE: [phone] IF YOU HAVE AN EMERGENCY, AND ARE UNABLE TO REACH THE DOCTOR AT THE ABOVE NUMBER, CALL OR GO TO [facility] EMERGENCY ROOM: [phone] Electronically signed by @[facility]@ on @TDNR@ at @NOWNR@ * Attachments The following attachments cannot be sent through Care Everywhere. * General Anesthesia Discharge Instructions (Japanese) documented in this [facility]04-06-2023 Note* Op Note - Victorina Perry DO - 08/15/2022 12:58 PM EDT OPERATIVE NOTE Patient Name: Ashley Pappas DATE OF PROCEDURE: 08/15/2022 SURGEON: Victorina Perry DO PREOPERATIVE DIAGNOSES: Pre-op Diagnosis * Neck mass [R22.1] * Chronic lymphadenitis, except mesenteric [I88.1] POSTOPERATIVE DIAGNOSES: same PROCEDURE: Procedure(s): right excisional biopsy of deep cervical lymph node ANESTHESIA: General COMPLICATIONS: NONE ESTIMATED BLOOD LOSS: 5 mL GROSS FINDINGS: Firm nodular mass effect right postauricular area measuring 2 cm. Patient also has firm mass effectinvolving right parotid gland diffusely. DESCRIPTION OF PROCEDURE: A support was placed beneath her shoulders for extension of the cervical region. The head was rotated to the side for exposure of the lateral neck region. The neck was carefully palpated. A planned incision line was demarcated over the skin surface using a marker. The longaxis of the planned incision ran within a relaxed skin tension line and directly over the center ofthe neoplasm. This area was locally infiltrated using 1% lidocaine with 1: 100,000 epinephrine. Several moments were allowed for vasoconstriction. During this time the neck was prepped with a Betadine solution and the patient draped in usual sterile fashion. A #15 scalpel blade was taken. A linear i ncision was made through the skin and into the subcutaneous tissues. The incision was then carried through the platysma muscle using electrocautery as of the deep cervical fascial planes were entered. At this point dissection was performed using both sharp and blunt dissection as well as electrocautery dissection. Dissection was carried through the deep cervical fascia until the neoplasm was encountered. Dissection was carried around the perimeter of the neoplasm. The neoplasm was completely circumscribed as it was elevated, undermined, and excised. The neoplasm was then submitted for pathology. Hemostasis was assured using bipolar cautery. The wound was thoroughly irrigated using normal saline irrigation. Final reinspection confirmed hemostasis. A topical hemostatic agent was applied within the wound. The wound was then closed in a layered fashion. The platysma muscle was reapproximated with inverted mattress sutures of 4-0 chromic as well as the subcutaneous layer. The skin edges were reapproximated with a running subcuticular suture of 5-0 Monocryl. The skin was cleansed and dried followed by application of an adhesive and Steri-Strips. The patient tolerated the excisional biopsy neoplasm well without incident. [facility] [id number] Note* Op Note - Victorina Perry DO - 08/15/2022 12:58 PM EDT OPERATIVE NOTE Patient Name: Ashley Pappas DATE OF PROCEDURE: 08/15/2022 SURGEON: Victorina Perry DO PREOPERATIVE DIAGNOSES: Pre-op Diagnosis * Neck mass [R22.1] * Chronic lymphadenitis, except mesenteric [I88.1] POSTOPERATIVE DIAGNOSES: same PROCEDURE: Procedure(s): right excisional biopsy of deep cervical lymph node ANESTHESIA: General COMPLICATIONS: NONE ESTIMATED BLOOD LOSS: 5 mL GROSS FINDINGS: Firm nodular mass effect right postauricular area measuring 2 cm. Patient also has firm mass effectinvolving right parotid gland diffusely. DESCRIPTION OF PROCEDURE: A support was placed beneath her shoulders for extension of the cervical region. The head was rotated to the side for exposure of the lateral neck region. The neck was carefully palpated. A planned incision line was demarcated over the skin surface using a marker. The longaxis of the planned incision ran within a relaxed skin tension line and directly over the center ofthe neoplasm. This area was locally infiltrated using 1% lidocaine with 1: 100,000 epinephrine. Several moments were allowed for vasoconstriction. During this time the neck was prepped with a Betadine solution and the patient draped in usual sterile fashion. A #15 scalpel blade was taken. A linear i ncision was made through the skin and into the subcutaneous tissues. The incision was then carried through the platysma muscle using electrocautery as of the deep cervical fascial planes were entered. At this point dissection was performed using both sharp and blunt dissection as well as electrocautery dissection. Dissection was carried through the deep cervical fascia until the neoplasm was encountered. Dissection was carried around the perimeter of the neoplasm. The neoplasm was completely circumscribed as it was elevated, undermined, and excised. The neoplasm was then submitted for pathology. Hemostasis was assured using bipolar cautery. The wound was thoroughly irrigated using normal saline irrigation. Final reinspection confirmed hemostasis. A topical hemostatic agent was applied within the wound. The wound was then closed in a layered fashion. The platysma muscle was reapproximated with inverted mattress sutures of 4-0 chromic as well as the subcutaneous layer. The skin edges were reapproximated with a running subcuticular suture of 5-0 Monocryl. The skin was cleansed and dried followed by application of an adhesive and Steri-Strips. The patient tolerated the excisional biopsy neoplasm well without incident. [id number] Attending History and physical note* Victorina Perry DO - 08/15/2022 12:00 PM EDT H&P reviewed. The patient was examined and there are no changes to the H&P. Source Note - Raymundo Berumen MD - 08/15/2022 11:58 AM EDT Updated Preprocedure Comprehensive History and Physical Name: Ashley Pappas : 1935 (Age-87 y.o.) No Known Allergies Procedure: Right excisional bx of deep cervical lymph node RIGHT There were no vitals taken for this visit. H&P was reviewed from 08/08/22, the patient was examined today by myself, and no significant change has occurred in the patient's condition since the H&P was completed. Allergies have been updated today as above documented. After review of the medical history and physical assessment, medications, allergies, patient's current medical condition, and labs, this patient is at acceptable risk for the planned procedure and anesthetic at this surgical facility. Electronically signed by: Raymundo Berumen MD Date: 08/15/2022 at 11:59 AM [employer] Phone: [phone]) 668-252104-06-2023 History and physical note* Victorina Perry DO - 08/15/2022 12:00 PM EDT H&P reviewed. The patient was examined and there are no changes to the H&P. Source Note - Raymundo Berumen MD - 08/15/2022 11:58 AM EDT Updated Preprocedure Comprehensive History and Physical Name: Ashley Pappas : 1935 (Age-87 y.o.) No Known Allergies Procedure: Right excisional bx of deep cervical lymph node RIGHT There were no vitals taken for this visit. H&P was reviewed from 08/08/22, the patient was examined today by myself, and no significant change has occurred in the patient's condition since the H&P was completed. Allergies have been updated today as above documented. After review of the medical history and physical assessment, medications, allergies, patient's current medical condition, and labs, this patient is at acceptable risk for the planned procedure and anesthetic at this surgical facility. Electronically signed by: Raymundo Berumen MD Date: 08/15/2022 at 11:59 AM * Raymundo Berumen MD - 08/15/2022 11:58 AM EDT Updated Preprocedure Comprehensive History and Physical Name: Ashley Pappas : 1935 (Age-87 y.o.) No Known Allergies Procedure: Right excisional bx of deep cervical lymph node RIGHT There were no vitals taken for this visit. H&P was reviewed from 08/08/22, the patient was examined today by myself, and no significant change has occurred in the patient's condition since the H&P was completed. Allergies have been updated today as above documented. After review of the medical history and physical assessment, medications, allergies, patient's current medical condition, and labs, this patient is at acceptable risk for the planned procedure and anesthetic at this surgical facility. Electronically signed by: Raymundo Berumen MD Date: 08/15/2022 at 11:59 AM documented in this [facility]04-06-2023 History and physical note* Raymundo Berumen MD - 08/15/2022 11:58 AM EDT Updated Preprocedure Comprehensive History and Physical Name: Ashley Pappas : 1935 (Age-87 y.o.) No Known Allergies Procedure: Right excisional bx of deep cervical lymph node RIGHT There were no vitals taken for this visit. H&P was reviewed from 08/08/22, the patient was examined today by myself, and no significant change has occurred in the patient's condition since the H&P was completed. Allergies have been updated today as above documented. After review of the medical history and physical assessment, medications, allergies, patient's current medical condition, and labs, this patient is at acceptable risk for the planned procedure and anesthetic at this surgical facility. Electronically signed by: Raymundo Berumen MD Date: 08/15/2022 at 11:59 AM [facility] Phone: [phone]) 727-647903-30-2023 Anesthesiology Preoperative evaluation and management note* Anesthesia Preprocedure Evaluation - Raymundo Berumen MD - 08/08/2022 2:33 PM EDT Patient: Ashley Pappas Procedure Information Date/Time: 08/15/22 1200 Procedure: right excisional biopsy of deep cervical lymph node (Right: Neck) - total time is 60 minutes Location: [address] Operating Room Surgeons: Victorina Perry, DO Relevant Problems Anesthesia (-) Delayed emergence from anesthesia (-) Difficult intravenous access (-) Difficult intubation (-) Family history of malignant hyperthermia (-) Motion sickness (-) DENA (obstructive sleep apnea) (-) PONV (postoperative nausea and vomiting) Pulmonary (-) DENA (obstructive sleep apnea) Past Medical History: Past Medical History: 2017: Cystocele with uterine prolapse Comment: Peseri in place No date: Family history of colon cancer No date: Glaucoma Comment: Dr. Fu No date: Hypertension No date: Lumbar disc disease 2017: Right thyroid nodule Comment: Dr. Perry and [facility]- no changes 2020 Past Surgical History: Past Surgical History: No date: ACHILLES TENDON SURGERY No date: APPENDECTOMY No date: BUNIONECTOMY No date: CARPAL TUNNEL RELEASE 2011: CATARACT EXTRACTION; Bilateral Comment: Dr. Fu- trabelectomy also No date: COLONOSCOPY 2011: COLONOSCOPY 2001: LUMBAR LAMINECTOMY No date: STRESS TEST, ABIOLA (HISTORICAL) 1994: TOTAL KNEE ARTHROPLASTY; Left No date: UPPER GASTROINTESTINAL ENDOSCOPY Social History: TOBACCO: reports that she has never smoked. She has never used smokeless tobacco. ETOH: reports no history of alcohol use. Social History Substance and Sexual Activity Drug Use Never Family History: Family History Problem Relation Name Age of Onset No Known Problems Brother Other ([id number]) Mother 30.00 DVT and PE Colon cancer Sister 70 No Known Problems Sister nonspecific causes No Known Problems Brother No Known Problems Father unknown No Known Problems Brother Screening: Postmenopausal Clinical information reviewed: Tobacco Allergies Meds Med Hx Surg Hx OB Status Fam Hx Soc Hx Physical Exam Airway Mallampati: III TM distance: >3 FB Neck ROM: full Mouth Open: normal Cardiovascular Dental (+) Missing Comments: missing teeth - top and bottom nothing loose or broken no partials or dentures + crowns Pulmonary Abdominal Anesthesia Plan ASA 2 general The patient is not a current smoker. Anesthetic plan and risks discussed with patient and legal guardian. patient is NPO DENA Screening STOP-Bang Total Score: 2 Labs: Lab Results Component Value Date WBC 5.3 08/08/2022 HGB 12.7 08/08/2022 HCT 38.0 08/08/2022 MCV 92.9 08/08/2022 PLT 199 08/08/2022 Lab Results Component Value Date NA 137 08/08/2022 K 4.7 08/08/2022 CL 106 08/08/2022 CO2 27 08/08/2022 BUN 17 08/08/2022 CREATININE 0.84 08/08/2022 GLUCOSE 98 08/08/2022 CALCIUM 9.6 08/08/2022 PROT 6.5 05/06/2022 ALKPHOS 95 05/06/2022 AST 44 05/06/2022 ALT 25 05/06/2022 EGFR 67.4 08/08/2022 No echocardiogram results found for the past 14 days 05/06/22 ECG 12-LEAD 05/06/2022 1:49 PM (Final) Impression SINUS RHYTHM ABNRM R PROG, CONSIDER ASMI OR LEAD PLACEMENT Similar to prior ECG from 04/28/2019. Electronically Signed On 05-06-2022 13:49:31 EST by Kenan Aguilar Signed by: Kenan Aguilar MD on 05/06/2022 1:49 PM [employer] Phone: [phone] Telephone encounter Note* Telephone Encounter - Vivienne Ruby LPN - 07/31/2022 9:50 AM EDT Rx loaded Last ov 05/08/22 Next ov 10/03/22 [id number] Miscellaneous Notes* Telephone Encounter - Vivienne Ruby LPN - 07/31/2022 9:50 AM EDT Rx loaded Last ov 05/08/22 Next ov 10/03/22 * Telephone Encounter - Amanda Currie - 07/31/2022 8:45 AM EDT Medication name: labetalol (Normodyne) 100 MG tablet [[id number]] Order Details Dose: 1 tablet Route: Oral Frequency: 2 times daily Dispense Quantity: 60 tablet Refills: 3 Sig: Take 1 tablet (100 mg) by mouth 2 times daily. If taking medication PRN, reason for taking medication: N/A If this is a controlled substance do you receive this or any other controlled medication from any other doctor or facility: No Ordering provider: Dr Ornelas Date of last office visit: 05/08/2022 Date of next office visit: 10/03/2022 Date of last refill: (see medication tab): 06/06/2022 Updated/Validated preferred pharmacy: Yes Patient instructed to contact the pharmacy prior to picking up the medication: No documented in this [facility]03-22-2023 Telephone encounter Note* Telephone Encounter - Amanda Currie - 07/31/2022 8:45 AM EDT Medication name: labetalol (Normodyne) 100 MG tablet [[id number]] Order Details Dose: 1 tablet Route: Oral Frequency: 2 times daily Dispense Quantity: 60 tablet Refills: 3 Sig: Take 1 tablet (100 mg) by mouth 2 times daily. If taking medication PRN, reason for taking medication: N/A If this is a controlled substance do you receive this or any other controlled medication from any other doctor or facility: No Ordering provider: Dr Ornelas Date of last office visit: 05/08/2022 Date of next office visit: 10/03/2022 Date of last refill: (see medication tab): 06/06/2022 Updated/Validated preferred pharmacy: Yes Patient instructed to contact the pharmacy prior to picking up the medication: No [id number] History of Present illness Narrative* Loki Ornelas, DO - 06/06/2022 12:50 PM EST Subjective: Patient ID: Ashley Pappas is a 86 y.o. female. 86-year-old female with history of hypertension and now aortic stenosis presents to the office for checkup. Patient had to go to the emergency room back in April. Feels she was diagnosed with orthostasis. No longer dizzy. Review of Systems No chest pain or shortness of breath. No bowel or bladder complaints. Patient has got poor vision. Has glaucoma. Vision right eye worse than the left. She does not drive anymore. Patient has been seeing ENT for a right parotid problem. Enlargement. This was biopsied December of last year. She has hada right thyroid nodule for years. This was biopsied in the past. Has been stable. Patient had a welder fitter arc removed 2 days ago. Patient feels that her systolic blood pressure runs around 140 and the diastolic in the 60s. As mentioned no longer dizzy. Denies headache. Objective: Physical Exam Constitutional: Comments: Blood pressure taken by myself 120/76 right arm. HENT: Head: Comments: Right parotid enlarged and firm. Neck: Thyroid: No thyromegaly. Vascular: Carotid bruit (Appears to be transmission from heart murmur. Bilateral bruits) present. Comments: Small nodule right Cardiovascular: Rate and Rhythm: Normal rate and regular rhythm. Heart sounds: Murmur (Aortic post) heard. Pulmonary: Breath sounds: Normal breath sounds. Abdominal: Palpations: There is no mass. Tenderness: There is no abdominal tenderness. Musculoskeletal: Right lower leg: No edema. Left lower leg: No edema. Comments: Pulses present both feet Lymphadenopathy: Cervical: No cervical adenopathy. Skin: Findings: No rash. Neurological: Mental Status: She is alert. BP (!) 163/75 Pulse 83 Temp 36.2 C (97.1 F) (Temporal) Ht 5' 3" (1.6 m) Wt 141 lb (64 kg) SpO2 95% BMI 24.98 kg/m No Known Allergies Current Outpatient Medications on File Prior to Visit Medication Sig Dispense Refill Combigan 0.2-0.5 % ophthalmic solution labetalol (Normodyne) 100 MG tablet Take 1 tablet by mouth 2 times daily. latanoprost (Xalatan) 0.005 % ophthalmic solution Multiple Vitamin (Multi-Vitamin Daily) tablet Take 1 tablet by mouth daily. No current facility-administered medications on file prior to visit. There is no problem list on file for this patient. Social History Tobacco Use Smoking status: Never Smokeless tobacco: Never Substance Use Topics Alcohol use: No Past Surgical History: Procedure Laterality Date APPENDECTOMY CATARACT EXTRACTION Bilateral 2011 Dr. Smith trabihsan also COLONOSCOPY COLONOSCOPY 2011 LUMBAR LAMINECTOMY 2002 TOTAL KNEE ARTHROPLASTY Left 1995 UPPER GASTROINTESTINAL ENDOSCOPY Family History Problem Relation Name Age of Onset No Known Problems Brother Other ([id number]) Mother 30.00 DVT and PE Colon cancer Sister 70 No Known Problems Sister nonspecific causes No Known Problems Brother No Known Problems Father unknown No Known Problems Brother Assessment / Plan: Diagnosis Plan 1. Primary hypertension Recheck blood pressure acceptable. Continue Normodyne 2. Aortic valve stenosis, etiology of cardiac valve disease unspecified Moderate. Will observe. 3. Lightheadedness Await results of the welder fitter arc 4. Thyroid nodule Stable 5. Enlarged parotid gland Patient feels this has gotten more firm. I did suggest she contact her ENT [facility] Diagnosis Nontoxic single thyroid nodule Nontoxic uninodular goiter Thyroid nodule Nontoxic uninodular goiter documented in this encounter [facility] Work Phone: Evaluation note* Diagnosis Neck mass Swelling, mass, or lump in head and neck Chronic lymphadenitis, except mesenteric documented in this encounter [facility]* Diagnosis Follicular lymphoma of lymph nodes of neck, unspecified follicular lymphoma type (HCC) documented in this encounter [facility]* Diagnosis Follicular lymphoma of lymph nodes of neck, unspecified follicular lymphoma type (HCC)- Primary [facility]* Diagnosis Follicular lymphoma, unspecified follicular lymphoma type, unspecified body region (HCC) documented in this encounter [facility]* Diagnosis Follicular lymphoma, unspecified follicular lymphoma type, unspecified body region (HCC) [facility]* Diagnosis Follicular lymphoma, unspecified follicular lymphoma type, unspecified body region (HCC) [facility]* Diagnosis Follicular lymphoma, unspecified follicular lymphoma type, unspecified body region (HCC)- Primary [facility]* Diagnosis Follicular lymphoma, unspecified follicular lymphoma type, unspecified body region (HCC)- Primary Follicular lymphoma of lymph nodes of neck, unspecified grade (HCC) [facility]* Diagnosis Follicular lymphoma, unspecified follicular lymphoma type, unspecified body region (HCC) [facility]* Diagnosis Follicular lymphoma, unspecified follicular lymphoma type, unspecified body region (HCC) Follicular lymphoma of lymph nodes of neck, unspecified grade (HCC) [facility]* Diagnosis Follicular lymphoma of lymph nodes of neck, unspecified follicular lymphoma type (HCC)- Primary [facility]* Diagnosis Encounter for subsequent annual wellness visit (AWV) in Medicare patient- Primary Follicular lymphoma, unspecified follicular lymphoma type, unspecified body region (HCC) Primary hypertension Unspecified essential hypertension Aortic stenosis, mild Routine general medical examination at health care facility Routine general medical examination at a health care facility [facility]* Diagnosis Follicular lymphoma, unspecified follicular lymphoma type, unspecified body region (HCC)- Primary [facility]* Diagnosis Primary hypertension- Primary Unspecified essential hypertension Follicular lymphoma, unspecified follicular lymphoma type, unspecified body region (HCC) Alopecia [facility]* Diagnosis Primary hypertension- Primary Unspecified essential hypertension documented [facility]* Diagnosis Primary hypertension- Primary Unspecified essential hypertension [facility]* Diagnosis Follicular lymphoma of lymph nodes of neck, unspecified follicular lymphoma type (HCC)- Primary [facility]* Diagnosis Primary hypertension Unspecified essential hypertension [facility]* Diagnosis Primary hypertension Unspecified essential hypertension [facility]* Diagnosis Primary hypertension Unspecified essential hypertension [facility]* Diagnosis Primary hypertension- Primary Unspecified essential hypertension Primary hypertension- Primary Unspecified essential hypertension Primary hypertension Unspecified essential hypertension [facility]* Diagnosis Primary hypertension- Primary Unspecified essential hypertension Primary hypertension- Primary Unspecified essential hypertension Primary hypertension Unspecified essential hypertension [facility]* Diagnosis Primary hypertension- Primary Unspecified essential hypertension Primary hypertension- Primary Unspecified essential hypertension Encounter for subsequent annual wellness visit (AWV) in Medicare patient- Primary Glaucoma of both eyes, unspecified glaucoma type Primary hypertension Unspecified essential hypertension Nonrheumatic aortic valve stenosis Follicular lymphoma, unspecified follicular lymphoma type, unspecified body region (HCC) Routine general medical examination at health care facility Routine general medical examination at a health care facility [facility]* Diagnosis Cardiac murmur, unspecified- Primary [facility]* Diagnosis Heart murmur Undiagnosed cardiac murmurs [facility]* Diagnosis Lightheadedness Dizziness and giddiness documented [facility]* Diagnosis Primary hypertension- Primary Unspecified essential hypertension Aortic valve stenosis, etiology of cardiac valve disease unspecified Lightheadedness Dizziness and giddiness Thyroid nodule Nontoxic uninodular goiter Enlarged parotid gland documented [facility]* Diagnosis Primary hypertension- Primary Unspecified essential hypertension Primary hypertension- Primary Unspecified essential hypertension Primary hypertension Unspecified essential hypertension [facility]* Diagnosis Primary hypertension- Primary Unspecified essential hypertension Primary hypertension- Primary Unspecified essential hypertension Follicular lymphoma of lymph nodes of neck, unspecified follicular lymphoma type (HCC)- Primary [facility]* Diagnosis Primary hypertension- Primary Unspecified essential hypertension Primary hypertension- Primary Unspecified essential hypertension Primary hypertension- Primary Unspecified essential hypertension Follicular lymphoma, unspecified follicular lymphoma type, unspecified body region (HCC) Lumbar disc disease Other and unspecified disc disorder of lumbar region Thyroid disorder screening Screening for thyroid disorder Contracture of hand joint, left [facility] Diagnosis Primary hypertension- Primary Unspecified essential hypertension Primary hypertension- Primary Unspecified essential hypertension Lumbar disc disease Other and unspecified disc disorder of lumbar region [facility] Diagnosis Primary hypertension- Primary Unspecified essential hypertension Primary hypertension- Primary Unspecified essential hypertension Primary hypertension Unspecified essential hypertension [facility] Reason for Referral Status Reason Specialty Diagnoses / Procedures Re ferred By Contact Referred To Contact Closed Radiology Diagnoses Abdominal mass, unspecified abdominal location Abdominal pain, unspecified abdominal location Procedures CT ABDOMEN PELVIS W IV CONTRAST Additional Contrast? Radiologist Recommendation Loki Ornelas DO [address] [place], [place] [id number] Status Reason Specialty Diagnoses / Procedures Referred By Contact Referred To Contact Closed Vascular Lab Diagnoses Bruit of right carotid artery Procedures VL DUP CAROTID BILATERAL Loki Ornelas, DO [address] [place] [address] Status Reason Specialty Diagnoses / Procedures Referre d By Contact Referred To Contact Open Radiology Diagnoses Thyroid nodule Procedures US THYROID Loki Ornelas, DO [address] [place] [address] Specialty Diagnoses / Procedures Referred By Contac t Referred To Contact Radiology Diagnoses Follicular lymphoma of lymph nodes of neck, unspecified follicular lymphoma type (HCC) Procedures PET/CT head to toe DavKleber, DO [address] [place] [address] [facility] [address] [place] [address] Referral ID Status Reason Start Date Expiration Date Visits Re quested Visits Authorized [id number] Closed 10/01/2022 03/30/2023 1 1 Specialty Diagnoses / Procedures Referred By Contac t Referred To Contact Radiology Diagnoses Follicular lymphoma, unspecified follicular lymphoma type, unspecified body region (HCC) Follicular lymphoma of lymph nodes of neck, unspecified grade (HCC) Procedures PET/CT skull base to mid thigh DavKleber, DO [address] [place] [address] Referral ID Status Reason Start Date Expiration Date V isits Requested Visits Authorized [id number] Pending Review 12/05/2022 06/03/2023 1 1 Referral ID Status Reason Start Date Expiration Date Visits Re quested Visits Authorized [id number] Closed 12/05/2022 06/03/2023 1 1 Specialty Diagnoses / Procedures Referred By Contac t Referred To Contact Cardiology Diagnoses Cardiac murmur, unspecified Procedures Pediatric echocardiogram (TTE) complete CT ECHO TTHRC R-T 2D W/WOM-MODE COMPL SPEC&COLR D CT COMPLETE TTHRC ECHO CONGENITAL CARDIAC ANOMALY CT DOPPLER ECHOCARD PULSE WAVE W/SPECTRAL DISPLAY CT DOP ECHOCARD COLOR FLOW VELOCITY MAPPING Loki Ornelas, DO [address] [place] [address] Referral ID Status Reason Start Date Expiration Date Visits Requested Visits Authorized [id number] Canceled Perform Procedure 2 08/22/2022 1 1 Specialty Diagnoses / Procedures Referred By Contac t Referred To Contact Cardiology Diagnoses Heart murmur Procedures Transthoracic echocardiogram (TTE) complete with contrast, bubble, strain, and 3D PRN CT ECHO TTHRC R-T 2D W/WOM-MODE COMPL SPEC&COLR D CT TTE W OR WO FOL WCON,DOPPLER MartinajuanLoki conrad, DO [address] [place] [address] Referral ID Status Reason Start Date Expiration Date V isits Requested Visits Authorized [id number] Closed Perform Procedure 03/25/2022 09/21/2022 1 1 Specialty Diagnoses / Procedures Referred By Contac t Referred To Contact Cardiology Diagnoses Lightheadedness Procedures Cardiac holter monitor (24 hours) Zoe Mcgraw APRN - AGRICULTURE ENGINEER [address] [place] [address] Referral ID Status Reason Start Date Expiration Date Visits Re quested Visits Authorized [id number] Closed 05/08/2022 11/04/2022 1 1 Assessments Diagnosis Bruit of right carotid artery Abdominal mass, unspecified abdominal location Abdominal pain, unspecified abdominal location Advance Directives No Advanced Directives Records FoundDocuments on File Type Date Recorded Patient Trauma Therapist Expl anation Advance Directives and Living Will Power of Hospice Volunteer Documents on File Type Date Recorded Patient Trauma Therapist Expl anation ACP-Advance Directive ACP-Power of Hospice Volunteer Documents on File Type Date Recorded Patient Trauma Therapist Expl anation ACP-Advance Directive ACP-Power of Hospice Volunteer Summary Purpose Family History No Family History Records FoundNo Family History Records FoundNo Family History Records FoundNo Family History Records Found Additional Source Comments Care Teams (unrecognized sec tion and content) Patient Assistant Relationship Specialty Start Date End Date Loki Ornelas DO [address] [place] [address] PCP - General 10/19/14 Patient Assistant Relationship Specialty Start Date End Date Martín Urena, DO [address] [place], [place] [id number] PCP - General Family Medicine 08/08/22 Patient Assistant Relationship Specialty Start Date End Date Martín Urena, DO [address] [place] [address] PCP - General Family Medicine 08/08/22 Patient Assistant Relationship Specialty Start Date End Date Martín Urena, DO [address] [place], [place] [id number] PCP - General Family Medicine 08/08/22 Patient Assistant Relationship Specialty Start Date End Date Martín Urena, DO [address] [place] [address] PCP - General Family Medicine 08/08/22 Kleber Demarco DO [address] [place] [address] Consulting Physician Hematology and Oncology 10/01/22 Patient Assistant Relationship Specialty Start Date End Date Martín Urena, DO [address] [place] [address] PCP - General Family Medicine 08/08/22 Kleber Demarco DO [address] [place] [address] Consulting Physician Hematology and Oncology 10/01/22 Patient Assistant Relationship Specialty Start Date End Date Martín Urena, DO [address] [place] [address] PCP - General Family Medicine 08/08/22 Kleber Demarco DO [address] [place] [address] Consulting Physician Hematology and Oncology 10/01/22 Patient Assistant Relationship Specialty Start Date End Date Martín Urena Lauren, DO [address] [place] [address] PCP - General Family Medicine 08/08/22 Kleber Demarco DO [address] [place] [address] Consulting Physician Hematology and Oncology 10/01/22 Patient Assistant Relationship Specialty Start Date End Date Martín Urena Lauren, DO [address] [place] [address] PCP - General Family Medicine 08/08/22 Kleber Demarco, DO [address] [place] [address] Consulting Physician Hematology and Oncology 10/01/22 Patient Assistant Relationship Specialty Start Date End Date Martín Urena Lauren, DO [address] [place] [address] PCP - General Family Medicine 08/08/22 Kleber Demarco, [address] [place] [address] Consulting Physician Hematology and Oncology 10/01/22 Patient Assistant Relationship Specialty Start Date End Date Martín Urena Lauren, DO [address] [place] [address] PCP - General Family Medicine 08/08/22 Kleber Demarco DO [address] [place] [address] Consulting Physician Hematology and Oncology 10/01/22 Patient Assistant Relationship Specialty Start Date End Date Martín Urena, DO [address] [place] [address] PCP - General Family Medicine 08/08/22 Kleber Demarco, [address] [place] [address] Consulting Physician Hematology and Oncology 10/01/22 Patient Assistant Relationship Specialty Start Date End Date Martín Urena, DO [address] [place] [address] PCP - General Family Medicine 08/08/22 Kleber Demarco, [address] [place] [address] Consulting Physician Hematology and Oncology 10/01/22 Patient Assistant Relationship Specialty Start Date End Date Martín Urena, DO [address] [place] [address] PCP - General Family Medicine 08/08/22 Kleber Demarco, [address] [place] [address] Consulting Physician Hematology and Oncology 10/01/22 Patient Assistant Relationship Specialty Start Date End Date Martín Urena, DO [address] [place] [address] PCP - General Family Medicine 08/08/22 Kleber Demarco DO [address] [place], [place] [phone] Consulting Physician Hematology and Oncology 10/01/22 Patient Assistant Relationship Specialty Start Date End Date Martín Urena DO [address] [place] [phone] PCP - General Family Medicine 08/08/22 Kleber Demarco DO [address] [place] [address] Consulting Physician Hematology and Oncology 10/01/22 Patient Assistant Relationship Specialty Start Date End Date Martín Urena DO [address] [place] [phone] PCP - General Family Medicine 08/08/22 Kleber Demarco DO [address] [place] [address] Consulting Physician Hematology and Oncology 10/01/22 Patient Assistant Relationship Specialty Start Date End Date Martín Urena, [address] [place] [phone] PCP - General Family Medicine 08/08/22 Kleber Demarco DO [address] [place] [address] Consulting Physician Hematology and Oncology 10/01/22 Patient Assistant Relationship Specialty Start Date End Date Martín Urena, DO [address] [place] [phone] PCP - General Family Medicine 08/08/22 Kleber Demarco DO [address] [place], [place] [phone] Consulting Physician Hematology and Oncology 10/01/22 Patient Assistant Relationship Specialty Start Date End Date Martín Urena, DO [address] [place] [address] PCP - General Family Medicine 08/08/22 Kleber Demarco DO [address] [address] [place] [address] Consulting Physician Hematology and Oncology 10/01/22 Patient Assistant Relationship Specialty Start Date End Date Martín Urena, DO [address] [place] [phone] PCP - General Family Medicine 08/08/22 Kleber Demarco, [address] [place] [address] [place] [address] Consulting Physician Hematology and Oncology 10/01/22 Patient Assistant Relationship Specialty Start Date End Date Martín Urena, DO [address] [place] [phone] PCP - General Family Medicine 08/08/22 Kleber Demarco, [address] [place], [place] [phone] Consulting Physician Hematology and Oncology 10/01/22 Patient Assistant Relationship Specialty Start Date End Date Martín Urena Lauren, DO [address] [place] [address] PCP - General Family Medicine 08/08/22 Kleber Demarco DO [address] [address] [place], [place] [phone] Consulting Physician Hematology and Oncology 10/01/22 Patient Assistant Relationship Specialty Start Date End Date Martín Urena, DO [address] [place] [address] PCP - General Family Medicine 08/08/22 Kleber Demarco DO [address] [place] [address] [place] [address] Consulting Physician Hematology and Oncology 10/01/22 Patient Assistant Relationship Specialty Start Date End Date Martín Urena, DO [address] [place] [phone] PCP - General Family Medicine 08/08/22 Kleber Demarco DO [address] [place] [address] [place] [address] Consulting Physician Hematology and Oncology 10/01/22 Patient Assistant Relationship Specialty Start Date End Date Martín Urena, DO [address] [place] [phone] PCP - General Family Medicine 08/08/22 Kleber Demarco DO [address] [place] [address] [place] [address] Consulting Physician Hematology and Oncology 10/01/22 Patient Assistant Relationship Specialty Start Date End Date Romel Martín Aguilar, DO [address] [place] [phone] PCP - General Family Medicine 08/08/22 Kleber Demarco, [address] [address] [place] [address] Consulting Physician Hematology and Oncology 10/01/22 Patient Assistant Relationship Specialty Start Date End Date Romel Martín Aguilar, DO [address] [place] [phone] PCP - General Family Medicine 08/08/22 Kleber Demarco, [address] [place] [address] [place] [address] Consulting Physician Hematology and Oncology 10/01/22 Patient Assistant Relationship Specialty Start Date End Date Romel Martín Aguilar, DO [address] [place] [address] PCP - General Family Medicine 08/08/22 Kleber Demarco, [address] [address] [place] [address] Consulting Physician Hematology and Oncology 10/01/22 Patient Assistant Relationship Specialty Start Date End Date Loki Ornelas, [address] [place] [address] PCP - General 10/19/14 Patient Assistant Relationship Specialty Start Date End Date Loki Ornelas DO [address] [place] [address] PCP - General 10/19/14 Patient Assistant Relationship Specialty Start Date End Date ProsperLoki conrad, DO [address] [place] [address] PCP - General 10/19/14 Patient Assistant Relationship Specialty Start Date End Date Loki Ornelas DO [address] [place] [address] PCP - General 10/19/14 Patient Assistant Relationship Specialty Start Date End Date MartinajuanLoki conrad [address] [place] [address] PCP - General 10/19/14 Patient Assistant Relationship Specialty Start Date End Date Loki Ornelas DO [address] [place] [address] PCP - General 10/19/14 Patient Assistant Relationship Specialty Start Date End Date Martín Urena DO [address] [place] [phone] PCP - General Family Medicine 08/08/22 Kleber Demarco DO [address] [place] [address] Consulting Physician Hematology and Oncology 10/01/22 Patient Assistant Relationship Specialty Start Date End Date Martín Urena DO [address] [place] [phone] PCP - General Family Medicine 08/08/22 Kleber Demarco DO [address] [place] [address] [place] [address] Consulting Physician Hematology and Oncology 10/01/22 Patient Assistant Relationship Specialty Start Date End Date Martín Urena DO [address] [place] [phone] PCP - General Family Medicine 08/08/22 Kleber Demarco DO [address] [place] [address] Consulting Physician Hematology and Oncology 10/01/22 Patient Assistant Relationship Specialty Start Date End Date Martín Urena DO [address] [place] [phone] PCP - General Family Medicine 08/08/22 Kleber Demarco DO [address] [place] [address] Consulting Physician Hematology and Oncology 10/01/22 Patient Assistant Relationship Specialty Start Date End Date Martín Urena, [address] [place] [phone] PCP - General Family Medicine 08/08/22 Kleber Demarco DO [address] [place] [address] Consulting Physician Hematology and Oncology 10/01/22 Patient Assistant Relationship Specialty Start Date End Date Martín Urena DO [address] [place] [phone] PCP - General Family Medicine 08/08/22 Kleber Demarco DO [address] [place] [address] Consulting Physician Hematology and Oncology 10/01/22 INFORMATION SOURCE (unrecogn ized section and content) DATE CREATED AUTHOR 11/21/2021 [facility] DATE CREATED AUTHOR AUTHOR'S ORGANIZ ATION 01/23/2023 [facility] DATE CREATED AUTHOR AUTHOR'S ORGANIZ ATION 03/01/2025 [facility] DATE CREATED AUTHOR AUTHOR'S ORGANIZ ATION 03/12/2025 [facility] Reason for Visit (unrecogniz ed section and content) Specialty Diagnoses / Procedures Referred By Contac t Referred To Contact Diagnoses Neck mass Chronic lymphadenitis, except mesenteric Neck mass [R22.1] Chronic lymphadenitis, except mesenteric [I88.1] Procedures CT BX/EXC LYMPH NODE OPEN DEEP CERVICAL NODE right excisional biopsy of deep cervical lymph node Victorina Perry, [address] [facility] [address] [place] [address] [facility] [address] [place] [address] Referral ID Status Reason Start Date Expiration Date Visits Re quested Visits Authorized [id number] 1 1 Specialty Diagnoses / Procedures Referred By Contac t Referred To Contact Radiology Diagnoses Follicular lymphoma of lymph nodes of neck, unspecified follicular lymphoma type (HCC) Procedures PET/CT head to toe Kleber Demarco DO [address] [place] [address] [facility] [address] [place] [address] Referral ID Status Reason Start Date Expiration Date Visits Re quested Visits Authorized [id number] Closed 10/01/2022 03/30/2023 1 1 Reason Comments Lymphoma Reason Comments OP Infusion Specialty Diagnoses / Procedures Referred By Contac t Referred To Contact Diagnoses Follicular lymphoma, unspecified follicular lymphoma type, unspecified body region (HCC) Kleber Demarco DO [address] [place] [address] [facility] [address] [place] [address] Referral ID Status Reason Start Date Expiration Date V isits Requested Visits Authorized [id number] Pending Review 10/17/2022 04/15/2023 1 1 Referral ID Status Reason Start Date Expiration Date Visits Re quested Visits Authorized [id number] Closed 10/17/2022 04/15/2023 1 1 Reason Comments follicular lymphoma Patient states that she has had some itching but it has somewhat gotten better. Reason Comments Lymphoma Specialty Diagnoses / Procedures Referred By Orin t Referred To Contact Radiology Diagnoses Follicular lymphoma, unspecified follicular lymphoma type, unspecified body region (HCC) Follicular lymphoma of lymph nodes of neck, unspecified grade (HCC) Procedures PET/CT skull base to mid thigh Kleber Demarco DO [address] [facility] [address] [place] [address] Referral ID Status Reason Start Date Expiration Date Visits Re quested Visits Authorized [id number] Closed 12/05/2022 06/03/2023 1 1 Reason Comments Lymphoma Still itching, but b ruslan than during treatment. On new eye drop but can't remember the name of medication. Reason Comments Medicare Annual Wellness Visit Subsequen t Reason Comments follow up/lymphoma Reason Comments Follow-up Med check Reason Comments ER Follow-up Hypertension Reason Comments Follow-up 4 week follow up on BP Reason Comments Follow-up Reason Comments Blood Pressure Check Reason Comments Med Refill Specialty Diagnoses / Procedures Referred By Contac t Referred To Contact Diagnoses Cardiac murmur, unspecified Procedures CT ECHO TTHRC R-T 2D W/WOM-MODE COMPL SPEC&COLR D [facility] [address] [place] [address] Referral ID Status Reason Start Date Expiration Date Visits Re quested Visits Authorized [id number] 1 1 Specialty Diagnoses / Procedures Referred By Contac t Referred To Contact Diagnoses Dizziness and giddiness Procedures CT XTRNL ECG & 48 HR RECORDING [facility] [address] [place] [address] Referral ID Status Reason Start Date Expiration Date Visits Re quested Visits Authorized [id number] 1 1 Reason Comments Follow-up 4 month med check Reason Onset Date Comments Med Refill 07/31/2022 Reason Comments Follow-up Med Check Reason Onset Date Comments Other 01/20/2025 Records needed Scheduled Active and Recently Administ ered Medications (unrecognized section and content) Medication Order 08/13/2022 08/14/2022 08/15/2022 acetaminophen (Tylenol) tablet 1,000 mg (COMPLETED) 1,000 mg, Oral, Once, On Ramila 08/15/22 at 1000, For 1 dose, Preprocedure, Maximum dose of acetaminophen is 4000 mg from all sources in 24 hours. Do not administer if patient has taken tylenol <4 hours earlier. Do not give if contraindicated ie. patient has active liver disease or cirrhosis. 1046 (Given - Provid er: Carolina Falcon MA) famotidine (Pepcid) tablet 20 mg (COMPLETED) 20 mg, Oral, Once, On Ramila 08/15/22 at 1000, For 1 dose, Preprocedure, IV or ORAL 1046 (Given - Provid er: Carolina Falcon MA) sodium chloride 0.9% (NS) flush 10 mL 10 mL, IntraVENous, Every 12 hours scheduled (2 times per day), First dose on Ramila 08/15/22 at 1000, Preprocedure 1000 (Canceled Entry - Provider: Automatic Discharge Provider - Comment: Automatically canceled at discontinue of medication order) sodium chloride 0.9% (NS) flush 10 mL 10 mL, IntraVENous, Every 12 hours scheduled (2 times per day), First dose on Ramila 08/15/22 at 2100, Recovery (only) sodium chloride 0.9% (NS) flush 5-40 mL 5-40 mL, IntraVENous, Every 12 hours, First dose on Ramila 08/15/22 at 1000, Preprocedure, For Line Patency: Peripheral IV = 5 mL; Midline or Central Line = 10 mL/lumen. If following IV push medication, administer flush at same rate as the IV push. Flush volume is determined by type of infusion therapy being given. For non-viscous solutions use: Peripheral IV = 5 mL Midline or Central Line = 10 mL/lumen For viscous solutions (i.e. blood components, parenteral nutrition, contrast media, or after obtaining blood sample) use: Peripheral IV = 10 mL Midline or Central Line = 20 mL/lumen 1000 (Canceled Entry - Provider: Automatic Discharge Provider - Comment: Automatically canceled at discontinue of medication order) Continuous Medication Order 08/13/2022 08/14/2022 08/15/2022 lactated Ringer's infusion 50 mL/hr, IntraVENous, Continuous, Starting on Ramila 08/15/22 at 1000, Preprocedure, Upon admission to sameday - please start iv if patient does not have iv access. Use 500ml NS for patients on dialysis. 1045 (New Bag - Prov ider: Carolina Falcon MA)1258 (Continued by Anesthesia - Provider: Anitha Boyle APRN - ALIZA)1350 (Anesthesia Volume Adjustment - Provider: NELIDA Jarquin CRNA) lactated ringers infusion 125 mL/hr, IntraVENous, Continuous, Starting on Ramila 08/15/22 at 1415, Recovery (only) 1415 (Canceled Entry - Provider: Automatic Discharge Provider - Comment: Automatically canceled at discontinue of medication order) PRN Medication Order 08/13/2022 08/14/2022 08/15/2022 diphenhydrAMINE (BENADryl) injection 12.5 mg 12.5 mg, IntraVENous, Once PRN, itching, Starting on Ramila 08/15/22 at 1402, For 1 dose, Recovery (only) fentaNYL (Sublimaze) injection 25 mcg 25 mcg, IntraVENous, Every 5 min PRN, moderate pain (4-6), Starting on Ramila 08/15/22 at 1402, For 3 doses, Recovery (only), Phase I and Phase II- Initial therapy for moderate pain (4-6). Restricted to a 90 minute time frame starting when the patient can verbally state their pain score. If after 2 doses the pain score does not decrease by more than one point, then call the provider. If oral meds are utilized, do not return to initial therapy medications. fentaNYL (Sublimaze) injection 50 mcg 50 mcg, IntraVENous, Every 5 min PRN, severe pain (7-10), Starting on Ramila 08/15/22 at 1402, For 3 doses, Recovery (only), Phase I and Phase II- Initial therapy for severe pain (7-10). Restricted to a 90 minute time frame starting when the patient can verbally state their pain score. If after 2 doses the pain score does not decrease by more than one point, then call the provider. If oral meds are utilized, do not return to initial therapy medications. hydrALAZINE (Apresoline) injection 5 mg(Linked Group 1) 5 mg, IntraVENous, Every 15 min PRN, high blood pressure, for SBP greater than 160 mmHg for 2 consecutive measurements taken from different sites, Starting on Ramila 08/15/22 at 1402, For 2 doses, Recovery (only), PRN for SBP > 160 for 2 consecutive measurements, and if one of the following conditions is met: 1) If IV labetolol is ineffective. 2) If HR is under 60. 3) If patient has heart block, COPD or asthma. If both labetalol and hydralazine ineffective, notify anesthesia provider. labetalol (Normodyne,Trandate) injection 5 mg(Linked Group 1) 5 mg, IntraVENous, Every 10 min PRN, high blood pressure, for SBP greater than 160 mmHg for 2 consecutive measurements taken from different sites., Starting on Ramila 08/15/22 at 1402, For 2 doses, Recovery (only), PRN for SBP >160 for 2 consecutive measurements, if HR is 60 or greater. If beta brielle is contraindicated (HR less than 60, heart block, COPD or asthma) use hydralazine IV order. lidocaine-EPINEPHrine (Xylocaine W/EPI) 1 %-1:221963 injection (CANCELED) As needed, Starting on Ramila 08/15/22 at 1328, Intraprocedure 1328 (Given - Provid er: Victorina Perry DO) LORazepam (Ativan) injection 0.5 mg 0.5 mg, IntraVENous, Once PRN, for anxiety or muscle spasm., Starting on Ramila 08/15/22 at 1402, For 1 dose, Recovery (only), For IV doses dilute dose with 1ml NS. ondansetron (Zofran) injection 4 mg 4 mg, IntraVENous, Once PRN, nausea, Starting on Ramila 08/15/22 at 1402, For 1 dose, Recovery (only), Initial antiemetic therapy. oxyCODONE (Roxicodone) immediate release tablet 10 mg(Linked Group 2) 10 mg, Oral, PRN, severe pain (7-10), Starting on Ramila 08/15/22 at 1402, For 1 dose, Recovery (only), PHASE II oxyCODONE (Roxicodone) immediate release tablet 5 mg(Linked Group 2) 5 mg, Oral, PRN, moderate pain (4-6), Starting on Ramila 08/15/22 at 1402, For 1 dose, Recovery (only), PHASE II sodium chloride 0.9 % bolus 500 mL 500 mL, IntraVENous, at 1,000 mL/hr, Administer over 0.5 Hours, PRN, Anti-nausea, Starting on Ramila 08/15/22 at 1402, Recovery (only), Indications: Anti-nausea sodium chloride 0.9 % infusion 5-250 mL/hr, IntraVENous, PRN, if patient receiving piggyback infusions and maintenance fluids are not ordered OR KVO fluids to protect IV site / prevent frequent line interruptions/ long duration, Starting on Ramila 08/15/22 at 0959, Preprocedure, For piggyback infusion, administer at same rate as piggyback for a total of 25 mL. Enter 25 mL into dose field and piggyback rate into rate field of order. If piggyback is infusing at a rate less than 100 mL/hr, enter 25 mL into dose field and 100 mL/hr into rate field of order. For KVO fluids, enter rate of 20 mL/hr or less into rate field of order. sodium chloride 0.9 % infusion 5-250 mL/hr, IntraVENous, PRN, if patient receiving piggyback infusions and maintenance fluids are not ordered OR KVO fluids to protect IV site / prevent frequent line interruptions / long duration, Starting on Ramila 08/15/22 at 0959, Preprocedure, For piggyback infusion, administer at same rate as piggyback for a total of 25 mL. Enter 25 mL into dose field and piggyback rate into rate field of order. If piggyback is infusing at a rate less than 100 mL/hr, enter 25 mL into dose field and 100 mL/hr into rate field of order. For KVO fluids, enter rate of 20 mL/hr or less into rate field of order. sodium chloride 0.9 % infusion 5-250 mL/hr, IntraVENous, PRN, if patient receiving piggyback infusions and maintenance fluids are not ordered OR KVO fluids to protect IV site / prevent frequent line interruptions/ long duration, Starting on Ramila 08/15/22 at 1402, Recovery (only), For piggyback infusion, administer at same rate as piggyback for a total of 25 mL. Enter 25 mL into dose field and piggyback rate into rate field of order. If piggyback is infusing at a rate less than 100 mL/hr, enter 25 mL into dose field and 100 mL/hr into rate field of order. For KVO fluids, enter rate of 20 mL/hr or less into rate field of order. sodium chloride 0.9 % irrigation solution (CANCELED) As needed, Starting on Ramila 08/15/22 at 1328, Intraprocedure 1328 (Given - Provid er: Victorina Perry DO) sodium chloride 0.9% (NS) flush 10 mL 10 mL, IntraVENous, PRN, line care, Starting on Ramila 08/15/22 at 0959, Preprocedure, After every IV line use sodium chloride 0.9% (NS) flush 10 mL 10 mL, IntraVENous, PRN, line care, Starting on Ramila 08/15/22 at 1402, Recovery (only), After every IV line use sodium chloride 0.9% (NS) flush 5-40 mL 5-40 mL, IntraVENous, PRN, line care, After every IV line use, Starting on Ramila 08/15/22 at 0959, Preprocedure, For Line Patency: Peripheral IV = 5 mL; Midline or Central Line = 10 mL/lumen. If following IV push medication, administer flush at same rate as the IV push. Flush volume is determined by type of infusion therapy being given. For non-viscous solutions use: Peripheral IV = 5 mL Midline or Central Line = 10 mL/lumen For viscous solutions (i.e. blood components, parenteral nutrition, contrast media, or after obtaining blood sample) use: Peripheral IV = 10 mL Midline or Central Line = 20 mL/lumen Linked Groups Order Group 1: labetalol (Normodyne,Trandate) injection 5 mgJump to med 5 mg, IntraVENous, Every 10 min PRN, high blood pressure, for SBP greater than 160 mmHg for 2 consecutive measurements taken from different sites., Starting on Ramila 08/15/22 at 1402, For 2 doses, Recovery (only)
PRN for SBP >160 for 2 consecutive measurements, if HR is 60 or greater. If beta brielle is contraindicated (HR less than 60, heart block, COPD or asthma) use hydralazine IV order.
Or hydrALAZINE (Apresoline) injection 5 mgJump to med 5 mg, IntraVENous, Every 15 min PRN, high blood pressure, for SBP greater than 160 mmHg for 2 consecutive measurements taken from different sites, Starting on Ramila 08/15/22 at 1402, For 2 doses, Recovery (only)
PRN for SBP > 160 for 2 consecutive measurements, and if one of the following conditions is met: 1) If IV labetolol is ineffective. 2) If HR is under 60. 3) If patient has heart block, COPD or asthma. If both labetalol and hydralazine ineffective, notify anesthesia provider.
Group 2: oxyCODONE (Roxicodone) immediate release tablet 5 mgJump to med 5 mg, Oral, PRN, moderate pain (4-6), Starting on Ramila 08/15/22 at 1402, For 1 dose, Recovery (only)
PHASE II
Or oxyCODONE (Roxicodone) immediate release tablet 10 mgJump to med 10 mg, Oral, PRN, severe pain (7-10), Starting on Ramila 08/15/22 at 1402, For 1 dose, Recovery (only)
PHASE II
FOR RECORDS PERTAINING TO PATIENTS WHO ARE OR HAVE BEEN ENROLLED IN A CHEMICAL DEPENDENCY/SUBSTANCEABUSE PROGRAM, SOME INFORMATION MAY BE OMITTED. This clinical summary was aggregated from multiple sources. Caution should be exercised in using it in the provision of clinical care. This summary normalizes information from multiple sources, and as a consequence, information in this document may materially change the coding, format and clinical context of patient data. In addition, data may be omitted in some cases. CLINICAL DECISIONS SHOULD BE BASED ON THE PRIMARY CLINICAL RECORDS. [employer] [facility]. provides no warranty or guarantee of the accuracy or completeness of information in this document.
[2025-04-25 07:42] LABS: Hematocrit 35.4 % (37-47); Hemoglobin 12.3 g/dL (12.0-15.0); Mean Corp Hgb Conc 34.7 g/dL (32-36); Mean Corpuscular Volume 97.0 fL (81-99); Mean Platelet Vol. 10.1 fl (6.2-12.0); Platelet Count 174 K/mm3 (150-450); RBC Distribution Width CV 13.3 % (11.6-14.6); RBC Distribution Width SD 45.7 fl (35.1-43.9); Red Blood Count 3.65 M/mm3 (4.2-5.4); White Blood Count 3.3 K/mm3 (4.4-11.0)
[2025-04-25 07:57] LABS: AST(SGOT) 25 U/L (<=31); Alanine Aminotransfer ALT/SGPT 13 U/L (<=34); Albumin, Serum 4.1 g/dL (3.4-4.8); Alkaline Phosphatase 89 U/L (35-104); Anion Gap 11 (5-15); BUN 32 mg/dL (4-19); BUN/Creat Ratio 28.7 RATIO (10-20); Calcium,Total 9.1 mg/dL (7.6-11.0); Carbon Dioxide 23.1 mmol/L (21.0-32.0); Chloride 104 mmol/L (98-108); Globulin 2.1 g/dL (2.2-4.2); Glucose 173 mg/dL (70-99); Potassium 4.2 mmol/L (3.3-5.1)
== END ==
LOC: OLS.ACH2 05:00
PROVIDERS: Visit Provider Internal Medicine
DX: I10 Essential (primary) hypertension (principal)
CPT/HCPCS: 36415; 80053; 85027